=== PATIENT | female | born 1955 | race Caucasian/White ===

== ENCOUNTER 2016-07-31 10:35 | Inpatient (IN) ==
[2016-07-31] MEDS ORDERED: Ondansetron 4 MG/2 ML VIAL IVP ONE (11:08)
[2016-07-31] MEDS ORDERED: *HR* Morphine 2 MG/ML SYRINGE IVP ONE (11:08)
[2016-07-31] MEDS ORDERED: 0.9 % Sodium Chloride 1,000 ML IVC ONE (11:08)
--- NOTE | 2016-07-31 11:10 | Emergency Department Note ---
Disposition Clinical Impression: Small bowel obstruction due to adhesions Disposition: Admitted As Inpatient Condition: Fair Referrals: Mulu Gongora DO [Primary Care Provider] - Forms: ED Satisfaction Letter Time of Disposition: 16:02 Nausea/Vomiting/Diarrhea HPI - General Chief complaint: ED Nausea/Vomiting/Diarrhea Stated complaint: N/V/D Time Seen by Provider: 07/31/16 10:55 Source: patient, EMS Limitations: no limitations Nursing Notes Reviewed: Yes Vital Signs Reviewed: Yes - History of Present Illness HPI Narrative: Patient emergency department complaining of vomiting. Onset 10 PM last night. States she has vomited about 10 times a day without blood. Normal bowel movement this morning. 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 - Related Data Home Medications Medication Instructions Recorded Confirmed BuPROPion SR (12 HR) [Wellbutrin 300 mg PO QAM 04/01/15 07/31/16 SR] l Gasseri/B Bifidum/B Longum 1 each PO DAILY 11/24/15 07/31/16 [[employer] Capsule] Alprazolam [Xanax 1 MG Tablet] 1 mg PO BID PRN 07/31/16 07/31/16 Escitalopram [Lexapro] 10 mg PO DAILY 07/31/16 07/31/16 Multivitamin [Multi-Day Vitamins] 1 each PO DAILY 07/31/16 07/31/16 Previous Rx's Medication Instructions Recorded Metoclopramide HCl 1 - 2 tab PO Q6H PRN #60 tablet 09/12/15 Diphenoxylate/Atropine [Lomotil 1 each PO QID PRN #90 tablet 11/10/15 2.5 mg/0.025 mg] Dicyclomine [Bentyl] 20 mg PO QID PRN #60 capsule 11/24/15 Allergies Allergy/AdvReac Type Severity Reaction Status Date / Time NSAIDS (Non-Steroidal AdvReac See Verified 01/17/16 03:24 Anti-Inflamma Comments All systems ED: reviewed and negative except as stated. Constitutional: Denies: fever, chills Cardiovascular: Denies: chest pain Respiratory: Reports: dyspnea Gastrointestinal: Reports: abdominal pain, nausea, vomiting. Denies: diarrhea Past Medical History - Past Medical History Attestation: Yes The following information was validated with the patient. Source: patient Medical history: Reports: cancer, kidney stones, migraine, renal disease Surgical history: Reports: hysterectomy Psychiatric history: Reports: anxiety - Social History Smoking Status: Never smoker Smokeless Tobacco Status: No Alcohol use: Reports: none Drug use: Reports: none Physical Exam Patient awake and alert. Laying in bed. Holding her upper abdomen. Epigastric tenderness without guarding. - General Limitations: no limitations General appearance: alert, in no apparent distress - Head Head exam: atraumatic, normocephalic - Eye Eye exam: Present: normal appearance, PERRL, EOMI - ENT ENT exam: normal exam, normal oropharynx - Neck Neck exam: Present: normal inspection - Respiratory Respiratory exam: Present: normal lung sounds bilaterally - Cardiovascular Cardiovascular exam: Present: regular rate, normal rhythm - Abdominal Exam Abdominal exam: Present: soft, tenderness (Moderate epigastric without guarding) - Neurological Exam Neurological exam: Present: alert, oriented X3, CN II-XII intact - Psychiatric Psychiatric exam: Present: normal affect - Skin Skin exam: Present: warm, dry, intact Course - Reevaluation(s) Reevaluation #1: Patient feeling better at this time. Nausea and vomiting have resolved. Still with a lot of upper abdominal tenderness on exam. We will check CT. Time: 12:09 - Consultations Consultation #1: DIscussed with Dr Alvarez. Will see in consult. Time: 15:33 Consultation #2: Dr De Leon accepts Time: 16:01 Vital Signs Temperature 99.5 F 07/31/16 10:36 Pulse Rate 91 07/31/16 10:36 Respiratory Rate 16 07/31/16 10:36 Blood Pressure 158/97 07/31/16 10:36 O2 Sat by Pulse Oximetry 99 07/31/16 10:36 Temperature 99.5 F 07/31/16 10:36 Pulse Rate 98 07/31/16 15:39 Respiratory Rate 16 07/31/16 15:39 Blood Pressure 145/92 07/31/16 15:39 O2 Sat by Pulse Oximetry 95 07/31/16 15:39 Oxygen Delivery Oxygen Delivery Room Air Nausea/Vomiting/Diarrhea - MDM Narrative Medical decision making narrative: Patient was small bowel obstruction. Patient was still nauseated and vomiting. Also with hiccups. NG tube was placed by nursing. Admitted to medicine with surgical consult. - Lab Data Result diagrams: 07/31/16 12:48 07/31/16 12:48 Lab Results 07/31/16 07/31/16 07/31/16 Range/Units 12:48 12:48 12:48 WBC 12.5 H (4.3-11.1) K/mcL RBC 4.77 (3.82-4.97) M/mcL Hgb 13.8 (11.5-15.4) g/dL Hct 43.0 (35.3-44.9) % MCV 90.1 (83.0-100.0) fL MCH 28.9 (28.0-33.3) pg MCHC 32.1 (31.6-35.5) g/dL RDW 14.3 (11.5-14.5) % Plt Count 266 (140-400) K/mcL MPV 10.7 (9.4-12.4) fL Immature Gran % 0.6 (0-4) % Seg Neutrophils % 90.3 % Lymphocytes % 4.6 % Monocytes % 4.3 % Eosinophils % 0.0 % Basophils % 0.2 % Neutrophils # 11.3 H (1.6-8.9) K/mcL Lymphocytes # 0.6 (0.6-4.6) K/mcL Monocytes # 0.5 (0.0-1.3) K/mcL Eosinophils # 0.0 (0.0-0.6) K/mcL Basophils # 0.0 (0.0-0.2) K/mcL Sodium 140 (136-145) mEq/L Potassium 4.4 (3.5-4.5) mEq/L Chloride 104 (98-109) mEq/L Carbon Dioxide 25 (19-29) mEq/L BUN 25 H (7-20) mg/dL Creatinine 1.32 H (0.57-1.11) mg/dL Est GFR ( Amer) 50 L (> 60) Est GFR (Non-Af Amer) 41 L (> 60) BUN/Creatinine Ratio 19 (6-26) Glucose 137 H (70-99) mg/dL Calculated Osmolality 297 (280-300) Calcium 9.7 (8.6-10.8) mg/dL Total Bilirubin 0.6 (0.2-1.2) mg/dL AST 57 H (5-34) Units/L ALT 58 H (0-55) Units/L Alkaline Phosphatase 125 (38-126) Units/L Troponin I 0.00 (0-0.03) ng/mL Serum Total Protein 7.5 (6.0-8.3) g/dL Albumin 4.0 (3.5-5.0) g/dL Globulin 3.5 (2.4-3.5) g/dL Albumin/Globulin Ratio 1.1 (1.1-2.2) Lipase 28 (8-78) Units/L - Radiology Data Radiology results reviewed: Yes I reviewed the patient's radiology results. Abdomen/Pelvis CT 07/31/16 12:10 IMPRESSION: 1. Acute small bowel obstruction with transition point in the right lower quadrant. The small bowel loops measure up to 3 cm. No pneumatosis. Findings are likely due to adhesions. 2. Bilateral punctate nonobstructive renal calculi. 3. Fatty liver. 4. Diverticulosis. D/ / 07/31/2016 15:07:02 Sariah Hutson MD / aliciartnael Interpreting Provider: Sariah Hutson MD - EKG Data EKG attestation: Yes I reviewed and interpreted this EKG. EKG results narrative: Anteroseptal ST depressions. Normal sinus at 77. t wave inversion III. Left axis deviation Critical Care Time Critical Care Time: Yes Total Critical Care Time: 35 Attestation: Critical care performed: Time is exclusive of separately billable procedures. Time includes: direct patient care, patient reassessment, coordination of patient care, interpretation of data (laboratory data, radiology data, and respiratory data), review of patient's medical records, medical consultation and documentation of patient care. Procedures included in critical care time: Procedures excluded from critical care time:
[2016-07-31 13:02] LABS: Basophils % 0.2 %; Hemoglobin 13.8 g/dL (11.5-15.4); Immature Granulocytes % 0.6 % (0-4); Lymphocytes # 0.6 K/mcL (0.6-4.6); Lymphocytes % 4.6 %; Mean Corpuscular HGB Conc 32.1 g/dL (31.6-35.5); Mean Corpuscular Hemoglobin 28.9 pg (28.0-33.3); Mean Corpuscular Volume 90.1 fL (83.0-100.0); Mean Platelet Volume 10.7 fL (9.4-12.4); Monocytes # 0.5 K/mcL (0.0-1.3); Monocytes % 4.3 %; Neutrophils # 11.3 K/mcL (1.6-8.9); Platelet Count 266 K/mcL (140-400); Red Blood Count 4.77 M/mcL (3.82-4.97); Red Cell Distribution Width 14.3 % (11.5-14.5); Segmented Neutrophils % 90.3 %
[2016-07-31] MEDS ORDERED: Ondansetron 4 MG/2 ML VIAL IV ONE (13:03)
[2016-07-31 13:10] LABS: Albumin/Globulin Ratio 1.1 (1.1-2.2); Bilirubin,Total 0.6 mg/dL (0.2-1.2); Calcium 9.7 mg/dL (8.6-10.8); Globulin 3.5 g/dL (2.4-3.5); Potassium 4.4 mEq/L (3.5-4.5); Total Protein 7.5 g/dL (6.0-8.3)
[2016-07-31] MEDS ORDERED: Dicyclomine 20 MG/2 ML AMPUL IM ONE (13:59)
[2016-07-31] MEDS: *HR* Promethazine 25 MG/ML VIAL IVP ONE ×2 (14:14→18:43)
[2016-07-31] MEDS ORDERED: *HR* Midazolam HCl 2 MG/2 ML VIAL IVP ONE (15:07)
[2016-07-31] MEDS ORDERED: *HR* HYDROcodone/Acet 5/325 mg TABLET PO ONE (15:07)
[2016-07-31] MEDS ORDERED: *HR* HYDROmorphone (PF) 1 MG/ML SYRINGE IV ONE ×2 (15:12→16:37)
[2016-07-31 16:34] LABS: INR 1.1; Prothrombin Time 11.6 Seconds (9.4-12.1)
[2016-07-31] MEDS ORDERED: *HR* HYDROmorphone (PF) 1 MG/ML SYRINGE ONE (16:41)
[2016-07-31 16:42] LABS: Activated Partial Thrombo Time 20.2 Seconds (26.0-36.0)
[2016-07-31] MEDS ORDERED: Ondansetron 4 MG/2 ML VIAL IVP PRN (16:44)
[2016-07-31] MEDS ORDERED: Naloxone 0.4 MG/ML INJ IVP PRN (16:44)
[2016-07-31] MEDS ORDERED: *HR* Morphine 2 MG/ML SYRINGE IVP PRN (16:49)
[2016-07-31] MEDS ORDERED: *HR* HYDROmorphone (PF) 1 MG/ML SYRINGE IVP PRN (16:49)
--- NOTE | 2016-07-31 16:57 | Internal Med History&Physical ---
Date of Encounter: 07/31/16 Time of Encounter: 16:30 Assessment and Plan (1) Small bowel obstruction due to adhesions Current visit: Yes Status: Acute Likely secondary to adhesions from radiation CT abd/pelvis: Acute small bowel obstruction with transition point in the right lower quadrant. No penumatosis Surgery eval requested by ER physician continue NGT support, hooked to suction NPO except ice chips (for bowel rest) aggressive pain control IV fluids (2) Leukocytosis Current visit: Yes Status: Acute Likely reactive will monitor off abx at this time Qualifiers: Leukocytosis type: unspecified Qualified Code(s): D72.829 - Elevated white blood cell count, unspecified (3) Anxiety Current visit: Yes Status: Chronic Patient reports of taking Xanax twice a day as needed but mainly at bedtime to help her sleep. Will start Ativan IV prn while she is NPO for bowel rest (4) CKD (chronic kidney disease) Current visit: Yes Status: Chronic Kidney function at baseline avoid nephrotoxic agents continue IV fluids monitor renal function Qualifiers: Chronic kidney disease stage: stage 3 (moderate) Qualified Code(s): N18.3 - Chronic kidney disease, stage 3 (moderate) (5) DVT prophylaxis Current visit: Yes Status: Acute Heparin SQ (6) Vaginal cancer Current visit: Yes Status: Chronic Currently in remission s/p radiation and chemotherapy Internal Medicine - H&P: HPI Chief complaint: abdominal pain, nausea, vomiting Admitted From: Home Plans for Post Hospital Care: Home History of present illness: Ms. 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 Patient states she has had similar episodes in the past secondary to her proctitis but never lasted this long due to which she came to the ER. She reports of having two loose bowel movements earlier today and states that is normal for her. In the ER, she had a CT abd/pelvis which showed acute small bowel obstruction with transition point in the right lower quadrant. Surgery consultation was requested by the ER Physician. A NGT was placed. During my evaluation, patient has a NGT in place hooked to suction, draining dark, bilious fluid. She has received Dilaudid and morphine for pain control and Zofran and promethazine for nausea. She reports of feeling better and states the pain medications help however the effects do not last for very long. She is also noted to have left chest wall chemotherapy port, and states this was initially placed in 2011 when she started receiving chemotherapy. She did not want to get it removed because she was worried if she needed any treatments in the future. She denies any headache, shortness of breath, chest pain, fever , or chills. Past Med Surg Social Fam HX - Past Medical History Medical history: cancer, kidney stones, migraine, renal disease Psychiatric history: anxiety - Past Surgical History Surgical History: hysterectomy - Social History Smoking Status: Never smoker Smokeless Tobacco Status: No Alcohol use: none Drug use: none Internal Medicine - H&P: Meds BuPROPion SR (12 HR) [Wellbutrin SR] 300 mg PO QAM 04/01/15 [History] Metoclopramide HCl 1 - 2 tab PO Q6H PRN #60 tablet 09/12/15 [Rx] Diphenoxylate/Atropine [Lomotil 2.5 mg/0.025 mg] 1 each PO QID PRN #90 tablet [Rx] Dicyclomine [Bentyl] 20 mg PO QID PRN #60 capsule 11/24/15 [Rx] l Gasseri/B Bifidum/B Longum [[employer] Capsule] 1 each PO DAILY [History] Alprazolam [Xanax 1 MG Tablet] 1 mg PO BID PRN 07/31/16 [History] Escitalopram [Lexapro] 10 mg PO DAILY 07/31/16 [History] Multivitamin [Multi-Day Vitamins] 1 each PO DAILY 07/31/16 [History] Allergies NSAIDS (Non-Steroidal Anti-Inflamma Adverse Reaction (Verified 01/17/16 03:24) See Comments All Systems PM: A 10-system review of systems was performed and is negative for pertinent findings except as documented above in the HPI. - Constitutional Constitutional: as per HPI - Constitutional Vitals: Temp Pulse Resp BP Pulse Ox 99.5 F 98 16 143/86 95 07/31/16 10:36 07/31/16 15:39 07/31/16 16:45 07/31/16 16:45 02/07/17 15:39 General appearance: Present: A&O X 3 (NGT in place hooked to suction), pleasant , no acute distress, obese, answers questions appropriately - Head Head exam: Present: atraumatic, normocephalic - Eye Eye exam: Present: conjuntiva pink, sclera anicteric - Respiratory Respiratory exam: Present: CTAB. Absent: respiratory distress, wheezes (left chest wall chemoport) - Cardiovascular Cardiovascular exam: Present: RRR, +S1, +S2 - GI/Abdominal GI/Abdominal exam: Present: normal bowel sounds, soft, tenderness (diffuse tenderness). Absent: distended, guarding, rebound - Extremities Exam Extremities exam: Present: warm, radial pulses palpable and symetrical. Absent : pedal edema - Neurological Exam Neurological exam: Present: alert, oriented X3, no focal deficits - Psychiatric Psychiatric exam: Present: normal affect, normal mood Internal Med - H&P Results - Labs CBC & Chem 7: 07/31/16 12:48 07/31/16 12:48
--- NOTE | 2016-07-31 17:21 | General Surgery Consult Note ---
<AntonioDashawn M - Last Filed: 07/31/16 20:38> Date of Encounter: 07/31/16 Medications and Allergies BuPROPion SR (12 HR) [Wellbutrin SR] 300 mg PO QAM 04/01/15 [History] Metoclopramide HCl 1 - 2 tab PO Q6H PRN #60 tablet 09/12/15 [Rx] Diphenoxylate/Atropine [Lomotil 2.5 mg/0.025 mg] 1 each PO QID PRN #90 tablet [Rx] Dicyclomine [Bentyl] 20 mg PO QID PRN #60 capsule 11/24/15 [Rx] l [employer]/B Bifidum/B Longum [[employer] Capsule] 1 each PO DAILY [History] Alprazolam [Xanax 1 MG Tablet] 1 mg PO BID PRN 07/31/16 [History] Escitalopram [Lexapro] 10 mg PO DAILY 07/31/16 [History] Multivitamin [Multi-Day Vitamins] 1 each PO DAILY 07/31/16 [History] Allergies NSAIDS (Non-Steroidal Anti-Inflamma Adverse Reaction (Verified 01/17/16 03:24) See Comments Review of Systems All systems PM: A 10-system review of systems was performed and is negative for pertinent findings except as documented above in the HPI. General Surgery Exam Initial Vital Signs Temp Pulse Resp BP Pulse Ox 99.5 F 91 16 158/97 99 07/31/16 10:36 07/31/16 10:36 07/31/16 10:36 07/31/16 10:36 07/31/16 10:36 Exam Initial Vital Signs Temp Pulse Resp BP Pulse Ox 99.5 F 91 16 158/97 99 07/31/16 10:36 07/31/16 10:36 07/31/16 10:36 07/31/16 10:36 07/31/16 10:36 Results - Labs 07/31/16 12:48 07/31/16 12:48 Abnormal lab results WBC 12.5 K/mcL (4.3-11.1) H 07/31/16 12:48 Neutrophils # 11.3 K/mcL (1.6-8.9) H 07/31/16 12:48 APTT 20.2 Seconds (26.0-36.0) L 07/31/16 16:20 BUN 25 mg/dL (7-20) H 07/31/16 12:48 Creatinine 1.32 mg/dL (0.57-1.11) H 07/31/16 12:48 Est GFR ( Amer) 50 (> 60) L 07/31/16 12:48 Est GFR (Non-Af Amer) 41 (> 60) L 07/31/16 12:48 Glucose 137 mg/dL (70-99) H 07/31/16 12:48 POC Glucose 146 (58-89) H 07/31/16 17:30 AST 57 Units/L (5-34) H 07/31/16 12:48 ALT 58 Units/L (0-55) H 07/31/16 12:48 All other labs normal. Consult Discharge Plan - Plan Referrals: Mulu Gongora, DO [Primary Care Provider] - - Attending Attestation I examined this patient and my medical decision-making was reviewed with the CAREER DEVELOPMENT ENGINEER/PA/Advanced Practice Nurse/Resident Physician. I agree with the documented findings, disposition and treatment plan as described except to the extent set forth below. I reviewed the assessment and physical examination. Noted symptoms of abdominal pain and nausea. I personally reviewed the CT scan findings-it appears that her symptoms are likely due to PSBO caused either from radiation for vaginal carcinoma, adhesions, or both. I agree with NGT decompression, pain control, and serial abdominal exams. Will follow with you. <Hansel Vyas - Last Filed: 08/01/16 11:43> Date of Encounter: 08/01/16 Time of Encounter: 16:30 Assessment and Plan (1) Small bowel obstruction due to adhesions Current Visit: Yes Status: Acute Small bowel obstruction likely secondary to adhesions vs radiation. NG to LIWS NPO with ice chips IV fluids @125ml/hr Serial abdominal exams Continue anti-emetics supportive care/ pain control (2) Leukocytosis Current Visit: Yes Status: Acute Likely reactive. repeat labs in AM. Qualifiers: Leukocytosis type: unspecified Qualified Code(s): D72.829 - Elevated white blood cell count, unspecified (3) Anxiety Current Visit: Yes Status: Chronic Management per medicine service. (4) CKD (chronic kidney disease) Current Visit: Yes Status: Chronic Management per medicine service. Qualifiers: Chronic kidney disease stage: stage 3 (moderate) Qualified Code(s): N18.3 - Chronic kidney disease, stage 3 (moderate) (5) History of cancer of vagina Current Visit: Yes Status: Chronic Diagnosed in 2011, s/p chemo/radiation. Currently in remission. (6) DVT prophylaxis Current Visit: Yes Status: Acute Heparin 5,000units Q12H History of Present Illness Consult date: 07/31/16 Reason for consult: abdominal pain Requesting physician: Amena Whittington History of present illness: Ms. Jasmine is a 60 year old female with PMHx of vaginal cancer s/p chemotherapy, radiation- currently in remission with associated radiation proctitis and anemia; further history of CKD, migraines, and nephrolithiasis. Patient present to the ED for diffuse abdominal with associated nausea and vomiting beginning approx 10pm last night. She states the pain is constant and located in the lower abdomen, more localized to the suprapubic and LLQ. Patient states that this is different from previous episodes of proctitis. Last BM noted to be the AM, but denies any flatus throughout the day. She denies any fever, chills, hematemesis, dizziness, headache. Only notes shortness of breath when pain is worse. She denies any bloody stools today, but does note history of dark stools at times. Patient has port that was originally placed in 2011 for chemotherapy, patient states the port was left in placed for as she has needed frequent access with secondary anemia. Patient currently states pain is better with NG tube and administration of antiemetics and pain control. Patient states last colonscopy approx 2 years ago. Past Med Surg Social Fam HX - Past Medical History Source: patient Medical history: cancer, kidney stones, migraine, renal disease Psychiatric history: anxiety - Past Surgical History Surgical History: hysterectomy - Social History Smoking Status: Never smoker Smokeless Tobacco Status: No Alcohol use: none Drug use: none Review of Systems All systems PM: A 10-system review of systems was performed and is negative for pertinent findings except as documented above in the HPI. - Constitutional no chills, no fever(s) - EENT Nose, mouth and throat: no dizziness, no dysphagia - Cardiovascular no chest pain, no palpitations - Respiratory dyspnea (secondary to pain) - Gastrointestinal abdominal pain, cramping, nausea, vomiting, no hematemesis, no hematochezia - Genitourinary Genitourinary: no dysuria, no flank pain - Musculoskeletal no muscle weakness - Neurological no confusion, no focal weakness - Psychiatric no anxiety - Endocrine no flushing, no palpitations General Surgery Exam Initial Vital Signs Temp Pulse Resp BP Pulse Ox 99.5 F 91 16 158/97 99 07/31/16 10:36 07/31/16 10:36 07/31/16 10:36 07/31/16 10:36 07/31/16 10:36 - General physical appearance well developed, well nourished, no distress - Eyes normal ocular movement - ENT normal mucosa, atraumatic, normocephalic - Neck trachea midline - Respiratory normal respiratory effort, clear to auscultation - Cardiovascular Cardiovascular exam: Present: RRR - Abdomen Abdomen general surgery: Present: bowel sounds present, soft, tender (difusely tender, worst in LLQ and suprapubic) - Integumentary Integumentary general surgery: Present: warm and dry - Neurologic Present: CN 2-12 grossly intact - Psychiatric Psychiatric general surgery: Present: A&Ox3, speech is normal, memory intact Exam Initial Vital Signs Temp Pulse Resp BP Pulse Ox 99.5 F 91 16 158/97 99 07/31/16 10:36 07/31/16 10:36 07/31/16 10:36 07/31/16 10:36 07/31/16 10:36 Results - Labs 08/01/16 04:20 08/01/16 04:20 Abnormal lab results WBC 12.5 K/mcL (4.3-11.1) H 07/31/16 12:48 Neutrophils # 11.3 K/mcL (1.6-8.9) H 07/31/16 12:48 APTT 20.2 Seconds (26.0-36.0) L 07/31/16 16:20 BUN 25 mg/dL (7-20) H 07/31/16 12:48 Creatinine 1.32 mg/dL (0.57-1.11) H 07/31/16 12:48 Est GFR ( Amer) 50 (> 60) L 07/31/16 12:48 Est GFR (Non-Af Amer) 41 (> 60) L 07/31/16 12:48 Glucose 137 mg/dL (70-99) H 07/31/16 12:48 AST 57 Units/L (5-34) H 07/31/16 12:48 ALT 58 Units/L (0-55) H 07/31/16 12:48 All other labs normal.
[2016-07-31] MEDS ORDERED: *HR* Promethazine 25 MG/ML VIAL IM ONE (18:14)
[2016-07-31] MEDS: 0.9 % Sodium Chloride 1,000 ML IVC SCH (18:51)
--- NOTE | 2016-07-31 19:51 | Electrocardiograph Report ---
[facility] Date: 2016-07-31 Pat Name: Ros Jasmine Department: 103 Room: 3A37 Gender: F Tenoner Operator: : [id number] Requested By: Amena See Order Number: [id number] Reading MD: Bakari Mae DO Measurements Intervals [place] Rate: 77 P: 39 PA: 132 QRS: -33 QRSD: 81 T: 14 QT: 391 QTc: 423 Interpretive Statements SINUS RHYTHM MARKED LEFT AXIS DEVIATION MODERATE ST DEPRESSION Electronically Signed On 07-31-2016 19:49:34 EST by Bakari Mae DO
[2016-07-31] MEDS: *HR* Heparin 5,000 UNIT/ML VIAL SQ SCH (21:39)
[2016-08-01] MEDS ORDERED: *HR* Promethazine 25 MG/ML VIAL IVP PRN (00:01)
[2016-08-01 05:00] LABS: Hematocrit 38.4 % (35.3-44.9); Mean Corpuscular HGB Conc 31.8 g/dL (31.6-35.5); Mean Corpuscular Hemoglobin 28.8 pg (28.0-33.3); Mean Corpuscular Volume 90.6 fL (83.0-100.0); Mean Platelet Volume 10.8 fL (9.4-12.4); Platelet Count 231 K/mcL (140-400); Red Blood Count 4.24 M/mcL (3.82-4.97); Red Cell Distribution Width 14.6 % (11.5-14.5)
[2016-08-01 05:12] LABS: Magnesium 2.2 mg/dL (1.6-2.6); Phosphorous 4.3 mg/dL (2.3-4.7); Potassium 3.9 mEq/L (3.5-4.5)
[2016-08-01 05:14] LABS: Calcium 8.1 mg/dL (8.6-10.8)
[2016-08-01 05:27] LABS: Hemoglobin 12.2 g/dL (11.5-15.4)
[2016-08-01] MEDS: *HR* Heparin 5,000 UNIT/ML VIAL SQ SCH ×2 (06:20→17:31)
[2016-08-01 06:24] LABS: Monocytes # 0.8 K/mcL (0.0-1.3); Neutrophils # 3.9 K/mcL (1.6-8.9); Platelet Estimate Normal (Normal)
[2016-08-01] MEDS: 0.9 % Sodium Chloride 1,000 ML IVC SCH ×2 (08:47→17:31)
[2016-08-01] MEDS ORDERED: Water for inj. (sterile) 10 ML IV ONE (10:46)
[2016-08-01] MEDS: *HR* LORazepam 2 MG/ML VIAL IVP PRN (10:49)
[2016-08-01] MEDS ORDERED: *HR* HYDROmorphone (PF) 1 MG/ML SYRINGE IVP PRN (11:41)
--- NOTE | 2016-08-01 11:51 | Internal Med Progress Note ---
Date of Encounter: 08/01/16 Time of Encounter: 11:49 - Assessment and plan (1) Small bowel obstruction due to adhesions Current Visit: Yes Status: Acute Assessment and plan: secondary to adhesions from radiation CT abd/pelvis: Acute small bowel obstruction with transition point in the right lower quadrant. No penumatosis Surgery eval appreciated continue NGT support, hooked to suction NPO except ice chips (for bowel rest) aggressive pain control IV fluids (2) Leukocytosis Current Visit: Yes Status: Acute Assessment and plan: Improving Qualifiers: Leukocytosis type: unspecified Qualified Code(s): D72.829 - Elevated white blood cell count, unspecified (3) Anxiety Current Visit: Yes Status: Chronic Assessment and plan: Ativan IV prn while she is NPO for bowel rest (4) CKD (chronic kidney disease) Current Visit: Yes Status: Chronic Assessment and plan: appears to be at baseline but kidney function improved from previous day will continue to monitor Qualifiers: Chronic kidney disease stage: stage 3 (moderate) Qualified Code(s): N18.3 - Chronic kidney disease, stage 3 (moderate) (5) DVT prophylaxis Current Visit: Yes Status: Acute Assessment and plan: heparin sq (6) Vaginal cancer Current Visit: Yes Status: Chronic Assessment and plan: Currently in remission s/p radiation and chemotherapy - Subjective Interval history: Patient seen and examined at bedside. NGT continues to drain billous fluid, NGT output decreasing. Pt reports of feeling better and requiring less pain medications compared to previous day. No overnight events were reported. - Constitutional Vitals: Temp Pulse Resp BP Pulse Ox 98.6 F 79 14 128/79 95 08/01/16 10:39 08/01/16 10:39 08/01/16 10:39 08/01/16 10:39 08/01/16 10:39 General appearance: Present: A&O X 3 (NGT in place hooked to suction), pleasant , no acute distress, obese, answers questions appropriately - Head Head exam: Present: atraumatic, normocephalic - Eye Eye exam: Present: normal appearance, conjuntiva pink, sclera anicteric - Respiratory Respiratory exam: Present: CTAB. Absent: respiratory distress, wheezes - Cardiovascular Cardiovascular exam: Present: RRR, +S1, +S2 - GI/Abdominal GI/Abdominal exam: Present: normal bowel sounds, soft, no peritoneal signs. Absent: distended, guarding, tenderness - Extremities Exam Extremities exam: Present: pedal edema, warm, radial pulses palpable and symetrical. Absent: calf tenderness, tenderness - Neurological Exam Neurological exam: Present: alert, oriented X3 - Psychiatric Psychiatric exam: Present: normal affect, normal mood Internal Medicine: Result - Labs CBC & Chem 7: 08/01/16 04:20 08/01/16 04:20 Labs: Short CBC 08/01/16 Range/Units 04:20 WBC 5.7 D (4.3-11.1) K/mcL Hgb 12.2 D (11.5-15.4) g/dL Hct 38.4 (35.3-44.9) % Plt Count 231 (140-400) K/mcL Neutrophils # 3.9 (1.6-8.9) K/mcL BMP 08/01/16 04:20 Sodium 142 Potassium 3.9 Chloride 108 Carbon Dioxide 27 BUN 35 H D Creatinine 1.21 H Glucose 144 H Calcium 8.1 L D - ABG Interpretation ABG results: PT/INR, D-dimer PT 11.6 Seconds (9.4-12.1) 07/31/16 16:20 Consult Discharge Plan - Plan Referrals: Mulu Gongora DO [Primary Care Provider] -
--- NOTE | 2016-08-01 13:04 | General Surgery Progress Note ---
Date of Encounter: 08/01/16 Time of Encounter: 13:02 - Assessment and Plan (1) Small bowel obstruction due to adhesions Current Visit: Yes Status: Acute It appears that the patient's symptoms may be resolving. I would recommend continued NGT decompression today with continued IVF hydration. Ice chips ok. Continue serial abdominal exams. If NGT output continues to be low then will consider clamping or further diet advancement. Subjective Patient reports: feels better (Admits to flatus. No nausea. NGT functionig. BM yesterday evening.) Objective Vital Signs - Last 8 Hours Temp Pulse Resp BP Pulse Ox 08/01/16 10:39 98.6 F 79 14 128/79 95 08/01/16 07:00 98.1 F 74 16 101/67 96 Intake and Output 07/31/16 08/01/16 08/01/16 23:59 07:59 15:59 Intake Total 0 / 0 0 / 0 1000 / 1000 Output Total 0 / 0 800 / 800 Balance 0 / 0 0 / 0 200 / 200 Intake: IV Fluids 1000 / 1000 0.9 % Sodium Chloride 1, 1000 / 1000 000 ML @ 125 mls/hr IVC . Q8H [facility] Rx#:[id number] Oral 0 / 0 0 / 0 Output: Urine 0 / 0 200 / 200 Gastric Drainage 600 / 600 Other: Meal NPO NPO Percent of Meal Consumed 0% Stool Size Large Stool Consistency loose Stool Color Brown # Voids 1 # Bowel Movements 1 Blood Glucose* 146 117 94 - General physical appearance well nourished, no distress - Abdomen Abdomen: Present: bowel sounds present, soft, non tender - Labs 08/01/16 04:20 08/01/16 04:20 Diabetes panel 08/01/16 Range/Units 04:20 Sodium 142 (136-145) mEq/L Potassium 3.9 (3.5-4.5) mEq/L Chloride 108 (98-109) mEq/L Carbon Dioxide 27 (19-29) mEq/L BUN 35 H D (7-20) mg/dL Creatinine 1.21 H (0.57-1.11) mg/dL Glucose 144 H (70-99) mg/dL Calcium 8.1 L D (8.6-10.8) mg/dL Calcium panel 08/01/16 Range/Units 04:20 Calcium 8.1 L D (8.6-10.8) mg/dL Phosphorus 4.3 (2.3-4.7) mg/dL Pituitary panel 08/01/16 Range/Units 04:20 Sodium 142 (136-145) mEq/L Potassium 3.9 (3.5-4.5) mEq/L Chloride 108 (98-109) mEq/L Carbon Dioxide 27 (19-29) mEq/L BUN 35 H D (7-20) mg/dL Creatinine 1.21 H (0.57-1.11) mg/dL Glucose 144 H (70-99) mg/dL Calcium 8.1 L D (8.6-10.8) mg/dL Adrenal panel 08/01/16 Range/Units 04:20 Sodium 142 (136-145) mEq/L Potassium 3.9 (3.5-4.5) mEq/L Chloride 108 (98-109) mEq/L Carbon Dioxide 27 (19-29) mEq/L BUN 35 H D (7-20) mg/dL Creatinine 1.21 H (0.57-1.11) mg/dL Glucose 144 H (70-99) mg/dL Calcium 8.1 L D (8.6-10.8) mg/dL Consult Discharge Plan - Plan Referrals: Mulu Gongora DO [Primary Care Provider] -
[2016-08-01 18:03] LABS: Bilirubin,Urine Small (Negative); Blood,Urine Small (Negative); Clarity,Urine Clear (Clear); Color,Urine Dark Yellow (Yellow); Glucose,Urine (UA) Normal (Normal); Ketones,Urine 15 mg/dL (Negative); Leukocyte Esterase,Urine Negative (Negative); Nitrite,Urine Negative (Negative); PH,Urine 5.5 pH Units (5.0-8.0); Protein,Urine 30 mg/dL (Neg-Trace); Specific Gravity,Urine > 1.030 (1.010-1.025); Urobilinogen,Urine Normal (Normal)
[2016-08-01 18:06] LABS: Bacteria,Urine None Seen per hpf (None-Few); Hyaline Casts,Urine None Seen per lpf (None-Few); Squamous Epithelial Cell,Urine Many per lpf (None-Few)
[2016-08-01] MEDS ORDERED: *HR* LORazepam 0.5 MG TABLET PO ONE (23:58)
[2016-08-02] MEDS: *HR* LORazepam 2 MG/ML VIAL IVP PRN ×3 (00:28→21:37)
[2016-08-02] MEDS ORDERED: *HR* LORazepam 2 MG/ML VIAL IVP ONE (00:52)
[2016-08-02] MEDS: 0.9 % Sodium Chloride 1,000 ML IVC SCH ×2 (01:58→21:39)
--- NOTE | 2016-08-02 03:18 | Event Note ---
Date of Encounter: 08/02/16 Time of Encounter: 03:16 RN reported that the patient had episode of hematuria with clots. Patient apparently had episodes of hematuria in the past and follows with urologist, but noticed a lot of blood. Plan: D/C heparin; check coags (normal on 07/31/16); check CBC; Type and screen. Urine culture is pending. Day team to f/u
[2016-08-02 04:28] LABS: Basophils % 0.6 %; Eosinophils % 0.2 %; Hematocrit 36.4 % (35.3-44.9); Hemoglobin 11.3 g/dL (11.5-15.4); Immature Granulocytes % 0.6 % (0-4); Lymphocytes # 0.7 K/mcL (0.6-4.6); Lymphocytes % 13.3 %; Mean Corpuscular Hemoglobin 28.5 pg (28.0-33.3); Mean Corpuscular Volume 91.9 fL (83.0-100.0); Mean Platelet Volume 10.6 fL (9.4-12.4); Monocytes # 0.6 K/mcL (0.0-1.3); Monocytes % 12.1 %; Neutrophils # 3.8 K/mcL (1.6-8.9); Platelet Count 194 K/mcL (140-400); Red Blood Count 3.96 M/mcL (3.82-4.97); Red Cell Distribution Width 14.4 % (11.5-14.5); Segmented Neutrophils % 73.2 %
[2016-08-02 04:38] LABS: Activated Partial Thrombo Time 23.8 Seconds (26.0-36.0)
[2016-08-02 04:48] LABS: BUN/Creatinine Ratio 31 (6-26); Blood Urea Nitrogen 32 mg/dL (7-20); Calcium 8.4 mg/dL (8.6-10.8); Carbon Dioxide 23 mEq/L (19-29); Chloride 112 mEq/L (98-109); Glucose 99 mg/dL (70-99); Magnesium 1.9 mg/dL (1.6-2.6); Osmolality,Calculated 309 (280-300); Phosphorous 2.4 mg/dL (2.3-4.7); Potassium 3.3 mEq/L (3.5-4.5); Sodium 146 mEq/L (136-145); eGFR For African Americans > 60 (> 60); eGFR For Non-African Americans 55 (> 60)
[2016-08-02 06:37] LABS: INR 1.2; Prothrombin Time 12.9 Seconds (9.4-12.1)
[2016-08-02] MEDS ORDERED: Potassium Chloride 20 MEQ, Lidocaine 1% 2 ML in D5% in Water 250 ML IVPB ONE (08:09)
[2016-08-02] MEDS ORDERED: *HR* LORazepam 2 MG/ML VIAL IVP PRN (10:48)
--- NOTE | 2016-08-02 10:54 | Internal Med Progress Note ---
Date of Encounter: 08/02/16 Time of Encounter: 10:53 - Assessment and plan (1) Small bowel obstruction due to adhesions Current Visit: Yes Status: Acute Assessment and plan: secondary to adhesions from radiation CT abd/pelvis: Acute small bowel obstruction with transition point in the right lower quadrant. No penumatosis Surgery eval appreciated continue NGT support, hooked to suction Clamped NGT at this time as per surgery advance to clears, if nausea recurs, will restart NGT support aggressive pain control IV fluids (2) Leukocytosis Current Visit: Yes Status: Resolved Qualifiers: Leukocytosis type: unspecified Qualified Code(s): D72.829 - Elevated white blood cell count, unspecified (3) Anxiety Current Visit: Yes Status: Chronic Assessment and plan: Ativan IV prn while she is NPO for bowel rest (4) CKD (chronic kidney disease) Current Visit: Yes Status: Chronic Assessment and plan: appears to be at baseline but kidney function improved from previous day will continue to monitor Qualifiers: Chronic kidney disease stage: stage 3 (moderate) Qualified Code(s): N18.3 - Chronic kidney disease, stage 3 (moderate) (5) DVT prophylaxis Current Visit: Yes Status: Acute Assessment and plan: IPCD (6) Vaginal cancer Current Visit: Yes Status: Chronic Assessment and plan: Currently in remission s/p radiation and chemotherapy (7) Hematuria Current Visit: Yes Status: Acute Assessment and plan: Improved urology eval consulted likely secondary to radiation will continue to monitor - Subjective Interval history: Patient seen and examined at bedside. NGT continues to drain billous fluid, NGT output decreasing. Pt reports of feeling better and requiring less pain medications compared to previous day. Overnight patient was noted to have hematuria with blood clots and reports of having history of hematuria. Hematuria improved this morning. H&H stable. Heparin SQ held. - Constitutional Vitals: Temp Pulse Resp BP Pulse Ox 99.0 F 80 12 131/76 98 08/02/16 07:09 08/02/16 07:09 08/02/16 07:09 08/02/16 07:09 08/02/16 07:09 General appearance: Present: A&O X 3 (NGT in place hooked to suction), pleasant , no acute distress, obese, answers questions appropriately - Head Head exam: Present: atraumatic, normocephalic - Eye Eye exam: Present: normal appearance, conjuntiva pink, sclera anicteric - Respiratory Respiratory exam: Present: CTAB. Absent: respiratory distress, wheezes - Cardiovascular Cardiovascular exam: Present: RRR, +S1, +S2 - GI/Abdominal GI/Abdominal exam: Present: normal bowel sounds, soft. Absent: distended, tenderness - Extremities Exam Extremities exam: Present: warm, radial pulses palpable and symetrical. Absent : calf tenderness, pedal edema - Neurological Exam Neurological exam: Present: alert, oriented X3 - Psychiatric Psychiatric exam: Present: normal affect, normal mood Internal Medicine: Result - Labs CBC & Chem 7: 08/02/16 04:00 08/02/16 04:00 Labs: Short CBC 08/02/16 Range/Units 04:00 WBC 5.2 (4.3-11.1) K/mcL Hgb 11.3 L (11.5-15.4) g/dL Hct 36.4 (35.3-44.9) % Plt Count 194 (140-400) K/mcL Neutrophils # 3.8 (1.6-8.9) K/mcL BMP 08/02/16 04:00 Sodium 146 H Potassium 3.3 L Chloride 112 H Carbon Dioxide 23 BUN 32 H Creatinine 1.03 Glucose 99 Calcium 8.4 L Urine 08/01/16 Range/Units 17:45 Urine Color Dark Yellow (Yellow) Urine Clarity Clear (Clear) Urine pH 5.5 (5.0-8.0) pH Units Ur Specific [place] > 1.030 H (1.010-1.025) Urine Protein 30 H (Neg-Trace) mg/dL Urine Glucose (UA) Normal (Normal) mg/dL - ABG Interpretation ABG results: PT/INR, D-dimer PT 12.9 Seconds (9.4-12.1) H 08/02/16 04:00 Consult Discharge Plan - Plan Referrals: Mulu Gongora DO [Primary Care Provider] -
[2016-08-02] MEDS ORDERED: Water for inj. (sterile) 10 ML IV ONE (11:22)
--- NOTE | 2016-08-02 14:50 | General Surgery Progress Note ---
<Hansel Vyas - Last Filed: 08/02/16 15:15> Date of Encounter: 08/02/16 Time of Encounter: 14:30 - Assessment and Plan (1) Small bowel obstruction due to adhesions Current Visit: Yes Status: Acute Will clamp NG, may reconnect to LIWS if becomes nausea. NPO with ice chips currently. Will advance to limited clears. IV fluids @125ml/hr Serial abdominal exams Continue anti-emetics supportive care/ pain control (2) Leukocytosis Current Visit: Yes Status: Resolved WBC 12.5>5.2 Afebrile Qualifiers: Leukocytosis type: unspecified Qualified Code(s): D72.829 - Elevated white blood cell count, unspecified (3) Anxiety Current Visit: Yes Status: Chronic Management per medicine service. (4) CKD (chronic kidney disease) Current Visit: Yes Status: Chronic Management per medicine service. Qualifiers: Chronic kidney disease stage: stage 3 (moderate) Qualified Code(s): N18.3 - Chronic kidney disease, stage 3 (moderate) (5) History of cancer of vagina Current Visit: Yes Status: Chronic Diagnosed in 2011, s/p chemo/radiation. Currently in remission. (6) DVT prophylaxis Current Visit: Yes Status: Acute Heparin discontinued due to hematuria overnight. Urology consulted, managed by medicine service. Subjective Patient reports: no new complaints, feels better, pain is less, flatus, no bowel movement, afebrile (max temp 99.5), other (noted hematuria overnight) Objective Vital Signs - Last 8 Hours Temp Pulse Resp BP Pulse Ox 08/02/16 12:08 98.0 F 69 16 150/89 96 08/02/16 07:09 99.0 F 80 12 131/76 98 Intake and Output 08/01/16 08/02/16 08/02/16 23:59 07:59 15:59 Intake Total 1060 / 1060 1120 / 1120 Output Total 1600 / 1600 1425 / 1425 975 / 975 Balance -540 / -540 -305 / -305 -975 / -975 Intake: IV Fluids 1000 / 1000 1000 / 1000 0.9 % Sodium Chloride 1, 1000 / 1000 1000 / 1000 000 ML @ 125 mls/hr IVC . Q8H [facility] Rx#:[id number] Oral 60 / 60 120 / 120 Output: Urine 100 / 100 0 / 0 200 / 200 Gastric Tube Lavage 750 / 750 Amount Right Nare 750 / 750 Gastric Drainage 750 / 750 1425 / 1425 775 / 775 Other: Weight 94.3 kg Blood Glucose* 85 81 85 Patient Weight 08/02/16 23:59 Weight 94.3 kg - General physical appearance well developed, well nourished, no distress - Eyes normal ocular movement - ENT normal mucosa, atraumatic, normocephalic - Neck Neck exam: trachea midline - Respiratory normal respiratory effort, clear to auscultation - Cardiovascular Cardiovascular exam: Present: RRR - Abdomen Abdomen: Present: bowel sounds present, soft, non tender, tender (minimal R flank pain.) - Integumentary no rash - Neurologic CN 2-12 grossly intact - Psychiatric oriented to time, oriented to person, oriented to place, speech is normal, memory intact - Labs 08/02/16 04:00 08/02/16 04:00 Diabetes panel 08/02/16 Range/Units 04:00 Sodium 146 H (136-145) mEq/L Potassium 3.3 L (3.5-4.5) mEq/L Chloride 112 H (98-109) mEq/L Carbon Dioxide 23 (19-29) mEq/L BUN 32 H (7-20) mg/dL Creatinine 1.03 (0.57-1.11) mg/dL Glucose 99 (70-99) mg/dL Calcium 8.4 L (8.6-10.8) mg/dL Calcium panel 08/02/16 Range/Units 04:00 Calcium 8.4 L (8.6-10.8) mg/dL Phosphorus 2.4 (2.3-4.7) mg/dL Pituitary panel 08/02/16 Range/Units 04:00 Sodium 146 H (136-145) mEq/L Potassium 3.3 L (3.5-4.5) mEq/L Chloride 112 H (98-109) mEq/L Carbon Dioxide 23 (19-29) mEq/L BUN 32 H (7-20) mg/dL Creatinine 1.03 (0.57-1.11) mg/dL Glucose 99 (70-99) mg/dL Calcium 8.4 L (8.6-10.8) mg/dL Adrenal panel 08/02/16 Range/Units 04:00 Sodium 146 H (136-145) mEq/L Potassium 3.3 L (3.5-4.5) mEq/L Chloride 112 H (98-109) mEq/L Carbon Dioxide 23 (19-29) mEq/L BUN 32 H (7-20) mg/dL Creatinine 1.03 (0.57-1.11) mg/dL Glucose 99 (70-99) mg/dL Calcium 8.4 L (8.6-10.8) mg/dL Consult Discharge Plan - Plan Referrals: Mulu Gongora DO [Primary Care Provider] - <Dashawn Alvarez - Last Filed: 08/02/16 17:50> Date of Encounter: 08/02/16 - Assessment and Plan (1) Small bowel obstruction due to adhesions Current Visit: Yes Status: Acute Objective Vital Signs - Last 8 Hours Temp Pulse Resp BP Pulse Ox 08/02/16 15:51 98.3 F 90 16 135/68 98 08/02/16 12:08 98.0 F 69 16 150/89 96 Intake and Output 08/02/16 08/02/16 08/02/16 07:59 15:59 23:59 Intake Total 1120 / 1120 Output Total 1425 / 1425 1275 / 1275 Balance -305 / -305 -1275 / -1275 Intake: IV Fluids 1000 / 1000 0.9 % Sodium Chloride 1, 1000 / 1000 000 ML @ 125 mls/hr IVC . Q8H [facility] Rx#:[id number] Oral 120 / 120 Output: Urine 0 / 0 200 / 200 Emesis 300 / 300 Gastric Drainage 1425 / 1425 775 / 775 Other: Weight 94.3 kg Blood Glucose* 81 85 92 Patient Weight 08/02/16 23:59 Weight 94.3 kg - Labs 08/02/16 04:00 08/02/16 04:00 Diabetes panel 08/02/16 Range/Units 04:00 Sodium 146 H (136-145) mEq/L Potassium 3.3 L (3.5-4.5) mEq/L Chloride 112 H (98-109) mEq/L Carbon Dioxide 23 (19-29) mEq/L BUN 32 H (7-20) mg/dL Creatinine 1.03 (0.57-1.11) mg/dL Glucose 99 (70-99) mg/dL Calcium 8.4 L (8.6-10.8) mg/dL Calcium panel 08/02/16 Range/Units 04:00 Calcium 8.4 L (8.6-10.8) mg/dL Phosphorus 2.4 (2.3-4.7) mg/dL Pituitary panel 08/02/16 Range/Units 04:00 Sodium 146 H (136-145) mEq/L Potassium 3.3 L (3.5-4.5) mEq/L Chloride 112 H (98-109) mEq/L Carbon Dioxide 23 (19-29) mEq/L BUN 32 H (7-20) mg/dL Creatinine 1.03 (0.57-1.11) mg/dL Glucose 99 (70-99) mg/dL Calcium 8.4 L (8.6-10.8) mg/dL Adrenal panel 08/02/16 Range/Units 04:00 Sodium 146 H (136-145) mEq/L Potassium 3.3 L (3.5-4.5) mEq/L Chloride 112 H (98-109) mEq/L Carbon Dioxide 23 (19-29) mEq/L BUN 32 H (7-20) mg/dL Creatinine 1.03 (0.57-1.11) mg/dL Glucose 99 (70-99) mg/dL Calcium 8.4 L (8.6-10.8) mg/dL - Attending Attestation I examined this patient and my medical decision-making was reviewed with the APPLIANCES SAMPLE MAKER/PA/Advanced Practice Nurse/Resident Physician. I agree with the documented findings, disposition and treatment plan as described except to the extent set forth below. Of note the patient's NG tube was dislodged and we will hold on replacing it. Patient has positive flatus and positive bowel sounds. Will continue with clear liquids today and likely advanced diet tomorrow if she tolerates.
--- NOTE | 2016-08-02 16:21 | Urology - Consult Note ---
Date of Encounter: 08/02/16 Time of Encounter: 16:20 Urology CN:YAYO Consult date: 08/02/16 Reason for consult Urology: Gross Hematuria History of present illness: 60-year-old female. Known to the urology service secondary to history of symptomatic urolithiasis. Recent gross hematuria with anticoagulation. She's currently admitted with a small bowel obstruction. She reports intermittent gross hematuria occasionally with clots. This is reportedly been worked up by Dr. Han. 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 Past Med Surg Social Fam HX - Past Medical History Medical history: cancer, kidney stones, migraine, renal disease Psychiatric history: anxiety - Past Surgical History Surgical History: hysterectomy - Social History Smoking Status: Never smoker Smokeless Tobacco Status: No Alcohol use: none Drug use: none Medications and Allergies BuPROPion SR (12 HR) [Wellbutrin SR] 300 mg PO QAM 04/01/15 [History] Metoclopramide HCl 1 - 2 tab PO Q6H PRN #60 tablet 09/12/15 [Rx] Diphenoxylate/Atropine [Lomotil 2.5 mg/0.025 mg] 1 each PO QID PRN #90 tablet [Rx] Dicyclomine [Bentyl] 20 mg PO QID PRN #60 capsule 11/24/15 [Rx] l Gasseri/B Bifidum/B Longum [[employer] Capsule] 1 each PO DAILY [History] Alprazolam [Xanax 1 MG Tablet] 1 mg PO BID PRN 07/31/16 [History] Escitalopram [Lexapro] 10 mg PO DAILY 07/31/16 [History] Multivitamin [Multi-Day Vitamins] 1 each PO DAILY 07/31/16 [History] Allergies NSAIDS (Non-Steroidal Anti-Inflamma Adverse Reaction (Verified 01/17/16 03:24) See Comments Review of Systems - Constitutional no chills - EENT Nose, mouth and throat: no dizziness - Cardiovascular no chest pain - Respiratory no cough - Gastrointestinal abdominal pain, nausea - Genitourinary Genitourinary: hematuria - Musculoskeletal no back pain - Integumentary no erythema - Neurological no confusion - Psychiatric no anxiety Exam Initial Vital Signs Temp Pulse Resp BP Pulse Ox 99.5 F 91 16 158/97 99 07/31/16 10:36 07/31/16 10:36 07/31/16 10:36 07/31/16 10:36 07/31/16 10:36 - General physical appearance Present: well developed, no distress - Eyes Present: PERRL - ENT Present: normal nares - Neck Present: no masses - Respiratory Present: normal respiratory effort - Cardiovascular Cardiovascular exam IM: RRR - Abdomen Abdomen: Present: soft - Integumentary Present: no rash - Neurologic Absent: disoriented, confused - Additional Findings No urine visualized. No Asencio catheter in place Urology Results - Labs 08/02/16 04:00 08/02/16 04:00 Abnormal lab results Hgb 11.3 g/dL (11.5-15.4) L 08/02/16 04:00 MCHC 31.0 g/dL (31.6-35.5) L 08/02/16 04:00 Band Neutrophils % 10.0 % (0-4) H 08/01/16 04:20 PT 12.9 Seconds (9.4-12.1) H 08/02/16 04:00 APTT 23.8 Seconds (26.0-36.0) L 08/02/16 04:00 Sodium 146 mEq/L (136-145) H 08/02/16 04:00 Potassium 3.3 mEq/L (3.5-4.5) L 08/02/16 04:00 Chloride 112 mEq/L (98-109) H 08/02/16 04:00 BUN 32 mg/dL (7-20) H 08/02/16 04:00 Est GFR (Non-Af Amer) 55 (> 60) L 08/02/16 04:00 BUN/Creatinine Ratio 31 (6-26) H 08/02/16 04:00 Calculated Osmolality 309 (280-300) H 08/02/16 04:00 Calcium 8.4 mg/dL (8.6-10.8) L 08/02/16 04:00 AST 57 Units/L (5-34) H 07/31/16 12:48 ALT 58 Units/L (0-55) H 07/31/16 12:48 Ur Specific [place] > 1.030 (1.010-1.025) H 08/01/16 17:45 Urine Protein 30 mg/dL (Neg-Trace) H 08/01/16 17:45 Urine Ketones 15 mg/dL (Negative) H 08/01/16 17:45 Urine Blood Small (Negative) H 08/01/16 17:45 Urine Bilirubin Small (Negative) H 08/01/16 17:45 Urine Microscopic RBC 5-15 per hpf (0-3) H 08/01/16 17:45 Urine Microscopic WBC 5-15 per hpf (0-3) H 08/01/16 17:45 Ur Squamous Epith Cells Many per lpf (None-Few) H 08/01/16 17:45 Ur Culture Indicated? YES (NO) A 08/01/16 17:45 Diabetes panel 08/02/16 Range/Units 04:00 Sodium 146 H (136-145) mEq/L Potassium 3.3 L (3.5-4.5) mEq/L Chloride 112 H (98-109) mEq/L Carbon Dioxide 23 (19-29) mEq/L BUN 32 H (7-20) mg/dL Creatinine 1.03 (0.57-1.11) mg/dL Glucose 99 (70-99) mg/dL Calcium 8.4 L (8.6-10.8) mg/dL Calcium panel 08/02/16 Range/Units 04:00 Calcium 8.4 L (8.6-10.8) mg/dL Phosphorus 2.4 (2.3-4.7) mg/dL Pituitary panel 08/02/16 Range/Units 04:00 Sodium 146 H (136-145) mEq/L Potassium 3.3 L (3.5-4.5) mEq/L Chloride 112 H (98-109) mEq/L Carbon Dioxide 23 (19-29) mEq/L BUN 32 H (7-20) mg/dL Creatinine 1.03 (0.57-1.11) mg/dL Glucose 99 (70-99) mg/dL Calcium 8.4 L (8.6-10.8) mg/dL Adrenal panel 08/02/16 Range/Units 04:00 Sodium 146 H (136-145) mEq/L Potassium 3.3 L (3.5-4.5) mEq/L Chloride 112 H (98-109) mEq/L Carbon Dioxide 23 (19-29) mEq/L BUN 32 H (7-20) mg/dL Creatinine 1.03 (0.57-1.11) mg/dL Glucose 99 (70-99) mg/dL Calcium 8.4 L (8.6-10.8) mg/dL All other labs normal. Consult Discharge Plan - Plan Referrals: Mulu Gongora DO [Primary Care Provider] -
--- NOTE | 2016-08-02 16:25 | Event Note ---
Date of Encounter: 08/02/16 Time of Encounter: 16:23 Please use this event note as an addendum to the urology consult note. [facility] would not allow me to place an assessment and plan. Assessment is gross hematuria - resolved I personally reviewed her CT scan and there is no evidence of an acute urologic abnormality. She does have small nonobstructing renal calculi. Bladder appeared unremarkable. Her urinalysis did not appear infected. 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 No acute therapy is needed. Will follow as an outpatient. If symptoms progress or worsen may need to consider intravesical treatment or hyperbaric oxygen chamber therapy. Okay to follow with Dr. Han 4-6 weeks after discharge.
[2016-08-03 04:12] LABS: Basophils % 0.6 %; Eosinophils % 0.4 %; Hematocrit 30.9 % (35.3-44.9); Hemoglobin 9.8 g/dL (11.5-15.4); Immature Granulocytes % 0.2 % (0-4); Lymphocytes # 0.9 K/mcL (0.6-4.6); Lymphocytes % 18.9 %; Mean Corpuscular HGB Conc 31.7 g/dL (31.6-35.5); Mean Corpuscular Hemoglobin 29.6 pg (28.0-33.3); Mean Corpuscular Volume 93.4 fL (83.0-100.0); Mean Platelet Volume 10.4 fL (9.4-12.4); Monocytes # 0.6 K/mcL (0.0-1.3); Monocytes % 11.4 %; Neutrophils # 3.3 K/mcL (1.6-8.9); Platelet Count 141 K/mcL (140-400); Red Blood Count 3.31 M/mcL (3.82-4.97); Red Cell Distribution Width 14.3 % (11.5-14.5); Segmented Neutrophils % 68.5 %
[2016-08-03 04:31] LABS: BUN/Creatinine Ratio 27 (6-26); Blood Urea Nitrogen 23 mg/dL (7-20); Calcium 8.1 mg/dL (8.6-10.8); Carbon Dioxide 24 mEq/L (19-29); Chloride 113 mEq/L (98-109); Glucose 79 mg/dL (70-99); Osmolality,Calculated 303 (280-300); Phosphorous 3.1 mg/dL (2.3-4.7); Potassium 3.3 mEq/L (3.5-4.5); Sodium 145 mEq/L (136-145); eGFR For African Americans > 60 (> 60); eGFR For Non-African Americans > 60 (> 60)
[2016-08-03] MEDS: 0.9 % Sodium Chloride 1,000 ML IVC SCH ×2 (05:54→16:53)
[2016-08-03] MEDS ORDERED: Potassium Chloride 20 MEQ, Lidocaine 1% 2 ML in D5% in Water 250 ML IVPB ONE (08:32)
--- NOTE | 2016-08-03 11:06 | Internal Med Progress Note ---
Date of Encounter: 08/03/16 Time of Encounter: 11:05 - Assessment and plan (1) Small bowel obstruction due to adhesions Current Visit: Yes Status: Acute Assessment and plan: secondary to adhesions from radiation CT abd/pelvis: Acute small bowel obstruction with transition point in the right lower quadrant. No penumatosis Surgery eval appreciated tolerated clear liquid diet will advance to full liquid for dinner likely d/c in am if remains asymptomatic IV fluids (2) Leukocytosis Current Visit: Yes Status: Resolved Qualifiers: Leukocytosis type: unspecified Qualified Code(s): D72.829 - Elevated white blood cell count, unspecified (3) Anxiety Current Visit: Yes Status: Chronic Assessment and plan: restarted home medications (4) CKD (chronic kidney disease) Current Visit: Yes Status: Chronic Assessment and plan: appears to be at baseline but kidney function improved from previous day will continue to monitor Qualifiers: Chronic kidney disease stage: stage 3 (moderate) Qualified Code(s): N18.3 - Chronic kidney disease, stage 3 (moderate) (5) DVT prophylaxis Current Visit: Yes Status: Acute Assessment and plan: IPCD restarted Heparin SQ (6) Vaginal cancer Current Visit: Yes Status: Chronic Assessment and plan: Currently in remission s/p radiation and chemotherapy (7) Hematuria Current Visit: Yes Status: Resolved Assessment and plan: resolved urology eval consulted likely secondary to radiation cystitis will continue to monitor - Subjective Interval history: Patient seen and examined at bedside. NGT removed. Hematuria resolved Will advance diet No pain at this time. Reports of feeling better compared to the previous day - Constitutional Vitals: Temp Pulse Resp BP Pulse Ox 98.1 F 69 14 107/70 96 08/03/16 07:29 08/03/16 07:29 08/03/16 07:29 08/03/16 07:29 08/03/16 07:29 General appearance: Present: A&O X 3, pleasant, no acute distress, obese, answers questions appropriately - Head Head exam: Present: atraumatic, normocephalic - Eye Eye exam: Present: normal appearance, conjuntiva pink, sclera anicteric - Respiratory Respiratory exam: Present: CTAB. Absent: respiratory distress, wheezes - Cardiovascular Cardiovascular exam: Present: RRR, +S1, +S2 - GI/Abdominal GI/Abdominal exam: Present: normal bowel sounds, soft. Absent: tenderness - Extremities Exam Extremities exam: Present: pedal edema, warm, radial pulses palpable and symetrical. Absent: calf tenderness, tenderness - Neurological Exam Neurological exam: Present: alert, oriented X3 - Psychiatric Psychiatric exam: Present: normal affect, normal mood Internal Medicine: Result - Labs CBC & Chem 7: 08/03/16 03:50 08/03/16 03:50 - ABG Interpretation ABG results: PT/INR, D-dimer PT 12.9 Seconds (9.4-12.1) H 08/02/16 04:00 Consult Discharge Plan - Plan Referrals: Mulu Gongora DO [Primary Care Provider] -
--- NOTE | 2016-08-03 11:59 | General Surgery Progress Note ---
Date of Encounter: 08/03/16 Time of Encounter: 11:30 - Assessment and Plan (1) Small bowel obstruction due to adhesions Current Visit: Yes Status: Acute Patient tolerating sips of clears. Advance to full clear liquids today Advance diet as tolerated Surgery will sign off at this time. Thank you for allowing us to participate in this patients care. Please call with any further questions/concerns. Subjective Patient reports: no new complaints, feels better, tolerating liquids well (sips of liquids), voiding w/o difficulty, flatus, afebrile Objective Vital Signs - Last 8 Hours Temp Pulse Resp BP Pulse Ox 08/03/16 11:08 98.5 F 73 14 115/73 96 Intake and Output 08/02/16 08/03/16 08/03/16 23:59 07:59 15:59 Other: Meal NPO - General physical appearance well developed, well nourished, no distress - Eyes normal ocular movement - ENT normal mucosa, atraumatic, normocephalic - Neck Neck exam: trachea midline - Respiratory normal expansion, normal respiratory effort, clear to auscultation - Cardiovascular Cardiovascular exam: Present: RRR - Abdomen Abdomen: Present: bowel sounds present, soft, non tender - Integumentary no rash, no growths - Neurologic CN 2-12 grossly intact - Musculoskeletal normal gait, normal posture - Psychiatric oriented to time, oriented to person, oriented to place, speech is normal, memory intact - Labs 08/03/16 03:50 08/03/16 03:50 Consult Discharge Plan - Plan Referrals: Mulu Gongora DO [Primary Care Provider] - - Attending Attestation I examined this patient and my medical decision-making was reviewed with the TOOL FILER HAND/PA/Advanced Practice Nurse/Resident Physician. I agree with the documented findings, disposition and treatment plan as described except to the extent set forth below.
[2016-08-03] MEDS ORDERED: ALPRAZolam 1 MG TABLET PO PRN (17:01)
[2016-08-03] MEDS ORDERED: *HR* Morphine 2 MG/ML SYRINGE IVP PRN (17:02)
[2016-08-03] MEDS: *HR* Heparin 5,000 UNIT/ML VIAL SQ SCH (18:27)
[2016-08-04 04:52] LABS: Basophils % 0.6 %; Eosinophils # 0.1 K/mcL (0.0-0.6); Eosinophils % 1.2 %; Hematocrit 32.8 % (35.3-44.9); Hemoglobin 10.2 g/dL (11.5-15.4); Immature Granulocytes % 0.6 % (0-4); Lymphocytes # 1.1 K/mcL (0.6-4.6); Lymphocytes % 20.7 %; Mean Corpuscular HGB Conc 31.1 g/dL (31.6-35.5); Mean Corpuscular Hemoglobin 28.7 pg (28.0-33.3); Mean Corpuscular Volume 92.1 fL (83.0-100.0); Mean Platelet Volume 10.9 fL (9.4-12.4); Monocytes # 0.5 K/mcL (0.0-1.3); Monocytes % 10.1 %; Neutrophils # 3.4 K/mcL (1.6-8.9); Platelet Count 159 K/mcL (140-400); Red Blood Count 3.56 M/mcL (3.82-4.97); Red Cell Distribution Width 14.2 % (11.5-14.5); Segmented Neutrophils % 66.8 %
[2016-08-04 05:23] LABS: BUN/Creatinine Ratio 21 (6-26); Blood Urea Nitrogen 18 mg/dL (7-20); Carbon Dioxide 23 mEq/L (19-29); Chloride 112 mEq/L (98-109); Glucose 96 mg/dL (70-99); Magnesium 1.9 mg/dL (1.6-2.6); Osmolality,Calculated 298 (280-300); Potassium 3.2 mEq/L (3.5-4.5); Sodium 143 mEq/L (136-145); eGFR For African Americans > 60 (> 60); eGFR For Non-African Americans > 60 (> 60)
[2016-08-04] MEDS: *HR* Heparin 5,000 UNIT/ML VIAL SQ SCH (06:09)
[2016-08-04] MEDS: 0.9 % Sodium Chloride 1,000 ML IVC SCH ×2 (06:12→07:22)
[2016-08-04] MEDS ORDERED: Potassium Chloride 20 MEQ, Lidocaine 1% 2 ML in D5% in Water 250 ML IVPB ONE (08:04)
[2016-08-04] MEDS ORDERED: BuPROPion SR (12 HR) 150 MG TABLET PO SCH (09:00)
[2016-08-04] MEDS ORDERED: Diphenoxylate/Atropine 1 TAB TABLET PO PRN (10:03)
--- NOTE | 2016-08-04 10:09 | Discharge Summary ---
Date of Encounter: 08/04/16 Time of Encounter: 10:02 - Discharge Diagnosis (1) Small bowel obstruction due to adhesions Priority: Primary Status: Resolved (2) Leukocytosis Priority: Secondary Status: Resolved Qualifiers: Leukocytosis type: unspecified Qualified Code(s): D72.829 - Elevated white blood cell count, unspecified (3) Anxiety Priority: Secondary Status: Chronic (4) CKD (chronic kidney disease) Priority: Secondary Status: Chronic Qualifiers: Chronic kidney disease stage: stage 3 (moderate) Qualified Code(s): N18.3 - Chronic kidney disease, stage 3 (moderate) (5) DVT prophylaxis Priority: Secondary Status: Acute (6) Vaginal cancer Priority: Secondary Status: Chronic (7) Hematuria Priority: Secondary Status: Resolved (8) Obesity (BMI 30-39.9) Priority: Secondary Status: Chronic - Discharge Medications Home Medications: BuPROPion SR (12 HR) [Wellbutrin SR] 300 mg PO QAM 04/01/15 [History] Metoclopramide HCl 1 - 2 tab PO Q6H PRN #60 tablet 09/12/15 [Rx] Diphenoxylate/Atropine [Lomotil 2.5 mg/0.025 mg] 1 each PO QID PRN #90 tablet [Rx] Dicyclomine [Bentyl] 20 mg PO QID PRN #60 capsule 11/24/15 [Rx] l Gasseri/B Bifidum/B Longum [[facility] Capsule] 1 each PO DAILY [History] Alprazolam [Xanax 1 MG Tablet] 1 mg PO BID PRN 07/31/16 [History] Escitalopram [Lexapro] 10 mg PO DAILY 07/31/16 [History] Multivitamin [Multi-Day Vitamins] 1 each PO DAILY 07/31/16 [History] Allergies/Adverse Reactions: Allergies NSAIDS (Non-Steroidal Anti-Inflamma Adverse Reaction (Verified 01/17/16 03:24) See Comments Date of admission: 08/03/16 08:11 Primary care physician: Ana Braswell Consults: Surgery: Dr Alvarez Urology: Dr. Rodriguez Discharging clinician: Rebekah Aguirre Anticipated date of discharge: 08/04/16 - Patient Status Disposition: Home, Self-Care Condition: Good Functional capacity at discharge: independent ambulation Overall status at discharge: patient is back to baseline - Discharge Instructions Follow Up With: Mulu Gongora DO [Primary Care Provider] - Additional Instructions: Please follow up with your primary care physician within one week after your discharge from the hospital. Please follow up with surgery within one to two weeks after your discharge from the hospital. Please follow up with urology within 4weeks after your discharge from the hospital, if hematuria recurs, call your urologist. Please advance diet as tolerated. Continue all home medications as prescribed by your primary care physician. - Diet and Activity Activity: resume usual activities as tolerated Diet: other (advance diet as tolerated ) Hospital course: Ms. 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 She was further admitted for management of Small bowel obstruction. NGT was placed and patient was kept NPO with IV fluids. Surgery followed the patient. Patient's symptoms improved with NGT decompression with resolution of SBO. She was able to tolerate PO intake and at this time stable for discharge. During this hospitalization, she was also noted to have one time episode of hematuria which resolved. She reported of having history of hematuria in the past and follows with Dr. Han (urology). Urology was consulted and her symptoms were contributed to radiation cystitis with no acute intervention. At this time, patient is stable, tolerating PO intake well. She will be discharged to home today with follow up with PCP, surgery, and urology. Patient demonstrates understanding of her diagnosis, and agrees with the discharge care and plan. - Time Spent with Patient Total time spent providing and/or coordinating discharge services: Greater than 30 minutes - Constitutional Vitals: Temp Pulse Resp BP Pulse Ox 98.6 F 66 16 134/80 97 08/04/16 06:45 08/04/16 06:45 08/04/16 06:45 08/04/16 06:45 08/04/16 06:45 General appearance: Present: A&O X 3, pleasant, no acute distress, obese, answers questions appropriately - Head Head exam: Present: atraumatic, normocephalic - Eye Eye exam: Present: normal appearance, conjuntiva pink, sclera anicteric - Respiratory Respiratory exam: Present: CTAB. Absent: respiratory distress, wheezes - Cardiovascular Cardiovascular exam: Present: RRR, +S1, +S2 - GI/Abdominal GI/Abdominal exam: Present: normal bowel sounds, soft, no peritoneal signs. Absent: distended, guarding, rebound, tenderness - Extremities Exam Extremities exam: Present: warm, radial pulses palpable and symetrical. Absent : calf tenderness, pedal edema - Neurological Exam Neurological exam: Present: alert, oriented X3, no focal deficits - Psychiatric Psychiatric exam: Present: normal affect, normal mood
[2016-08-04 10:23] VITALS: BP 134/75
== END 2016-08-04 13:03 | disposition home or self-care (01) | DRG 389 ==
LOC: 3ANU 10:35 → EMEROO 10:35 → 3ANU 17:16
PROVIDERS: ADMIT Family Medicine; ATTEND Internal Medicine

== ENCOUNTER 2017-01-08 23:16 | Inpatient (IN) ==
[2017-01-09 00:44] LABS: Bilirubin,Urine Negative (Negative); Blood,Urine Large (Negative); Clarity,Urine Turbid (Clear); Color,Urine Red (Yellow); Glucose,Urine (UA) 100 mg/dL (Normal); Ketones,Urine Negative (Negative); Leukocyte Esterase,Urine Small (Negative); Nitrite,Urine Negative (Negative); Protein,Urine >=1000 mg/dL (Neg-Trace); Specific Gravity,Urine > 1.030 (1.010-1.025); Urobilinogen,Urine Normal (Normal)
--- NOTE | 2017-01-09 00:59 | Emergency Department Note ---
Disposition Clinical Impression: Inability to urinate, Radiation cystitis Hematuria Qualifiers: Hematuria type: gross Qualified Code(s): R31.0 - Gross hematuria Disposition: Admitted As Inpatient Condition: Good Time of Disposition: 03:24 Female Urogenital HPI - General Chief complaint: ED Urogenital-Female Stated complaint: Hematuria / Dysuria Time Seen by Provider: 01/09/17 00:13 Source: patient Mode of arrival: ambulatory Limitations: no limitations Nursing Notes Reviewed: Yes Vital Signs Reviewed: Yes - History of Present Illness HPI Narrative: Patient is a 61-year-old female that presents to the emergency department for inability to urinate. Patient states that approximately 2 years ago she was diagnosed vaginal cancer and received radiation. Since then she has blood in her urine and passes clots regularly. 6-8 hours prior to arrival in the emergency department she felt like a clot had gotten stuck so she was unable to urinate. She states that this happened one other time in November where a catheter placed and she was able to urinate again. While in the room the Asencio catheter to place and she said that she did feel small clots passing and that urine was flowing again. Patient denies any fever or chills but states that she has had some sweating recently. - Related Data Home Medications Medication Instructions Recorded Confirmed BuPROPion SR (12 HR) [Wellbutrin 300 mg PO QAM 04/01/15 07/31/16 SR] l Gasseri/B Bifidum/B Longum 1 each PO DAILY 11/24/15 07/31/16 [Inline.me Capsule] ALPRAZolam [Xanax 1 MG Tablet] 1 mg PO BID PRN 07/31/16 07/31/16 Escitalopram [Lexapro] 10 mg PO DAILY 07/31/16 07/31/16 Multivitamin [Multi-Day Vitamins] 1 each PO DAILY 07/31/16 07/31/16 Previous Rx's Medication Instructions Recorded Metoclopramide HCl 1 - 2 tab PO Q6H PRN #60 tablet 09/12/15 Diphenoxylate/Atropine [Lomotil 1 each PO QID PRN #90 tablet 11/10/15 2.5 mg/0.025 mg] Dicyclomine [Bentyl] 20 mg PO QID PRN #60 capsule 11/24/15 cephALEXin [Keflex] 500 mg PO TID #21 capsule 12/04/16 Allergies Allergy/AdvReac Type Severity Reaction Status Date / Time NSAIDS (Non-Steroidal AdvReac See Verified 01/17/16 03:24 Anti-Inflamma Comments Past Medical History - Past Medical History Attestation: Yes The following information was validated with the patient. Source: patient Medical history: Reports: cancer, kidney stones, migraine, renal disease, other Surgical history: Reports: hysterectomy Psychiatric history: Reports: anxiety FOOD MIXER history: Reports: no FOOD MIXER history - Social History Smoking Status: Never smoker Smokeless Tobacco Status: No Alcohol use: Reports: none Drug use: Reports: none Physical Exam - General Limitations: no limitations General appearance: alert, in no apparent distress - Head Head exam: atraumatic, normocephalic - Neck Neck exam: Present: normal inspection, full ROM, trachea midline - Respiratory Respiratory exam: Present: normal lung sounds bilaterally. Absent: respiratory distress, wheezes - Cardiovascular Cardiovascular exam: Present: normal rhythm, normal heart sounds, +S1, +S2 - Abdominal Exam Abdominal exam: Present: soft, normal bowel sounds, other (Discomfort in the suprapubic region patient states that it is due to having a full bladder.) - Neurological Exam Neurological exam: Present: alert, oriented X3 - Psychiatric Psychiatric exam: Present: normal affect, normal mood - Skin Skin exam: Present: warm, dry, intact Course - Reevaluation(s) Reevaluation #1: Patient stated she started to feel lightheaded so we started an IV and giving her fluids. Reevaluation #2: Spoke with the urologist Dr. Han and he will consult on the patient in the morning. Time: 03:15 Vital Signs Temperature 98.0 F 01/08/17 23:18 Pulse Rate 126 01/08/17 23:18 Respiratory Rate 18 01/08/17 23:18 Blood Pressure 158/99 01/08/17 23:18 O2 Sat by Pulse Oximetry 98 01/08/17 23:18 Temperature 98.0 F 01/08/17 23:18 Pulse Rate 126 01/08/17 23:18 Respiratory Rate 16 01/09/17 04:17 Blood Pressure 142/100 01/09/17 04:17 O2 Sat by Pulse Oximetry 99 01/09/17 01:22 Oxygen Delivery Oxygen Delivery Room Air Urogenital-Female - MDM Narrative Medical decision making narrative: Patient is a 61-year-old female presents to emergency department with inability urinate. States that she has a blood clot preventing her from urinating. States that this happened before and a Asencio was placed and she was able to urinate. So a Asencio was placed and flushed allowing her to urinate and pass any further clots. Patient also stated that she has a history of anemia with have ordered basic labs to check her hemoglobin since she was having hematuria. Her urine did not show any sort of infection. Patient's Asencio had clotted off and was needed to be replaced. This was replaced with a 3-way catheter and continuous bladder irrigation was used. I then spoke with the on-call urologist Dr. Han at 0315 he stated that he would consult on the patient in the morning. I spoke with the admitting hospitalist Dr. Ferro and he has accepted the patient to their service at 0327. Patient will be admitted to the hospital for further evaluation. - Lab Data Lab results reviewed: Yes I reviewed the patient's lab results. Result diagrams: 01/09/17 01:00 Lab Results 01/09/17 01/09/17 Range/Units 00:05 01:00 WBC 9.3 (4.3-11.1) K/mcL RBC 3.90 (3.82-4.97) M/mcL Hgb 10.4 L (11.5-15.4) g/dL Hct 33.3 L (35.3-44.9) % MCV 85.4 (83.0-100.0) fL MCH 26.7 L (28.0-33.3) pg MCHC 31.2 L (31.6-35.5) g/dL RDW 14.9 H (11.5-14.5) % Plt Count 242 (140-400) K/mcL MPV 9.5 (9.4-12.4) fL Immature Gran % 0.4 (0-4) % Seg Neutrophils % 85.1 % Lymphocytes % 9.4 % Monocytes % 4.2 % Eosinophils % 0.4 % Basophils % 0.5 % Neutrophils # 7.9 (1.6-8.9) K/mcL Lymphocytes # 0.9 (0.6-4.6) K/mcL Monocytes # 0.4 (0.0-1.3) K/mcL Eosinophils # 0.0 (0.0-0.6) K/mcL Basophils # 0.1 (0.0-0.2) K/mcL Ur Specimen Adequacy Urine Color Red A (Yellow) Urine Clarity Turbid A (Clear) Urine pH 7.0 (5.0-8.0) pH Units Ur Specific [place] > 1.030 H (1.010-1.025) Urine Protein >=1000 H (Neg-Trace) mg/dL Urine Glucose (UA) 100 H (Normal) mg/dL Urine Ketones Negative (Negative) mg/dL Urine Blood Large H (Negative) Urine Nitrite Negative (Negative) Urine Bilirubin Negative (Negative) Urine Urobilinogen Normal (Normal) mg/dL Ur Leukocyte Esterase Small H (Negative) Ur Culture Indicated? YES A (NO) Attestation Statement - Attestation Attestation: I, Moose Salgado MD, personally evaluated this patient and discussed their management with the resident physician. I reviewed the resident's note and agree with the documented findings, medical decision making, and plan of care. 61-year-old female presents to the emergency department with a complaint of gross hematuria and urinary retention. Patient had a history of vaginal cancer and had radiation to the pelvis causing radiation cystitis with chronic hematuria. Patient states however that is about 3 PM today the bleeding has been much heavier and worse than usual with clots. For the past 6 hours she has been unable to urinate due to blood clots. Similar problem about a month ago and had to have a Asencio catheter placed and went home with the Asencio for a few days. She complains of some lower abdominal discomfort. No fever. On examination patient is a well-developed well-nourished female in no acute distress. She is alert and oriented 3. There is no cyanosis or diaphoresis. Breath sounds are clear and equal bilaterally. Heart regular rate and rhythm. Abdomen is soft with normal bowel sounds. Moderate suprapubic tenderness. Labs reviewed. A Asencio catheter was placed with gross hematuria with clots returned. The Asencio catheter tubing clottage from the gross blood. Asencio catheter was removed and a three-way catheter was placed and patient was started on continuous bladder irrigation. Dr. Rodriguez discussed the case with the urologist assistant golf professional, Dr. Han, and he will follow the patient in the morning as a consult. The hospitalist, Dr. Ferro , was consulted and accepted admission of the patient.
[2017-01-09] MEDS ORDERED: 0.9 % Sodium Chloride 1,000 ML IVC ONE (01:11)
[2017-01-09 01:15] LABS: Basophils # 0.1 K/mcL (0.0-0.2); Basophils % 0.5 %; Eosinophils % 0.4 %; Hematocrit 33.3 % (35.3-44.9); Hemoglobin 10.4 g/dL (11.5-15.4); Immature Granulocytes % 0.4 % (0-4); Lymphocytes # 0.9 K/mcL (0.6-4.6); Lymphocytes % 9.4 %; Mean Corpuscular HGB Conc 31.2 g/dL (31.6-35.5); Mean Corpuscular Hemoglobin 26.7 pg (28.0-33.3); Mean Corpuscular Volume 85.4 fL (83.0-100.0); Mean Platelet Volume 9.5 fL (9.4-12.4); Monocytes # 0.4 K/mcL (0.0-1.3); Monocytes % 4.2 %; Neutrophils # 7.9 K/mcL (1.6-8.9); Platelet Count 242 K/mcL (140-400); Red Cell Distribution Width 14.9 % (11.5-14.5); Segmented Neutrophils % 85.1 %
[2017-01-09] MEDS ORDERED: Ondansetron ODT 4 MG TAB.RAPDIS SL PRN (03:49)
[2017-01-09] MEDS ORDERED: Naloxone 0.4 MG/ML INJ IVP PRN (03:49)
--- NOTE | 2017-01-09 03:58 | Internal Med History&Physical ---
<Bakari Hidalgo - Last Filed: 01/09/17 03:54> Date of Encounter: 01/09/17 Time of Encounter: 03:54 Assessment and Plan (1) Bladder obstruction Current visit: Yes Status: Acute 61-year-old female with history of vaginal cancer and chronic passing of blood clots through her urinary bladder post radiation chemotherapy. - Suspect blood clot obstructions as there was relief with urinary catheter placement and the patient has hematuria Plan: - Urology consult - Urinary catheter placement large bore. - Continue bladder irrigation - Nothing by mouth now - Monitor hemoglobin with a.m. labs. (2) History of cancer of vagina Current visit: No Status: Chronic No history of vaginal cancer. Post radiation and chemotherapy. (3) Hematuria Current visit: No Status: Resolved Patient has blood and urine with history of blood clots in her urine. Urinary catheter in place with bladder irrigation. Plan: - Urinary catheter in place. - Avoid any anticoagulation of necessary. - Monitor hematocrit and hemoglobin with H&H. Qualifiers: Qualified Code(s): R31.9 - Hematuria, unspecified (4) DVT prophylaxis Current visit: No Status: Acute SCD as patient has blood in urinary output. Internal Medicine - H&P: HPI Chief complaint: obstructed bladder Admitted From: Emergency Dept Plans for Post Hospital Care: Home History of present illness: Ms. Jasmine is a 61 year old female pmhx of vaginal cancer post chemo/ radiation who presented to the emergency department with obstructed urinary output. She states that she passes blood clots on a regular basis for the past 4 years since having chemotherapy and radiation for cancer. She said that she has been cancer free but continues to have residual effects of passing bloody clots, occasional renal stones and chronic diarrhea. Roughly one month ago she had obstructed urinary output and required a urinary catheterization to allow passage of the clot in urine. Again today she had difficulty passing urine and was unable to urinate at 3:00. Around 6 PM this evening she started having lower abdominal pain and discomfort and diaphoresis. She was able to pass any urine and presented to the emergency department. Prior to having a urinary catheter placed she did pass some urine but was unable to fully empty her bladder. She had a Sahni catheter placed with some urinary output but then it clotted off and required a larger bore urinary catheter with irrigation. She says the pain has relieved after the obstruction was relieved. She denies any blurry vision, headaches, fevers chills, chest pain palpitations, shortness of breath, nausea, vomiting, constipation or swelling in her lower 70s. Past Med Surg Social Fam HX - Past Medical History Medical history: cancer, kidney stones, migraine, renal disease, other Psychiatric history: anxiety - Past Surgical History Surgical History: hysterectomy - Social History Smoking Status: Never smoker Smokeless Tobacco Status: No Alcohol use: none Drug use: none Internal Medicine - H&P: Meds BuPROPion SR (12 HR) [Wellbutrin SR] 300 mg PO QAM 04/01/15 [History] Metoclopramide HCl 1 - 2 tab PO Q6H PRN #60 tablet 09/12/15 [Rx] Diphenoxylate/Atropine [Lomotil 2.5 mg/0.025 mg] 1 each PO QID PRN #90 tablet [Rx] Dicyclomine [Bentyl] 20 mg PO QID PRN #60 capsule 11/24/15 [Rx] l Gasseri/B Bifidum/B Longum [[employer] Capsule] 1 each PO DAILY [History] ALPRAZolam [Xanax 1 MG Tablet] 1 mg PO BID PRN 07/31/16 [History] Escitalopram [Lexapro] 10 mg PO DAILY 07/31/16 [History] Multivitamin [Multi-Day Vitamins] 1 each PO DAILY 07/31/16 [History] cephALEXin [Keflex] 500 mg PO TID #21 capsule 12/04/16 [Rx] Allergies NSAIDS (Non-Steroidal Anti-Inflamma Adverse Reaction (Verified 01/17/16 03:24) See Comments All Systems PM: A 10-system review of systems was performed and is negative for pertinent findings except as documented above in the HPI. - Constitutional Constitutional: excessive sweating, no chills, no fever(s), no night sweats - EENT Eyes: no change in vision, no discharge, no pain, no photophobia Ears: no ear discharge, no ear pain, no tinnitus Nose, mouth and throat: no dysphagia, no nasal discharge, no neck pain, no sore throat - Cardiovascular Cardiovascular ROS IM: no chest pain, no diaphoresis, no dyspnea, no lightheadedness, no palpitations, no syncope - Respiratory Respiratory: no cough, no dyspnea, no wheezing, no excessive phlegm production - Gastrointestinal Gastrointestinal: no abdominal pain, no diarrhea, no hematemesis, no hematochezia, no melena, no nausea, no vomiting - Genitourinary Genitourinary: change in urinary stream, difficulty urinating, difficulty voiding, hematuria, no dysuria, no flank pain - Musculoskeletal Musculoskeletal ROS IM: no numbness, no tingling - Integumentary Integumentary IM: no rash, no unusual bruising - Neurological Neurological ROS: no confusion, no convulsions, no focal weakness, no numbness, no tingling, no tremor(s) - Hematologic/Lymphatic Hematologic/Lymphatic: no easy bruising - Constitutional Vitals: Temp Pulse Resp BP Pulse Ox 98.0 F 126 18 158/99 99 01/08/17 23:18 01/08/17 23:18 01/08/17 23:18 01/08/17 23:18 01/09/17 01:22 General appearance: Present: A&O X 3 Exam: General: Patient alert, awake, oriented 3, interactive, in no acute distress HEENT: Normocephalic, atraumatic, pupils equal reactive to light, nasal cavity patent and open septum median position, oral mucosa moist, uvula midline, neck supple trachea midline no palpable lymphadenopathy, no thyromegaly. Chest: Symmetric bilateral correlating with respiratory effort, effort nonlabored. Cardiac: Regular rate and rhythm, positive S1 and S2. no bruits appreciated bilateral carotids, Radial pulses 2+ bilateral, posterior tibial and dorsal pedal pulses 2+ bilateral. Respiratory: Clear to auscultation all lung bello Abdomen: Mild suprapubic fullness, rest the abdomen was soft, nontender, positive bowel sounds, no palpable masses appreciated on examination Extremities: Symmetric bilateral, bilateral lower extremities without erythema or edema patient moving all 4 extremities spontaneously. Neurologic: No focal deficits appreciated on examination. Face symmetric, muscle strength symmetric bilateral upper and lower extremities. Internal Med - H&P Results - Labs CBC & Chem 7: 01/09/17 01:00 <Asher Ferro - Last Filed: 01/09/17 05:22> Date of Encounter: 01/09/17 Internal Medicine - H&P: HPI History of present illness: Ms. Jasmine is a 61 year old female Past Med Surg Social Fam HX - Past Medical History Source: patient, old records reviewed Medical history: cancer (vaginal s/p radiation) - Additional Family History Additional family history: Mother had breast cancer in her late 50's and early 60's. Family history is also positive for hypertension and hyperlipidemia All Systems PM: A 10-system review of systems was performed and is negative for pertinent findings except as documented above in the HPI. - Constitutional Vitals: Temp Pulse Resp BP Pulse Ox 98.0 F 126 16 142/100 99 01/08/17 23:18 01/08/17 23:18 01/09/17 04:17 01/09/17 04:17 01/09/17 01:22 Internal Med - H&P Results - Labs CBC & Chem 7: 01/09/17 01:00 - Attending Attestation I personally interviewed and examined this patient and my medical decision- making was reviewed with the Resident Physician. I agree with the documented findings, disposition and treatment plan as described except that the hematuria has not fully resolved and caused an obstruction of the sahni requiring irrigation and urology input. Asher Ferro MD, MPH Hospitalist
[2017-01-09] MEDS ORDERED: Ondansetron 4 MG/2 ML VIAL IVP ONE (04:19)
[2017-01-09] MEDS ORDERED: *HR* HYDROmorphone (PF) 1 MG/ML SYRINGE IVP ONE (04:19)
[2017-01-09 06:39] LABS: Prothrombin Time 11.2 Seconds (9.4-12.1)
[2017-01-09 06:43] LABS: Activated Partial Thrombo Time 18.5 Seconds (26.0-36.0)
[2017-01-09 06:48] LABS: Albumin 3.4 g/dL (3.5-5.0); Albumin/Globulin Ratio 1.2 (1.1-2.2); Bilirubin,Total 0.3 mg/dL (0.2-1.2); Calcium 8.4 mg/dL (8.6-10.8); Globulin 2.9 g/dL (2.4-3.5); Potassium 4.2 mEq/L (3.5-4.5); Total Protein 6.3 g/dL (6.0-8.3)
[2017-01-09 07:08] LABS: Basophils % 0.4 %; Hematocrit 30.6 % (35.3-44.9); Hemoglobin 9.7 g/dL (11.5-15.4); Immature Granulocytes % 0.4 % (0-4); Lymphocytes # 0.8 K/mcL (0.6-4.6); Lymphocytes % 8.3 %; Mean Corpuscular HGB Conc 31.7 g/dL (31.6-35.5); Mean Corpuscular Hemoglobin 27.2 pg (28.0-33.3); Mean Platelet Volume 10.6 fL (9.4-12.4); Monocytes # 0.2 K/mcL (0.0-1.3); Monocytes % 2.5 %; Neutrophils # 8.1 K/mcL (1.6-8.9); Platelet Count 262 K/mcL (140-400); Red Blood Count 3.56 M/mcL (3.82-4.97); Red Cell Distribution Width 14.9 % (11.5-14.5); Segmented Neutrophils % 88.4 %
--- NOTE | 2017-01-09 09:11 | Urology - Consult Note ---
Date of Encounter: 01/09/17 Time of Encounter: 09:09 - Assessment and Plan (1) Hematuria Current Visit: Yes Status: Acute Assessment and plan: Patient's catheter was manually irrigated with normal saline with a large amount of clots returned. Three-way irrigation then restarted where urine remained slightly pink on relatively fast drip. Continue with three-way irrigation at this time. 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 This is unless patients urine is unable to be cleared with three- way irrigation and she requires an urgent cystoscopy and fulguration of the bladder. We will continue to follow closely along. Urology CN:YAYO Consult date: 01/09/17 Reason for consult Urology: Gross Hematuria Requesting physician: Asher Ferro History of present illness: Ros is a 61-year-old female well-known to me for history of hematuria. Patient also with history of kidney stones. Patient recently admitted secondary to gross hematuria with clots. Patient had a catheter placed last night in the emergency department where three-way irrigation was started. Patient still with persistent hematuria as well as clots throughout the night. Patient states that her hematuria has become more persistent over the past few months. 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 Past Med Surg Social Fam HX - Past Medical History Medical history: cancer (vaginal s/p radiation) Psychiatric history: anxiety - Past Surgical History Surgical History: hysterectomy - Social History Smoking Status: Never smoker Smokeless Tobacco Status: No Alcohol use: none Drug use: none Medications and Allergies BuPROPion SR (12 HR) [Wellbutrin SR] 300 mg PO QAM 04/01/15 [History] Metoclopramide HCl 1 - 2 tab PO Q6H PRN #60 tablet 09/12/15 [Rx] Diphenoxylate/Atropine [Lomotil 2.5 mg/0.025 mg] 1 each PO QID PRN #90 tablet [Rx] Dicyclomine [Bentyl] 20 mg PO QID PRN #60 capsule 11/24/15 [Rx] l Gasseri/B Bifidum/B Longum [Imsys Capsule] 1 each PO DAILY [History] ALPRAZolam [Xanax 1 MG Tablet] 1 mg PO BID PRN 07/31/16 [History] Escitalopram [Lexapro] 10 mg PO DAILY 07/31/16 [History] Multivitamin [Multi-Day Vitamins] 1 each PO DAILY 07/31/16 [History] cephALEXin [Keflex] 500 mg PO TID #21 capsule 12/04/16 [Rx] Allergies NSAIDS (Non-Steroidal Anti-Inflamma Adverse Reaction (Verified 01/17/16 03:24) See Comments Review of Systems - Constitutional no fever(s) - EENT Nose, mouth and throat: no dizziness - Cardiovascular no chest pain - Respiratory no cough - Gastrointestinal abdominal pain - Musculoskeletal no back pain - Integumentary no erythema - Neurological no confusion Exam Initial Vital Signs Temp Pulse Resp BP Pulse Ox 98.0 F 126 18 158/99 98 01/08/17 23:18 01/08/17 23:18 01/08/17 23:18 01/08/17 23:18 01/08/17 23:18 - General physical appearance Present: well developed - Eyes Present: PERRL - ENT Present: normal nares - Respiratory Present: normal respiratory effort - Cardiovascular Cardiovascular exam IM: RRR - Abdomen Abdomen: Present: soft - Genitourinary Present: other (Urine bloody in tubing) Urology Results - Labs 01/09/17 05:10 01/09/17 05:10 Abnormal lab results RBC 3.56 M/mcL (3.82-4.97) L 01/09/17 05:10 Hgb 9.7 g/dL (11.5-15.4) L 01/09/17 05:10 Hct 30.6 % (35.3-44.9) L 01/09/17 05:10 MCH 27.2 pg (28.0-33.3) L 01/09/17 05:10 RDW 14.9 % (11.5-14.5) H 01/09/17 05:10 APTT 18.5 Seconds (26.0-36.0) L 01/09/17 05:10 BUN 25 mg/dL (7-20) H 01/09/17 05:10 Creatinine 1.26 mg/dL (0.57-1.11) H 01/09/17 05:10 Est GFR ( Amer) 53 (> 60) L 01/09/17 05:10 Est GFR (Non-Af Amer) 43 (> 60) L 01/09/17 05:10 Glucose 137 mg/dL (70-99) H 01/09/17 05:10 POC Glucose 140 (58-89) H 01/09/17 05:57 Calcium 8.4 mg/dL (8.6-10.8) L 01/09/17 05:10 Albumin 3.4 g/dL (3.5-5.0) L 01/09/17 05:10 Urine Color Red (Yellow) A 01/09/17 00:05 Urine Clarity Turbid (Clear) A 01/09/17 00:05 Ur Specific [place] > 1.030 (1.010-1.025) H 01/09/17 00:05 Urine Protein >=1000 mg/dL (Neg-Trace) H 01/09/17 00:05 Urine Glucose (UA) 100 mg/dL (Normal) H 01/09/17 00:05 Urine Blood Large (Negative) H 01/09/17 00:05 Ur Leukocyte Esterase Small (Negative) H 01/09/17 00:05 Ur Culture Indicated? YES (NO) A 01/09/17 00:05 Diabetes panel 01/09/17 Range/Units 05:10 Sodium 139 (136-145) mEq/L Potassium 4.2 (3.5-4.5) mEq/L Chloride 106 (98-109) mEq/L Carbon Dioxide 27 (19-29) mEq/L BUN 25 H (7-20) mg/dL Creatinine 1.26 H (0.57-1.11) mg/dL Glucose 137 H (70-99) mg/dL Calcium 8.4 L (8.6-10.8) mg/dL AST 24 (5-34) Units/L ALT 20 (0-55) Units/L Alkaline Phosphatase 80 (38-126) Units/L Albumin 3.4 L (3.5-5.0) g/dL Calcium panel 01/09/17 Range/Units 05:10 Calcium 8.4 L (8.6-10.8) mg/dL Albumin 3.4 L (3.5-5.0) g/dL Pituitary panel 01/09/17 Range/Units 05:10 Sodium 139 (136-145) mEq/L Potassium 4.2 (3.5-4.5) mEq/L Chloride 106 (98-109) mEq/L Carbon Dioxide 27 (19-29) mEq/L BUN 25 H (7-20) mg/dL Creatinine 1.26 H (0.57-1.11) mg/dL Glucose 137 H (70-99) mg/dL Calcium 8.4 L (8.6-10.8) mg/dL Adrenal panel 01/09/17 Range/Units 05:10 Sodium 139 (136-145) mEq/L Potassium 4.2 (3.5-4.5) mEq/L Chloride 106 (98-109) mEq/L Carbon Dioxide 27 (19-29) mEq/L BUN 25 H (7-20) mg/dL Creatinine 1.26 H (0.57-1.11) mg/dL Glucose 137 H (70-99) mg/dL Calcium 8.4 L (8.6-10.8) mg/dL Total Bilirubin 0.3 (0.2-1.2) mg/dL AST 24 (5-34) Units/L ALT 20 (0-55) Units/L Alkaline Phosphatase 80 (38-126) Units/L Albumin 3.4 L (3.5-5.0) g/dL All other labs normal. Consult Discharge Plan - Plan Referrals: Mulu Gongora DO [Primary Care Provider] -
[2017-01-09] MEDS: *HR* HYDROmorphone 2 MG/ML SYRINGE IVP PRN (09:28)
[2017-01-09] MEDS: 0.9 % Sodium Chloride 1,000 ML IVC SCH ×2 (09:29→19:34)
[2017-01-09] MEDS: BuPROPion XL (24 HR) 150 MG TABLET PO SCH (12:53)
--- NOTE | 2017-01-09 13:35 | Event Note ---
Date of Encounter: 01/09/17 Time of Encounter: 11:35 Patient was evaluated by urology and patient's catheter was manually irrigated this morning with removal of clots. Three-way irrigation has been been restarted and patient continues to have hematuria. We will monitor blood counts closely. Follow urology recommendations.
[2017-01-09 18:50] LABS: Hematocrit 24.7 % (35.3-44.9)
[2017-01-09 18:53] LABS: Hemoglobin 7.6 g/dL (11.5-15.4)
[2017-01-09] MEDS: Acetaminophen 325 MG TABLET PO PRN (19:37)
[2017-01-09 22:56] LABS: Hematocrit 24.6 % (35.3-44.9); Hemoglobin 7.8 g/dL (11.5-15.4)
[2017-01-10] MEDS: *HR* HYDROmorphone 2 MG/ML SYRINGE IVP PRN (02:46)
[2017-01-10 05:36] LABS: Basophils % 0.6 %; Eosinophils # 0.1 K/mcL (0.0-0.6); Eosinophils % 1.2 %; Hematocrit 25.8 % (35.3-44.9); Hemoglobin 8.1 g/dL (11.5-15.4); Immature Granulocytes % 0.8 % (0-4); Lymphocytes # 0.7 K/mcL (0.6-4.6); Mean Corpuscular HGB Conc 31.4 g/dL (31.6-35.5); Mean Corpuscular Hemoglobin 27.5 pg (28.0-33.3); Mean Corpuscular Volume 87.5 fL (83.0-100.0); Mean Platelet Volume 10.7 fL (9.4-12.4); Monocytes # 0.4 K/mcL (0.0-1.3); Monocytes % 6.9 %; Neutrophils # 3.9 K/mcL (1.6-8.9); Platelet Count 195 K/mcL (140-400); Red Blood Count 2.95 M/mcL (3.82-4.97); Red Cell Distribution Width 15.3 % (11.5-14.5); Segmented Neutrophils % 76.5 %
[2017-01-10 05:46] LABS: Potassium 3.8 mEq/L (3.5-4.5)
[2017-01-10] MEDS: 0.9 % Sodium Chloride 1,000 ML IVC SCH (05:48)
--- NOTE | 2017-01-10 07:18 | Urology Progress Note ---
Date of Encounter: 01/10/17 Time of Encounter: 07:17 - Assessment and Plan (1) Hematuria Current Visit: Yes Status: Acute Assessment and plan: will reeval this afternoon and irrigate bladder Qualifiers: Hematuria type: gross Qualified Code(s): R31.0 - Gross hematuria (2) Radiation cystitis Current Visit: Yes Status: Acute Progress Note Narrative: patient seen. had a few more clots last night. urine clear at this time. Objective Initial Vital Signs Temp Pulse Resp BP Pulse Ox 98.0 F 126 18 158/99 98 01/08/17 23:18 01/08/17 23:18 01/08/17 23:18 01/08/17 23:18 01/08/17 23:18 - General physical appearance Present: well developed - Abdomen Present: soft - Labs 01/10/17 04:20 01/10/17 04:20 Diabetes panel 01/10/17 Range/Units 04:20 Sodium 140 (136-145) mEq/L Potassium 3.8 (3.5-4.5) mEq/L Chloride 109 (98-109) mEq/L Carbon Dioxide 25 (19-29) mEq/L BUN 18 (7-20) mg/dL Creatinine 1.18 H (0.57-1.11) mg/dL Glucose 113 H (70-99) mg/dL Calcium 8.0 L (8.6-10.8) mg/dL Calcium panel 01/10/17 Range/Units 04:20 Calcium 8.0 L (8.6-10.8) mg/dL Pituitary panel 01/10/17 Range/Units 04:20 Sodium 140 (136-145) mEq/L Potassium 3.8 (3.5-4.5) mEq/L Chloride 109 (98-109) mEq/L Carbon Dioxide 25 (19-29) mEq/L BUN 18 (7-20) mg/dL Creatinine 1.18 H (0.57-1.11) mg/dL Glucose 113 H (70-99) mg/dL Calcium 8.0 L (8.6-10.8) mg/dL Adrenal panel 01/10/17 Range/Units 04:20 Sodium 140 (136-145) mEq/L Potassium 3.8 (3.5-4.5) mEq/L Chloride 109 (98-109) mEq/L Carbon Dioxide 25 (19-29) mEq/L BUN 18 (7-20) mg/dL Creatinine 1.18 H (0.57-1.11) mg/dL Glucose 113 H (70-99) mg/dL Calcium 8.0 L (8.6-10.8) mg/dL Consult Discharge Plan - Plan Referrals: Mulu Gongora DO [Primary Care Provider] -
[2017-01-10] MEDS: BuPROPion XL (24 HR) 150 MG TABLET PO SCH (08:00)
[2017-01-10] MEDS: Acetaminophen 325 MG TABLET PO PRN (08:20)
[2017-01-10] MEDS ORDERED: 0.9 % Sodium Chloride 1,000 ML IVC SCH (10:48)
[2017-01-10 12:51] LABS: Hematocrit 25.3 % (35.3-44.9); Hemoglobin 8.1 g/dL (11.5-15.4)
--- NOTE | 2017-01-10 15:12 | Internal Med Progress Note ---
Date of Encounter: 01/10/17 Time of Encounter: 08:00 - Assessment and plan (1) Bladder obstruction Current Visit: Yes Status: Acute Assessment and plan: Due to hematuria and radiation cystitis. Currently being treated with bladder irrigation. Urology following. (2) Anemia Current Visit: Yes Status: Acute Assessment and plan: Patient with acute on chronic anemia. Hemoglobin dropped from 10.4-7.6 yesterday. Has remained stable since then. We will continue to follow blood counts. If blood counts drop further, we will transfuse packed red blood cells. Moderate risk for complications. Not on medical anticoagulation due to active hematuria Qualifiers: Anemia type: other cause Other causes of anemia: acute posthemorrhagic Qualified Code(s): D62 - Acute posthemorrhagic anemia (3) Hematuria Current Visit: Yes Status: Acute Assessment and plan: Continue bladder irrigation. Monitor blood counts. 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 - Subjective Interval history: Patient is awake and alert. Appears comfortable. Denies any complaints at this time. Did have some clots in her Asencio catheter overnight. Appears to be clearing up now. Denies any abdominal pain. No dizziness or lightheadedness. - Constitutional Vitals: Temp Pulse Resp BP Pulse Ox 98.5 F 88 16 123/78 95 01/10/17 11:41 01/10/17 11:41 01/10/17 11:41 01/10/17 11:41 01/10/17 11:41 General appearance: Present: cooperative, A&O X 3, pleasant, answers questions appropriately - Neck Neck exam general surgery: Present: supple, trachea midline. Absent: lymphadenopathy - Respiratory Respiratory exam: Present: CTAB. Absent: accessory muscle use, rales, rhonchi, wheezes - Cardiovascular Cardiovascular exam: Present: RRR, +S1, +S2. Absent: diastolic murmur, gallop, rubs, systolic murmur - GI/Abdominal GI/Abdominal exam: Present: normal bowel sounds, soft, no peritoneal signs. Absent: distended, tenderness - Extremities Exam Extremities exam: Present: warm, radial pulses palpable and symetrical. Absent : calf tenderness, cyanotic, pedal edema - Neurological Exam Neurological exam: Present: alert, no focal deficits. Absent: facial droop, speech deficit Internal Medicine: Result - Labs CBC & Chem 7: 01/10/17 12:31 01/10/17 04:20 Labs: Short CBC 01/09/17 01/09/17 01/10/17 Range/Units 18:27 22:12 04:20 WBC 5.1 (4.3-11.1) K/mcL Hgb 7.6 L D 7.8 L 8.1 L (11.5-15.4) g/dL Hct 24.7 L 24.6 L 25.8 L (35.3-44.9) % Plt Count 195 (140-400) K/mcL Neutrophils # 3.9 (1.6-8.9) K/mcL 01/10/17 Range/Units 12:31 WBC (4.3-11.1) K/mcL Hgb 8.1 L (11.5-15.4) g/dL Hct 25.3 L (35.3-44.9) % Plt Count (140-400) K/mcL Neutrophils # (1.6-8.9) K/mcL BMP 01/10/17 04:20 Sodium 140 Potassium 3.8 Chloride 109 Carbon Dioxide 25 BUN 18 Creatinine 1.18 H Glucose 113 H Calcium 8.0 L - ABG Interpretation ABG results: PT/INR, D-dimer PT 11.2 Seconds (9.4-12.1) 01/09/17 05:10 Consult Discharge Plan - Plan Referrals: Mulu Gongora DO [Primary Care Provider] -
[2017-01-11 06:07] LABS: Basophils % 0.7 %; Eosinophils # 0.1 K/mcL (0.0-0.6); Eosinophils % 1.9 %; Hematocrit 24.3 % (35.3-44.9); Hemoglobin 7.6 g/dL (11.5-15.4); Immature Granulocytes % 0.2 % (0-4); Immature Platelets 3.1 % (1.1-6.1); Lymphocytes # 0.9 K/mcL (0.6-4.6); Lymphocytes % 22.7 %; Mean Corpuscular HGB Conc 31.3 g/dL (31.6-35.5); Mean Corpuscular Volume 86.5 fL (83.0-100.0); Mean Platelet Volume 10.3 fL (9.4-12.4); Monocytes # 0.5 K/mcL (0.0-1.3); Monocytes % 10.9 %; Neutrophils # 2.6 K/mcL (1.6-8.9); Platelet Count 172 K/mcL (140-400); Red Blood Count 2.81 M/mcL (3.82-4.97); Red Cell Distribution Width 14.9 % (11.5-14.5); Segmented Neutrophils % 63.6 %
[2017-01-11 06:14] LABS: BUN/Creatinine Ratio 11 (6-26); Blood Urea Nitrogen 11 mg/dL (7-20); Carbon Dioxide 28 mEq/L (19-29); Chloride 108 mEq/L (98-109); Glucose 90 mg/dL (70-99); Osmolality,Calculated 291 (280-300); Potassium 3.3 mEq/L (3.5-4.5); Sodium 141 mEq/L (136-145); eGFR For African Americans > 60 (> 60); eGFR For Non-African Americans 57 (> 60)
[2017-01-11] MEDS: BuPROPion XL (24 HR) 150 MG TABLET PO SCH (08:05)
--- NOTE | 2017-01-11 08:07 | Urology Progress Note ---
Date of Encounter: 01/11/17 Time of Encounter: 08:04 - Assessment and Plan (1) Hematuria Current Visit: Yes Status: Acute Assessment and plan: likely blood loss anemia. will transfuse 2 units prbcs Qualifiers: Hematuria type: gross Qualified Code(s): R31.0 - Gross hematuria (2) Radiation cystitis Current Visit: Yes Status: Acute Assessment and plan: to OR for cysto clot evac this afternoon. Progress Note Narrative: patient seen. still with hematuria and clots last night. hgb dropped. Objective Initial Vital Signs Temp Pulse Resp BP Pulse Ox 98.0 F 126 18 158/99 98 01/08/17 23:18 01/08/17 23:18 01/08/17 23:18 01/08/17 23:18 01/08/17 23:18 - General physical appearance Present: well developed - Abdomen Present: soft - Genitourinary Present: other (bloody urine in tubing) - Labs 01/11/17 05:26 01/11/17 05:26 Diabetes panel 01/11/17 Range/Units 05:26 Sodium 141 (136-145) mEq/L Potassium 3.3 L (3.5-4.5) mEq/L Chloride 108 (98-109) mEq/L Carbon Dioxide 28 (19-29) mEq/L BUN 11 (7-20) mg/dL Creatinine 1.00 (0.57-1.11) mg/dL Glucose 90 (70-99) mg/dL Calcium 8.0 L (8.6-10.8) mg/dL Calcium panel 01/11/17 Range/Units 05:26 Calcium 8.0 L (8.6-10.8) mg/dL Pituitary panel 01/11/17 Range/Units 05:26 Sodium 141 (136-145) mEq/L Potassium 3.3 L (3.5-4.5) mEq/L Chloride 108 (98-109) mEq/L Carbon Dioxide 28 (19-29) mEq/L BUN 11 (7-20) mg/dL Creatinine 1.00 (0.57-1.11) mg/dL Glucose 90 (70-99) mg/dL Calcium 8.0 L (8.6-10.8) mg/dL Adrenal panel 01/11/17 Range/Units 05:26 Sodium 141 (136-145) mEq/L Potassium 3.3 L (3.5-4.5) mEq/L Chloride 108 (98-109) mEq/L Carbon Dioxide 28 (19-29) mEq/L BUN 11 (7-20) mg/dL Creatinine 1.00 (0.57-1.11) mg/dL Glucose 90 (70-99) mg/dL Calcium 8.0 L (8.6-10.8) mg/dL Consult Discharge Plan - Plan Referrals: Mulu Gongoar DO [Primary Care Provider] -
[2017-01-11] MEDS ORDERED: 0.9 % Sodium Chloride 500 ML ONE (08:56)
[2017-01-11] MEDS ORDERED: 0.9 % Sodium Chloride w KCl 20 MEQ/1,000 ML MLS IVC SCH ×2 (11:30→16:13)
--- NOTE | 2017-01-11 13:16 | Internal Med Progress Note ---
Date of Encounter: 01/11/17 Time of Encounter: 08:10 - Assessment and plan (1) Bladder obstruction Current Visit: Yes Status: Acute Assessment and plan: With radiation cystitis and hematuria. CT scan of the pelvis shows possible blood clot surrounding the tip of the Asencio catheter as well as the balloon. Urology plans to take the patient to the OR later today for cystoscopy and clot evacuation. Moderate risk for complications. (2) Anemia Current Visit: Yes Status: Acute Assessment and plan: Hemoglobin 7.6 today. Patient continuing to have hematuria. We will transfuse packed red blood cells. Qualifiers: Anemia type: other cause Other causes of anemia: acute posthemorrhagic Qualified Code(s): D62 - Acute posthemorrhagic anemia (3) Hematuria due to irradiation cystitis Current Visit: Yes Status: Acute Assessment and plan: Due to radiation cystitis. Management as above (4) DVT prophylaxis Current Visit: Yes Status: Acute - Subjective Interval history: Patient is awake and alert and oriented. Denies any abdominal pain. Still having hematuria. Continue to see received bladder irrigation. Denies any dizziness or lightheadedness. - Constitutional Vitals: Temp Pulse Resp BP Pulse Ox 98.2 F 82 18 132/84 98 01/11/17 10:59 01/11/17 10:59 01/11/17 10:59 01/11/17 10:59 01/11/17 10:59 General appearance: Present: cooperative, A&O X 3, pleasant, answers questions appropriately - Neck Neck exam general surgery: Present: supple, trachea midline. Absent: lymphadenopathy - Cardiovascular Cardiovascular exam: Present: RRR, +S1, +S2. Absent: diastolic murmur, gallop, rubs, systolic murmur - GI/Abdominal GI/Abdominal exam: Present: normal bowel sounds, soft, no peritoneal signs. Absent: distended, tenderness - Extremities Exam Extremities exam: Present: warm, radial pulses palpable and symetrical. Absent : calf tenderness, cyanotic, pedal edema - Neurological Exam Neurological exam: Present: alert, oriented X3, no focal deficits. Absent: facial droop, speech deficit Internal Medicine: Result - Labs CBC & Chem 7: 01/11/17 05:26 01/11/17 05:26 - ABG Interpretation ABG results: PT/INR, D-dimer PT 11.2 Seconds (9.4-12.1) 01/09/17 05:10 Consult Discharge Plan - Plan Referrals: Mulu Gongora DO [Primary Care Provider] -
--- NOTE | 2017-01-11 14:00 | Anesthesia Evaluation PreOp ---
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) Other Medical History: Renal (CRD, Stage III CRD), Other (Vaginal CA s/p radiation, migraines) Anesthesia History: No Prior Anesthetic Complications, Past Anesthesia ([facility]) : No Alcohol Use: none Drug use: none Medications and Allergies Dicyclomine [Bentyl] 20 mg PO QID PRN #60 capsule 11/24/15 [Rx] l Gasseri/B Bifidum/B Longum [Vedicis Capsule] 1 cap PO DAILY 08/09 [History] Escitalopram [Lexapro] 10 mg PO DAILY 07/31/16 [History] Aspirin/Acetaminophen/Caffeine [Excedrin Migraine Caplet] 1 tab PO DAILY [History] Bupropion HCl [Wellbutrin Xl] 300 mg PO QAM 01/09/17 [History] Diphenoxylate/Atropine [Lomotil 2.5 mg/0.025 mg] 1 tab PO QID PRN 01/09/17 [ History] Allergies NSAIDS (Non-Steroidal Anti-Inflamma Adverse Reaction (Verified 01/17/16 03:24) See Comments - Meds/Allergy Pre-op Review Medications Reviewed: Yes Allergies Reviewed: Yes Beta Blockers on Current Med List: No Anesthesia Results - Labs 01/11/17 05:26 01/11/17 05:26 transfused with 1 unit PRBC after 7.6 Hg - Imaging EKG: image reviewed ( SINUS RHYTHM MARKED LEFT AXIS DEVIATION MODERATE ST DEPRESSION) Anesthesia Exam O2 Sat Weight 98.792 kg O2 Sat by Pulse Oximetry 98 O2 Sat by Pulse Oximetry 99 O2 Sat by Pulse Oximetry 98 O2 Sat by Pulse Oximetry 98 O2 Sat by Pulse Oximetry 96 O2 Sat by Pulse Oximetry 97 O2 Sat by Pulse Oximetry 97 Vital Signs Temp Pulse Resp BP Pulse Ox 98.0 F 126 18 158/99 98 01/08/17 23:18 01/08/17 23:18 01/08/17 23:18 01/08/17 23:18 01/08/17 23:18 Vital Signs/O2 Sat, Most Current Temp Pulse Resp BP Pulse Ox 98.2 F 82 18 132/84 98 01/11/17 10:59 01/11/17 10:59 01/11/17 10:59 01/11/17 10:59 01/11/17 10:59 Height: 5'4'' Weight: 217# NPO (# of Hours): > 8 Hrs Pain Scale: 0 Pain Scale Used: Numeric (1 - 10) - HEENT Pupil (Motor): Pupils equal, EOMI Mallampati: II Teeth: Normal Oral Opening: Greater than 3 - [employer] OFF[employer] LOC: Oriented [employer] Motor: Normal RUE, Normal LUE, Normal RLE, Normal LLE, Normal Face [employer] Sensory: Normal: RUE, LUE, RLE, LLE, Face - Cardiac Rhythm: Regular Murmur: None JVD: No Carotid Bruit: No - Pulmonary Breath Sounds: bilateral Clear Respiratory Effort: Symmetrical Anesthesia Assess/Plan ASA Score: 3 Modified Charley Scale for Level of Consciousness: Cooperative, oriented, and tranquil Anesthetic Plan: General Autologous Blood: Yes Monitoring Plan: Standard Monitors Recovery Plan: PACU
[2017-01-11] MEDS ORDERED: Scopolamine Patch 1.5 MG PATCH.TD72 TD ONE (14:19)
[2017-01-11] MEDS ORDERED: *HR* FentaNYL (PF) 100 MCG/2 ML VIAL ONE (14:19)
[2017-01-11] MEDS ORDERED: *HR* Midazolam HCl 2 MG/2 ML VIAL ONE (14:19)
[2017-01-11] MEDS ORDERED: *HR* Propofol 200 MG/20 ML VIAL IVP ONE (14:19)
[2017-01-11] MEDS ORDERED: Lidocaine -MPF 2% 2 ML VIAL ONE (14:21)
[2017-01-11] MEDS ORDERED: 0.9 % Sodium Chloride 1,000 ML IVC ONE (14:21)
[2017-01-11] MEDS ORDERED: CeFAZolin Pre 2,000 MG/100 ML 2,000 MG/100 ML BAG IVPB ONE (14:22)
[2017-01-11] MEDS ORDERED: Ringers Solution, Lactated 1,000 ML IVC ONE (14:35)
[2017-01-11] MEDS ORDERED: Propofol 500 MG/50 ML INFUS..BTL ONE (14:38)
[2017-01-11] MEDS ORDERED: Dexamethasone 4 MG/ML VIAL ONE (14:40)
[2017-01-11] MEDS ORDERED: Ondansetron 4 MG/2 ML VIAL ONE (14:40)
[2017-01-11] MEDS ORDERED: *HR* HYDROmorphone (PF) 1 MG/ML SYRINGE IVP PRN (15:02)
[2017-01-11] MEDS ORDERED: *HR* Promethazine 25 MG/ML VIAL IVP PRN (15:02)
--- NOTE | 2017-01-11 15:08 | Operative Note ---
Date of procedure: 01/11/17 Pre-op diagnosis: hematuria Post-op diagnosis: same (Clot within bladder) Procedure: Cystoscopy, clot evacuation, transurethral fulguration of bladder wall Anesthesia: MARIELENAA Surgeon: Ammon Han Condition: stable Disposition: PACU Procedure in Detail: Patient was prepped and draped in normal sterile fashion. Timeout procedure performed. I then inserted the resectoscope into the patient's bladder. Small amount of clot was seen within the bladder. I used the Bala syringe to irrigate this clot out of the bladder. At this point random red erythematous lesions were seen without the bladder consistent with radiation cystitis. I then used the bipolar mushroom to fulgurate all these red areas. No active bleeding was seen at the end of the procedure. 22-Mauritanian 3-way catheter was placed. Patient tolerated well and was taken to PACU in stable condition
--- NOTE | 2017-01-11 15:48 | Anesthesia Evaluation Post Op ---
Date of Encounter: 01/11/17 Time of Encounter: 15:47 - Vital Signs Vital Signs: Vital Signs/O2 Sat, Most Current Temp Pulse Resp BP Pulse Ox 98.7 F 90 16 146/87 99 01/11/17 15:41 01/11/17 15:41 01/11/17 15:41 01/11/17 15:41 01/11/17 15:41 - Lungs Lungs: Clear Ascult./Percussion - Airway Airway: Non-obstructed - Cardiovascular Regular Rate - Mental Status Mental Status: Alert & Oriented, Answers Appropriately - Pain Pain Scale: 5 Pain Scale used: Numeric (1 - 10) - Nausea Vomiting Nausea Vomiting: Not Present - Hydration Hydration: Ice chips, Asencio catheter - Discharge PostOp Status: Transfer Patient to floor
[2017-01-11] MEDS ORDERED: Naloxone 0.4 MG/ML INJ IVP PRN (16:13)
[2017-01-11] MEDS ORDERED: Acetaminophen 325 MG TABLET PO PRN (16:13)
[2017-01-11] MEDS ORDERED: Ondansetron ODT 4 MG TAB.RAPDIS SL PRN (16:13)
[2017-01-11] MEDS: *HR* HYDROmorphone 2 MG/ML SYRINGE IVP PRN ×2 (16:27→21:25)
[2017-01-11] MEDS: *HR* Belladonna Alkaloids/Opium 60 MG RECTAL SUPPOSITORY RC PRN ×2 (17:30→21:06)
[2017-01-12] MEDS: *HR* Belladonna Alkaloids/Opium 60 MG RECTAL SUPPOSITORY RC PRN (05:02)
--- NOTE | 2017-01-12 08:45 | Urology Progress Note ---
Date of Encounter: 01/12/17 Time of Encounter: 08:44 - Assessment and Plan (1) Hematuria Current Visit: Yes Status: Acute Assessment and plan: resolved at this time. catheter will be removed. ok to dc per urology. f/u scheduled and printed Qualifiers: Hematuria type: gross Qualified Code(s): R31.0 - Gross hematuria (2) Radiation cystitis Current Visit: Yes Status: Acute Progress Note Narrative: patient seen. doing much better. urine clear. Objective Initial Vital Signs Temp Pulse Resp BP Pulse Ox 98.0 F 126 18 158/99 98 01/08/17 23:18 01/08/17 23:18 01/08/17 23:18 01/08/17 23:18 01/08/17 23:18 - General physical appearance Present: well developed - Abdomen Present: soft - Genitourinary Present: other (urine clear in tubing off irrigation) - Labs 01/11/17 05:26 01/11/17 05:26 - VTE Documentation of Mechanical Device: Intermittent pneumatic compression device Consult Discharge Plan - Plan Referrals: Ammon Han MD [Partnered Physician] - Mulu Gongora DO [Primary Care Provider] -
[2017-01-12] MEDS ORDERED: BuPROPion XL (24 HR) 150 MG TABLET PO SCH (09:00)
[2017-01-12] MEDS ORDERED: Potassium Chloride Elixir 20 MEQ/15 ML UDC PO ONE (09:43)
[2017-01-12 12:25] VITALS: BP 104/69
--- NOTE | 2017-01-12 13:57 | Discharge Summary ---
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 Priority: Secondary Status: Acute - Discharge Medications Home Medications: Dicyclomine [Bentyl] 20 mg PO QID PRN #60 capsule 11/24/15 [Rx] l Gasseri/B Bifidum/B Longum [[employer] Capsule] 1 cap PO DAILY 08/09 [History] Escitalopram [Lexapro] 10 mg PO DAILY 07/31/16 [History] Aspirin/Acetaminophen/Caffeine [Excedrin Migraine Caplet] 1 tab PO DAILY [History] Bupropion HCl [Wellbutrin Xl] 300 mg PO QAM 01/09/17 [History] Diphenoxylate/Atropine [Lomotil 2.5 mg/0.025 mg] 1 tab PO QID PRN 01/09/17 [ History] Acetaminophen [Tylenol] 650 mg PO Q6HR PRN tab 01/12/17 [Rx] Docusate [Colace] 100 mg PO BID PRN 01/12/17 [Rx] Allergies/Adverse Reactions: Allergies NSAIDS (Non-Steroidal Anti-Inflamma Adverse Reaction (Verified 01/17/16 03:24) See Comments Date of admission: 01/11/17 08:18 Primary care physician: Ana Braswell Discharging clinician: Balwinder Toledo Anticipated date of discharge: 01/12/17 - Patient Status Disposition: Home, Self-Care Condition: Good Overall status at discharge: patient is progressing back to baseline - Discharge Instructions Follow Up With: Ammon Han MD [Partnered Physician] - Mulu Gongora DO [Primary Care Provider] - - Diet and Activity Activity: increase activity as tolerated Diet: advance to your usual diet Hospital course: Ms. Jasmine is a 61 year old female presented with urinary obstruction. Patient has history of vaginal cancer for which she underwent chemoradiation previously. Since then she continued to have periodic hematuria and passed blood clots and not too long ago had similar problem for which Asencio catheter was placed and which resolves the obstruction. During this admission urology was consulted and she had there cystoscopy where blood clot were noted and there were removed. Also noted to nonbleeding radiation cystitis which was fulgurated. Her Asencio catheter has been removed trended we are waiting for her to make urine by herself and if such is the case then she can be discharged as recommended by urology. - Time Spent with Patient Total time spent providing and/or coordinating discharge services: Greater than 30 minutes - Constitutional Vitals: Temp Pulse Resp BP Pulse Ox 97.8 F 76 16 104/69 95 01/12/17 11:25 01/12/17 11:25 01/12/17 11:25 01/12/17 11:25 01/12/17 11:25 General appearance: Present: cooperative, A&O X 3, pleasant, answers questions appropriately - Head Head exam: Present: atraumatic, normocephalic - Eye Eye exam: Present: PERRL, conjuntiva pink, sclera anicteric Pupils: Present: PERRL - Neck Neck exam general surgery: Present: supple, trachea midline. Absent: lymphadenopathy - Respiratory Respiratory exam: Present: CTAB. Absent: accessory muscle use, rales, rhonchi, wheezes - Cardiovascular Cardiovascular exam: Present: RRR, +S1, +S2. Absent: diastolic murmur, gallop, rubs, systolic murmur - GI/Abdominal GI/Abdominal exam: Present: normal bowel sounds, soft, no peritoneal signs. Absent: distended, tenderness - Extremities Exam Extremities exam: Present: warm, radial pulses palpable and symetrical. Absent : calf tenderness, cyanotic, pedal edema - Neurological Exam Neurological exam: Present: CN II-XII intact, oriented X3, no focal deficits. Absent: pronater drift, facial droop, speech deficit - Skin Skin exam: Present: dry, intact - VTE Documentation of Mechanical Device: Intermittent pneumatic compression device
== END 2017-01-12 15:20 | disposition home or self-care (01) | DRG 669 ==
LOC: 3ANU 23:16 → EMEROO 23:16 → 3ANU 01-09 04:23
PROVIDERS: ADMIT Internal Medicine; ATTEND Internal Medicine

== ENCOUNTER 2017-01-27 16:28 | Inpatient (IN) ==
[2017-01-27 17:43] LABS: Basophils # 0.1 K/mcL (0.0-0.2); Basophils % 0.7 %; Eosinophils # 0.1 K/mcL (0.0-0.6); Immature Granulocytes % 0.4 % (0-4); Immature Platelets 2.8 % (1.1-6.1); Lymphocytes % 13.1 %; Mean Corpuscular Hemoglobin 25.6 pg (28.0-33.3); Mean Corpuscular Volume 85.5 fL (83.0-100.0); Monocytes # 0.6 K/mcL (0.0-1.3); Monocytes % 8.4 %; Neutrophils # 5.5 K/mcL (1.6-8.9); Platelet Count 342 K/mcL (140-400); Red Blood Count 3.51 M/mcL (3.82-4.97); Red Cell Distribution Width 14.5 % (11.5-14.5); Segmented Neutrophils % 76.4 %
--- NOTE | 2017-01-27 17:45 | Emergency Department Note ---
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 Hematuria Qualifiers: Hematuria type: gross Qualified Code(s): R31.0 - Gross hematuria Anemia Qualifiers: Anemia type: unspecified type Qualified Code(s): D64.9 - Anemia, unspecified Disposition: Admitted As Inpatient Condition: Good Forms: ED Satisfaction Letter Time of Disposition: 21:33 Female Urogenital HPI - General Chief complaint: ED Urogenital-Female Stated complaint: Hematuria / Unable To Urinate Time Seen by Provider: 01/27/17 17:06 Source: patient Mode of arrival: ambulatory Limitations: no limitations Nursing Notes Reviewed: Yes Vital Signs Reviewed: Yes - History of Present Illness HPI Narrative: Patient presents emergency room with hematuria. She has had this on and off multiple times over the last several months. She has known bleeding issue inside of her bladder secondary to radiation treatment for vaginal cancer. Denies any other symptoms or complaints at this time. She has had bright red blood in her urine today as well as inability to pass urine over the last several hours. 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 Radiation: non-radiating Severity: mild Quality: cramping Duration: constant Improves with: none Worsens with: none Urinary Symptoms: hematuria Vaginal discharge: blood Sexual activity: no : no Associated symptoms: Reports: denies other symptoms - Related Data Home Medications Medication Instructions Recorded Confirmed l Gasseri/B Bifidum/B Longum 1 cap PO DAILY 11/24/15 01/09/17 [[employer] Capsule] Escitalopram [Lexapro] 10 mg PO DAILY 07/31/16 01/09/17 Aspirin/Acetaminophen/Caffeine 1 tab PO DAILY 01/09/17 01/09/17 [Excedrin Migraine Caplet] Bupropion HCl [Wellbutrin Xl] 300 mg PO QAM 01/09/17 01/09/17 Diphenoxylate/Atropine [Lomotil 1 tab PO QID PRN 01/09/17 01/09/17 2.5 mg/0.025 mg] Previous Rx's Medication Instructions Recorded Dicyclomine [Bentyl] 20 mg PO QID PRN #60 capsule 11/24/15 Acetaminophen [Tylenol] 650 mg PO Q6HR PRN tab 01/12/17 Docusate [Colace] 100 mg PO BID PRN 01/12/17 Allergies Allergy/AdvReac Type Severity Reaction Status Date / Time NSAIDS (Non-Steroidal AdvReac See Verified 01/17/16 03:24 Anti-Inflamma Comments All systems ED: reviewed and negative except as stated. Review of Systems: As Per HPI Cardiovascular: Denies: chest pain, palpitations, dyspnea on exertion, orthopnea Respiratory: Denies: cough, dyspnea, wheezes Gastrointestinal: Denies: abdominal pain, nausea, vomiting, diarrhea, constipation, melena, hematochezia Genitourinary: Reports: hematuria. Denies: urgency, dysuria, frequency, discharge Musculoskeletal: Denies: back pain, neck pain Neurological: Denies: headache Hematological/Lymphatic: Denies: easy bleeding Past Medical History - Past Medical History Attestation: Yes The following information was validated with the patient. Source: patient Medical history: Reports: cancer Surgical history: Reports: hysterectomy Psychiatric history: Reports: anxiety SUPPORT SPECIALIST history: Reports: no SUPPORT SPECIALIST history - Social History Smoking Status: Never smoker Smokeless Tobacco Status: No Alcohol use: Reports: none Drug use: Reports: none Physical Exam - General Limitations: no limitations General appearance: alert - Chest Chest inspection: Present: normal inspection, symmetric chest wall rise - Respiratory Respiratory exam: Present: normal lung sounds bilaterally - Cardiovascular Cardiovascular exam: Present: normal rhythm, tachycardia, normal heart sounds - Abdominal Exam Abdominal exam: Present: soft, tenderness (Mild suprapubic discomfort but no guarding no rigidity), normal bowel sounds. Absent: distention, guarding, rebound, rigidity - Extremities Exam Extremities exam: Present: normal inspection, full ROM. Absent: tenderness, pedal edema - Back Exam Back exam: Present: normal inspection, full ROM. Absent: tenderness - Neurological Exam Neurological exam: Present: alert, oriented X3, CN II-XII intact, normal gait - Skin Skin exam: Present: warm, dry, intact, normal color Course Course Narrative: Patient seen and examined at the time of arrival. See history of present illness. 61-year-old female presents to emergency room with complaint of hematuria. This is the third or fourth time she has been seen for this over the last several months. She is evaluated several times in the emergency room and has been admitted one other time for this in the past. She has been evaluated by urology as an outpatient and had an ablation performed within the last month. She denies any new issues. She denies any trauma vaginal bleeding pain in her abdomen fevers chills chest pain shortness of breath headache or vision change. She is not currently on any blood thinners. Patient was concerned because today she had gross blood in her urine and she has had inability to pass urine over the last several hours similar to her previous obstructive issue secondary to a blood clot. Physical exam is otherwise benign. Abdomen is soft no guarding or rigidity lungs are clear heart is regular. She is tachycardic on initial presentation. She did have a hemoglobin collected. This week and it was 9.5 from what she remembered. Patient will have CBC chemistry urinalysis ordered here. Bladder irrigation to be completed. Bedside ultrasound was completed by myself showing what appears to be a foreign fluid accumulation in the bladder itself at this time. His most likely consistent with a blood clot. Disposition pending treatment course and evaluation. - Reevaluation(s) Reevaluation #1: Hemoglobin is stable at 9.0 today. The bladder irrigation started this time large clots are being removed at this point. Patient's symptoms are much better at this time. Still a pink tinged fluid being removed from the bladder this time will continue to irrigate. Patient completes 1 bag of the solution without any resolution of the blood will discuss it with the on-call urologist and see if they recommend admission. Patient is otherwise stable feeling much better at this time. Patient was discussed with the on-call urologist Dr. Montes De Oca. He recommended admission at the blood does not clear during the bladder irrigation. Patient also agrees to this. At the bladder clears she will follow up with her urologist while morning. Knee fluid at this time is turning very light pink and appears to be slowing down. We will continue to monitor as treatment course is completed. Time: 19:29 Reevaluation #2: Consent persistent blood in her urine. She will be admitted at this time for observation overnight with the hospitalist group for consultation to urology in the morning. Time: 21:14 Reevaluation #3: Patient is still had persistent discomfort in the abdomen. Along with hematuria. Consultation placed to the hospitalist for admission. They had no other recommendations at this time. Patient form she is comfortable with this plan. We will continue to provide bladder irrigation here and complete the admission process. Patient will be observed in the emergency room and to the admission is completed Time: 21:33 Vital Signs Temperature 98.6 F 01/27/17 16:29 Pulse Rate 108 01/27/17 16:29 Respiratory Rate 14 01/27/17 16:29 Blood Pressure 150/78 01/27/17 16:29 O2 Sat by Pulse Oximetry 99 01/27/17 16:29 Temperature 98.6 F 01/27/17 16:29 Pulse Rate 108 01/27/17 16:29 Respiratory Rate 14 01/27/17 16:29 Blood Pressure 150/78 01/27/17 16:29 O2 Sat by Pulse Oximetry 99 01/27/17 16:29 Oxygen Delivery Oxygen Delivery Room Air Urogenital-Female - MDM Narrative Medical decision making narrative: Hematuria secondary to radiation. I blood clot in the bladder. Anemia - Medical Records Medical records reviewed: Yes I reviewed the patient's medical records. - Lab Data Lab results reviewed: Yes I reviewed the patient's lab results.
[2017-01-27 17:46] LABS: Lymphocytes # 0.9 K/mcL (0.6-4.6)
[2017-01-27 17:56] LABS: Potassium 4.1 mEq/L (3.5-4.5)
[2017-01-27 18:07] LABS: Hypochromasia Present (Not Present); Polychromasia 2+ (Not Present)
[2017-01-27] MEDS ORDERED: *HR* HYDROmorphone (PF) 1 MG/ML SYRINGE IM ONE (18:37)
[2017-01-27 18:45] LABS: Bilirubin,Urine Negative (Negative); Blood,Urine Large (Negative); Clarity,Urine Cloudy (Clear); Glucose,Urine (UA) Normal (Normal); Ketones,Urine Negative (Negative); Leukocyte Esterase,Urine Small (Negative); Nitrite,Urine Negative (Negative); Protein,Urine >=300 mg/dL (Neg-Trace); Specific Gravity,Urine > 1.030 (1.010-1.025); Urobilinogen,Urine Normal (Normal)
[2017-01-27 18:47] LABS: Color,Urine Red (Yellow)
[2017-01-27 18:49] LABS: Bacteria,Urine Present per hpf (None-Few); RBC,Urine TNTC per hpf (0-3); WBC,Urine Present per hpf (0-3)
[2017-01-27] MEDS ORDERED: *HR* Morphine 2 MG/ML SYRINGE IVP ONE (21:35)
--- NOTE | 2017-01-27 22:01 | Internal Med History&Physical ---
Date of Encounter: 01/27/17 Time of Encounter: 21:57 Assessment and Plan (1) Bladder obstruction Current visit: Yes Status: Acute Three-way catheter placed. continuous bladder irrigation. urology consultation. 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 (3) Acute kidney injury Current visit: Yes Status: Acute Hydrate Internal Medicine - H&P: HPI Chief complaint: hematuria, urine retension History of present illness: Ms. Jasmine is a 61 year old female with history of vaginal cancer status post chemo radiation was been having complications in the form of radiation cystitis and almost hospitalization once monthly for hematuria and urine retention requiring bladder irrigation presents to the emergency room today with similar complaint. Since patient started having hematuria, however she was still making urine. She was having lower abdominal discomfort. Today patient started having urine retention should not need any urine since afternoon and started having abdominal pain so presented to the emergency room. She was content urine retention. Three-way catheter was placed in irrigation started. Patient is having frequent obstruction of the catheter so will be admitted to hospital for further management. Patient takes 81 mg of aspirin daily no other antiplatelet or anticoagulant medication. She denies any fevers of chills. Past Med Surg Social Fam HX - Past Medical History Medical history: cancer Psychiatric history: anxiety - Past Surgical History Surgical History: hysterectomy - Social History Smoking Status: Never smoker Smokeless Tobacco Status: No Alcohol use: none Drug use: none Internal Medicine - H&P: Meds Dicyclomine [Bentyl] 20 mg PO QID PRN #60 capsule 11/24/15 [Rx] l Gasseri/B Bifidum/B Longum [[employer] Capsule] 1 cap PO DAILY 08/09 [History] Escitalopram [Lexapro] 10 mg PO DAILY 07/31/16 [History] Aspirin/Acetaminophen/Caffeine [Excedrin Migraine Caplet] 1 tab PO DAILY [History] Bupropion HCl [Wellbutrin Xl] 300 mg PO QAM 01/09/17 [History] Diphenoxylate/Atropine [Lomotil 2.5 mg/0.025 mg] 1 tab PO QID PRN 01/09/17 [ History] Acetaminophen [Tylenol] 650 mg PO Q6HR PRN tab 01/12/17 [Rx] Docusate [Colace] 100 mg PO BID PRN 01/12/17 [Rx] Allergies NSAIDS (Non-Steroidal Anti-Inflamma Adverse Reaction (Verified 01/17/16 03:24) See Comments All Systems PM: A 10-system review of systems was performed and is negative for pertinent findings except as documented above in the HPI. Review of systems: 10 point review of systems is negative except for HPI - Constitutional Vitals: Temp Pulse Resp BP Pulse Ox 98.6 F 88 18 154/90 99 01/27/17 16:29 01/27/17 20:54 01/27/17 20:54 01/27/17 20:54 01/27/17 20:54 Exam: Gen.: patient is alert oriented times 3, restless from pain cardiac: normal S1 S2 no additional sounds or murmurs chest: no active wheezing or bronchial breathing abdomen soft nontender nondistended normal bowel sounds. sahni catheter in place lower extremity no swelling. Neuro: no new focal deficits Internal Med - H&P Results - Labs CBC & Chem 7: 01/27/17 17:35 01/27/17 17:35 Labs: Short CBC 01/27/17 Range/Units 17:35 WBC 7.2 (4.3-11.1) K/mcL Hgb 9.0 L (11.5-15.4) g/dL Hct 30.0 L (35.3-44.9) % Plt Count 342 (140-400) K/mcL Neutrophils # 5.5 (1.6-8.9) K/mcL BMP 01/27/17 17:35 Sodium 138 Potassium 4.1 Chloride 103 Carbon Dioxide 24 BUN 25 H Creatinine 1.27 H Glucose 123 H Calcium 9.0 Urine 01/27/17 Range/Units 18:26 Urine Color Red A (Yellow) Urine Clarity Cloudy A (Clear) Urine pH 7.0 (5.0-8.0) pH Units Ur Specific Harris > 1.030 H (1.010-1.025) Urine Protein >=300 H (Neg-Trace) mg/dL Urine Glucose (UA) Normal (Normal) mg/dL
[2017-01-27] MEDS ORDERED: *HR* Morphine 2 MG/ML SYRINGE IVP PRN (22:04)
[2017-01-27] MEDS ORDERED: Ondansetron 4 MG/2 ML VIAL IVP PRN (22:04)
[2017-01-27] MEDS ORDERED: *HR* HYDROmorphone (PF) 1 MG/ML SYRINGE IVP ONE (22:13)
[2017-01-28 02:03] LABS: Basophils # 0.1 K/mcL (0.0-0.2); Basophils % 0.4 %; Eosinophils % 0.1 %; Hematocrit 27.8 % (35.3-44.9); Hemoglobin 8.8 g/dL (11.5-15.4); Immature Granulocytes % 0.6 % (0-4); Lymphocytes % 8.3 %; Mean Corpuscular HGB Conc 31.7 g/dL (31.6-35.5); Mean Corpuscular Hemoglobin 26.4 pg (28.0-33.3); Mean Corpuscular Volume 83.5 fL (83.0-100.0); Mean Platelet Volume 9.4 fL (9.4-12.4); Monocytes # 0.7 K/mcL (0.0-1.3); Monocytes % 6.1 %; Neutrophils # 9.6 K/mcL (1.6-8.9); Platelet Count 330 K/mcL (140-400); Red Blood Count 3.33 M/mcL (3.82-4.97); Red Cell Distribution Width 14.4 % (11.5-14.5); Segmented Neutrophils % 84.5 %
[2017-01-28 02:17] LABS: Calcium 8.7 mg/dL (8.6-10.8); Magnesium 2.3 mg/dL (1.6-2.6); Potassium 4.7 mEq/L (3.5-4.5)
[2017-01-28] MEDS ORDERED: Dicyclomine 20 MG/2 ML AMPUL IM ONE (02:52)
[2017-01-28] MEDS: *HR* HYDROmorphone 2 MG/ML SYRINGE IVP PRN ×4 (03:09→13:28)
[2017-01-28] MEDS ORDERED: 0.9 % Sodium Chloride 500 ML IVC ONE (06:37)
[2017-01-28] MEDS: Famotidine 20 MG/2 ML VIAL IVP SCH (07:45)
[2017-01-28] MEDS: 0.9 % Sodium Chloride 1,000 ML IVC SCH ×3 (07:48→19:59)
--- NOTE | 2017-01-28 10:46 | Internal Med Progress Note ---
<Benji Scanlon - Last Filed: 01/28/17 17:41> Date of Encounter: 01/28/17 Time of Encounter: 09:34 - Assessment and plan (1) Hematuria Current Visit: Yes Status: Acute Assessment and plan: Secondary to Irradiation cystitis Urine culture pending. Continue 3 way catheter and IV fluids Urology recommends Bilateral Nephrostomy tubes Qualifiers: Hematuria type: gross Qualified Code(s): R31.0 - Gross hematuria (2) Anemia Current Visit: Yes Status: Acute Assessment and plan: Hb 8.8 (baseline 10-12). Patient reports that in the past when this has happened she has required iron transfusions. Will check iron/TIBC/ferritin. Blood loss vs iron deficiency. Qualifiers: Anemia type: unspecified type Qualified Code(s): D64.9 - Anemia, unspecified (3) Acute kidney injury Current Visit: Yes Status: Resolved Assessment and plan: Cr 1.64. Baseline (0.8-1.2). Continue to hydrate and monitor. (4) Anxiety Current Visit: No Status: Chronic Assessment and plan: Will continue home doses of Wellbutrin and Lexapro (5) DVT prophylaxis Current Visit: No Status: Acute Assessment and plan: Patient has a IVC filter in place - Subjective Interval history: Patient seen and examined. Reports that she is doing well with no complaints. Her pain is controlled. She reports another bladder obstruction last PM, but is doing well now. Denies chest pain, dyspnea, cough, abdominal pain, N/V/D, or lower extremity edema. - Constitutional Vitals: Temp Pulse Resp BP Pulse Ox 98.8 F 82 16 105/69 98 01/28/17 07:53 01/28/17 07:53 01/28/17 07:53 01/28/17 07:53 01/28/17 07:53 General appearance: Present: A&O X 3, no acute distress, answers questions appropriately - Head Head exam: Present: atraumatic, normocephalic - Eye Eye exam: Present: sclera anicteric - Respiratory Respiratory exam: Present: CTAB. Absent: rales, rhonchi, wheezes - Cardiovascular Cardiovascular exam: Present: RRR, +S1, +S2. Absent: diastolic murmur, systolic murmur - GI/Abdominal GI/Abdominal exam: Present: normal bowel sounds, soft. Absent: distended, rigid , tenderness - Additional comments: Catheter in place with red urine present - Extremities Exam Extremities exam: Present: warm, radial pulses palpable and symetrical. Absent : calf tenderness, joint swelling, pedal edema, tenderness Internal Medicine: Result - Labs CBC & Chem 7: 01/28/17 01:55 01/28/17 01:55 Labs: Short CBC 01/28/17 Range/Units 01:55 WBC 11.4 H D (4.3-11.1) K/mcL Hgb 8.8 L (11.5-15.4) g/dL Hct 27.8 L (35.3-44.9) % Plt Count 330 (140-400) K/mcL Neutrophils # 9.6 H (1.6-8.9) K/mcL BMP 01/28/17 01:55 Sodium 136 Potassium 4.7 H Chloride 105 Carbon Dioxide 21 BUN 28 H Creatinine 1.64 H Glucose 133 H Calcium 8.7 - VTE Documentation of Mechanical Device: Intermittent pneumatic compression device Consult Discharge Plan - Plan Referrals: NONE,PCP [Primary Care Provider] - <Maximilian Gregorio - Last Filed: 01/28/17 19:26> Date of Encounter: 01/28/17 - Constitutional Vitals: Temp Pulse Resp BP Pulse Ox 98.6 F 93 17 114/75 97 01/28/17 15:58 01/28/17 15:58 01/28/17 15:58 01/28/17 15:58 01/28/17 15:58 Internal Medicine: Result - Labs CBC & Chem 7: 01/28/17 01:55 01/28/17 01:55 Labs: Short CBC 01/28/17 Range/Units 01:55 WBC 11.4 H D (4.3-11.1) K/mcL Hgb 8.8 L (11.5-15.4) g/dL Hct 27.8 L (35.3-44.9) % Plt Count 330 (140-400) K/mcL Neutrophils # 9.6 H (1.6-8.9) K/mcL BMP 01/28/17 01:55 Sodium 136 Potassium 4.7 H Chloride 105 Carbon Dioxide 21 BUN 28 H Creatinine 1.64 H Glucose 133 H Calcium 8.7 - Attending Attestation I examined this patient and my medical decision-making was reviewed with the Resident Physician, Dr Scanlon. I agree with the documented findings, disposition and treatment plan as described except to the extent set forth below. I have independently obtained history and examined the patient and my findings are summarized below: Patient is in no acute distress. Heart is regular, lungs are clear, abdomen is tender to palpation with no guarding. Plan: Pain control with IV Dilaudid. Follow-up with urology. DVT prophylaxis. She is at high risk for morbidity mortality and complications due to need for frequent doses of IV controlled substances.
[2017-01-28 12:45] LABS: % Iron Saturation 5 % (15-50); Iron 20 mcg/dL (50-170); Transferrin 260 mg/dL (180-382)
[2017-01-28] MEDS: BuPROPion XL (24 HR) 150 MG TABLET PO SCH (13:49)
[2017-01-28] MEDS: *HR* HYDROmorphone (PF) 1 MG/ML SYRINGE IVP PRN (14:35)
--- NOTE | 2017-01-28 16:54 | Urology - Consult Note ---
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 At this time the patient does not desire another catheter. An order is written for catheter placement if she so desires this evening. I discussed with the patient and family regarding next step options. I do not believe that fulguration of the bladder wall will help the patient long -term. I have recommended for the patient to undergo bilateral nephrostomy tube placements. This will help divert the urine away from the bladder and hopefully allow the bladder to stop bleeding. Long-term management may include long-term use of nephrostomy tubes versus cystectomy with ileal conduit urinary diversion. This will be discussed with the patient in the near future. Urology CN:YAYO Consult date: 01/28/17 Reason for consult Urology: Gross Hematuria Requesting physician: Dada Cadena History of present illness: Ros is a 61-year-old female well-known to the urology service for radiation induced cystitis with gross hematuria. Patient was recently admitted for the same problem and underwent fulguration of bladder wall. This only last the patient approximately 3 weeks when she will return to the ER last night secondary to gross hematuria. Catheter was placed but patient continued with clots and bladder discomfort. Past Med Surg Social Fam HX - Past Medical History Medical history: cancer, hyperlipidemia Psychiatric history: anxiety, depression - Past Surgical History Surgical History: hysterectomy - Social History Smoking Status: Never smoker Smokeless Tobacco Status: No Alcohol use: none Drug use: none - Family History Mother History Unknown: Yes Adopted: [place]: Peyton Jasmine Age: 61 Family Member Ethnicity: Non- Living Status: Age at : 61 Cause of : breast cancer Hx Family Cardiac Disorders: No Hx Family Respiratory Disorders: No Hx Family Cancer: Yes (breast cancer) Hx Family GI Disorders: No Hx Family Genitourinary Disorders: No Hx Family Endocrine Disorder: No Hx Family Musculoskeletal Disorders: No Hx Family Neuromuscular Disorders: No Hx Family Neurologic Disorders: No Hx Family HEENT Disorders: No Hx Family Autoimmune Disorders: No Hx Family Reproductive Disorders: No Hx Family Psychosocial Disorders: No Hx Family Medical Disorders: No Father History Unknown: Yes Adopted: [place]: Lenny Jasmine Age: 65 Family Member Ethnicity: Non- Living Status: Age at : 65 Cause of : AA Hx Family Cardiac Disorders: Yes (AA) Hx Family Respiratory Disorders: No Hx Family Cancer: No Hx Family GI Disorders: No Hx Family Genitourinary Disorders: No Hx Family Endocrine Disorder: No Hx Family Musculoskeletal Disorders: No Hx Family Neuromuscular Disorders: No Hx Family Neurologic Disorders: No Hx Family HEENT Disorders: No Hx Family Autoimmune Disorders: No Hx Family Reproductive Disorders: No Hx Family Psychosocial Disorders: No Hx Family Medical Disorders: No Medications and Allergies l Gasseri/B Bifidum/B Longum [[employer] [facility] Capsule] 1 cap PO DAILY 08/09 [History] Escitalopram [Lexapro] 10 mg PO DAILY 07/31/16 [History] Aspirin/Acetaminophen/Caffeine [Excedrin Migraine Caplet] 1 tab PO PRN PRN 01/09 [History] Bupropion HCl [Wellbutrin Xl] 300 mg PO QAM 01/09/17 [History] Diphenoxylate/Atropine [Lomotil 2.5 mg/0.025 mg] 1 tab PO QID PRN 01/09/17 [ History] Acetaminophen [Tylenol] 650 mg PO Q6HR PRN tab 01/12/17 [Rx] Dicyclomine [Bentyl] 20 mg PO PRN PRN 01/27/17 [History] Docusate [Colace] 100 mg PO PRN PRN 01/27/17 [History] Allergies NSAIDS (Non-Steroidal Anti-Inflamma Adverse Reaction (Verified 01/17/16 03:24) See Comments Review of Systems - Constitutional no chills, no fever(s) - EENT Nose, mouth and throat: no dizziness - Cardiovascular no chest pain - Gastrointestinal abdominal pain - Musculoskeletal no back pain - Integumentary no erythema - Neurological no confusion Exam Initial Vital Signs Temp Pulse Resp BP Pulse Ox 98.6 F 108 14 150/78 99 01/27/17 16:29 01/27/17 16:29 01/27/17 16:29 01/27/17 16:29 01/27/17 16:29 - General physical appearance Present: well developed - Eyes Present: PERRL - ENT Present: normal nares - Neck Present: no masses - Respiratory Present: normal respiratory effort - Cardiovascular Cardiovascular exam IM: RRR - Abdomen Abdomen: Present: soft - Neurologic Present: normal coordination Urology Results - Labs 01/28/17 01:55 01/28/17 01:55 Abnormal lab results WBC 11.4 K/mcL (4.3-11.1) H D 01/28/17 01:55 RBC 3.33 M/mcL (3.82-4.97) L 01/28/17 01:55 Hgb 8.8 g/dL (11.5-15.4) L 01/28/17 01:55 Hct 27.8 % (35.3-44.9) L 01/28/17 01:55 MCH 26.4 pg (28.0-33.3) L 01/28/17 01:55 Neutrophils # 9.6 K/mcL (1.6-8.9) H 01/28/17 01:55 Polychromasia 2+ (Not Present) A 01/27/17 17:35 Hypochromasia Present (Not Present) A 01/27/17 17:35 Potassium 4.7 mEq/L (3.5-4.5) H 01/28/17 01:55 BUN 28 mg/dL (7-20) H 01/28/17 01:55 Creatinine 1.64 mg/dL (0.57-1.11) H 01/28/17 01:55 Est GFR ( Amer) 39 (> 60) L 01/28/17 01:55 Est GFR (Non-Af Amer) 32 (> 60) L 01/28/17 01:55 Glucose 133 mg/dL (70-99) H 01/28/17 01:55 Iron 20 mcg/dL (50-170) L 01/28/17 11:34 % Saturation 5 % (15-50) L 01/28/17 11:34 Ur Specimen Adequacy See below A 01/27/17 18:26 Urine Color Red (Yellow) A 01/27/17 18:26 Urine Clarity Cloudy (Clear) A 01/27/17 18:26 Ur Specific [place] > 1.030 (1.010-1.025) H 01/27/17 18:26 Urine Protein >=300 mg/dL (Neg-Trace) H 01/27/17 18:26 Urine Blood Large (Negative) H 01/27/17 18:26 Ur Leukocyte Esterase Small (Negative) H 01/27/17 18:26 Urine Microscopic RBC TNTC per hpf (0-3) H 01/27/17 18:26 Ur Culture Indicated? YES (NO) A 01/27/17 18:26 Diabetes panel 01/28/17 Range/Units 01:55 Sodium 136 (136-145) mEq/L Potassium 4.7 H (3.5-4.5) mEq/L Chloride 105 (98-109) mEq/L Carbon Dioxide 21 (19-29) mEq/L BUN 28 H (7-20) mg/dL Creatinine 1.64 H (0.57-1.11) mg/dL Glucose 133 H (70-99) mg/dL Calcium 8.7 (8.6-10.8) mg/dL Calcium panel 01/28/17 Range/Units 01:55 Calcium 8.7 (8.6-10.8) mg/dL Pituitary panel 01/28/17 Range/Units 01:55 Sodium 136 (136-145) mEq/L Potassium 4.7 H (3.5-4.5) mEq/L Chloride 105 (98-109) mEq/L Carbon Dioxide 21 (19-29) mEq/L BUN 28 H (7-20) mg/dL Creatinine 1.64 H (0.57-1.11) mg/dL Glucose 133 H (70-99) mg/dL Calcium 8.7 (8.6-10.8) mg/dL Adrenal panel 01/28/17 Range/Units 01:55 Sodium 136 (136-145) mEq/L Potassium 4.7 H (3.5-4.5) mEq/L Chloride 105 (98-109) mEq/L Carbon Dioxide 21 (19-29) mEq/L BUN 28 H (7-20) mg/dL Creatinine 1.64 H (0.57-1.11) mg/dL Glucose 133 H (70-99) mg/dL Calcium 8.7 (8.6-10.8) mg/dL All other labs normal. Consult Discharge Plan - Plan Referrals: NONE,PCP [Primary Care Provider] -
[2017-01-29 04:03] LABS: Calcium 7.9 mg/dL (8.6-10.8); Potassium 4.2 mEq/L (3.5-4.5)
[2017-01-29 04:15] LABS: Hematocrit 22.1 % (35.3-44.9); Mean Corpuscular HGB Conc 30.3 g/dL (31.6-35.5); Mean Corpuscular Hemoglobin 25.8 pg (28.0-33.3); Mean Platelet Volume 10.3 fL (9.4-12.4); Platelet Count 243 K/mcL (140-400); Red Cell Distribution Width 14.8 % (11.5-14.5)
[2017-01-29 04:17] LABS: Hemoglobin 6.7 g/dL (11.5-15.4)
[2017-01-29] MEDS: *HR* HYDROmorphone (PF) 1 MG/ML SYRINGE IVP PRN ×3 (04:41→21:25)
[2017-01-29] MEDS ORDERED: 0.9 % Sodium Chloride 250 ML ONE (06:09)
[2017-01-29] MEDS: BuPROPion XL (24 HR) 150 MG TABLET PO SCH (08:56)
[2017-01-29] MEDS: Famotidine 20 MG/2 ML VIAL IVP SCH (08:57)
[2017-01-29] MEDS ORDERED: Levofloxacin 750 MG/150 ML 750 MG/150 ML BAG IVPB SCH (09:00)
--- NOTE | 2017-01-29 09:24 | Urology Progress Note ---
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 will hold from placing catheter at this time. patient getting blood today from blood loss anemia Progress Note Narrative: patient seen. catheter removed and patient voiding but with large clots. to go to IR today for bilateral pcn tubes. Objective Initial Vital Signs Temp Pulse Resp BP Pulse Ox 98.6 F 108 14 150/78 99 01/27/17 16:29 01/27/17 16:29 01/27/17 16:29 01/27/17 16:29 01/27/17 16:29 - General physical appearance Present: well developed - Abdomen Present: soft - Labs 01/29/17 03:45 01/29/17 03:45 Diabetes panel 01/29/17 Range/Units 03:45 Sodium 139 (136-145) mEq/L Potassium 4.2 (3.5-4.5) mEq/L Chloride 109 (98-109) mEq/L Carbon Dioxide 23 (19-29) mEq/L BUN 29 H (7-20) mg/dL Creatinine 1.45 H (0.57-1.11) mg/dL Glucose 138 H (70-99) mg/dL Calcium 7.9 L (8.6-10.8) mg/dL Calcium panel 01/29/17 Range/Units 03:45 Calcium 7.9 L (8.6-10.8) mg/dL Pituitary panel 01/29/17 Range/Units 03:45 Sodium 139 (136-145) mEq/L Potassium 4.2 (3.5-4.5) mEq/L Chloride 109 (98-109) mEq/L Carbon Dioxide 23 (19-29) mEq/L BUN 29 H (7-20) mg/dL Creatinine 1.45 H (0.57-1.11) mg/dL Glucose 138 H (70-99) mg/dL Calcium 7.9 L (8.6-10.8) mg/dL Adrenal panel 01/29/17 Range/Units 03:45 Sodium 139 (136-145) mEq/L Potassium 4.2 (3.5-4.5) mEq/L Chloride 109 (98-109) mEq/L Carbon Dioxide 23 (19-29) mEq/L BUN 29 H (7-20) mg/dL Creatinine 1.45 H (0.57-1.11) mg/dL Glucose 138 H (70-99) mg/dL Calcium 7.9 L (8.6-10.8) mg/dL - VTE Documentation of Mechanical Device: Intermittent pneumatic compression device Consult Discharge Plan - Plan Referrals: NONE,PCP [Primary Care Provider] -
[2017-01-29] MEDS: Levofloxacin 750 MG/150 ML 750 MG/150 ML BAG IVPB SCH (09:54)
[2017-01-29] MEDS: 0.9 % Sodium Chloride 1,000 ML IVC SCH (10:01)
[2017-01-29 12:13] LABS: Hematocrit 24.8 % (35.3-44.9); Hemoglobin 7.7 g/dL (11.5-15.4)
[2017-01-29] MEDS ORDERED: Ampicillin/Sulbactam 1,500 MG in 0.9 % Sodium Chloride Mini Bag 100 ML IVPB ONE (13:55)
[2017-01-29] MEDS ORDERED: 0.9 % Sodium Chloride 500 ML ONE ×2 (14:04→14:08)
[2017-01-29] MEDS: *HR* Midazolam HCl 2 MG/2 ML VIAL IVP PRN ×2 (14:22→14:27)
[2017-01-29] MEDS: *HR* FentaNYL (PF) 100 MCG/2 ML VIAL IVP PRN ×5 (14:22→14:49)
--- NOTE | 2017-01-29 14:58 | IR Procedure Note ---
Date of procedure: 01/29/17 Consent Obtained: Verbal consent, Written consent Timeout: Correct patient and procedure verified, Correct site verified, Time out performed, Skin prep completed Local anesthetic: Lidocaine 1% Indications: Hemorrhagic cystitis Procedure Performed: Bilateral nephrostomy tube insertion Site/Technique: Bilateral nephrostomy tubes placed in VIR Results/Findings: Both tubes in good position and patent Estimated blood loss (cc): 3 Complications: None; Tolerated procedure well Post Procedure Treatment Plan: Continue inpatient care
--- NOTE | 2017-01-29 15:32 | Internal Med Progress Note ---
Date of Encounter: 01/29/17 Time of Encounter: 11:00 - Assessment and plan (1) Anemia Current Visit: Yes Status: Acute Assessment and plan: Acute on chronic blood loss anemia. Hemoglobin 6.7 this morning. Patient received 1 unit packed red blood cells transfusion. We will continue to monitor blood counts. High-risk for complications. Qualifiers: Anemia type: other cause Other causes of anemia: acute posthemorrhagic Qualified Code(s): D62 - Acute posthemorrhagic anemia (2) Acute kidney injury Current Visit: Yes Status: Acute Assessment and plan: Likely due to volume depletion and hematuria. Continue IV hydration. Creatinine 1.45 today. Continue to monitor urine output. Follow renal function closely. 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 Recommend bilateral nephrostomy tubes. Empiric treatment with levofloxacin (5) DVT prophylaxis Current Visit: No Status: Acute Assessment and plan: With SCDs - Subjective Interval history: Patient complains of continued hematuria with multiple blood clots yesterday but pain has improved after her catheter was removed. Evaluated by urology this morning and plan for bilateral nephrostomy tubes placement later today. Denies any nausea or vomiting. No abdominal pain. No fever or chills. - Constitutional Vitals: Temp Pulse Resp BP Pulse Ox 98.5 F 111 17 148/87 100 01/29/17 11:45 01/29/17 15:03 01/29/17 15:03 01/29/17 15:03 01/29/17 15:03 General appearance: Present: A&O X 3, pleasant, no acute distress, answers questions appropriately - Respiratory Respiratory exam: Present: CTAB. Absent: accessory muscle use, rales, rhonchi, wheezes - Cardiovascular Cardiovascular exam: Present: RRR, +S1, +S2. Absent: diastolic murmur, gallop, rubs, systolic murmur - GI/Abdominal GI/Abdominal exam: Present: normal bowel sounds, soft, no peritoneal signs. Absent: distended, tenderness - Extremities Exam Extremities exam: Present: warm, radial pulses palpable and symetrical. Absent : calf tenderness, cyanotic, pedal edema - Neurological Exam Neurological exam: Present: alert, CN II-XII intact, oriented X3, no focal deficits. Absent: facial droop, speech deficit - Skin Skin exam: Present: dry, intact, pallor Internal Medicine: Result - Labs CBC & Chem 7: 01/29/17 12:00 01/29/17 03:45 - VTE Documentation of Mechanical Device: Intermittent pneumatic compression device Consult Discharge Plan - Plan Referrals: NONE,PCP [Primary Care Provider] -
[2017-01-30] MEDS: *HR* HYDROmorphone (PF) 1 MG/ML SYRINGE IVP PRN ×7 (00:42→21:55)
[2017-01-30] MEDS: 0.9 % Sodium Chloride 1,000 ML IVC SCH (00:47)
--- NOTE | 2017-01-30 08:54 | Urology Progress Note ---
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 will check cbc. if hgb stable then ok to dc per urology with f/u in 2 weeks. (appt will be made) Progress Note Narrative: Patient seen. doing well. tolerating b/l pcn tubes. good uop. Objective Initial Vital Signs Temp Pulse Resp BP Pulse Ox 98.6 F 108 14 150/78 99 01/27/17 16:29 01/27/17 16:29 01/27/17 16:29 01/27/17 16:29 01/27/17 16:29 - General physical appearance Present: well developed - Abdomen Present: soft - Additional Exam back: bilateral pcn tubes with slightly pink urine. - Labs 01/29/17 12:00 01/29/17 03:45 - VTE Documentation of Mechanical Device: Intermittent pneumatic compression device Consult Discharge Plan - Plan Referrals: Ammon Han MD [Partnered Physician] - 02/11/17 1:30 pm Mulu Gongora DO [Partnered Physician] -
[2017-01-30] MEDS: Famotidine 20 MG/2 ML VIAL IVP SCH (08:55)
[2017-01-30] MEDS: BuPROPion XL (24 HR) 150 MG TABLET PO SCH (08:55)
[2017-01-30 11:15] LABS: Basophils % 0.6 %; Eosinophils # 0.1 K/mcL (0.0-0.6); Eosinophils % 1.1 %; Hematocrit 23.9 % (35.3-44.9); Hemoglobin 7.2 g/dL (11.5-15.4); Immature Granulocytes % 0.5 % (0-4); Lymphocytes # 0.6 K/mcL (0.6-4.6); Lymphocytes % 9.2 %; Mean Corpuscular HGB Conc 30.1 g/dL (31.6-35.5); Mean Corpuscular Hemoglobin 26.3 pg (28.0-33.3); Mean Corpuscular Volume 87.2 fL (83.0-100.0); Mean Platelet Volume 10.4 fL (9.4-12.4); Monocytes # 0.6 K/mcL (0.0-1.3); Monocytes % 9.1 %; Platelet Count 211 K/mcL (140-400); Red Blood Count 2.74 M/mcL (3.82-4.97); Red Cell Distribution Width 14.7 % (11.5-14.5); Segmented Neutrophils % 79.5 %
[2017-01-30 11:29] LABS: Calcium 8.1 mg/dL (8.6-10.8); Potassium 3.5 mEq/L (3.5-4.5)
[2017-01-30] MEDS ORDERED: 0.9 % Sodium Chloride 250 ML ONE (14:50)
--- NOTE | 2017-01-30 16:21 | Internal Med Progress Note ---
Date of Encounter: 01/30/17 Time of Encounter: 10:15 - Assessment and plan (1) Anemia Current Visit: Yes Status: Acute Assessment and plan: Hemoglobin level at 7.2 today. We will transfuse 1 unit packed red blood cells. If blood counts remained stable posttransfusion, she will be discharged tomorrow. Qualifiers: Anemia type: other cause Other causes of anemia: acute posthemorrhagic Qualified Code(s): D62 - Acute posthemorrhagic anemia (2) Acute kidney injury Current Visit: Yes Status: Acute Assessment and plan: Renal function is improving. Likely from volume depletion. 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 Denies any dizziness or lightheadedness. No abdominal pain nausea or vomiting. - Constitutional Vitals: Temp Pulse Resp BP Pulse Ox 98.6 F 77 16 120/67 96 01/30/17 15:27 01/30/17 15:27 01/30/17 15:27 01/30/17 15:27 01/30/17 15:27 General appearance: Present: A&O X 3, pleasant, no acute distress, answers questions appropriately - Respiratory Respiratory exam: Present: CTAB. Absent: accessory muscle use, rales, rhonchi, wheezes - Cardiovascular Cardiovascular exam: Present: RRR, +S1, +S2. Absent: diastolic murmur, gallop, rubs, systolic murmur - GI/Abdominal GI/Abdominal exam: Present: normal bowel sounds, soft, no peritoneal signs. Absent: distended, tenderness - Additional comments: Bilateral nephrostomy tubes in place draining blood-tinged urine - Extremities Exam Extremities exam: Present: warm, radial pulses palpable and symmetrical. Absent : calf tenderness, cyanotic, pedal edema Internal Medicine: Result - Labs CBC & Chem 7: 01/30/17 09:20 01/30/17 09:20 Labs: Short CBC 01/30/17 Range/Units 09:20 WBC 6.3 (4.3-11.1) K/mcL Hgb 7.2 L (11.5-15.4) g/dL Hct 23.9 L (35.3-44.9) % Plt Count 211 (140-400) K/mcL Neutrophils # 5.0 (1.6-8.9) K/mcL BMP 01/30/17 09:20 Sodium 138 Potassium 3.5 Chloride 108 Carbon Dioxide 23 BUN 24 H Creatinine 1.17 H Glucose 132 H Calcium 8.1 L - VTE Documentation of Mechanical Device: Intermittent pneumatic compression device Consult Discharge Plan - Plan Referrals: Ammon Han MD [Partnered Physician] - 02/12/17 1:00 pm Mulu Gongora DO [Partnered Physician] -
[2017-01-30 22:33] LABS: Hematocrit 25.4 % (35.3-44.9); Hemoglobin 8.1 g/dL (11.5-15.4)
[2017-01-31] MEDS: *HR* HYDROmorphone (PF) 1 MG/ML SYRINGE IVP PRN ×2 (05:06→09:51)
[2017-01-31 05:11] LABS: Hematocrit 25.3 % (35.3-44.9)
--- NOTE | 2017-01-31 07:51 | Discharge Summary ---
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 Priority: Secondary Status: Acute (3) Acute kidney injury Priority: Secondary Status: Acute (4) Anxiety Priority: Secondary Status: Chronic (5) DVT prophylaxis Priority: Secondary Status: Acute - Discharge Medications Prescriptions: HYDROcodone/Acet 5/325 mg [[place] 5-325 mg] 1 tab PO Q6HR PRN #14 tab PRN Reason: Breakthrough Pain levoFLOXacin [Levaquin] 750 mg PO Q48H #7 tablet Phenazopyridine [Pyridium] 200 mg PO TID PRN #30 tab PRN Reason: See Comments Home Medications: l Gasseri/B Bifidum/B Longum [[facility] Capsule] 1 cap PO DAILY 08/09 [History] Escitalopram [Lexapro] 10 mg PO DAILY 07/31/16 [History] Aspirin/Acetaminophen/Caffeine [Excedrin Migraine Caplet] 1 tab PO PRN PRN 01/09 [History] Bupropion HCl [Wellbutrin Xl] 300 mg PO QAM 01/09/17 [History] Diphenoxylate/Atropine [Lomotil 2.5 mg/0.025 mg] 1 tab PO QID PRN 01/09/17 [ History] Acetaminophen [Tylenol] 650 mg PO Q6HR PRN tab 01/12/17 [Rx] Dicyclomine [Bentyl] 20 mg PO PRN PRN 01/27/17 [History] Docusate [Colace] 100 mg PO PRN PRN 01/27/17 [History] HYDROcodone/Acet 5/325 mg [[place] 5-325 mg] 1 tab PO Q6HR PRN #14 tab 01/31/17 [ Rx] Phenazopyridine [Pyridium] 200 mg PO TID PRN #30 tab 01/31/17 [Rx] levoFLOXacin [Levaquin] 750 mg PO Q48H #7 tablet 01/31/17 [Rx] Allergies/Adverse Reactions: Allergies NSAIDS (Non-Steroidal Anti-Inflamma Adverse Reaction (Verified 01/17/16 03:24) See Comments Date of admission: 01/29/17 14:49 Primary care physician: PCP NONE Consults: 01/27/17 21:14 Consult to Urology [CONS] Stat Consulting Provider: Urology Sheila Reason for Consult: hematuria Call Completed: Yes 01/28/17 14:16 Consult to Interventional Radiology [CONS] Routine Consulting Provider: Radiology Interventional Cols Reason for Consult: insert bilateral nephrostomy tubes for persistent bladder bleeding. Call Completed: No Discharging clinician: Costa Shay Anticipated date of discharge: 01/31/17 - Patient Status Disposition: Home, Self-Care Condition: Good Functional capacity at discharge: independent ambulation Overall status at discharge: patient is progressing back to baseline - Discharge Instructions Instructions: Nephrostomy Tube Care (DC), Anemia (GEN), Anxiety (DC) Follow Up With: Ammon Han MD [Partnered Physician] - 02/12/17 1:00 pm Mulu Gongora DO [Partnered Physician] - 02/04/17 9:30 am (in 1-2 weeks) - Diet and Activity Activity: increase activity as tolerated Diet: low fat, low cholesterol, low salt diet Hospital course: Ms. 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 She was evaluated by urology. Initially a three-way Asencio catheter was placed for bladder irrigation. However patient had a lot of discomfort with this. After being evaluated by urology, was recommended that she undergo bilateral nephrostomy to dive her urine IV from the bladder and hopefully stop further bleeding. She underwent the procedure on 01/29/17. Her hemoglobin levels did drop due to the hematuria and patient required 2 units of packed red blood cells. Since yesterday her blood counts have been stable and patient has had an much improvement in her hematuria. She has been cleared for discharge by urology and will follow up with them in the clinic for further management. Her urine culture was positive for Citrobacter and she will complete treatment for this with levofloxacin. Her acute kidney injury is resolving. - Time Spent with Patient Total time spent providing and/or coordinating discharge services: Less than 30 minutes (25 min) - Constitutional Vitals: Temp Pulse Resp BP Pulse Ox 98.7 F 89 14 127/82 95 01/31/17 05:20 01/31/17 05:20 01/31/17 05:20 01/31/17 05:20 01/31/17 05:20 General appearance: Present: A&O X 3, pleasant, no acute distress, answers questions appropriately - Respiratory Respiratory exam: Present: CTAB. Absent: accessory muscle use, rales, rhonchi, wheezes - Cardiovascular Cardiovascular exam: Present: RRR, +S1, +S2. Absent: diastolic murmur, gallop, rubs, systolic murmur - GI/Abdominal GI/Abdominal exam: Present: normal bowel sounds, soft, no peritoneal signs. Absent: distended, tenderness - Skin Skin exam: Present: dry, intact, pallor - VTE Documentation of Mechanical Device: Intermittent pneumatic compression device
[2017-01-31] MEDS: BuPROPion XL (24 HR) 150 MG TABLET PO SCH (08:31)
[2017-01-31] MEDS ORDERED: Famotidine 20 MG TABLET PO SCH (09:00)
[2017-01-31] MEDS: Levofloxacin 750 MG/150 ML 750 MG/150 ML BAG IVPB SCH (09:51)
[2017-01-31 11:26] VITALS: BP 129/84
[2017-01-31] MEDS ORDERED: *HR* HYDROcodone/Acet 5/325 mg TABLET PO PRN (11:26)
== END 2017-01-31 15:25 | disposition home or self-care (01) | DRG 699 ==
LOC: EMEROO 16:28 → 3ANU 16:28 → SUATTDRO 22:00 → 3ANU 23:03
PROVIDERS: ADMIT Internal Medicine; ATTEND Internal Medicine

== ENCOUNTER 2017-04-20 02:53 | Inpatient (IN) ==
[2017-04-20 03:34] LABS: Basophils % 0.5 %; Eosinophils # 0.5 K/mcL (0.0-0.6); Eosinophils % 8.9 %; Immature Granulocytes % 0.2 % (0-4); Lymphocytes # 1.4 K/mcL (0.6-4.6); Lymphocytes % 24.2 %; Mean Corpuscular HGB Conc 29.5 g/dL (31.6-35.5); Mean Corpuscular Hemoglobin 25.6 pg (28.0-33.3); Mean Corpuscular Volume 86.8 fL (83.0-100.0); Mean Platelet Volume 10.6 fL (9.4-12.4); Monocytes # 0.5 K/mcL (0.0-1.3); Monocytes % 8.2 %; Neutrophils # 3.4 K/mcL (1.6-8.9); Platelet Count 323 K/mcL (140-400); Red Blood Count 2.19 M/mcL (3.82-4.97); Red Cell Distribution Width 18.1 % (11.5-14.5)
[2017-04-20 03:39] LABS: Bilirubin,Urine Negative (Negative); Blood,Urine Large (Negative); Clarity,Urine Cloudy (Clear); Glucose,Urine (UA) 100 mg/dL (Normal); Ketones,Urine Negative (Negative); Leukocyte Esterase,Urine Small (Negative); Nitrite,Urine Negative (Negative); Protein,Urine >=1000 mg/dL (Neg-Trace); Urobilinogen,Urine Normal (Normal)
[2017-04-20 03:42] LABS: Color,Urine Red (Yellow)
[2017-04-20 03:48] LABS: Albumin 3.1 g/dL (3.5-5.0); Bilirubin,Direct 0.1 mg/dL (0.0-0.5); Bilirubin,Indirect 0.1 mg/dL (0.0-1.2); Bilirubin,Total 0.2 mg/dL (0.2-1.2); Calcium 8.7 mg/dL (8.6-10.8); Globulin 3.2 g/dL (2.4-3.5); Magnesium 2.3 mg/dL (1.6-2.6); Phosphorous 3.8 mg/dL (2.3-4.7); Potassium 3.8 mEq/L (3.5-4.5); Total Protein 6.3 g/dL (6.0-8.3)
--- NOTE | 2017-04-20 03:50 | Emergency Department Note ---
Disposition Clinical Impression: Sepsis, Nephrostomy complication Disposition: Admitted As Inpatient Condition: Critical Time of Disposition: 06:21 General Adult HPI - General Chief complaint: ED Urogenital-Female Stated complaint: R flank pain Time Seen by Provider: 04/20/17 03:10 Source: patient Limitations: no limitations Nursing Notes Reviewed: Yes Vital Signs Reviewed: Yes - History of Present Illness HPI Narrative: Mrs. Jasmine, a 61yo female, presents from home for evaluation of right flank pain and weakness. Onset progressive over the last several days. She has baseline chronic right leg pain however, this is become more intense, more sharp, and more constant. She notes that she has had no drainage from her left nephrostomy tube. It has never functioned as well as the right, it has always functioned in some regard. She is also concerned as the tube appears green. 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 She has history of intermittent anuria from clots blocking her urethra. A cousin this, she had bilateral nephrostomy tubes placed. No fevers or chills. No change in bowels or bladder. No abdominal pain. Pain Scale: 6 - Related Data Home Medications Medication Instructions Recorded Confirmed Escitalopram [Lexapro] 10 mg PO DAILY 07/31/16 03/14/17 Aspirin/Acetaminophen/Caffeine 2 tab PO Q6H PRN 01/09/17 03/14/17 [Excedrin Migraine Caplet] Bupropion HCl [Wellbutrin Xl] 300 mg PO QAM 01/09/17 03/14/17 Dicyclomine [Bentyl] 20 mg PO QID PRN 01/27/17 03/14/17 Iron Polysaccharide Complex 150 mg PO DAILY 03/14/17 03/14/17 [Ferrex 150] Loperamide HCl [Anti-Diarrheal] 2 mg PO PER PKG DI PRN 03/14/17 03/14/17 Ondansetron HCl [Zofran] 4 mg PO Q8H PRN 03/14/17 03/14/17 hydrOXYzine HCl [Hydroxyzine HCl] 25 - 50 mg PO HS PRN 03/14/17 03/14/17 Previous Rx's Medication Instructions Recorded Polyethylene Glycol 3350 [MiraLAX] 17 gm PO PRN PRN #7 powd.pack 03/18/17 Allergies Allergy/AdvReac Type Severity Reaction Status Date / Time NSAIDS (Non-Steroidal AdvReac See Verified 04/20/17 02:59 Anti-Inflamma Comments All systems ED: reviewed and negative except as stated. Review of Systems: As Per HPI Past Medical History - Past Medical History Medical history: Reports: cancer, hyperlipidemia, pulmonary embolus, other Surgical history: Reports: hysterectomy, other (bilateral nephrostomy tubes, cystoscopy, IVC filter) Psychiatric history: Reports: anxiety, depression MATERIALS MANAGEMENT SUPERVISOR history: Reports: no MATERIALS MANAGEMENT SUPERVISOR history - Social History Smoking Status: Never smoker Smokeless Tobacco Status: No Alcohol use: Reports: none Drug use: Reports: none Physical Exam Vital Signs Reviewed General: Patient is alert, oriented, and in no acute distress. HEENT: No facial asymmetry. Head is normocephalic and atraumatic. PERRLA, EOMI. Oral mucosa moist. Trachea midline. Cardiovascular: Heart regular rate and rhythm without clicks, rubs, gallops, or murmurs. No JVD. PMI nondisplaced. Respiratory: Symmetric chest rise with good respiratory effort. Bilateral breath sounds are clear without wheezing, crackles, or rhonchi. Abdomen: Bowel sounds present normoactive x-4 quadrants. Abdomen is soft, nondistended, and nontender. No organomegaly noted. Renal: Urine sample is gross blood with clot. Right nephrostomy tube has appropriate color urine draining into her right urostomy bag. The nephrostomy tube shows green discolored urine with an empty urostomy bag. Right-sided flank pain to palpation. Psych: Patient's affect is appropriate for situation. - General Limitations: no limitations General appearance: alert, in no apparent distress Course Course Narrative: Bilateral nephrostomy tubes placed 01/29/17 Clinically, patient appears pale, weak. Her left nephrostomy tube is impressively limegreen with no fluid in the left urostomy bag. A right nephrostomy tube is flowing freely though she has increasing sharp stabbing pain on her right flank worse than her usual baseline right flank pain. Will perform thorough workup as the patient is in sepsis. Patient has hemoglobin critically low at 5.6. Will transfuse 2 units. Patient has a critically high lactate of 4.1. Will gently hydrate. She agrees to admission for continued management. She will eventually need interventional radiology for replacement of her left nephrostomy tube and potentially both nephrostomy tubes. Spoke with the admitting hospitalist, Dr. Cadena, who agrees to accept the patient. Spoke with non emergency services ambulance driver urology, Dr. Han, who recommends interventional radiology consult with no additional suggestions. Spoke with [facility] interventional radiologist who agrees to come see the patient today. Abdomen/Pelvis CT 04/20/17 04:03 IMPRESSION: 1. Bilateral nephrostomy tubes remain in place without hydronephrosis. 2. Again noted are soft tissue density and gas in the urinary bladder which may indicate hemorrhage or debris. D/ / Trey Hurst MD / Trey Hurst MD Interpreting Provider: Trey Hurst MD Vital Signs Temperature 98.1 F 04/20/17 02:54 Pulse Rate 110 04/20/17 02:54 Respiratory Rate 20 04/20/17 02:54 Blood Pressure 135/65 04/20/17 02:54 O2 Sat by Pulse Oximetry 98 04/20/17 02:54 Temperature 98.1 F 04/20/17 02:54 Pulse Rate 100 04/20/17 05:05 Respiratory Rate 12 04/20/17 06:02 Blood Pressure 132/69 04/20/17 06:02 O2 Sat by Pulse Oximetry 99 04/20/17 05:05 Oxygen Delivery Oxygen Delivery Room Air Medical Decision Making - Lab Data Result diagrams: 04/20/17 03:11 04/20/17 03:11 Lab Results 04/20/17 04/20/17 04/20/17 Range/Units 03:11 03:11 03:11 WBC 5.9 (4.3-11.1) K/mcL RBC 2.19 L (3.82-4.97) M/mcL Hgb 5.6 L* (11.5-15.4) g/dL Hct 19.0 L (35.3-44.9) % MCV 86.8 (83.0-100.0) fL MCH 25.6 L (28.0-33.3) pg MCHC 29.5 L (31.6-35.5) g/dL RDW 18.1 H (11.5-14.5) % Plt Count 323 (140-400) K/mcL MPV 10.6 (9.4-12.4) fL Immature Gran % 0.2 (0-4) % Seg Neutrophils % 58.0 % Lymphocytes % 24.2 % Monocytes % 8.2 % Eosinophils % 8.9 % Basophils % 0.5 % Neutrophils # 3.4 (1.6-8.9) K/mcL Lymphocytes # 1.4 (0.6-4.6) K/mcL Monocytes # 0.5 (0.0-1.3) K/mcL Eosinophils # 0.5 (0.0-0.6) K/mcL Basophils # 0.0 (0.0-0.2) K/mcL PT (9.4-12.1) Seconds INR APTT (26.0-36.0) Seconds Sodium 139 (136-145) mEq/L Potassium 3.8 (3.5-4.5) mEq/L Chloride 104 (98-109) mEq/L Carbon Dioxide 22 (19-29) mEq/L BUN 20 (7-20) mg/dL Creatinine 1.27 H (0.57-1.11) mg/dL Est GFR ( Amer) 52 L (> 60) Est GFR (Non-Af Amer) 43 L (> 60) BUN/Creatinine Ratio 16 (6-26) Glucose 130 H (70-99) mg/dL Calculated Osmolality 292 (280-300) Lactic Acid 4.1 H* (0.5-2.2) mmol/L Calcium 8.7 (8.6-10.8) mg/dL Phosphorus 3.8 (2.3-4.7) mg/dL Magnesium 2.3 (1.6-2.6) mg/dL Total Bilirubin 0.2 (0.2-1.2) mg/dL Direct Bilirubin 0.1 (0.0-0.5) mg/dL Indirect Bilirubin 0.1 (0.0-1.2) mg/dL AST 21 (5-34) Units/L ALT 12 (0-55) Units/L Alkaline Phosphatase 77 (38-126) Units/L Troponin I (0-0.03) ng/mL Serum Total Protein 6.3 (6.0-8.3) g/dL Albumin 3.1 L (3.5-5.0) g/dL Globulin 3.2 (2.4-3.5) g/dL Albumin/Globulin Ratio 1.0 L (1.1-2.2) Ur Specimen Adequacy Urine Color (Yellow) Urine Clarity (Clear) Urine pH (5.0-8.0) pH Units Ur Specific [place] (1.010-1.025) Urine Protein (Neg-Trace) mg/dL Urine Glucose (UA) (Normal) mg/dL Urine Ketones (Negative) mg/dL Urine Blood (Negative) Urine Nitrite (Negative) Urine Bilirubin (Negative) Urine Urobilinogen (Normal) mg/dL Ur Leukocyte Esterase (Negative) Ur Culture Indicated? (NO) Blood Type 04/20/17 04/20/17 04/20/17 Range/Units 03:11 03:11 03:24 WBC (4.3-11.1) K/mcL RBC (3.82-4.97) M/mcL Hgb (11.5-15.4) g/dL Hct (35.3-44.9) % MCV (83.0-100.0) fL MCH (28.0-33.3) pg MCHC (31.6-35.5) g/dL RDW (11.5-14.5) % Plt Count (140-400) K/mcL MPV (9.4-12.4) fL Immature Gran % (0-4) % Seg Neutrophils % % Lymphocytes % % Monocytes % % Eosinophils % % Basophils % % Neutrophils # (1.6-8.9) K/mcL Lymphocytes # (0.6-4.6) K/mcL Monocytes # (0.0-1.3) K/mcL Eosinophils # (0.0-0.6) K/mcL Basophils # (0.0-0.2) K/mcL PT (9.4-12.1) Seconds INR APTT (26.0-36.0) Seconds Sodium (136-145) mEq/L Potassium (3.5-4.5) mEq/L Chloride (98-109) mEq/L Carbon Dioxide (19-29) mEq/L BUN (7-20) mg/dL Creatinine (0.57-1.11) mg/dL Est GFR ( Amer) (> 60) Est GFR (Non-Af Amer) (> 60) BUN/Creatinine Ratio (6-26) Glucose (70-99) mg/dL Calculated Osmolality (280-300) Lactic Acid (0.5-2.2) mmol/L Calcium (8.6-10.8) mg/dL Phosphorus (2.3-4.7) mg/dL Magnesium (1.6-2.6) mg/dL Total Bilirubin (0.2-1.2) mg/dL Direct Bilirubin (0.0-0.5) mg/dL Indirect Bilirubin (0.0-1.2) mg/dL AST (5-34) Units/L ALT (0-55) Units/L Alkaline Phosphatase (38-126) Units/L Troponin I 0.00 (0-0.03) ng/mL Serum Total Protein (6.0-8.3) g/dL Albumin (3.5-5.0) g/dL Globulin (2.4-3.5) g/dL Albumin/Globulin Ratio (1.1-2.2) Ur Specimen Adequacy Urine Color Red A (Yellow) Urine Clarity Cloudy A (Clear) Urine pH 7.0 (5.0-8.0) pH Units Ur Specific [place] 1.030 H (1.010-1.025) Urine Protein >=1000 H (Neg-Trace) mg/dL Urine Glucose (UA) 100 H (Normal) mg/dL Urine Ketones Negative (Negative) mg/dL Urine Blood Large H (Negative) Urine Nitrite Negative (Negative) Urine Bilirubin Negative (Negative) Urine Urobilinogen Normal (Normal) mg/dL Ur Leukocyte Esterase Small H (Negative) Ur Culture Indicated? YES A (NO) Blood Type A POSITIVE 04/20/17 Range/Units 03:52 WBC (4.3-11.1) K/mcL RBC (3.82-4.97) M/mcL Hgb (11.5-15.4) g/dL Hct (35.3-44.9) % MCV (83.0-100.0) fL MCH (28.0-33.3) pg MCHC (31.6-35.5) g/dL RDW (11.5-14.5) % Plt Count (140-400) K/mcL MPV (9.4-12.4) fL Immature Gran % (0-4) % Seg Neutrophils % % Lymphocytes % % Monocytes % % Eosinophils % % Basophils % % Neutrophils # (1.6-8.9) K/mcL Lymphocytes # (0.6-4.6) K/mcL Monocytes # (0.0-1.3) K/mcL Eosinophils # (0.0-0.6) K/mcL Basophils # (0.0-0.2) K/mcL PT 10.8 (9.4-12.1) Seconds INR 1.0 APTT 28.2 (26.0-36.0) Seconds Sodium (136-145) mEq/L Potassium (3.5-4.5) mEq/L Chloride (98-109) mEq/L Carbon Dioxide (19-29) mEq/L BUN (7-20) mg/dL Creatinine (0.57-1.11) mg/dL Est GFR ( Amer) (> 60) Est GFR (Non-Af Amer) (> 60) BUN/Creatinine Ratio (6-26) Glucose (70-99) mg/dL Calculated Osmolality (280-300) Lactic Acid (0.5-2.2) mmol/L Calcium (8.6-10.8) mg/dL Phosphorus (2.3-4.7) mg/dL Magnesium (1.6-2.6) mg/dL Total Bilirubin (0.2-1.2) mg/dL Direct Bilirubin (0.0-0.5) mg/dL Indirect Bilirubin (0.0-1.2) mg/dL AST (5-34) Units/L ALT (0-55) Units/L Alkaline Phosphatase (38-126) Units/L Troponin I (0-0.03) ng/mL Serum Total Protein (6.0-8.3) g/dL Albumin (3.5-5.0) g/dL Globulin (2.4-3.5) g/dL Albumin/Globulin Ratio (1.1-2.2) Ur Specimen Adequacy Urine Color (Yellow) Urine Clarity (Clear) Urine pH (5.0-8.0) pH Units Ur Specific [place] (1.010-1.025) Urine Protein (Neg-Trace) mg/dL Urine Glucose (UA) (Normal) mg/dL Urine Ketones (Negative) mg/dL Urine Blood (Negative) Urine Nitrite (Negative) Urine Bilirubin (Negative) Urine Urobilinogen (Normal) mg/dL Ur Leukocyte Esterase (Negative) Ur Culture Indicated? (NO) Blood Type Attestation Statement - Attestation Attestation: I, Moose Salgado MD, personally evaluated this patient and discussed their management with the resident physician. I reviewed the resident's note and agree with the documented findings, medical decision making, and plan of care. 61-year-old female with bilateral nephrostomy tube presents to the emergency department complaining that the left nephrostomy tube has not been draining for the past 2 days. The right tube has been draining fine. This evening patient developed some left flank pain and also noted that the left nephrostomy tube turned very green in color. There has been no definite fever but patient does complain of some chills and night sweats. No cough or chest pain or shortness of breath. No vomiting or diarrhea. Patient does still urinate from her bladder states that it is always bloody with clots which is a chronic problem secondary to radiation treatments and this is why she has the nephrostomy tubes. On examination patient is a well-developed obese female in no acute distress. She is alert and oriented 3. There is no cyanosis or diaphoresis. Patient does appear very pale. Chest is nontender to palpation. Breath sounds are clear and equal bilaterally. Heart regular rate and rhythm. Abdomen is soft and nontender with normal bowel sounds. Labs reviewed. Lactic acid 4.1. Hemoglobin 5.6. CT of the abdomen and pelvis without contrast shows: 1. Bilateral nephrostomy tubes remain in place without hydronephrosis. 2. Again noted are soft tissue density and gas in the urinary bladder which may indicate hemorrhage or debris. EKG shows a sinus tachycardia with a heart rate of 101, otherwise no acute changes. The hospitalist, Dr. Cadena, was consulted and accepted admission of the patient.
[2017-04-20 03:53] LABS: Hemoglobin 5.6 g/dL (11.5-15.4)
[2017-04-20] MEDS ORDERED: 0.9 % Sodium Chloride 1,000 ML IVC ONE (03:56)
[2017-04-20 04:11] LABS: Prothrombin Time 10.8 Seconds (9.4-12.1)
[2017-04-20 04:14] LABS: Activated Partial Thrombo Time 28.2 Seconds (26.0-36.0)
[2017-04-20] MEDS ORDERED: 0.9 % Sodium Chloride 1,000 ML ONE ×2 (04:26)
[2017-04-20] MEDS ORDERED: 0.9 % Sodium Chloride 2,000 ML ONE (04:52)
[2017-04-20] MEDS ORDERED: Vancomycin 1,500 MG in D5% in Water 250 ML IVPB STA (05:08)
[2017-04-20] MEDS ORDERED: Piperacillin/Tazobactam 3.375 GM in D5% in Water (Mini-Bag+) 100 ML IVPB ONE (05:08)
[2017-04-20] MEDS ORDERED: Vancomycin 1,000 MG in D5% in Water 250 ML IVPB ONE (05:41)
[2017-04-20] MEDS ORDERED: Ondansetron 4 MG/2 ML VIAL IVP PRN (06:30)
[2017-04-20] MEDS ORDERED: *HR* Morphine 2 MG/ML SYRINGE IVP PRN (06:30)
--- NOTE | 2017-04-20 06:35 | Internal Med History&Physical ---
Date of Encounter: 04/20/17 Time of Encounter: 06:32 Assessment and Plan (1) UTI (urinary tract infection) Current visit: Yes Status: Acute UTI was sepsis. Patient mentioned foul-smelling urine. We check urine microscopic analysis. Lactic acid is 4.1. Will start patient empirically on vancomycin and stuff. I am according to prior cultures. Hydrate. Qualifiers: Qualified Code(s): N39.0 - Urinary tract infection, site not specified; R31.9 - Hematuria, unspecified; R31.9 - Hematuria, unspecified (2) Obstructed nephrostomy tube Current visit: Yes Status: Acute Left urostomy tube is obstructed. There is no evidence of hydronephrosis on CT scan. ER physician has contacted interventional radiology who will evaluate the patient today. Urology recommended replacing the nephrostomy tube. Will keep the patient NPO for now. She mentioned concern for foul-smelling urine so I will keep you patient on antibiotics. Check microscopic urine analysis. (3) Blood loss anemia Current visit: Yes Status: Acute Acute blood loss anemia due to Charlie hematuria. We transfused 2 units of blood for hemoglobin of 5.6. No evidence of G.I. bleeding Internal Medicine - H&P: HPI Chief complaint: abdominal pain, hematuria History of present illness: Ms. 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 Patient mentioned that for the past 2 days she has been noticing that the left urostomy troop is not draining well. She has noted also greenish secretion in the left urostomy children and foul-smelling odour of her urine. She has been having pain in the left flank area. She has been having subjective fevers and chills. Patient also has been having Charlie hematuria. She has been getting more weak and lethargic. Hemoglobin was found to be 5.6, about 3 g drop from her baseline. She denies any hematemesis, Melena, hematochezia. Past Med Surg Social Fam HX - Past Medical History Medical history: cancer, hyperlipidemia, pulmonary embolus, other Psychiatric history: anxiety, depression - Past Surgical History Surgical History: hysterectomy, other (bilateral nephrostomy tubes, cystoscopy, IVC filter) - Social History Smoking Status: Never smoker Smokeless Tobacco Status: No Alcohol use: none Drug use: none - Family History Mother Adopted: No Family Member Ethnicity: Non- Living Status: Hx Family Cardiac Disorders: No Hx Family Respiratory Disorders: No Hx Family Cancer: Yes (breast cancer) Hx Family GI Disorders: No Hx Family Endocrine Disorder: No Hx Family Neuromuscular Disorders: No Hx Family Neurologic Disorders: No Hx Family HEENT Disorders: No Hx Family Autoimmune Disorders: No Father Adopted: No Family Member Ethnicity: Non- Living Status: Hx Family Cardiac Disorders: Yes (AAA) Hx Family Respiratory Disorders: No Hx Family Cancer: No Hx Family GI Disorders: No Hx Family Endocrine Disorder: No Hx Family Neuromuscular Disorders: No Hx Family Neurologic Disorders: No Hx Family HEENT Disorders: No Hx Family Autoimmune Disorders: No Internal Medicine - H&P: Meds Escitalopram [Lexapro] 10 mg PO DAILY 07/31/16 [History] Aspirin/Acetaminophen/Caffeine [Excedrin Migraine Caplet] 2 tab PO Q6H PRN 01/09 [History] Bupropion HCl [Wellbutrin Xl] 300 mg PO QAM 01/09/17 [History] Dicyclomine [Bentyl] 20 mg PO QID PRN 01/27/17 [History] Iron Polysaccharide Complex [Ferrex 150] 150 mg PO DAILY 03/14/17 [History] Loperamide HCl [Anti-Diarrheal] 2 mg PO PER PKG DI PRN 03/14/17 [History] Ondansetron HCl [Zofran] 4 mg PO Q8H PRN 03/14/17 [History] hydrOXYzine HCl [Hydroxyzine HCl] 25 - 50 mg PO HS PRN 03/14/17 [History] Polyethylene Glycol 3350 [MiraLAX] 17 gm PO PRN PRN #7 powd.pack 03/18/17 [Rx] 3 Allergy/AdvReac Type Severity Reaction Status Date / Time NSAIDS (Non-Steroidal AdvReac See Verified 04/20/17 02:59 Anti-Inflamma Comments All Systems PM: A 10-system review of systems was performed and is negative for pertinent findings except as documented above in the HPI. Review of systems: 10 point review of systems is negative except for HPI. - Constitutional Vitals: Temp Pulse Resp BP Pulse Ox 98.1 F 100 12 132/69 99 04/20/17 02:54 04/20/17 05:05 04/20/17 06:02 04/20/17 06:02 04/20/17 05:05 Exam: Gen.: patient is alert oriented times 3 not in distress, pale cardiac: Normal S1, S2, no additional sounds or murmurs. tachycardic chest: Clear to auscultation Abdomen: tenderness in left loin lower extremity Lax calf muscles no swelling Neuro: no focal deficits Internal Med - H&P Results - Labs CBC & Chem 7: 04/20/17 03:11 04/20/17 03:11
[2017-04-20] MEDS ORDERED: Vancomycin 1,250 MG in D5% in Water 250 ML IVPB SCH (07:00)
[2017-04-20] MEDS: 0.9 % Sodium Chloride 1,000 ML IVC SCH ×2 (07:58→17:48)
[2017-04-20] MEDS: Cefepime HCl 1,000 MG in Water for inj. (sterile) 10 ML IVP SCH ×2 (07:59→17:49)
[2017-04-20] MEDS: Pantoprazole 40 MG VIAL IVP SCH (08:01)
--- NOTE | 2017-04-20 08:25 | Urology - Consult Note ---
Date of Encounter: 04/20/17 Time of Encounter: 08:23 - Assessment and Plan (1) Blood loss anemia Current Visit: Yes Status: Acute Assessment and plan: already receiving blood (2) UTI (urinary tract infection) Current Visit: Yes Status: Acute Assessment and plan: continue broad spectrum abx until cultures return Qualifiers: Urinary tract infection type: acute cystitis Hematuria presence: without hematuria Qualified Code(s): N30.00 - Acute cystitis without hematuria (3) Radiation cystitis Current Visit: No Status: Chronic Assessment and plan: bilateral pcn tubes in good position, but are due to be changed. ok to wait until saturday for IR to change as I irrigated both tubes and both are in good position. Urology CN:HPI Consult date: 04/20/17 Reason for consult Urology: Gross Hematuria Requesting physician: Dada Cadena History of present illness: Ros is a 61 y/o female well known to me for radiation cystitis. The patient has bilateral pcn tubes in place. She came to ED yesterday because of weakness with possible uti. She was found to have a uti with severe anemia. Patient has been referred to reconstructive urologist in [place] for evaluation for possible urinary diversion, but has not had a f/u yet. CT showed b/l pcn tubes in good position. small clot in bladder. Past Med Surg Social Fam HX - Past Medical History Medical history: cancer, hyperlipidemia, pulmonary embolus, other Psychiatric history: anxiety, depression - Past Surgical History Surgical History: hysterectomy, other - Social History Smoking Status: Never smoker Smokeless Tobacco Status: No Alcohol use: none Drug use: none - Family History Mother Adopted: No Family Member Ethnicity: Non- Living Status: Hx Family Cardiac Disorders: No Hx Family Respiratory Disorders: No Hx Family Cancer: Yes (breast cancer) Hx Family GI Disorders: No Hx Family Endocrine Disorder: No Hx Family Neuromuscular Disorders: No Hx Family Neurologic Disorders: No Hx Family HEENT Disorders: No Hx Family Autoimmune Disorders: No Father Adopted: No Family Member Ethnicity: Non- Living Status: Hx Family Cardiac Disorders: Yes (AAA) Hx Family Respiratory Disorders: No Hx Family Cancer: No Hx Family GI Disorders: No Hx Family Endocrine Disorder: No Hx Family Neuromuscular Disorders: No Hx Family Neurologic Disorders: No Hx Family HEENT Disorders: No Hx Family Autoimmune Disorders: No Medications and Allergies Escitalopram [Lexapro] 10 mg PO DAILY 07/31/16 [History] Aspirin/Acetaminophen/Caffeine [Excedrin Migraine Caplet] 2 tab PO Q6H PRN 01/09 [History] Bupropion HCl [Wellbutrin Xl] 300 mg PO QAM 01/09/17 [History] Dicyclomine [Bentyl] 20 mg PO QID PRN 01/27/17 [History] Iron Polysaccharide Complex [Ferrex 150] 150 mg PO DAILY 03/14/17 [History] Loperamide HCl [Anti-Diarrheal] 2 mg PO PER PKG DI PRN 03/14/17 [History] Ondansetron HCl [Zofran] 4 mg PO Q8H PRN 03/14/17 [History] hydrOXYzine HCl [Hydroxyzine HCl] 25 - 50 mg PO HS PRN 03/14/17 [History] Polyethylene Glycol 3350 [MiraLAX] 17 gm PO PRN PRN #7 powd.pack 03/18/17 [Rx] 3 Allergy/AdvReac Type Severity Reaction Status Date / Time NSAIDS (Non-Steroidal AdvReac See Verified 04/20/17 02:59 Anti-Inflamma Comments Review of Systems - Constitutional weakness, no chills - EENT Nose, mouth and throat: no dizziness - Cardiovascular no chest pain - Respiratory no cough - Genitourinary Genitourinary: hematuria - Musculoskeletal no back pain - Integumentary no erythema - Neurological no confusion - Psychiatric no anxiety - Hematologic/Lymphatic no easy bleeding Exam Initial Vital Signs Temp Pulse Resp BP Pulse Ox 98.1 F 110 20 135/65 98 04/20/17 02:54 04/20/17 02:54 04/20/17 02:54 04/20/17 02:54 04/20/17 02:54 - General physical appearance Present: well developed - Respiratory Present: normal respiratory effort - Cardiovascular Cardiovascular exam IM: RRR - Abdomen Abdomen: Present: soft - Integumentary Present: no rash - Neurologic Present: normal coordination - Additional Findings backl: bilateral pcn tubes with clear but cloudy urine. Urology Results - Labs 04/20/17 03:11 04/20/17 03:11 Abnormal lab results RBC 2.19 M/mcL (3.82-4.97) L 04/20/17 03:11 Hgb 5.6 g/dL (11.5-15.4) L* 04/20/17 03:11 Hct 19.0 % (35.3-44.9) L 04/20/17 03:11 MCH 25.6 pg (28.0-33.3) L 04/20/17 03:11 MCHC 29.5 g/dL (31.6-35.5) L 04/20/17 03:11 RDW 18.1 % (11.5-14.5) H 04/20/17 03:11 Creatinine 1.27 mg/dL (0.57-1.11) H 04/20/17 03:11 Est GFR ( Amer) 52 (> 60) L 04/20/17 03:11 Est GFR (Non-Af Amer) 43 (> 60) L 04/20/17 03:11 Glucose 130 mg/dL (70-99) H 04/20/17 03:11 Albumin 3.1 g/dL (3.5-5.0) L 04/20/17 03:11 Albumin/Globulin Ratio 1.0 (1.1-2.2) L 04/20/17 03:11 Urine Color Red (Yellow) A 04/20/17 03:24 Urine Clarity Cloudy (Clear) A 04/20/17 03:24 Ur Specific [place] 1.030 (1.010-1.025) H 04/20/17 03:24 Urine Protein >=1000 mg/dL (Neg-Trace) H 04/20/17 03:24 Urine Glucose (UA) 100 mg/dL (Normal) H 04/20/17 03:24 Urine Blood Large (Negative) H 04/20/17 03:24 Ur Leukocyte Esterase Small (Negative) H 04/20/17 03:24 Ur Culture Indicated? YES (NO) A 04/20/17 03:24 Antibody Screen POSITIVE A 04/20/17 03:11 All other labs normal. - Imaging CT scan - abdomen: image reviewed CT scan - pelvis: image reviewed Consult Discharge Plan - Plan Referrals: Mulu Gongora DO [Primary Care Provider] -
[2017-04-20] MEDS ORDERED: Aminoglycoside Consult 1 EACH MC ONE (08:38)
[2017-04-20 10:37] LABS: Bilirubin,Urine Negative (Negative); Blood,Urine Moderate (Negative); Clarity,Urine Turbid (Clear); Color,Urine Yellow (Yellow); Glucose,Urine (UA) Normal (Normal); Ketones,Urine Negative (Negative); Leukocyte Esterase,Urine Large (Negative); Nitrite,Urine Negative (Negative); PH,Urine 6.5 pH Units (5.0-8.0); Protein,Urine 30 mg/dL (Neg-Trace); Specific Gravity,Urine 1.018 (1.010-1.025); Urobilinogen,Urine Normal (Normal)
[2017-04-20 10:40] LABS: Bacteria,Urine Many per hpf (None-Few); Hyaline Casts,Urine Moderate per lpf (None-Few); Squamous Epithelial Cell,Urine Many per lpf (None-Few); WBC,Urine TNTC per hpf (0-3)
[2017-04-20 15:16] LABS: Hematocrit 22.5 % (35.3-44.9)
[2017-04-20] MEDS ORDERED: 0.9 % Sodium Chloride 500 ML ONE (18:11)
[2017-04-21] MEDS: 0.9 % Sodium Chloride 1,000 ML IVC SCH ×3 (03:57→21:40)
[2017-04-21] MEDS ORDERED: Vancomycin 1,250 MG in D5% in Water 250 ML IVPB SCH (06:00)
[2017-04-21] MEDS: Cefepime HCl 1,000 MG in Water for inj. (sterile) 10 ML IVP SCH (06:30)
[2017-04-21] MEDS ORDERED: *HR* LORazepam 0.5 MG TABLET PO ONE (07:01)
[2017-04-21] MEDS: Pantoprazole 40 MG VIAL IVP SCH (07:16)
--- NOTE | 2017-04-21 08:01 | Urology Progress Note ---
Date of Encounter: 04/21/17 Time of Encounter: 08:00 - Assessment and Plan (1) Blood loss anemia Current Visit: Yes Status: Acute Assessment and plan: improving (2) UTI (urinary tract infection) Current Visit: Yes Status: Acute Qualifiers: Urinary tract infection type: acute cystitis Hematuria presence: without hematuria Qualified Code(s): N30.00 - Acute cystitis without hematuria (3) Radiation cystitis Current Visit: No Status: Chronic Assessment and plan: IR tomorrow to change pcn tubes Progress Note Narrative: patient seen. hgb increased to 7 but then had another transfusion after. no f/ u hgb available yet. feeling better. good pcn tube output Objective Initial Vital Signs Temp Pulse Resp BP Pulse Ox 98.1 F 110 20 135/65 98 04/20/17 02:54 04/20/17 02:54 04/20/17 02:54 04/20/17 02:54 04/20/17 02:54 - General physical appearance Present: well developed - Abdomen Present: soft - Labs 04/20/17 15:00 04/20/17 03:11 - VTE Documentation of Mechanical Device: Intermittent pneumatic compression device Consult Discharge Plan - Plan Referrals: Mulu Gongora DO [Primary Care Provider] -
[2017-04-21 08:33] LABS: Hematocrit 27.5 % (35.3-44.9); Mean Corpuscular Volume 84.4 fL (83.0-100.0); Mean Platelet Volume 10.2 fL (9.4-12.4); Platelet Count 237 K/mcL (140-400); Red Blood Count 3.26 M/mcL (3.82-4.97); Red Cell Distribution Width 17.2 % (11.5-14.5)
[2017-04-21 08:38] LABS: Hemoglobin 8.8 g/dL (11.5-15.4)
[2017-04-21 10:24] LABS: Potassium 3.6 mEq/L (3.5-4.5)
--- NOTE | 2017-04-21 14:56 | Internal Med Progress Note ---
Date of Encounter: 04/21/17 Time of Encounter: 11:00 - Assessment and plan (1) Hematuria Current Visit: No Status: Resolved Assessment and plan: -Patient reported of hematuria and found to have acute on chronic blood loss anemia -Suspect secondary to urostomy tubes -Management as below Qualifiers: Hematuria type: gross Qualified Code(s): R31.0 - Gross hematuria (2) Obstructed nephrostomy tube Current Visit: Yes Status: Acute Assessment and plan: -IR consulted and will change PCN tubes on 04/22/17 (3) Blood loss anemia Current Visit: Yes Status: Acute Assessment and plan: -Hemoglobin now 8.8 from 5.6 status post 4 units packed red blood cells -Will continue to monitor (4) Anxiety Current Visit: No Status: Chronic Assessment and plan: -Start patient on Vistaril - Subjective Interval history: Patient with no acute events overnight and has been hemodynamically stable status post 4 units of packed red blood cells. - Constitutional Vitals: Temp Pulse Resp BP Pulse Ox 98.5 F 98 18 126/80 98 04/21/17 13:12 04/21/17 13:12 04/21/17 13:12 04/21/17 13:12 04/21/17 13:12 - Respiratory Respiratory exam: Present: CTAB. Absent: accessory muscle use, rales, rhonchi, wheezes - Cardiovascular Cardiovascular exam: Present: RRR, +S1, +S2. Absent: diastolic murmur, gallop, rubs, systolic murmur - GI/Abdominal GI/Abdominal exam: Present: normal bowel sounds, soft, no peritoneal signs. Absent: distended, tenderness - Extremities Exam Extremities exam: Absent: pedal edema Internal Medicine: Result - Labs CBC & Chem 7: 04/21/17 08:15 04/21/17 09:00 Labs: Short CBC 04/20/17 04/21/17 Range/Units 15:00 08:15 WBC 4.8 (4.3-11.1) K/mcL Hgb 7.0 L 8.8 L D (11.5-15.4) g/dL Hct 22.5 L 27.5 L (35.3-44.9) % Plt Count 237 (140-400) K/mcL BMP 04/21/17 09:00 Sodium 140 Potassium 3.6 Chloride 111 H Carbon Dioxide 22 BUN 14 Creatinine 1.32 H Glucose 133 H Calcium 8.0 L - ABG Interpretation ABG results: PT/INR, D-dimer PT 10.8 Seconds (9.4-12.1) 04/20/17 03:52 - VTE Documentation of Mechanical Device: Intermittent pneumatic compression device Consult Discharge Plan - Plan Referrals: Mulu Gongora DO [Primary Care Provider] -
[2017-04-21] MEDS ORDERED: *HR* LORazepam 0.5 MG TABLET PO PRN (15:06)
[2017-04-22] MEDS: Pantoprazole 40 MG VIAL IVP SCH (07:37)
[2017-04-22] MEDS: 0.9 % Sodium Chloride 1,000 ML IVC SCH ×2 (07:40→17:42)
[2017-04-22 10:00] LABS: Basophils % 0.8 %; Eosinophils # 0.5 K/mcL (0.0-0.6); Eosinophils % 14.1 %; Hematocrit 25.5 % (35.3-44.9); Hemoglobin 7.9 g/dL (11.5-15.4); Immature Granulocytes % 0.3 % (0-4); Lymphocytes # 0.7 K/mcL (0.6-4.6); Lymphocytes % 18.2 %; Mean Corpuscular Hemoglobin 26.3 pg (28.0-33.3); Mean Platelet Volume 9.8 fL (9.4-12.4); Monocytes # 0.4 K/mcL (0.0-1.3); Monocytes % 10.6 %; Neutrophils # 2.1 K/mcL (1.6-8.9); Platelet Count 225 K/mcL (140-400); Red Cell Distribution Width 17.4 % (11.5-14.5)
[2017-04-22 10:17] LABS: BUN/Creatinine Ratio 12 (6-26); Blood Urea Nitrogen 13 mg/dL (7-20); Calcium 8.1 mg/dL (8.6-10.8); Carbon Dioxide 25 mEq/L (19-29); Chloride 111 mEq/L (98-109); Glucose 95 mg/dL (70-99); Osmolality,Calculated 294 (280-300); Potassium 3.8 mEq/L (3.5-4.5); Sodium 142 mEq/L (136-145); eGFR For African Americans > 60 (> 60); eGFR For Non-African Americans 51 (> 60)
[2017-04-22] MEDS ORDERED: *HR* Morphine 2 MG/ML SYRINGE IVP PRN (13:36)
[2017-04-22 15:00] LABS: Hematocrit 25.5 % (35.3-44.9)
--- NOTE | 2017-04-22 15:43 | Urology Progress Note ---
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 Castellanos at [facility] [place]. his office is going to call her for appt. advised patient to get pcn tubes changed. Progress Note Narrative: Patient seen. patient becoming very tired and frustrated with her condition. patient was requesting to be transferred. patient cancelled pcn tube exchange today Objective Initial Vital Signs Temp Pulse Resp BP Pulse Ox 98.1 F 110 20 135/65 98 04/20/17 02:54 04/20/17 02:54 04/20/17 02:54 04/20/17 02:54 04/20/17 02:54 - General physical appearance Present: well developed - Abdomen Present: soft - Labs 04/22/17 14:39 04/22/17 09:21 Diabetes panel 04/22/17 Range/Units 09:21 Sodium 142 (136-145) mEq/L Potassium 3.8 (3.5-4.5) mEq/L Chloride 111 H (98-109) mEq/L Carbon Dioxide 25 (19-29) mEq/L BUN 13 (7-20) mg/dL Creatinine 1.09 (0.57-1.11) mg/dL Glucose 95 (70-99) mg/dL Calcium 8.1 L (8.6-10.8) mg/dL Calcium panel 04/22/17 Range/Units 09:21 Calcium 8.1 L (8.6-10.8) mg/dL Pituitary panel 04/22/17 Range/Units 09:21 Sodium 142 (136-145) mEq/L Potassium 3.8 (3.5-4.5) mEq/L Chloride 111 H (98-109) mEq/L Carbon Dioxide 25 (19-29) mEq/L BUN 13 (7-20) mg/dL Creatinine 1.09 (0.57-1.11) mg/dL Glucose 95 (70-99) mg/dL Calcium 8.1 L (8.6-10.8) mg/dL Adrenal panel 04/22/17 Range/Units 09:21 Sodium 142 (136-145) mEq/L Potassium 3.8 (3.5-4.5) mEq/L Chloride 111 H (98-109) mEq/L Carbon Dioxide 25 (19-29) mEq/L BUN 13 (7-20) mg/dL Creatinine 1.09 (0.57-1.11) mg/dL Glucose 95 (70-99) mg/dL Calcium 8.1 L (8.6-10.8) mg/dL - VTE Documentation of Mechanical Device: Intermittent pneumatic compression device Consult Discharge Plan - Plan Referrals: Mulu Gongora DO [Primary Care Provider] -
--- NOTE | 2017-04-22 16:56 | Electrocardiograph Report ---
[address] [address] Test Date: 2017-04-20 Pat Name: Ros Jasmine Department: 102 Room: 2A44 Gender: F [employer]: : 1955 Requested By: Erich Watts Order Number: [id number] Reading MD: Sonia Grimaldo Measurements Intervals Gregory Rate: 101 P: 40 AL: 116 QRS: 3 QRSD: 84 T: 47 QT: 361 QTc: 419 Interpretive Statements SINUS TACHYCARDIA WITH SHORT AL INTERVAL ABNORMAL RHYTHM ECG Electronically Signed On 04-22-2017 16:55:37 EDT by Sonia Grimaldo
--- NOTE | 2017-04-22 17:18 | Internal Med Progress Note ---
Date of Encounter: 04/22/17 Time of Encounter: 11:00 - Assessment and plan (1) Hematuria Current Visit: No Status: Resolved Assessment and plan: -Patient reported of hematuria and found to have acute on chronic blood loss anemia -Suspect secondary to urostomy tubes -Management as below Qualifiers: Hematuria type: gross Qualified Code(s): R31.0 - Gross hematuria (2) Obstructed nephrostomy tube Current Visit: Yes Status: Acute Assessment and plan: -IR consulted and will change PCN tubes on 04/22/17 (3) Blood loss anemia Current Visit: Yes Status: Acute Assessment and plan: -Hemoglobin now 8.0 from 5.6 status post 4 units packed red blood cells -Will continue to monitor (4) Anxiety Current Visit: No Status: Chronic Assessment and plan: -Start patient on Vistaril - Subjective Interval history: Patient with no acute events overnight and has been hemodynamically stable status post 4 units of packed red blood cells. - Constitutional Vitals: Temp Pulse Resp BP Pulse Ox 98.1 F 77 16 122/82 99 04/22/17 15:00 04/22/17 15:00 04/22/17 15:00 04/22/17 15:00 04/22/17 15:00 - Respiratory Respiratory exam: Present: CTAB. Absent: accessory muscle use, rales, rhonchi, wheezes - Cardiovascular Cardiovascular exam: Present: RRR, +S1, +S2. Absent: diastolic murmur, gallop, rubs, systolic murmur Internal Medicine: Result - Labs CBC & Chem 7: 04/22/17 14:39 04/22/17 09:21 Labs: Short CBC 04/22/17 04/22/17 Range/Units 09:21 14:39 WBC 3.7 L (4.3-11.1) K/mcL Hgb 7.9 L 8.0 L (11.5-15.4) g/dL Hct 25.5 L 25.5 L (35.3-44.9) % Plt Count 225 (140-400) K/mcL Neutrophils # 2.1 (1.6-8.9) K/mcL BMP 04/22/17 09:21 Sodium 142 Potassium 3.8 Chloride 111 H Carbon Dioxide 25 BUN 13 Creatinine 1.09 Glucose 95 Calcium 8.1 L - ABG Interpretation ABG results: PT/INR, D-dimer PT 10.8 Seconds (9.4-12.1) 04/20/17 03:52 - VTE Documentation of Mechanical Device: Intermittent pneumatic compression device Consult Discharge Plan - Plan Referrals: Mulu Gongora DO [Primary Care Provider] -
[2017-04-23] MEDS: 0.9 % Sodium Chloride 1,000 ML IVC SCH (03:47)
[2017-04-23] MEDS ORDERED: Acetaminophen 325 MG TABLET PO PRN (08:15)
[2017-04-23] MEDS ORDERED: 0.9 % Sodium Chloride 500 ML ONE (12:58)
[2017-04-23] MEDS ORDERED: Ampicillin/Sulbactam 1,500 MG in 0.9 % Sodium Chloride Mini Bag 100 ML IVPB ONE (13:15)
--- NOTE | 2017-04-23 13:36 | Urology Progress Note ---
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 Silva's office for f/u eval. b/l pcn tubes to be changed today. will sign off. Progress Note Narrative: patient seen. going to get b/l nephrostomy tubes changed today. Objective Initial Vital Signs Temp Pulse Resp BP Pulse Ox 98.1 F 110 20 135/65 98 04/20/17 02:54 04/20/17 02:54 04/20/17 02:54 04/20/17 02:54 04/20/17 02:54 - General physical appearance Present: well developed - Abdomen Present: soft - Labs 04/22/17 14:39 04/22/17 09:21 - VTE Documentation of Mechanical Device: Intermittent pneumatic compression device Consult Discharge Plan - Plan Referrals: Mulu Gongora, [Primary Care Provider] -
--- NOTE | 2017-04-23 13:48 | IR Procedure Note ---
Date of procedure: 04/23/17 Consent Obtained: Verbal consent, Written consent Timeout: Correct patient and procedure verified, Correct site verified, Time out performed, Skin prep completed Local anesthetic: Lidocaine 1% Indications: indwelling PCNs Procedure Performed: PCN exchange Site/Technique: bilateral Complications: None; Tolerated procedure well Post Procedure Treatment Plan: 10F catheter to gravity drainage
--- NOTE | 2017-04-23 14:28 | Discharge Summary ---
Date of Encounter: 04/23/17 Time of Encounter: 10:00 - Discharge Diagnosis (1) Hematuria Priority: Primary Status: Resolved Qualifiers: Hematuria type: gross Qualified Code(s): R31.0 - Gross hematuria (2) Vaginal cancer Priority: Secondary Status: Chronic (3) Anxiety Priority: Secondary Status: Chronic (4) Radiation cystitis Priority: Primary Status: Chronic (5) Anemia Priority: Primary Status: Acute Qualifiers: Anemia type: other cause Other causes of anemia: acute posthemorrhagic Qualified Code(s): D62 - Acute posthemorrhagic anemia - Discharge Medications Home Medications: Escitalopram [Lexapro] 10 mg PO DAILY 07/31/16 [History] Aspirin/Acetaminophen/Caffeine [Excedrin Migraine Caplet] 1 tab PO Q6H PRN 01/09 [History] Bupropion HCl [Wellbutrin Xl] 300 mg PO QAM 01/09/17 [History] Ondansetron HCl [Zofran] 4 mg PO Q8H PRN 03/14/17 [History] hydrOXYzine HCl [Hydroxyzine HCl] 25 - 50 mg PO Q8H PRN 03/14/17 [History] Polyethylene Glycol 3350 [MiraLAX] 17 gm PO PRN PRN #7 powd.pack 03/18/17 [Rx] Allergies/Adverse Reactions: 3 Allergy/AdvReac Type Severity Reaction Status Date / Time NSAIDS (Non-Steroidal AdvReac See Verified 04/20/17 02:59 Anti-Inflamma Comments Procedures/tests Complete & Pending: Procedures Performed prior 72 hours Category Date Time Status IR nephrostomy tube change [IR] Routine IR 04/23/17 Taken IR nephrostomy tube change [IR] Routine IR 04/23/17 Taken Date of admission: 04/20/17 06:28 Primary care physician: Ana Braswell Discharging clinician: Tamika Cuellar Anticipated date of discharge: 04/23/17 - Patient Status Disposition: Home, Self-Care Condition: Good Functional capacity at discharge: independent ambulation Overall status at discharge: patient is progressing back to baseline - Discharge Instructions Follow Up With: Mulu Gongora DO [Primary Care Provider] - (web request...04/23/2017) Additional Instructions: F/up with PCP in 1-2 weeks F/up with Reconstruction Urologist in [place] as scheduled - Diet and Activity Activity: resume usual activities as tolerated Diet: advance to your usual diet Hospital course: Ms. Jasmine is a 61 year old female with history of vaginal cancer and radiation cystitis, presents with hematuria and acute blood loss anemia. Patient received 4 units PRBC during her hospitalization and currently her hemoglobin is stable with no further hematuria. Urology was consulted and recommended bilateral percutaneous nephrostomy tube exchange, which has been done by interventional radiology. Blood and urine cultures remained negative. She was treated with empiric antibiotics for UTI. Patient currently has a follow-up appointment with reconstruction urology in [place], [place] and she is encouraged to keep this appointment. She is otherwise medically stable for discharge. - Time Spent with Patient Total time spent providing and/or coordinating discharge services: Greater than 30 minutes (40 min) - Constitutional Vitals: Temp Pulse Resp BP Pulse Ox 98.4 F 77 16 104/65 98 04/23/17 11:23 04/23/17 11:23 04/23/17 11:23 04/23/17 11:23 04/23/17 11:23 General appearance: Present: A&O X 3, answers questions appropriately - Respiratory Respiratory exam: Present: CTAB. Absent: accessory muscle use, rales, rhonchi, wheezes - Cardiovascular Cardiovascular exam: Present: RRR, +S1, +S2. Absent: diastolic murmur, gallop, rubs, systolic murmur - VTE Documentation of Mechanical Device: Intermittent pneumatic compression device
[2017-04-23 15:06] LABS: Basophils % 0.8 %; Eosinophils # 0.3 K/mcL (0.0-0.6); Eosinophils % 8.7 %; Hematocrit 27.4 % (35.3-44.9); Hemoglobin 8.4 g/dL (11.5-15.4); Immature Granulocytes % 0.3 % (0-4); Lymphocytes # 0.8 K/mcL (0.6-4.6); Lymphocytes % 21.7 %; Mean Corpuscular HGB Conc 30.7 g/dL (31.6-35.5); Mean Corpuscular Hemoglobin 26.3 pg (28.0-33.3); Mean Corpuscular Volume 85.6 fL (83.0-100.0); Mean Platelet Volume 9.9 fL (9.4-12.4); Monocytes # 0.4 K/mcL (0.0-1.3); Monocytes % 10.1 %; Neutrophils # 2.1 K/mcL (1.6-8.9); Platelet Count 255 K/mcL (140-400); Red Cell Distribution Width 17.2 % (11.5-14.5); Segmented Neutrophils % 58.4 %
[2017-04-23 15:47] VITALS: BP 129/81
== END 2017-04-23 16:28 | disposition home or self-care (01) | DRG 699 ==
LOC: EMEROO 02:53 → 2ANU 02:53 → SUATTDRO 06:28
PROVIDERS: ADMIT Hospitalist; ATTEND Internal Medicine

== ENCOUNTER 2017-05-07 15:01 | Observation (INO) ==
--- NOTE | 2017-05-07 15:39 | Emergency Department Note ---
Disposition Clinical Impression: Anemia Qualifiers: Anemia type: unspecified type Qualified Code(s): D64.9 - Anemia, unspecified Disposition: Admitted As Inpatient Condition: Fair Time of Disposition: 18:25 General Adult HPI - General Chief complaint: ED Recheck/Abnormal Lab/Rx Stated complaint: low Hgb Time Seen by Provider: 05/07/17 15:16 Source: patient Mode of arrival: wheelchair Limitations: no limitations Nursing Notes Reviewed: Yes Vital Signs Reviewed: Yes - History of Present Illness HPI Narrative: Patient is a 61-year-old female with a past medical history of cancer, hyperlipidemia, PE, anemia, cystitis, bilateral nephrostomy tubes presenting to the emergency department complaining of low hemoglobin was measured to be at 6.1. The patient is also complaining of shortness of breath, lightheaded, and nausea. Patient states that she has a history of cystitis in which she passes blood clots every few days which caused her to become anemic. She states she fells along with Dr. Richardson for this, and he has recommended her to a surgeon at [facility] for reconstructive surgery to resolve the bleeding. She states this has been a problem for over one year. Cystitis is secondary to her having vaginal cancer which was treated with radiation. Her last blood transfusion was 3 weeks ago. She denies any fevers, chills, chest pain, back pain, abdominal pain, any numbness or tingling or other symptoms. Pain Scale: 0 - Related Data Home Medications Medication Instructions Recorded Confirmed Escitalopram [Lexapro] 10 mg PO DAILY 07/31/16 05/07/17 Aspirin/Acetaminophen/Caffeine 1 tab PO Q6H PRN 01/09/17 05/07/17 [Excedrin Migraine Caplet] Bupropion HCl [Wellbutrin Xl] 300 mg PO QAM 01/09/17 05/07/17 hydrOXYzine HCl [Hydroxyzine HCl] 25 - 50 mg PO HS PRN 03/14/17 05/07/17 Dicyclomine [Bentyl] 20 mg PO QID PRN 05/07/17 05/07/17 Ferrous Sulfate 325 mg PO DAILY 05/07/17 05/07/17 Loperamide HCl [Imodium A-D] 2 mg PO PER PKG DI PRN 05/07/17 05/07/17 Allergies Allergy/AdvReac Type Severity Reaction Status Date / Time NSAIDS (Non-Steroidal AdvReac See Verified 04/20/17 02:59 Anti-Inflamma Comments Review of Systems: Constitutional: No fever, positive for lightheadedness Vision: No blurred vision ENT: No rhinorrhea Respiratory: No cough, positive for ELIZA Cardiac: No chest pain Allergic: No allergies : Positive for urinating blood - chronic secondary to cystiits GI: No blood in stool, positive for nausea Hematologic: No bruising, bleeding through tract which chronic Dermatologic: No skin rash Musculoskeletal: No pain in the extremities Neuro: No numbness of the extremities All systems ED: reviewed and negative except as stated. Review of Systems: As Per HPI Past Medical History - Past Medical History Attestation: Yes The following information was validated with the patient. Medical history: Reports: cancer, hyperlipidemia, pulmonary embolus, other Surgical history: Reports: hysterectomy, other Psychiatric history: Reports: anxiety, depression NAIL MAKER history: Reports: no NAIL MAKER history - Social History Smoking Status: Never smoker Smokeless Tobacco Status: No Alcohol use: Reports: none Drug use: Reports: none Physical Exam CONSTITUTIONAL: Alert and oriented X3, Patient appears pale and fatigued. Tachycardic in the 110-120 otherwise vital signs are normal. HEAD: Normocephalic; atraumatic. EYES: PERRL, no scleral icterus. NOSE: The nose is normal in appearance without rhinorrhea RESP: Normal chest excursion with respiration; breath sounds clear and equal bilaterally; no wheezes, rhonchi, or rales CARD: Tachycardic, regular rhythm, without murmurs, rub or gallop ABD: Non-distended; non-tender, soft,without rigidity, rebound or guarding. Patient has bilateral nephrostomy tubes. Urine appears clear and yellow. Patient declined a rectal exam. SKIN: Normal for age and race; warm and dry; no apparent lesions - General Limitations: no limitations General appearance: alert, in no apparent distress Course Course Narrative: Patient is a 7-year-old female with a past medical history of cystitis in which she is losing blood through her genitourinary tract she has been evaluated by urology and is waiting for an appointment at [facility] to have a bladder reconstruction done with surgery to stop her bleeding. She states she last had a blood transfusion 3 weeks ago. Plan is to type and screen the patient and will order her blood transfusions in the ER. We will also evaluate her heart by checking cardiac labs such as a troponin, CBC, chest x-ray. We will get the patient admitted for blood transfusion. - Reevaluation(s) Reevaluation #1: Patient's lab work came back. Her CBC showed a hemoglobin of 5.6. The patient also had a creatinine of 1.34 and a BUN of 32, kidney labs are normal for this patient when I review her past labs she also does have a history of some degree of kidney failure requiring bilateral nephrostomy tubes. Patient's EKG showed sinus tachycardia which is expected with her current anemia. Her chest x-ray was no acute. Troponin was not elevated BNP was also negative. I discussed these findings with the hospitalist Dr. Vann and she agrees to admit the patient. Vital Signs Temperature 98.6 F 05/07/17 15:04 Pulse Rate 124 05/07/17 15:04 Respiratory Rate 18 05/07/17 15:04 Blood Pressure 102/65 05/07/17 15:04 O2 Sat by Pulse Oximetry 98 05/07/17 15:04 Temperature 98.6 F 05/07/17 22:27 Pulse Rate 99 05/07/17 22:27 Respiratory Rate 16 05/07/17 22:27 Blood Pressure 138/85 05/07/17 22:27 O2 Sat by Pulse Oximetry 100 05/07/17 22:27 Oxygen Delivery Oxygen Delivery Room Air Medical Decision Making - Medical Records Medical records reviewed: Yes I reviewed the patient's medical records. - Lab Data Lab results reviewed: Yes I reviewed the patient's lab results. Result diagrams: 05/07/17 16:12 05/07/17 16:12 Lab Results 05/07/17 05/07/17 05/07/17 Range/Units 16:12 16:12 16:12 WBC 6.4 (4.3-11.1) K/mcL RBC 2.33 L (3.82-4.97) M/mcL Hgb 5.6 L* (11.5-15.4) g/dL Hct 19.4 L (35.3-44.9) % MCV 83.3 (83.0-100.0) fL MCH 24.0 L (28.0-33.3) pg MCHC 28.9 L (31.6-35.5) g/dL RDW 18.7 H (11.5-14.5) % Plt Count 336 (140-400) K/mcL MPV 10.2 (9.4-12.4) fL Immature Gran % 0.5 (0-4) % Seg Neutrophils % 74.6 % Lymphocytes % 13.2 % Monocytes % 9.2 % Eosinophils % 1.9 % Basophils % 0.6 % Neutrophils # 4.8 (1.6-8.9) K/mcL Lymphocytes # 0.8 (0.6-4.6) K/mcL Monocytes # 0.6 (0.0-1.3) K/mcL Eosinophils # 0.1 (0.0-0.6) K/mcL Basophils # 0.0 (0.0-0.2) K/mcL Nucleated RBCs/100 WBC 0.5 H (0) /100 WBC Platelet Estimate Normal (Normal) Hypochromasia Present A (Not Present) Anisocytosis 1+ A (Not Present) PT 11.0 (9.4-12.1) Seconds INR 1.0 APTT 22.6 L (26.0-36.0) Seconds Sodium (136-145) mEq/L Potassium (3.5-4.5) mEq/L Chloride (98-109) mEq/L Carbon Dioxide (19-29) mEq/L BUN (7-20) mg/dL Creatinine (0.57-1.11) mg/dL Est GFR ( Amer) (> 60) Est GFR (Non-Af Amer) (> 60) BUN/Creatinine Ratio (6-26) Glucose (70-99) mg/dL Calculated Osmolality (280-300) Calcium (8.6-10.8) mg/dL Troponin I (0-0.03) ng/mL B-Natriuretic Peptide < 10 (0-100) pg/mL Blood Type Antibody Screen MTS Gel Crossmatch 05/07/17 05/07/17 05/07/17 Range/Units 16:12 16:12 16:12 WBC (4.3-11.1) K/mcL RBC (3.82-4.97) M/mcL Hgb (11.5-15.4) g/dL Hct (35.3-44.9) % MCV (83.0-100.0) fL MCH (28.0-33.3) pg MCHC (31.6-35.5) g/dL RDW (11.5-14.5) % Plt Count (140-400) K/mcL MPV (9.4-12.4) fL Immature Gran % (0-4) % Seg Neutrophils % % Lymphocytes % % Monocytes % % Eosinophils % % Basophils % % Neutrophils # (1.6-8.9) K/mcL Lymphocytes # (0.6-4.6) K/mcL Monocytes # (0.0-1.3) K/mcL Eosinophils # (0.0-0.6) K/mcL Basophils # (0.0-0.2) K/mcL Nucleated RBCs/100 WBC (0) /100 WBC Platelet Estimate (Normal) Hypochromasia (Not Present) Anisocytosis (Not Present) PT (9.4-12.1) Seconds INR APTT (26.0-36.0) Seconds Sodium 139 (136-145) mEq/L Potassium 4.3 (3.5-4.5) mEq/L Chloride 107 (98-109) mEq/L Carbon Dioxide 23 (19-29) mEq/L BUN 32 H (7-20) mg/dL Creatinine 1.34 H (0.57-1.11) mg/dL Est GFR ( Amer) 49 L (> 60) Est GFR (Non-Af Amer) 40 L (> 60) BUN/Creatinine Ratio 24 (6-26) Glucose 189 H (70-99) mg/dL Calculated Osmolality 300 (280-300) Calcium 8.4 L (8.6-10.8) mg/dL Troponin I 0.00 (0-0.03) ng/mL B-Natriuretic Peptide (0-100) pg/mL Blood Type A POSITIVE Antibody Screen NEGATIVE MTS Gel Crossmatch See Detail - Radiology Data Radiology results reviewed: Yes I reviewed the patient's radiology results. Chest X-Ray 05/07/17 15:33 IMPRESSION: No acute cardiopulmonary disease. D/ / Franklin Mac MD / Franklin Mac MD Interpreting Provider: Franklin Mac MD - EKG Data EKG #1 EKG attestation: Yes I reviewed and interpreted this EKG. EKG results narrative: Patient's EKG done at 16:37 shows sinus tachycardia. Normal axis. HI is 135, QRS is 77, QT is 339, QTC is 41 these are within normal limits. She has good R- wave progression. She has no signs of ST elevation or depression or Q waves. Attestation Statement - Attestation Attestation: I examined this patient and my medical decision-making was reviewed with the Resident Physician. I agree with the documented findings, disposition and treatment plan as described except to the extent set forth below. Findings consistent with symptomatic anemia. Patient has hemoglobin of 5.6. Findings are consistent with previous anemia and history of hemorrhagic cystitis. She does have bilateral nephrostomy tubes in place at this time. We will transfuse 2 units of packed red blood cells to a hemoglobin of 7. Discussed case with hospitalist team. Pending type and screen prior to initiation of transfusion. As an greater than 35 minutes of critical care time resuscitating this acutely ill patient suffering from symptomatic anemia requiring blood transfusion. This was excluding billable procedures.
[2017-05-07 16:34] LABS: Immature Granulocytes % 0.5 % (0-4)
[2017-05-07 16:35] LABS: Basophils % 0.6 %; Eosinophils # 0.1 K/mcL (0.0-0.6); Eosinophils % 1.9 %; Hematocrit 19.4 % (35.3-44.9); Lymphocytes % 13.2 %; Mean Corpuscular HGB Conc 28.9 g/dL (31.6-35.5); Mean Corpuscular Volume 83.3 fL (83.0-100.0); Mean Platelet Volume 10.2 fL (9.4-12.4); Monocytes # 0.6 K/mcL (0.0-1.3); Monocytes % 9.2 %; Neutrophils # 4.8 K/mcL (1.6-8.9); Nucleated Red Blood Cells 0.5 /100 WBC (0); Platelet Count 336 K/mcL (140-400); Red Blood Count 2.33 M/mcL (3.82-4.97); Red Cell Distribution Width 18.7 % (11.5-14.5); Segmented Neutrophils % 74.6 %
[2017-05-07 16:42] LABS: Activated Partial Thrombo Time 22.6 Seconds (26.0-36.0)
[2017-05-07 16:45] LABS: Potassium 4.3 mEq/L (3.5-4.5)
[2017-05-07 16:46] LABS: Calcium 8.4 mg/dL (8.6-10.8)
[2017-05-07 16:49] LABS: Lymphocytes # 0.8 K/mcL (0.6-4.6)
[2017-05-07 16:56] LABS: Hemoglobin 5.6 g/dL (11.5-15.4)
[2017-05-07 17:00] LABS: Anisocytosis 1+ (Not Present); Hypochromasia Present (Not Present)
[2017-05-07 17:01] LABS: Platelet Estimate Normal (Normal)
[2017-05-07] MEDS ORDERED: 0.9 % Sodium Chloride 250 ML ONE (20:06)
[2017-05-07] MEDS ORDERED: Naloxone 0.4 MG/ML INJ IVP PRN (21:24)
[2017-05-07] MEDS ORDERED: Acetaminophen 325 MG TABLET PO PRN (21:24)
[2017-05-07] MEDS ORDERED: hydrOXYzine pamoate 25 MG CAPSULE PO PRN (21:27)
[2017-05-07] MEDS ORDERED: Acetaminophen/Aspirin/Caffeine TABLET PO PRN (21:27)
[2017-05-07] MEDS ORDERED: 0.9 % Sodium Chloride 1,000 ML IVC SCH (21:30)
--- NOTE | 2017-05-07 21:59 | Internal Med History&Physical ---
Date of Encounter: 05/07/17 Time of Encounter: 20:30 Assessment and Plan (1) Iron deficiency anemia Current visit: No Status: Chronic Patient has a chronic intermittent hematuria. Anemia workup has been done previously. Shows iron deficiency anemia. - Give blood transfusion PRBC 2 units. - Patient is on iron pills. - Check a hemoglobin level in a.m. Qualifiers: Iron deficiency anemia type: chronic blood loss Qualified Code(s): D50.0 - Iron deficiency anemia secondary to blood loss (chronic) (2) DVT prophylaxis Current visit: No Status: Acute EPCD (3) History of cancer of vagina Current visit: No Status: Chronic After radiation treatment (4) Hematuria Current visit: No Status: Resolved Patient has seen urology already as outpatient. Recommend to go to [facility] for surgery. At this point patient has no signs of active bleeding. 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 Patient in need periodical blood transfusion for the hematuria and last transfusion was 3 weeks ago. Patient was seen by urology and recommended to go to [facility] for reconstruction surgery. Patient had nephrostomy tube bilaterally already. Patient said she knows that her hemoglobin should be low. In the emergency room, hemoglobin shows a 5.6. Patient was admitted for symptomatic anemia need blood transfusion. Past Med Surg Social Fam HX - Past Medical History Medical history: cancer, hyperlipidemia, pulmonary embolus, other Psychiatric history: anxiety, depression - Past Surgical History Surgical History: hysterectomy, other - Social History Smoking Status: Never smoker Smokeless Tobacco Status: No Alcohol use: none Drug use: none - Family History Mother Adopted: No Family Member Ethnicity: Non- Living Status: Hx Family Cardiac Disorders: No Hx Family Respiratory Disorders: No Hx Family Cancer: Yes (breast cancer) Hx Family GI Disorders: No Hx Family Endocrine Disorder: No Hx Family Neuromuscular Disorders: No Hx Family Neurologic Disorders: No Hx Family HEENT Disorders: No Hx Family Autoimmune Disorders: No Father Adopted: No Family Member Ethnicity: Non- Living Status: Hx Family Cardiac Disorders: Yes (AAA) Hx Family Respiratory Disorders: No Hx Family Cancer: No Hx Family GI Disorders: No Hx Family Endocrine Disorder: No Hx Family Neuromuscular Disorders: No Hx Family Neurologic Disorders: No Hx Family HEENT Disorders: No Hx Family Autoimmune Disorders: No Internal Medicine - H&P: Meds Escitalopram [Lexapro] 10 mg PO DAILY 07/31/16 [History] Aspirin/Acetaminophen/Caffeine [Excedrin Migraine Caplet] 1 tab PO Q6H PRN 01/09 [History] Bupropion HCl [Wellbutrin Xl] 300 mg PO QAM 01/09/17 [History] hydrOXYzine HCl [Hydroxyzine HCl] 25 - 50 mg PO HS PRN 03/14/17 [History] Dicyclomine [Bentyl] 20 mg PO QID PRN 05/07/17 [History] Ferrous Sulfate 325 mg PO DAILY 05/07/17 [History] Loperamide HCl [Imodium A-D] 2 mg PO PER PKG DI PRN 05/07/17 [History] 3 Allergy/AdvReac Type Severity Reaction Status Date / Time NSAIDS (Non-Steroidal AdvReac See Verified 04/20/17 02:59 Anti-Inflamma Comments All Systems PM: A 10-system review of systems was performed and is negative for pertinent findings except as documented above in the HPI. - Constitutional Vitals: Temp Pulse Resp BP Pulse Ox 98.3 F 98 16 127/85 99 05/07/17 20:35 05/07/17 20:35 05/07/17 20:35 05/07/17 20:35 05/07/17 20:35 General appearance: Present: A&O X 3, no acute distress, answers questions appropriately - Head Head exam: Present: atraumatic, normocephalic - Eye Eye exam: Present: PERRL, conjuntiva pink, sclera anicteric Pupils: Present: PERRL - Neck Neck exam general surgery: Present: supple, trachea midline. Absent: lymphadenopathy - Respiratory Respiratory exam: Present: CTAB. Absent: accessory muscle use, rales, rhonchi, wheezes - Cardiovascular Cardiovascular exam: Present: RRR, +S1, +S2. Absent: diastolic murmur, gallop, rubs, systolic murmur - GI/Abdominal GI/Abdominal exam: Present: normal bowel sounds, soft, no peritoneal signs. Absent: distended, tenderness Additional comments: Nephrostomy tube bilaterally in place, urine is clear - Extremities Exam Extremities exam: Present: warm, radial pulses palpable and symmetrical. Absent : calf tenderness, cyanotic, pedal edema - Neurological Exam Neurological exam: Present: CN II-XII intact, oriented X3, no focal deficits. Absent: pronater drift, facial droop, speech deficit - Skin Skin exam: Present: dry, intact Internal Med - H&P Results - Labs CBC & Chem 7: 05/07/17 16:12 05/07/17 16:12
[2017-05-07] MEDS ORDERED: GI Cocktail 40 ML EACH PO ONE (22:14)
[2017-05-08 04:05] LABS: Basophils # 0.1 K/mcL (0.0-0.2); Basophils % 0.8 %; Eosinophils # 0.4 K/mcL (0.0-0.6); Eosinophils % 6.7 %; Hematocrit 25.3 % (35.3-44.9); Hemoglobin 7.7 g/dL (11.5-15.4); Immature Granulocytes % 0.6 % (0-4); Lymphocytes # 1.5 K/mcL (0.6-4.6); Mean Corpuscular HGB Conc 30.4 g/dL (31.6-35.5); Mean Corpuscular Hemoglobin 25.5 pg (28.0-33.3); Mean Corpuscular Volume 83.8 fL (83.0-100.0); Mean Platelet Volume 10.2 fL (9.4-12.4); Monocytes # 0.7 K/mcL (0.0-1.3); Monocytes % 11.2 %; Neutrophils # 3.8 K/mcL (1.6-8.9); Nucleated Red Blood Cells 0.5 /100 WBC (0); Platelet Count 282 K/mcL (140-400); Red Blood Count 3.02 M/mcL (3.82-4.97); Red Cell Distribution Width 17.2 % (11.5-14.5); Segmented Neutrophils % 57.7 %
[2017-05-08 04:17] LABS: BUN/Creatinine Ratio 25 (6-26); Blood Urea Nitrogen 26 mg/dL (7-20); Calcium 8.2 mg/dL (8.6-10.8); Carbon Dioxide 23 mEq/L (19-29); Chloride 109 mEq/L (98-109); Glucose 93 mg/dL (70-99); Osmolality,Calculated 294 (280-300); Potassium 4.3 mEq/L (3.5-4.5); Sodium 140 mEq/L (136-145); eGFR For African Americans > 60 (> 60); eGFR For Non-African Americans 53 (> 60)
[2017-05-08] MEDS ORDERED: BuPROPion XL (24 HR) 150 MG TABLET PO SCH (09:00)
[2017-05-08 11:35] VITALS: BP 117/76
[2017-05-08] MEDS ORDERED: *HR* Dextrose 50 % in Water (Syg) 50 ML SYRINGE IVP PRN (11:43)
[2017-05-08] MEDS ORDERED: Dextrose Gel 15 GM PO PRN ×2 (11:43)
[2017-05-08] MEDS ORDERED: D5% in Water 1,000 ML IVC PRN (11:43)
--- NOTE | 2017-05-08 12:17 | Discharge Summary ---
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 Priority: Secondary Status: Chronic - Discharge Medications Prescriptions: Ferrous Sulfate 325 mg PO BID #60 tablet Home Medications: Escitalopram [Lexapro] 10 mg PO DAILY 07/31/16 [History] Aspirin/Acetaminophen/Caffeine [Excedrin Migraine Caplet] 1 tab PO Q6H PRN 01/09 [History] Bupropion HCl [Wellbutrin Xl] 300 mg PO QAM 01/09/17 [History] hydrOXYzine HCl [Hydroxyzine HCl] 25 - 50 mg PO HS PRN 03/14/17 [History] Dicyclomine [Bentyl] 20 mg PO QID PRN 05/07/17 [History] Loperamide HCl [Imodium A-D] 2 mg PO PER PKG DI PRN 05/07/17 [History] Ferrous Sulfate 325 mg PO BID #60 tablet 05/08/17 [Rx] Allergies/Adverse Reactions: 3 Allergy/AdvReac Type Severity Reaction Status Date / Time NSAIDS (Non-Steroidal AdvReac See Verified 04/20/17 02:59 Anti-Inflamma Comments Date of admission: 05/07/17 18:59 Primary care physician: Ana Braswell - Patient Status Disposition: Home Health Service Condition: Good Overall status at discharge: patient is back to baseline - Discharge Instructions Follow Up With: Mulu Gongora DO [Primary Care Provider] - - Diet and Activity Activity: increase activity as tolerated Diet: advance to your usual diet Hospital course: Ms. 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 In the emergency room, hemoglobin shows a 5.6. Patient was admitted for symptomatic anemia need blood transfusion. Pt was admitted in the hospital and given her 2 U PRBC, her Hb improved to 7.7. Pt symptoms also improved . I did reviewed her Iron studies from last month which showed significant Iron def , so recommend the pt to inc FeSo4 to 325mg BID. Patient was seen by urology and recommended to go to [facility] for reconstruction surgery. Patient had nephrostomy tube bilaterally already. Will d/c her home today in stable condition, recommend to talk to PCP / Urologist to expedite the process for surgery. - Time Spent with Patient Total time spent providing and/or coordinating discharge services: - Constitutional Vitals: Temp Pulse Resp BP Pulse Ox 98.0 F 91 17 117/76 99 05/08/17 11:33 05/08/17 11:33 05/08/17 11:33 05/08/17 11:33 05/08/17 11:33 General appearance: Present: A&O X 3, no acute distress, answers questions appropriately - Head Head exam: Present: atraumatic, normal inspection - Respiratory Respiratory exam: Present: decreased breath sounds. Absent: rales, respiratory distress, rhonchi, wheezes - Cardiovascular Cardiovascular exam: Present: RRR, +S1, +S2. Absent: diastolic murmur, gallop, rubs, systolic murmur - GI/Abdominal GI/Abdominal exam: Present: soft. Absent: rebound, rigid, tenderness - Extremities Exam Extremities exam: Absent: calf tenderness, pedal edema, tenderness - Back Exam Back exam: Absent: CVA tenderness (L), CVA tenderness (R) - Neurological Exam Neurological exam: Present: alert, oriented X3
--- NOTE | 2017-05-08 13:09 | Electrocardiograph Report ---
[address] [address] Test Date: 2017-05-07 Pat Name: Ros Jasmine Department: 102 Room: 2A25 Gender: F Relief Pharmacist: Jayro : 1955 Requested By: Sridhar Lindo Order Number: [id number] Reading MD: Johnny Van MD Measurements Intervals [place] Rate: 106 P: 37 TX: 135 QRS: -18 QRSD: 77 T: 30 QT: 339 QTc: 401 Interpretive Statements SINUS TACHYCARDIA Electronically Signed On 05-08-2017 13:08:07 EST by Johnny Van MD
== END 2017-05-08 13:38 | disposition home health service (06) ==
LOC: 2ANU 15:01 → EMEROO 15:01 → 2ANU 19:33
PROVIDERS: ADMIT Internal Medicine; ATTEND Family Medicine

== ENCOUNTER 2017-05-14 15:21 | Inpatient (IN) ==
[2017-05-14 15:59] LABS: Basophils % 0.7 %; Eosinophils # 0.3 K/mcL (0.0-0.6); Eosinophils % 4.2 %; Immature Granulocytes % 0.3 % (0-4); Lymphocytes # 1.1 K/mcL (0.6-4.6); Lymphocytes % 18.3 %; Mean Corpuscular HGB Conc 29.5 g/dL (31.6-35.5); Mean Corpuscular Hemoglobin 24.7 pg (28.0-33.3); Mean Corpuscular Volume 83.7 fL (83.0-100.0); Mean Platelet Volume 10.4 fL (9.4-12.4); Monocytes # 0.6 K/mcL (0.0-1.3); Monocytes % 9.2 %; Platelet Count 259 K/mcL (140-400); Red Blood Count 2.63 M/mcL (3.82-4.97); Red Cell Distribution Width 17.5 % (11.5-14.5); Segmented Neutrophils % 67.3 %
[2017-05-14 16:11] LABS: Calcium 8.3 mg/dL (8.6-10.8); Potassium 4.5 mEq/L (3.5-4.5)
[2017-05-14 16:12] LABS: Hemoglobin 6.5 g/dL (11.5-15.4)
--- NOTE | 2017-05-14 16:29 | Emergency Department Note ---
Disposition Clinical Impression: Hematuria Qualifiers: Hematuria type: gross Qualified Code(s): R31.0 - Gross hematuria Anemia Qualifiers: Anemia type: unspecified type Qualified Code(s): D64.9 - Anemia, unspecified Disposition: Admitted As Inpatient Condition: Good Referrals: Mulu Gongora DO [Primary Care Provider] - Time of Disposition: 16:34 General Adult HPI - General Chief complaint: ED Dizziness Stated complaint: Low hemoglobin Time Seen by Provider: 05/14/17 15:27 Source: patient Mode of arrival: ambulatory Limitations: no limitations Nursing Notes Reviewed: Yes Vital Signs Reviewed: Yes - History of Present Illness HPI Narrative: 61-year-old female with recurrent anemia due to hematuria presenting to the emergency Department chief complaint of low hemoglobin. Patient was seen at her primary care physician and the CBC was completed which showed a hemoglobin of 6.9. Patient states she had to be transfused a few weeks ago as well due to low hemoglobin. She has chronic large amount of gross hematuria due to cystitis. She is being followed I urology and awaiting surgery to fix the hematuria. She denies any gingival bleeding or blood in her stool. She denies any chest pain or abdominal pain at this time. She does state she has been dizzy and weak but otherwise feeling okay. She denies any fevers or other infectious signs. Patient does have a nephrostomy with hopes of avoiding bladder or increased bleeding. Urine in the nephrostomy bag looks clear with no sign of blood. Patient denies any adverse outcomes from her previous transfusion. She states she had to be admitted and transfused 2 units the last time she was here. Pain Scale: 0 - Related Data Home Medications Medication Instructions Recorded Confirmed Escitalopram [Lexapro] 10 mg PO DAILY 07/31/16 05/07/17 Aspirin/Acetaminophen/Caffeine 1 tab PO Q6H PRN 01/09/17 05/07/17 [Excedrin Migraine Caplet] Bupropion HCl [Wellbutrin Xl] 300 mg PO QAM 01/09/17 05/07/17 hydrOXYzine HCl [Hydroxyzine HCl] 25 - 50 mg PO HS PRN 03/14/17 05/07/17 Dicyclomine [Bentyl] 20 mg PO QID PRN 05/07/17 05/07/17 Loperamide HCl [Imodium A-D] 2 mg PO PER PKG DI PRN 05/07/17 05/07/17 Previous Rx's Medication Instructions Recorded Ferrous Sulfate 325 mg PO BID #60 tablet 05/08/17 Allergies Allergy/AdvReac Type Severity Reaction Status Date / Time NSAIDS (Non-Steroidal AdvReac See Verified 05/14/17 15:32 Anti-Inflamma Comments All systems ED: reviewed and negative except as stated. Constitutional: Reports: weakness. Denies: fever, chills Eyes: Reports: as per HPI ENT ED: Reports: as per HPI Cardiovascular: Denies: chest pain, palpitations Respiratory: Denies: cough, wheezes, hemoptysis Gastrointestinal: Denies: abdominal pain, nausea, vomiting Genitourinary: Reports: as per HPI Musculoskeletal: Reports: as per HPI Integumentary: Denies: rash, abrasion, lesions Neurological: Reports: weakness. Denies: numbness, paresthesias Psychiatric: Reports: as per HPI Endocrine: Reports: fatigue Hematological/Lymphatic: Reports: as per HPI Allergic/Immunologic: Reports: as per HPI Past Medical History - Past Medical History Attestation: Yes The following information was validated with the patient. 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 Absent: scleral icterus, conjunctival injection - Chest Chest inspection: Present: normal inspection, symmetric chest wall rise. Absent : tenderness, rash - Respiratory Respiratory exam: Present: normal lung sounds bilaterally. Absent: respiratory distress, wheezes - Cardiovascular Cardiovascular exam: Present: normal rhythm, tachycardia, normal heart sounds - Abdominal Exam Abdominal exam: Present: soft, Non-Tender. Absent: distention, guarding, rebound - Extremities Exam Extremities exam: Present: normal inspection, full ROM - Back Exam Back exam: Present: normal inspection. Absent: CVA tenderness (R), CVA tenderness (L) - Neurological Exam Neurological exam: Present: alert, oriented X3 - Psychiatric Psychiatric exam: Present: normal affect, normal mood - Skin Skin exam: Present: warm, intact, pallor Course Course Narrative: 61-year-old female presenting to the emergency Department chief complaint of anemia including a blood transfusion. We will obtain a CBC, type and screen, BMP and an EKG. Patient has no other complaints besides symptomatic anemia with weakness and overall not feeling well. She denies any chest pain or other acute complaints including fever at this time. Disposition most likely will be admission upon results. Patient is alert and oriented 3 in the room. She is tachycardic with heart rate in the low 100s up to 119 when I was examining her but otherwise vital signs are stable. She agrees with this plan. - Reevaluation(s) Reevaluation #1: Hemoglobin is come back at 6.5. Type and screen pending. We will admit the patient for 2 units of packed red blood cell infusion. I spoke with the hospitalist on-call Dr. Rodriguez who agrees to accept the patient at this time. Patient is tachycardic in the room but otherwise stable. All other vital signs stable at this time. She has no chest pain or shortness of breath at this time. She agrees to this plan. Time: 16:33 Vital Signs Temperature 98.6 F 05/14/17 15:29 Pulse Rate 107 05/14/17 15:29 Respiratory Rate 16 05/14/17 15:29 Blood Pressure 124/74 05/14/17 15:29 O2 Sat by Pulse Oximetry 98 05/14/17 15:29 Temperature 98.6 F 05/14/17 15:29 Pulse Rate 107 05/14/17 15:29 Respiratory Rate 16 05/14/17 15:29 Blood Pressure 124/74 05/14/17 15:29 O2 Sat by Pulse Oximetry 98 05/14/17 15:29 Oxygen Delivery Oxygen Delivery Room Air Medical Decision Making - Lab Data Result diagrams: 05/14/17 15:52 05/14/17 15:52 Lab Results 05/14/17 05/14/17 Range/Units 15:52 15:52 WBC 6.0 (4.3-11.1) K/mcL RBC 2.63 L (3.82-4.97) M/mcL Hgb 6.5 L (11.5-15.4) g/dL Hct 22.0 L (35.3-44.9) % MCV 83.7 (83.0-100.0) fL MCH 24.7 L (28.0-33.3) pg MCHC 29.5 L (31.6-35.5) g/dL RDW 17.5 H (11.5-14.5) % Plt Count 259 (140-400) K/mcL MPV 10.4 (9.4-12.4) fL Immature Gran % 0.3 (0-4) % Seg Neutrophils % 67.3 % Lymphocytes % 18.3 % Monocytes % 9.2 % Eosinophils % 4.2 % Basophils % 0.7 % Neutrophils # 4.0 (1.6-8.9) K/mcL Lymphocytes # 1.1 (0.6-4.6) K/mcL Monocytes # 0.6 (0.0-1.3) K/mcL Eosinophils # 0.3 (0.0-0.6) K/mcL Basophils # 0.0 (0.0-0.2) K/mcL Sodium 139 (136-145) mEq/L Potassium 4.5 (3.5-4.5) mEq/L Chloride 108 (98-109) mEq/L Carbon Dioxide 21 (19-29) mEq/L BUN 26 H (7-20) mg/dL Creatinine 1.41 H (0.57-1.11) mg/dL Est GFR ( Amer) 46 L (> 60) Est GFR (Non-Af Amer) 38 L (> 60) BUN/Creatinine Ratio 18 (6-26) Glucose 132 H (70-99) mg/dL Calculated Osmolality 295 (280-300) Calcium 8.3 L (8.6-10.8) mg/dL - EKG Data EKG #1 EKG attestation: Yes I reviewed and interpreted this EKG. EKG results narrative: Sinus rhythm. 99 bpm. Left axis deviation. [place] interval 139, QRS 77, QTC 401. No signs of ST segment elevation or acute ischemia noted.
--- NOTE | 2017-05-14 16:35 | Emergency Department Note ---
START Narrative - START START: I examined this patient and my medical decision-making was reviewed with the Resident Physician. I agree with the documented findings, disposition and treatment plan as described except to the extent set forth below. 61-year-old female presents emergency room for anemia. Patient has chronic cystitis and hematuria from radiation exposure from previous cancer. Her hemoglobin is dropped to 6.5. Patient will be admitted. We will transfuse with 2 units. She was slightly tachycardic. She was symptomatic. No critical care time.
[2017-05-14] MEDS ORDERED: Ondansetron 4 MG/2 ML VIAL IVP PRN (20:48)
[2017-05-14] MEDS ORDERED: 0.9 % Sodium Chloride 250 ML ONE ×2 (20:50→23:45)
[2017-05-14] MEDS ORDERED: Naloxone 0.4 MG/ML INJ IVP PRN (20:54)
[2017-05-14] MEDS ORDERED: hydrOXYzine pamoate 25 MG CAPSULE PO PRN (21:02)
[2017-05-14] MEDS ORDERED: LOPERAMIDE HCL 2 MG PO PRN (21:02)
--- NOTE | 2017-05-14 21:17 | Internal Med History&Physical ---
<Bakari Longoria - Last Filed: 05/14/17 22:35> Date of Encounter: 05/14/17 Time of Encounter: 20:00 Assessment and Plan (1) SOB (shortness of breath) Current visit: No Status: Acute Acute SOB r/t current anemia. Pt. reports she becomes SOB w/exertion and ambulation of approximately 20 feet. Pt. states during exam that she does not need O2 at this time but may require it in the a.m. when she has hx of SOB and w /exertion. Denies use of home O2. Concern is for possible PE based on SOB sx, hx of PE in 2012, and no anticoagulation at this time. VQ scan was ordered but pt. declined stating she did not want excessive testing and imaging done on her body. Risks were explained and pt. confirmed understanding but still declined VQ scan. Supplemental O2 and SpO2 monitoring ordered PRN. Falls/safety precautions. Pt. is at high risk for further morbidity based on current anemia and sx, hx of recurrent iron deficiency requiring transfusions, hx of PE in 2012 , and suspected UTI from nephrostomy tubes. Inpatient. (2) Fatigue Current visit: No Status: Acute Acute fatigue r/t current anemia status. Pt. reports general fatigue and weakness which has worsened over the past several days. Falls/safety precautions. Continue iron PO supplementation. 2 units PRBCs ordered for transfusion. Will monitor H/H and f/u labs. Iron panel and LFTs ordered. Will administer IV iron if necessary based on iron panel and LFT results. Qualifiers: Fatigue type: other Qualified Code(s): R53.83 - Other fatigue (3) Dizziness Current visit: No Status: Acute Acute dizziness r/t current anemia status. Pt. reports difficulty w/ambulation d /t dizziness. Falls/safety precautions ordered. PT/OT consults ordered to assess pt. for ambulation safety and stability. (4) Acute kidney injury Current visit: No Status: Acute Acute kidney injury. Current GFR is 38 versus 53 on 05/08. Decrease most likely d/t suspected UTI. Pt. reports tube changes in March. Nephrostomy output shows no hematuria currently, but urine is cloudy w/some sludge present in right nephrostomy. U/A w/reflex and culture ordered w/samples to be taken from each tube and processed separately. Pt. is currently afebrile and shows no signs of infection or complaints of urinary sx. Will administer abx coverage if appropriate based on culture results. Monitor I&O and f/u labs. (5) Iron deficiency anemia Current visit: No Status: Chronic Hx of chronic iron deficiency anemia d/t gross hematuria r/t bilateral nephrostomies. Pts. current Hgb is 6.5 on admission which is at recent baseline. Pt. reports receiving PRBC transfusions historically when Hgb/Hct drops. Reports last transfusion was several weeks ago for similar sx. 2 units PRBCs ordered. Monitor H/H Q6HR. Continue pts. PO iron administration 325 mg BID. Will administer IV iron if warranted based on ordered iron profile and LFTs. Fecal hemoccult was ordered but pt. declined stating that she has been told she has proctitis and doesn't want excessive testing. Risks explained to pt. who confirmed understanding but still declined fecal testing. Monitor pt. for signs of bleeding. Qualifiers: Iron deficiency anemia type: chronic blood loss Qualified Code(s): D50.0 - Iron deficiency anemia secondary to blood loss (chronic) (6) Anxiety Current visit: No Status: Chronic Hx of anxiety and depression. Continue patient's Lexapro, hydroxyzine HCl, and Wellbutrin. (7) Proctitis Current visit: No Status: Chronic Hx of chronic proctitis. Pt. states that she has had previous fecal testing regarding sx and anemia and declines fecal hemoccult at this time. Risks and benefits explained, but pt. still declined. Will continue pts. Bentyl and Imodium. Monitor I&O and pt. for signs of rectal bleeding. (8) DVT prophylaxis Current visit: No Status: Acute Bilateral SCDs on LEs for DVT prophylaxis. Pharmacologic DVT prophylaxis contraindicated due to recurrent hematuria and anemia requiring transfusions. Internal Medicine - H&P: HPI Chief complaint: SOB/Dizziness Admitted From: Emergency Dept Plans for Post Hospital Care: Home History of present illness: Ms. Jasmine is a 61 year old female with medical hx of vaginal cancer in 2012 (reports as resolved), pulmonary embolus in 2012, bilateral nephrostomy tube placement, proctitis, and chronic iron-deficiency anemia r/t gross hematuria presents from the ED with chief complaint of SOB w/exertion/ ambulation 20 feet, dizziness, and fatigue r/t current and chronic anemia. Patient reports fatigue, dizziness, and SOB for the past two days and saw PCP and was referred to ED d/t Hgb of 6.5. Pt. states she received transfusion several weeks ago for same sx. Reports she is to be seen by Urology on Saturday to discuss possible surgical procedure to correct hematuria. Pt. states her bilateral nephrostomy tubes which were changed in March. Pt. denies recent illness, fever, chills, nausea, vomiting, changes in vision, abdominal pain, headache, chest pain, palpitations, numbness, tingling, pre-syncope, or syncope. Past Med Surg Social Fam HX - Past Medical History Source: patient, old records reviewed Medical history: cancer (Vaginal dx in 2013 (resolved)), pulmonary embolus (Dx in 2012 - Currently not anticoagulated), other Psychiatric history: anxiety, depression - Past Surgical History Surgical History: hysterectomy (Total), other (Bilateral nephrostomy tube placement) - Social History Smoking Status: Never smoker Smokeless Tobacco Status: No Alcohol use: none Drug use: none Current living situation: Home, With Family Activity Level: Independent ambulation Recent Out of Country Travel Within the Last 8 Weeks: No Exposure or Possible Exposure to Illness During Travel: No - Family History Mother Adopted: No Race: Family Member Ethnicity: Non- Living Status: Age at : 62 Cause of : Breast cancer w/mets Hx Family Cancer: Yes (Breast CA w/mets) Father Adopted: No Race: Family Member Ethnicity: Non- Living Status: Age at : 65 Cause of : PE from AAA repair Hx Family Cardiac Disorders: Yes (PE from AAA repair) Sister Race: Family Member Ethnicity: Non- Living Status: Still Living Hx Family Medical Disorders: No Internal Medicine - H&P: Meds Escitalopram [Lexapro] 10 mg PO DAILY 07/31/16 [History] Aspirin/Acetaminophen/Caffeine [Excedrin Migraine Caplet] 1 tab PO Q6H PRN 01/09 [History] Bupropion HCl [Wellbutrin Xl] 300 mg PO QAM 01/09/17 [History] hydrOXYzine HCl [Hydroxyzine HCl] 25 - 50 mg PO HS PRN 03/14/17 [History] Dicyclomine [Bentyl] 20 mg PO QID PRN 05/07/17 [History] Loperamide HCl [Imodium A-D] 2 mg PO PER PKG DI PRN 05/07/17 [History] Ferrous Sulfate 325 mg PO BID #60 tablet 05/08/17 [Rx] 3 Allergy/AdvReac Type Severity Reaction Status Date / Time NSAIDS (Non-Steroidal AdvReac See Verified 05/14/17 15:32 Anti-Inflamma Comments All Systems PM: A 10-system review of systems was performed and is negative for pertinent findings except as documented above in the HPI. - Constitutional Constitutional: as per HPI, fatigue, no chills, no fever(s), no night sweats - EENT Eyes: no change in vision, no discharge, no pain, no photophobia Ears: no ear discharge, no ear pain, no tinnitus Nose, mouth and throat: no dysphagia, no nasal discharge, no neck pain, no sore throat - Breasts Breasts: as per HPI - Cardiovascular Cardiovascular ROS IM: as per HPI, dyspnea on exertion (w/ambulation of approximately 20 feet), other (Tachycardia) - Respiratory Respiratory: as per HPI, dyspnea on exertion (w/ambulation approximately 20 feet ) - Gastrointestinal Gastrointestinal: no abdominal pain, no diarrhea, no hematemesis, no hematochezia, no melena, no nausea, no vomiting - Genitourinary Genitourinary: as per HPI, hematuria Menstruation: as per HPI, post hysterectomy - Musculoskeletal Musculoskeletal ROS IM: no numbness, no tingling - Integumentary Integumentary IM: no rash, no unusual bruising - Neurological Neurological ROS: no confusion, no convulsions, no focal weakness, no numbness, no tingling, no tremor(s) - Psychiatric Psychiatric: as per HPI - Endocrine Endocrine IM: as per HPI - Hematologic/Lymphatic Hematologic/Lymphatic: no easy bruising - Allergic/Immunologic Allergic/Immunologic: as per HPI - Constitutional Vitals: Temp Pulse Resp BP Pulse Ox 98.3 F 98 16 124/79 99 05/14/17 20:58 05/14/17 20:58 05/14/17 20:58 05/14/17 20:58 05/14/17 20:58 General appearance: Present: cooperative, A&O X 3, pleasant, no acute distress, obese, answers questions appropriately - Head Head exam: Present: atraumatic, normal inspection, normocephalic - Eye Eye exam: Present: PERRL, conjuntiva pink, sclera anicteric Pupils: Present: PERRL - ENT ENT exam: Present: normal exam, normal external ear exam - Neck Neck exam general surgery: Present: normal inspection, supple, trachea midline. Absent: lymphadenopathy - Respiratory Respiratory exam: Present: CTAB. Absent: accessory muscle use, rales, rhonchi, wheezes - Cardiovascular Cardiovascular exam: Present: RRR, +S1, +S2. Absent: diastolic murmur, gallop, rubs, systolic murmur - GI/Abdominal GI/Abdominal exam: Present: normal bowel sounds, soft, no peritoneal signs. Absent: distended, tenderness - Rectal Rectal exam: Present: deferred - Additional comments: exam deferred. - Extremities Exam Extremities exam: Present: warm, radial pulses palpable and symmetrical. Absent : calf tenderness, cyanotic, pedal edema - Back Exam Back exam: Present: normal inspection - Neurological Exam Neurological exam: Present: CN II-XII intact, oriented X3, no focal deficits. Absent: pronater drift, facial droop, speech deficit - Psychiatric Psychiatric exam: Present: normal affect, normal mood - Skin Skin exam: Present: dry, intact Internal Med - H&P Results - Labs CBC & Chem 7: 05/14/17 15:52 05/14/17 15:52 - EKG Data EKG shows normal: sinus rhythm - EKG Data Prior EKG available for review: no EKG comments: 05/14/17 21:34 EKG dated 05/14/17 shows sinus rhythm with borderline left axis deviation. <Maximilian Gregorio - Last Filed: 05/14/17 23:41> Date of Encounter: 05/14/17 Internal Medicine - H&P: HPI History of present illness: Ms. Jasmine is a 61 year old female All Systems PM: A 10-system review of systems was performed and is negative for pertinent findings except as documented above in the HPI. - Constitutional Vitals: Temp Pulse Resp BP Pulse Ox 98.3 F 98 16 124/79 99 05/14/17 20:58 05/14/17 20:58 05/14/17 20:58 05/14/17 20:58 05/14/17 20:58 Internal Med - H&P Results - Labs CBC & Chem 7: 05/14/17 15:52 05/14/17 15:52 Labs: Urine 05/14/17 05/14/17 Range/Units 22:42 22:42 Urine Color Yellow Yellow (Yellow) Urine Clarity Cloudy A Turbid A (Clear) Urine pH 6.0 8.5 H (5.0-8.0) pH Units Ur Specific [place] 1.021 1.013 (1.010-1.025) Urine Protein 100 H 100 H (Neg-Trace) mg/dL Urine Glucose (UA) Normal Normal (Normal) mg/dL - Attending Attestation I conducted a face to face diagnostic evaluation of this patient and my medical decision-making was reviewed with the Nurse Practitioner. I agree with the documented findings, disposition and treatment plan as described except to the extent set forth below: Patient reports gross hematuria from the bladder, no noted hematuria and the nephrostomy bags. She reports shortness of breath, no chest pain, her symptoms are similar to previous times when her anemia required blood transfusions. Plan: Transfuse 2 units PRBC. Check urinalysis nephrostomy tubes. Her nephrostomy tubes were recently exchanged. She does not have symptoms of UTI, pyelonephritis or sepsis. Monitor clinically.
[2017-05-14 22:55] LABS: Bilirubin,Urine Negative (Negative); Blood,Urine Large (Negative); Blood,Urine Trace (Negative); Clarity,Urine Cloudy (Clear); Clarity,Urine Turbid (Clear); Color,Urine Yellow (Yellow); Glucose,Urine (UA) Normal (Normal); Ketones,Urine Negative (Negative); Leukocyte Esterase,Urine Large (Negative); Leukocyte Esterase,Urine Moderate (Negative); Nitrite,Urine Negative (Negative); Nitrite,Urine Positive (Negative); PH,Urine 8.5 pH Units (5.0-8.0); Protein,Urine 100 mg/dL (Neg-Trace); Specific Gravity,Urine 1.013 (1.010-1.025); Specific Gravity,Urine 1.021 (1.010-1.025); Urobilinogen,Urine Normal (Normal)
[2017-05-14 22:58] LABS: Bacteria,Urine Many per hpf (None-Few); Hyaline Casts,Urine Few per lpf (None-Few); Hyaline Casts,Urine Moderate per lpf (None-Few); RBC,Urine 15-30 per hpf (0-3); Squamous Epithelial Cell,Urine Many per lpf (None-Few); WBC,Urine 30-50 per hpf (0-3)
[2017-05-14 23:08] LABS: Mucus,Urine Few (Few)
[2017-05-14 23:09] LABS: Bacteria,Urine Few per hpf (None-Few); Squamous Epithelial Cell,Urine Few per lpf (None-Few)
[2017-05-14 23:16] LABS: Calcium Oxalate Crystals,Urine Present; Triple Phosphate Crystal,Urine Present
[2017-05-15 04:59] LABS: Basophils % 0.6 %; Eosinophils # 0.5 K/mcL (0.0-0.6); Eosinophils % 9.4 %; Hematocrit 24.8 % (35.3-44.9); Hemoglobin 7.6 g/dL (11.5-15.4); Immature Granulocytes % 0.4 % (0-4); Lymphocytes # 1.2 K/mcL (0.6-4.6); Lymphocytes % 23.4 %; Mean Corpuscular HGB Conc 30.6 g/dL (31.6-35.5); Mean Corpuscular Hemoglobin 25.9 pg (28.0-33.3); Mean Corpuscular Volume 84.4 fL (83.0-100.0); Mean Platelet Volume 10.5 fL (9.4-12.4); Monocytes # 0.6 K/mcL (0.0-1.3); Monocytes % 11.9 %; Neutrophils # 2.8 K/mcL (1.6-8.9); Platelet Count 238 K/mcL (140-400); Red Blood Count 2.94 M/mcL (3.82-4.97); Red Cell Distribution Width 16.9 % (11.5-14.5); Segmented Neutrophils % 54.3 %
[2017-05-15 05:11] LABS: Albumin 2.6 g/dL (3.5-5.0); Albumin/Globulin Ratio 0.9 (1.1-2.2); Bilirubin,Total 0.9 mg/dL (0.2-1.2); Chol/HDL Ratio 3.6 (0-4.9); Globulin 2.9 g/dL (2.4-3.5); Magnesium 2.4 mg/dL (1.6-2.6); Potassium 4.4 mEq/L (3.5-4.5); Total Protein 5.5 g/dL (6.0-8.3)
[2017-05-15] MEDS: BuPROPion XL (24 HR) 150 MG TABLET PO SCH (09:31)
[2017-05-15] MEDS ORDERED: 0.9 % Sodium Chloride 250 ML ONE (13:10)
--- NOTE | 2017-05-15 16:22 | Internal Med Progress Note ---
Date of Encounter: 05/15/17 Time of Encounter: 16:12 - Assessment and plan (1) Anemia Current Visit: No Status: Acute Assessment and plan: Ros Jasmine is a 63-year-old female with past medical history vaginal cancer with subsequent radiation proctitis and cystitis, pulmonary embolism and blood loss anemia presented to [facility] on 05/14/2017 with shortness of breath. She was found to be anemic and was admitted for blood transfusion 1. Acute blood loss anemia: Recurrent and secondary to radiation cystitis with persistent hematuria. Hgb 6.5 on arrival, status post 1 unit PRBC with improvement to 7.6. Hemodynamically stable. Transfuse another 1 unit PRBC. Monitor H&H 2. Radiation cystitis: per history. Has bilateral percutaneous nephrostomy tubes in place. Last exchange 03/2017. Patient reports persistent hematuria. Has follow-up with Dr. Bland on 05/21/17. 3. Radiation proctitis: Per history. Follows with Dr. Mike; ast seen 2015 and every 3 year C-scope recommended at that time. With intermittent bright red blood per rectum. Patient denies at this time. No acute needs. Transfuse as noted above 4. Locoregionally advanced adenocarcinoma of the vagina: per hx. With subsequent radiation cystitis and proctitis as noted above. Follows with Oncology. Can follow-up as previously planned. 5. DVT prophylaxis: SCDs 6. JORDAN: Creatinine 1.4 which appears worse than baseline. Likely secondary to acute blood loss anemia. Repeat creatinine improved. Qualifiers: Anemia type: unspecified type Qualified Code(s): D64.9 - Anemia, unspecified (2) History of cancer of vagina Current Visit: No Status: Chronic (3) Radiation cystitis Current Visit: No Status: Acute (4) Radiation proctitis Current Visit: No Status: Chronic (5) Small bowel obstruction due to adhesions Current Visit: No Status: Resolved - Subjective Interval history: At bedside. Patient is new to me, information obtained from chart review and patient report. Patient says she feels much better than yesterday. Still weak and has a little shortness of breath but overall improved to like to go home today. I asked her to stay overnight for another unit of PRBC and she is agreeable to. Says she really wants to go home tomorrow. Has follow-up with Dr. Bland on Saturday. - Constitutional Vitals: Temp Pulse Resp BP Pulse Ox 97.4 F L 81 14 113/79 98 05/15/17 15:11 05/15/17 15:11 05/15/17 15:11 05/15/17 15:11 05/15/17 15:11 General appearance: Present: cooperative, A&O X 3, pleasant, no acute distress, obese, answers questions appropriately - Head Head exam: Present: atraumatic, normocephalic - Eye Eye exam: Present: PERRL, conjuntiva pink, sclera anicteric Pupils: Present: PERRL - Neck Neck exam general surgery: Present: supple, trachea midline. Absent: lymphadenopathy - Respiratory Respiratory exam: Present: CTAB. Absent: accessory muscle use, rales, rhonchi, wheezes - Cardiovascular Cardiovascular exam: Present: RRR, +S1, +S2. Absent: diastolic murmur, gallop, rubs, systolic murmur - GI/Abdominal GI/Abdominal exam: Present: normal bowel sounds, soft, no peritoneal signs. Absent: distended, tenderness - Additional comments: Bilateral nephrostomy tubes with clear yellow urine. No hematuria - Extremities Exam Extremities exam: Present: warm, radial pulses palpable and symmetrical. Absent : calf tenderness, cyanotic, pedal edema - Neurological Exam Neurological exam: Present: CN II-XII intact, oriented X3, no focal deficits. Absent: pronater drift, facial droop, speech deficit - Skin Skin exam: Present: dry, intact Internal Medicine: Result - Labs CBC & Chem 7: 05/15/17 04:46 05/15/17 04:46 Labs: Short CBC 05/15/17 Range/Units 04:46 WBC 5.2 (4.3-11.1) K/mcL Hgb 7.6 L (11.5-15.4) g/dL Hct 24.8 L (35.3-44.9) % Plt Count 238 (140-400) K/mcL Neutrophils # 2.8 (1.6-8.9) K/mcL BMP 05/15/17 04:46 Sodium 138 Potassium 4.4 Chloride 106 Carbon Dioxide 25 BUN 24 H Creatinine 1.17 H Glucose 99 Calcium 8.0 L Liver Function 05/15/17 Range/Units 04:46 Total Bilirubin 0.9 (0.2-1.2) mg/dL AST 19 (5-34) Units/L ALT 13 (0-55) Units/L Alkaline Phosphatase 64 (38-126) Units/L Albumin 2.6 L (3.5-5.0) g/dL Urine 05/14/17 05/14/17 Range/Units 22:42 22:42 Urine Color Yellow Yellow (Yellow) Urine Clarity Cloudy A Turbid A (Clear) Urine pH 6.0 8.5 H (5.0-8.0) pH Units Ur Specific [place] 1.021 1.013 (1.010-1.025) Urine Protein 100 H 100 H (Neg-Trace) mg/dL Urine Glucose (UA) Normal Normal (Normal) mg/dL Consult Discharge Plan - Plan Referrals: Mulu Gongora DO [Primary Care Provider] -
--- NOTE | 2017-05-15 20:04 | Electrocardiograph Report ---
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
[2017-05-16 03:36] LABS: Basophils % 0.9 %; Eosinophils # 0.4 K/mcL (0.0-0.6); Eosinophils % 9.3 %; Hematocrit 26.9 % (35.3-44.9); Hemoglobin 8.6 g/dL (11.5-15.4); Immature Granulocytes % 0.2 % (0-4); Lymphocytes # 1.1 K/mcL (0.6-4.6); Lymphocytes % 23.1 %; Mean Corpuscular Hemoglobin 26.6 pg (28.0-33.3); Mean Corpuscular Volume 83.3 fL (83.0-100.0); Mean Platelet Volume 10.1 fL (9.4-12.4); Monocytes # 0.6 K/mcL (0.0-1.3); Monocytes % 12.1 %; Neutrophils # 2.5 K/mcL (1.6-8.9); Platelet Count 225 K/mcL (140-400); Red Blood Count 3.23 M/mcL (3.82-4.97); Red Cell Distribution Width 16.6 % (11.5-14.5); Segmented Neutrophils % 54.4 %
[2017-05-16 03:52] LABS: Albumin 2.8 g/dL (3.5-5.0); Bilirubin,Total 0.5 mg/dL (0.2-1.2); Calcium 8.4 mg/dL (8.6-10.8); Globulin 2.8 g/dL (2.4-3.5); Potassium 4.3 mEq/L (3.5-4.5); Total Protein 5.6 g/dL (6.0-8.3)
[2017-05-16 06:38] VITALS: BP 126/77
--- NOTE | 2017-05-16 08:14 | Discharge Summary ---
Date of Encounter: 05/16/17 Time of Encounter: 08:11 - Discharge Diagnosis (1) Anemia Priority: Primary Status: Acute Comments: Recurrent and secondary to radiation cystitis with persistent hematuria. Pt. reports receiving PRBC transfusions historically when Hgb/Hct drops. Hgb 6.5 on arrival, s/p 2 unit PRBC with improvement to 8.6. Remained hemodynamically stable. Occult stool ordered but patient refused. Cont home iron. Recommend repeat CBC within 3 days with PCP. Qualifiers: Iron deficiency anemia type: chronic blood loss Qualified Code(s): D50.0 - Iron deficiency anemia secondary to blood loss (chronic) (2) Acute kidney injury Priority: Primary Status: Acute Comments: GFR is 38 versus 53 on 05/08/17. Likely due to UTI and hypovolemia with acute anemia. Repeat renal function improved. Encouraged adequate H2O intake. Recommend repeat CMP with PCP within one week (3) Urinary tract infection due to Proteus Priority: Primary Status: Acute Comments: UA sent from both nephrostomy tubes. Right neph tube urine cx with proteus. Of note, urine specimens were obtained from nephrostomy collection bags and not from tubes. Repeat UA ordered directly from neph tubes. Denied dysuria, no elevated WBC. Previous proteus UTI sensitive to Cipro. Discharge home on Cipro. Urine cx pending at time of discharge. Patient advised she will be called if ATB needs to be changed. (4) SOB (shortness of breath) Priority: Primary Status: Resolved Comments: reported SOB with exertion and ambulation of approximately 20 feet. Concerned for possible pulmonary embolism with hx of PE and no anticoagulation. VQscan and CXR ordered but patient declined stating she did not want excessive testing and imaging. Risks were explained and pt. confirmed understanding but still declined. SOB resolved with treating anemia. (5) Radiation cystitis Priority: Secondary Status: Chronic Comments: per history. With bilateral percutaneous nephrostomy tubes; last exchanged 2016. Has follow-up with Dr. Bland (Reconstructive Urology) on 05/21/17. (6) Radiation proctitis Priority: Primary Status: Chronic Comments: Per history. Follows with Dr. Mike; last seen 2015 and every 3 year C-scope recommended at that time. No active rectal bleeding. Follow-up with GI as previously planned (7) History of cancer of vagina Priority: Primary Status: Chronic Comments: per hx. With subsequent radiation cystitis and proctitis as noted above. Follows with Oncology. Can follow-up as previously planned. - Discharge Medications Prescriptions: Ciprofloxacin HCl [Cipro] 500 mg PO BID #14 tablet Home Medications: Escitalopram [Lexapro] 10 mg PO DAILY 07/31/16 [History] Bupropion HCl [Wellbutrin Xl] 300 mg PO QAM 01/09/17 [History] hydrOXYzine HCl [Hydroxyzine HCl] 25 - 50 mg PO HS PRN 03/14/17 [History] Dicyclomine [Bentyl] 20 mg PO QID PRN 05/07/17 [History] Loperamide HCl [Imodium A-D] 2 mg PO PER PKG DI PRN 05/07/17 [History] Ferrous Sulfate 325 mg PO BID #60 tablet 05/08/17 [Rx] Ciprofloxacin HCl [Cipro] 500 mg PO BID #14 tablet 05/16/17 [Rx] Allergies/Adverse Reactions: 3 Allergy/AdvReac Type Severity Reaction Status Date / Time NSAIDS (Non-Steroidal AdvReac See Verified 05/14/17 15:32 Anti-Inflamma Comments Date of admission: 05/14/17 20:48 Primary care physician: Ana Braswell Discharging clinician: Evangelina Murcia Anticipated date of discharge: 05/16/17 - Patient Status Disposition: Home, Self-Care Condition: Good Functional capacity at discharge: independent ambulation Overall status at discharge: patient is back to baseline - Discharge Instructions Instructions: Anemia (DC), Urinary Tract Infection in Women (DC), Nephrostomy Tube Care (DC) Follow Up With: Mulu Gongora DO [Primary Care Provider] - Additional Instructions: Please call your PCP within 24 hours or next business status schedule follow-up appointment Please keep your appointment with Dr. Bland on 05/21/2017 - Diet and Activity Activity: increase activity as tolerated Diet: advance to your usual diet Interval History: Seen and examined at bedside. Patient says she feels much better and wants to discharge home today. Still with persistent hematuria. No rectal bleeding. Denies SOB, patient reports SOB always resolves once she receives blood as anemia improves. Notified patient of UA results and the need to repeat UA from nephrostomy tubes versus collection bag. PAtient stated she would try to give urine specimen from nephrostomy tubes but she was not going to stay in the hospital. Says she has follow-up with Dr. Bland on Saturday, reconstructive urologist and she will address UTI with him at that time. She is agreeable to oral Cipro. Notified patient and she will be called if antibiotic needs to be changed as urine cultures pending. Hospital course: See assessment and plan for hospital course - Time Spent with Patient Total time spent providing and/or coordinating discharge services: Greater than 30 minutes (45 minutes spent on discharge) - Constitutional Vitals: Temp Pulse Resp BP Pulse Ox 97.8 F 75 18 126/77 97 05/16/17 06:31 05/16/17 06:31 05/16/17 06:31 05/16/17 06:31 05/16/17 06:31 General appearance: Present: cooperative, A&O X 3, pleasant, no acute distress, obese, answers questions appropriately - Head Head exam: Present: atraumatic, normocephalic - Eye Eye exam: Present: PERRL, conjuntiva pink, sclera anicteric Pupils: Present: PERRL - Neck Neck exam general surgery: Present: supple, trachea midline. Absent: lymphadenopathy - Respiratory Respiratory exam: Present: CTAB. Absent: accessory muscle use, rales, rhonchi, wheezes - Cardiovascular Cardiovascular exam: Present: RRR, +S1, +S2. Absent: diastolic murmur, gallop, rubs, systolic murmur - GI/Abdominal GI/Abdominal exam: Present: normal bowel sounds, soft, no peritoneal signs. Absent: distended, tenderness Additional comments: bilateral nephostomy tubes in place. - Extremities Exam Extremities exam: Present: warm, radial pulses palpable and symmetrical. Absent : calf tenderness, cyanotic, pedal edema - Neurological Exam Neurological exam: Present: CN II-XII intact, oriented X3, no focal deficits. Absent: pronater drift, facial droop, speech deficit - Skin Skin exam: Present: dry, intact
[2017-05-16] MEDS ORDERED: cefTRIAXone 1,000 MG in Water for inj. (sterile) 10 ML IVP SCH (09:00)
[2017-05-16] MEDS: BuPROPion XL (24 HR) 150 MG TABLET PO SCH (09:35)
[2017-05-16 10:57] LABS: Bilirubin,Urine Negative (Negative); Blood,Urine Large (Negative); Color,Urine Yellow (Yellow); Glucose,Urine (UA) Normal (Normal); Ketones,Urine Negative (Negative); Leukocyte Esterase,Urine Large (Negative); Nitrite,Urine Positive (Negative); PH,Urine 7.5 pH Units (5.0-8.0); Protein,Urine 100 mg/dL (Neg-Trace); Specific Gravity,Urine 1.021 (1.010-1.025); Urobilinogen,Urine Normal (Normal)
[2017-05-16 11:03] LABS: Bacteria,Urine Many per hpf (None-Few); Clarity,Urine Cloudy (Clear); RBC,Urine 50-100 per hpf (0-3); Squamous Epithelial Cell,Urine Many per lpf (None-Few); WBC,Urine TNTC per hpf (0-3)
[2017-05-16 11:13] LABS: Triple Phosphate Crystal,Urine Present
== END 2017-05-16 11:00 | disposition home or self-care (01) | DRG 699 ==
LOC: 3ANU 15:21 → EMEROO 15:21 → 3ANU 16:56
PROVIDERS: ADMIT Nurse Practitioner Family; ATTEND Hospitalist

== ENCOUNTER 2017-06-11 11:15 | Inpatient (IN) ==
[2017-06-11 13:51] LABS: Red Cell Distribution Width 19.3 % (11.5-14.5)
[2017-06-11 13:53] LABS: Hematocrit 24.5 % (35.3-44.9); Mean Corpuscular HGB Conc 28.6 g/dL (31.6-35.5); Mean Corpuscular Hemoglobin 22.8 pg (28.0-33.3); Mean Corpuscular Volume 79.8 fL (83.0-100.0); Mean Platelet Volume 10.3 fL (9.4-12.4); Platelet Count 383 K/mcL (140-400); Red Blood Count 3.07 M/mcL (3.82-4.97)
[2017-06-11 14:11] LABS: Calcium 8.6 mg/dL (8.6-10.3)
[2017-06-11 14:15] LABS: Bilirubin,Urine Negative (Negative); Blood,Urine Large (Negative); Clarity,Urine Turbid (Clear); Color,Urine Yellow (Yellow); Glucose,Urine (UA) Normal (Normal); Ketones,Urine Negative (Negative); Leukocyte Esterase,Urine Large (Negative); Nitrite,Urine Positive (Negative); PH,Urine 7.5 pH Units (5.0-8.0); Protein,Urine >=300 mg/dL (Neg-Trace); Specific Gravity,Urine 1.012 (1.010-1.025); Urobilinogen,Urine Normal (Normal)
[2017-06-11 14:20] LABS: Bacteria,Urine Moderate per hpf (None-Few); Hyaline Casts,Urine Few per lpf (None-Few); RBC,Urine TNTC per hpf (0-3); Squamous Epithelial Cell,Urine Many per lpf (None-Few); WBC,Urine TNTC per hpf (0-3)
[2017-06-11 14:30] LABS: Eosinophils # 0.6 K/mcL (0.0-0.6); Lymphocytes # 0.8 K/mcL (0.6-4.6); Monocytes # 0.5 K/mcL (0.0-1.3); Neutrophils # 6.1 K/mcL (1.6-8.9); Platelet Estimate Normal (Normal)
[2017-06-11 14:31] LABS: Anisocytosis 1+ (Not Present); Hypochromasia Present (Not Present); Microcytosis Present (Not Present); Polychromasia 1+ (Not Present)
--- NOTE | 2017-06-11 14:36 | Emergency Department Note ---
Disposition Clinical Impression: Urinary retention, Bladder pain, Symptomatic anemia UTI (urinary tract infection) Qualifiers: Urinary tract infection type: site unspecified Hematuria presence: with hematuria Qualified Code(s): N39.0 - Urinary tract infection, site not specified Hematuria Qualifiers: Hematuria type: gross Qualified Code(s): R31.0 - Gross hematuria Disposition: Admitted As Inpatient Condition: Fair Time of Disposition: 17:01 Female Urogenital HPI - General Chief complaint: ED Urogenital-Female Stated complaint: Bladder blood clot Time Seen by Provider: 06/11/17 14:09 Source: patient Limitations: no limitations Nursing Notes Reviewed: Yes Vital Signs Reviewed: Yes - History of Present Illness HPI Narrative: 7-year-old female complains of suprapubic pain secondary to bladder distention. 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 Patient has bilateral nephrostomy tubes in place for previous cystic hemorrhage leading to clots. Patient does not have a Asencio in place. Patient states she passed some clots. - Related Data Home Medications Medication Instructions Recorded Confirmed Escitalopram [Lexapro] 10 mg PO DAILY 07/31/16 06/11/17 Bupropion HCl [Wellbutrin Xl] 300 mg PO QAM 01/09/17 06/11/17 hydrOXYzine HCl [Hydroxyzine HCl] 25 - 50 mg PO HS PRN 03/14/17 06/11/17 Dicyclomine [Bentyl] 20 mg PO QID PRN 05/07/17 06/11/17 Loperamide HCl [Imodium A-D] 2 mg PO PER PKG DI PRN 05/07/17 06/11/17 Aspirin/Acetaminophen/Caffeine 2 each PO Q6H PRN 06/11/17 06/11/17 [Excedrin Migraine Caplet] Previous Rx's Medication Instructions Recorded Ferrous Sulfate 325 mg PO BID #60 tablet 05/08/17 Allergies Allergy/AdvReac Type Severity Reaction Status Date / Time NSAIDS (Non-Steroidal AdvReac See Verified 06/11/17 11:17 Anti-Inflamma Comments All systems ED: reviewed and negative except as stated. Review of Systems: As Per HPI Constitutional: Denies: fever, chills, weakness Eyes: Denies: vision change ENT ED: Denies: congestion Cardiovascular: Denies: chest pain Respiratory: Denies: cough, dyspnea, wheezes Gastrointestinal: Reports: abdominal pain, nausea. Denies: vomiting, diarrhea Genitourinary: Reports: urgency, dysuria, hematuria Musculoskeletal: Reports: back pain Neurological: Denies: headache, weakness Past Medical History - Past Medical History Attestation: Yes The following information was validated with the patient. Source: patient, nursing notes reviewed Medical history: Reports: cancer, pulmonary embolus, renal disease, other Surgical history: Reports: hysterectomy (Total), other (Bilateral nephrostomy tube placement) Psychiatric history: Reports: anxiety, depression SASH MAKER history: Reports: no SASH MAKER history - Social History Smoking Status: Never smoker Smokeless Tobacco Status: No Alcohol use: Reports: none Drug use: Reports: none Physical Exam Vital Signs Temperature 98.3 F 06/11/17 11:19 Pulse Rate 115 06/11/17 11:19 Respiratory Rate 20 06/11/17 11:19 Blood Pressure 135/68 06/11/17 11:19 O2 Sat by Pulse Oximetry 97 06/11/17 11:19 Temperature 98.3 F 06/11/17 11:19 Pulse Rate 115 06/11/17 11:19 Respiratory Rate 20 06/11/17 11:19 Blood Pressure 135/68 06/11/17 11:19 O2 Sat by Pulse Oximetry 97 06/11/17 11:19 Oxygen Delivery Oxygen Delivery Room Air 7-year-old female who is alert and oriented 3 and in moderate distress secondary to let her pain. Patient has some visible pallor. Vital signs the patient is tachycardic at 115 bpm - General Limitations: no limitations General appearance: alert, in no apparent distress - Head Head exam: atraumatic, normocephalic, normal inspection - Eye Eye exam: Present: normal appearance, PERRL, EOMI - ENT ENT exam: normal exam, normal oropharynx, mucous membranes moist - Neck Neck exam: Present: normal inspection, full ROM, trachea midline - Chest Chest inspection: Present: normal inspection, symmetric chest wall rise - Respiratory Respiratory exam: Present: normal lung sounds bilaterally - Cardiovascular Cardiovascular exam: Present: regular rate, normal rhythm, normal heart sounds - Abdominal Exam Abdominal exam: Present: soft, tenderness. Absent: distention, guarding, rebound, rigidity Abdominal tenderness: Present: suprapubic, moderate - Extremities Exam Extremities exam: Present: normal inspection, full ROM, normal capillary refill. Absent: tenderness, pedal edema - Back Exam Back exam: Present: tenderness, CVA tenderness (R), CVA tenderness (L), other ( Bilateral nephrostomy tubes in place. Area around tubes appear noninflamed no purulence.) - Neurological Exam Neurological exam: Present: alert, oriented X3 - Psychiatric Psychiatric exam: Present: normal affect, normal mood - Skin Skin exam: Present: warm, dry, pallor Course Vital Signs Temperature 98.3 F 06/11/17 11:19 Pulse Rate 115 06/11/17 11:19 Respiratory Rate 20 06/11/17 11:19 Blood Pressure 135/68 06/11/17 11:19 O2 Sat by Pulse Oximetry 97 06/11/17 11:19 Temperature 98.8 F 06/11/17 20:35 Pulse Rate 90 06/11/17 20:35 Respiratory Rate 14 06/11/17 20:35 Blood Pressure 110/73 06/11/17 20:35 O2 Sat by Pulse Oximetry 97 06/11/17 11:19 Oxygen Delivery Oxygen Delivery Room Air Urogenital-Female - MDM Narrative Medical decision making narrative: Bladder pain and hematuria with urinary retention secondary to radiation cystitis. Patient has anemia secondary to acute blood loss during her system. Bedside ultrasound shows urinary retention and of greater then 250 mL approximately. Asencio placed which shows hematuria. UTI was found upon urinalysis. Patient has previous cultures with showed Proteus. Patient was started on vancomycin and ceftriaxone which proteus show sensitivity to. Patient has a hemoglobin of 7.0 which is less than her previous of 1.86. Patient leaving administered a 2 unit RBC transfusion. Patient started on IV normal saline. Patient's pain was treated with fentanyl 15 g IV. Current plan is for admission. Discussed case with Dr. Montes De Oca who states they will see patient on the floor. He states patient's Asencio most likely will be discomforting secondary to a contracted bladder and clot burden. Dr. Rodriguez the hospitalist's Patient for Admission at 1700 Hrs. - Lab Data Lab results reviewed: Yes I reviewed the patient's lab results. Lab results narrative: Short CBC 06/11/17 Range/Units 13:44 WBC 8.0 (4.3-11.1) K/mcL Hgb 7.0 L (11.5-15.4) g/dL Hct 24.5 L (35.3-44.9) % Plt Count 383 (140-400) K/mcL Neutrophils # 6.1 (1.6-8.9) K/mcL BMP 06/11/17 Range/Units 13:44 Sodium 136 (136-145) mEq/L Potassium 4.0 (3.5-5.1) mEq/L Chloride 104 (98-107) mEq/L Carbon Dioxide 24 (23-29) mEq/L BUN 21 (8-23) mg/dL Creatinine 1.38 H (0.60-1.20) mg/dL Glucose 100 (70-105) mg/dL Calcium 8.6 (8.6-10.3) mg/dL Urine 06/11/17 Range/Units 13:51 Urine Color Yellow (Yellow) Urine Clarity Turbid A (Clear) Urine pH 7.5 (5.0-8.0) pH Units Ur Specific [place] 1.012 (1.010-1.025) Urine Protein >=300 H (Neg-Trace) mg/dL Urine Glucose (UA) Normal (Normal) mg/dL Result diagrams: 06/11/17 13:44 06/11/17 13:44 Lab Results 06/11/17 06/11/17 06/11/17 Range/Units 13:44 13:44 13:44 WBC 8.0 (4.3-11.1) K/mcL RBC 3.07 L (3.82-4.97) M/mcL Hgb 7.0 L (11.5-15.4) g/dL Hct 24.5 L (35.3-44.9) % MCV 79.8 L (83.0-100.0) fL MCH 22.8 L (28.0-33.3) pg MCHC 28.6 L (31.6-35.5) g/dL RDW 19.3 H (11.5-14.5) % Plt Count 383 (140-400) K/mcL MPV 10.3 (9.4-12.4) fL Seg Neutrophils % 76.0 % Lymphocytes % 10.0 % Monocytes % 6.0 % Eosinophils % 8.0 % Neutrophils # 6.1 (1.6-8.9) K/mcL Lymphocytes # 0.8 (0.6-4.6) K/mcL Monocytes # 0.5 (0.0-1.3) K/mcL Eosinophils # 0.6 (0.0-0.6) K/mcL Platelet Estimate Normal (Normal) Polychromasia 1+ A (Not Present) Hypochromasia Present A (Not Present) Anisocytosis 1+ A (Not Present) Microcytosis Present A (Not Present) PT 11.6 (9.4-12.1) Seconds INR 1.1 Sodium 136 (136-145) mEq/L Potassium 4.0 (3.5-5.1) mEq/L Chloride 104 (98-107) mEq/L Carbon Dioxide 24 (23-29) mEq/L BUN 21 (8-23) mg/dL Creatinine 1.38 H (0.60-1.20) mg/dL Est GFR ( Amer) 47 L (> 60) Est GFR (Non-Af Amer) 39 L (> 60) BUN/Creatinine Ratio 15 (6-26) Glucose 100 (70-105) mg/dL Calculated Osmolality 285 (280-300) Calcium 8.6 (8.6-10.3) mg/dL Urine Color (Yellow) Urine Clarity (Clear) Urine pH (5.0-8.0) pH Units Ur Specific [place] (1.010-1.025) Urine Protein (Neg-Trace) mg/dL Urine Glucose (UA) (Normal) mg/dL Urine Ketones (Negative) mg/dL Urine Blood (Negative) Urine Nitrite (Negative) Urine Bilirubin (Negative) Urine Urobilinogen (Normal) mg/dL Ur Leukocyte Esterase (Negative) Urine Microscopic RBC (0-3) per hpf Urine Microscopic WBC (0-3) per hpf Ur Squamous Epith Cells (None-Few) per lpf Urine Bacteria (None-Few) per hpf Hyaline Casts (None-Few) per lpf Ur Culture Indicated? (NO) Blood Type Antibody Screen MTS Gel Crossmatch 06/11/17 06/11/17 Range/Units 13:51 15:07 WBC (4.3-11.1) K/mcL RBC (3.82-4.97) M/mcL Hgb (11.5-15.4) g/dL Hct (35.3-44.9) % MCV (83.0-100.0) fL MCH (28.0-33.3) pg MCHC (31.6-35.5) g/dL RDW (11.5-14.5) % Plt Count (140-400) K/mcL MPV (9.4-12.4) fL Seg Neutrophils % % Lymphocytes % % Monocytes % % Eosinophils % % Neutrophils # (1.6-8.9) K/mcL Lymphocytes # (0.6-4.6) K/mcL Monocytes # (0.0-1.3) K/mcL Eosinophils # (0.0-0.6) K/mcL Platelet Estimate (Normal) Polychromasia (Not Present) Hypochromasia (Not Present) Anisocytosis (Not Present) Microcytosis (Not Present) PT (9.4-12.1) Seconds INR Sodium (136-145) mEq/L Potassium (3.5-5.1) mEq/L Chloride (98-107) mEq/L Carbon Dioxide (23-29) mEq/L BUN (8-23) mg/dL Creatinine (0.60-1.20) mg/dL Est GFR ( Amer) (> 60) Est GFR (Non-Af Amer) (> 60) BUN/Creatinine Ratio (6-26) Glucose (70-105) mg/dL Calculated Osmolality (280-300) Calcium (8.6-10.3) mg/dL Urine Color Yellow (Yellow) Urine Clarity Turbid A (Clear) Urine pH 7.5 (5.0-8.0) pH Units Ur Specific [place] 1.012 (1.010-1.025) Urine Protein >=300 H (Neg-Trace) mg/dL Urine Glucose (UA) Normal (Normal) mg/dL Urine Ketones Negative (Negative) mg/dL Urine Blood Large H (Negative) Urine Nitrite Positive A (Negative) Urine Bilirubin Negative (Negative) Urine Urobilinogen Normal (Normal) mg/dL Ur Leukocyte Esterase Large H (Negative) Urine Microscopic RBC TNTC H (0-3) per hpf Urine Microscopic WBC TNTC H (0-3) per hpf Ur Squamous Epith Cells Many H (None-Few) per lpf Urine Bacteria Moderate H (None-Few) per hpf Hyaline Casts Few (None-Few) per lpf Ur Culture Indicated? NO (NO) Blood Type A POSITIVE Antibody Screen NEGATIVE MTS Gel Crossmatch See Detail - Radiology Data Radiology results reviewed: Yes I reviewed the patient's radiology results. - EKG Data EKG attestation: Yes I reviewed and interpreted this EKG. EKG results narrative: EKG taken in 06/11/2017 at 1612 hrs. shows a sinus rhythm at a rate of [address] elevation or depressions and a leads widened QT prolongation. Patient has inverted T waves in lead 3. No previous EKG for comparison. Attestation Statement - Attestation Attestation: I, Ken Delgado, examined this patient and my medical decision-making was reviewed with the RECRUITING ADMINISTRATOR/PA/Advanced Practice Nurse/Resident Physician. I agree with the documented findings, disposition and treatment plan as described except to the extent set forth below. 61-year-old female presents to emergency department with concerns of abdominal pain. Patient states the pain feels similar to bladder distention that she had with previous blood clots obstructing her urethra. Patient states she had placement of bilateral nephrostomy tubes to alleviate this issue and she had not had significant worsening of her symptoms since the placement of the tubes. Patient reports suprapubic abdominal pain. She was able to still urinate a small amount in the emergency department which was cloudy but not grossly bloody. Patient follows a urologist in [place] for reconstructive surgery of her bladder however she is not scheduled for this surgery until June. Patient will be treated for possible urinary tract infection secondary to the suprapubic abdominal pain as well as the large amount of bacteria and white blood cells in her urine. Patient is also anemic at 7.0 and feels weak and fatigued. She will be given blood for symptomatic anemia. Patient states that she often is and arrange of 8-9 with her hemoglobin and that 7 is slightly lower than she has been usually. Patient will be admitted to the hospital for further care and evaluation.
[2017-06-11] MEDS ORDERED: 0.9 % Sodium Chloride 1,000 ML IVC ONE ×2 (14:55→23:19)
[2017-06-11 15:08] LABS: INR 1.1; Prothrombin Time 11.6 Seconds (9.4-12.1)
[2017-06-11] MEDS ORDERED: cefTRIAXone 1,000 MG in Water for inj. (sterile) 10 ML IVP ONE (15:21)
[2017-06-11] MEDS ORDERED: Vancomycin 1,500 MG in D5% in Water 250 ML IVPB ONE (15:22)
[2017-06-11] MEDS ORDERED: Ondansetron 4 MG/2 ML VIAL IVP PRN ×2 (15:34→21:04)
[2017-06-11] MEDS ORDERED: *HR* FentaNYL (PF) 100 MCG/2 ML VIAL IVP ONE (15:34)
[2017-06-11] MEDS ORDERED: 0.9 % Sodium Chloride 500 ML ONE ×2 (20:02→23:00)
--- NOTE | 2017-06-11 20:49 | Internal Med History&Physical ---
Date of Encounter: 06/11/17 Time of Encounter: 20:47 Assessment and Plan (1) Sepsis Current visit: No Status: Acute Secondary to UTI. History of Proteus UTI. Continue vancomycin and Rocephin. Await blood cultures. 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 Possibly obstructed. She did state she passed some clots today. Asencio placed. Patient has no complaints of pain but did receive pain medication earlier. (4) Vaginal cancer Current visit: No Status: Chronic (5) Iron deficiency anemia Current visit: No Status: Chronic Transfuse patient 2 units PRBC and recheck. 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 (8) Presence of IVC filter Current visit: No Status: Chronic Internal Medicine - H&P: HPI Admitted From: Home History of present illness: Ms. Jasmine is a 61 year old female with history of vaginal cancer radiation cystitis, pulmonary embolism, urinary obstruction status post bilateral nephrostomy tube placement presents for acute onset of suprapubic pain. Occurred all of a sudden. She has history of bladder obstruction and states this feels similar to that. She admits to several weeks of subjective fevers and chills and night sweats. She admits to urgency, dysuria, hematuria, nausea. She had a urinalysis done today showing UTI and started on vancomycin and Rocephin. She has known history of anemia and on arrival hemoglobin was 7.0 and is currently being transfused 2 units PRBCs. Past Med Surg Social Fam HX - Past Medical History Medical history: cancer, pulmonary embolus, renal disease, other Psychiatric history: anxiety, depression - Past Surgical History Surgical History: hysterectomy (Total), other (Bilateral nephrostomy tube placement) - Social History Smoking Status: Never smoker Smokeless Tobacco Status: No Alcohol use: none Drug use: none - Family History Mother Adopted: No Family Member Ethnicity: Non- Living Status: Hx Family Cardiac Disorders: No Hx Family Respiratory Disorders: No Hx Family Cancer: Yes (Breast CA w/mets) Hx Family GI Disorders: No Hx Family Endocrine Disorder: No Hx Family Neuromuscular Disorders: No Hx Family Neurologic Disorders: No Hx Family HEENT Disorders: No Hx Family Autoimmune Disorders: No Father Adopted: No Family Member Ethnicity: Non- Living Status: Hx Family Cardiac Disorders: Yes (PE from AAA repair) Hx Family Respiratory Disorders: No Hx Family Cancer: No Hx Family GI Disorders: No Hx Family Endocrine Disorder: No Hx Family Neuromuscular Disorders: No Hx Family Neurologic Disorders: No Hx Family HEENT Disorders: No Hx Family Autoimmune Disorders: No Sister Family Member Ethnicity: Non- Living Status: Still Living Internal Medicine - H&P: Meds Escitalopram [Lexapro] 10 mg PO DAILY 07/31/16 [History] Bupropion HCl [Wellbutrin Xl] 300 mg PO QAM 01/09/17 [History] hydrOXYzine HCl [Hydroxyzine HCl] 25 - 50 mg PO HS PRN 03/14/17 [History] Dicyclomine [Bentyl] 20 mg PO QID PRN 05/07/17 [History] Loperamide HCl [Imodium A-D] 2 mg PO PER PKG DI PRN 05/07/17 [History] Ferrous Sulfate 325 mg PO BID #60 tablet 05/08/17 [Rx] Aspirin/Acetaminophen/Caffeine [Excedrin Migraine Caplet] 2 each PO Q6H PRN [History] 3 Allergy/AdvReac Type Severity Reaction Status Date / Time NSAIDS (Non-Steroidal AdvReac See Verified 06/11/17 11:17 Anti-Inflamma Comments All Systems PM: A 10-system review of systems was performed and is negative for pertinent findings except as documented above in the HPI. - Constitutional Constitutional: chills, excessive sweating, fatigue, fever(s) - EENT Eyes: no change in vision, no discharge, no pain, no photophobia Nose, mouth and throat: no dysphagia, no nasal discharge, no neck pain, no sore throat - Cardiovascular Cardiovascular ROS IM: no chest pain, no diaphoresis, no dyspnea, no lightheadedness, no palpitations, no syncope - Respiratory Respiratory: no cough, no dyspnea, no wheezing, no excessive phlegm production - Genitourinary Genitourinary: dysuria, hematuria, urinary frequency, urinary urgency - Musculoskeletal Musculoskeletal ROS IM: no numbness, no tingling - Integumentary Integumentary IM: no rash, no unusual bruising - Neurological Neurological ROS: no confusion, no convulsions, no focal weakness, no numbness, no tingling, no tremor(s) - Hematologic/Lymphatic Hematologic/Lymphatic: no easy bruising - Constitutional Vitals: Temp Pulse Resp BP Pulse Ox 98.8 F 90 14 110/73 97 06/11/17 20:35 06/11/17 20:35 06/11/17 20:35 06/11/17 20:35 06/11/17 11:19 General appearance: Present: A&O X 3, no acute distress - Head Head exam: Present: atraumatic, normocephalic - Respiratory Respiratory exam: Present: CTAB. Absent: accessory muscle use, rales, rhonchi, wheezes - Cardiovascular Cardiovascular exam: Present: tachycardia - GI/Abdominal GI/Abdominal exam: Present: normal bowel sounds, soft, no peritoneal signs. Absent: distended, tenderness Additional comments: Nephrostomy tubes bilaterally. Clean, no purulent drainage or bleeding. - Back Exam Back exam: Absent: CVA tenderness (L), CVA tenderness (R), normal inspection - Skin Skin exam: Present: dry, intact Internal Med - H&P Results - Labs CBC & Chem 7: 06/11/17 13:44 06/11/17 13:44
[2017-06-11] MEDS ORDERED: Acetaminophen 325 MG TABLET PO PRN (21:04)
[2017-06-11] MEDS ORDERED: Naloxone 0.4 MG/ML INJ IVP PRN (21:04)
[2017-06-11] MEDS ORDERED: Mag Hydrox/Al Hydrox/Simeth 30 ML UDC PO PRN (21:04)
[2017-06-11] MEDS ORDERED: *HR* Labetalol 20 MG/4 ML SYRINGE IVP PRN (21:08)
[2017-06-11] MEDS ORDERED: Acetaminophen/Aspirin/Caffeine TABLET PO PRN (21:25)
[2017-06-11] MEDS ORDERED: hydrOXYzine pamoate 25 MG CAPSULE PO PRN (21:25)
[2017-06-11] MEDS: *HR* OxyCODONE/APAP 5/325 TABLET PO PRN (22:02)
[2017-06-11] MEDS: 0.9 % Sodium Chloride 1,000 ML IVC SCH (23:12)
[2017-06-11] MEDS ORDERED: *HR* Morphine 2 MG/ML SYRINGE IVP PRN (23:45)
[2017-06-12] MEDS ORDERED: *HR* Morphine 2 MG/ML SYRINGE IVP SCH
[2017-06-12] MEDS: 0.9 % Sodium Chloride 1,000 ML IVC SCH ×2 (02:47→10:50)
[2017-06-12] MEDS: *HR* OxyCODONE/APAP 5/325 TABLET PO PRN ×2 (04:06→15:42)
[2017-06-12 05:40] LABS: Basophils # 0.1 K/mcL (0.0-0.2); Basophils % 0.9 %; Eosinophils # 0.4 K/mcL (0.0-0.6); Eosinophils % 7.2 %; Hematocrit 26.5 % (35.3-44.9); Hemoglobin 7.9 g/dL (11.5-15.4); Immature Granulocytes % 0.4 % (0-4); Lymphocytes # 0.7 K/mcL (0.6-4.6); Lymphocytes % 13.9 %; Mean Corpuscular HGB Conc 29.8 g/dL (31.6-35.5); Mean Corpuscular Hemoglobin 23.9 pg (28.0-33.3); Mean Corpuscular Volume 80.1 fL (83.0-100.0); Monocytes # 0.7 K/mcL (0.0-1.3); Monocytes % 12.8 %; Neutrophils # 3.4 K/mcL (1.6-8.9); Platelet Count 284 K/mcL (140-400); Red Blood Count 3.31 M/mcL (3.82-4.97); Segmented Neutrophils % 64.8 %
[2017-06-12 05:46] LABS: Calcium 7.6 mg/dL (8.6-10.3)
--- NOTE | 2017-06-12 09:02 | Urology - Consult Note ---
Date of Encounter: 06/12/17 Time of Encounter: 09:00 - Assessment and Plan (1) Hematuria Current Visit: Yes Status: Chronic Assessment and plan: 61-year-old woman with a history of radiation cystitis and hematuria was admitted for her hematuria. She has an indwelling catheter and was on irrigation overnight. Her urine has been diverted with bilateral nephrostomy tubes and the urine out the nephrostomy tubes have been clear. She has clear irrigation coming out of the Asencio catheter. I turned down the irrigation rate. We will monitor for now. If it clears up, we can remove her catheter. However, if the bleeding persists we may need to proceed with a cystoscopy, fulguration, clot evacuation, and possible formalin instillation. We briefly discussed the risks of the surgery. For now, I will try to conservatively manage her with just a catheter drainage. I do not anticipate much urine to come out this Asencio catheter as it is mostly being diverted out her nephrostomy tubes. Qualifiers: Hematuria type: gross Qualified Code(s): R31.0 - Gross hematuria (2) Hemorrhagic cystitis Current Visit: No Status: Acute Urology CN:HPI Consult date: 06/12/17 Reason for consult Urology: Gross Hematuria History of present illness: 61-year-old woman well known to the urology service and returns with gross hematuria secondary to radiation cystitis. She has been diverted with bilateral nephrostomy tubes. An 18 Icelandic three-way catheter was placed in the emergency department. She has been started on continuous bladder irrigation. The irrigation was clear coming out this morning on fast CBI. She received 2 units of blood last night. She has been referred to Dr. Castellanos in [place] who is a reconstructive urologist. He is coordinating a simple cystectomy with ileal loop urinary diversion. Past Med Surg Social Fam HX - Past Medical History Medical history: cancer, pulmonary embolus, renal disease, other Psychiatric history: anxiety, depression - Past Surgical History Surgical History: hysterectomy (Total), other (Bilateral nephrostomy tube placement) - Social History Smoking Status: Never smoker Smokeless Tobacco Status: No Alcohol use: none Drug use: none - Family History Mother Adopted: No Family Member Ethnicity: Non- Living Status: Hx Family Cardiac Disorders: No Hx Family Respiratory Disorders: No Hx Family Cancer: Yes (Breast CA w/mets) Hx Family GI Disorders: No Hx Family Endocrine Disorder: No Hx Family Neuromuscular Disorders: No Hx Family Neurologic Disorders: No Hx Family HEENT Disorders: No Hx Family Autoimmune Disorders: No Father Adopted: No Family Member Ethnicity: Non- Living Status: Hx Family Cardiac Disorders: Yes (PE from AAA repair) Hx Family Respiratory Disorders: No Hx Family Cancer: No Hx Family GI Disorders: No Hx Family Endocrine Disorder: No Hx Family Neuromuscular Disorders: No Hx Family Neurologic Disorders: No Hx Family HEENT Disorders: No Hx Family Autoimmune Disorders: No Sister Family Member Ethnicity: Non- Living Status: Still Living Medications and Allergies Escitalopram [Lexapro] 10 mg PO DAILY 07/31/16 [History] Bupropion HCl [Wellbutrin Xl] 300 mg PO QAM 01/09/17 [History] hydrOXYzine HCl [Hydroxyzine HCl] 25 - 50 mg PO HS PRN 03/14/17 [History] Dicyclomine [Bentyl] 20 mg PO QID PRN 05/07/17 [History] Loperamide HCl [Imodium A-D] 2 mg PO PER PKG DI PRN 05/07/17 [History] Ferrous Sulfate 325 mg PO BID #60 tablet 05/08/17 [Rx] Aspirin/Acetaminophen/Caffeine [Excedrin Migraine Caplet] 2 each PO Q6H PRN [History] 3 Allergy/AdvReac Type Severity Reaction Status Date / Time NSAIDS (Non-Steroidal AdvReac See Verified 06/11/17 11:17 Anti-Inflamma Comments Review of Systems - Constitutional no chills, no fever(s) - EENT Nose, mouth and throat: no dizziness - Cardiovascular no chest pain - Respiratory no dyspnea - Gastrointestinal no nausea, no vomiting - Genitourinary Genitourinary: hematuria, no flank pain - Musculoskeletal no back pain - Integumentary no erythema, no rash - Neurological no weakness - Psychiatric no suicidal ideation - Hematologic/Lymphatic no easy bleeding - Allergic/Immunologic no wheezing Exam Initial Vital Signs Temp Pulse Resp BP Pulse Ox 98.3 F 115 20 135/68 97 06/11/17 11:19 06/11/17 11:19 06/11/17 11:19 06/11/17 11:19 06/11/17 11:19 - General physical appearance Present: well developed, well nourished, no distress - Eyes Absent: icteric - ENT Present: normal mucosa - Neck Present: trachea midline - Respiratory Present: normal respiratory effort - Cardiovascular Cardiovascular exam IM: RRR - Abdomen Abdomen: Present: soft - Genitourinary Present: other ([address] with clear urine.) Urology Results - Labs 06/12/17 05:11 06/12/17 05:11 Abnormal lab results RBC 3.31 M/mcL (3.82-4.97) L 06/12/17 05:11 Hgb 7.9 g/dL (11.5-15.4) L 06/12/17 05:11 Hct 26.5 % (35.3-44.9) L 06/12/17 05:11 MCV 80.1 fL (83.0-100.0) L 06/12/17 05:11 MCH 23.9 pg (28.0-33.3) L 06/12/17 05:11 MCHC 29.8 g/dL (31.6-35.5) L 06/12/17 05:11 RDW 18.0 % (11.5-14.5) H 06/12/17 05:11 Polychromasia 1+ (Not Present) A 06/11/17 13:44 Hypochromasia Present (Not Present) A 06/11/17 13:44 Anisocytosis 1+ (Not Present) A 06/11/17 13:44 Microcytosis Present (Not Present) A 06/11/17 13:44 Chloride 110 mEq/L (98-107) H 06/12/17 05:11 Creatinine 1.25 mg/dL (0.60-1.20) H 06/12/17 05:11 Est GFR ( Amer) 53 (> 60) L 06/12/17 05:11 Est GFR (Non-Af Amer) 44 (> 60) L 06/12/17 05:11 Calcium 7.6 mg/dL (8.6-10.3) L 06/12/17 05:11 Urine Clarity Turbid (Clear) A 06/11/17 13:51 Urine Protein >=300 mg/dL (Neg-Trace) H 06/11/17 13:51 Urine Blood Large (Negative) H 06/11/17 13:51 Urine Nitrite Positive (Negative) A 06/11/17 13:51 Ur Leukocyte Esterase Large (Negative) H 06/11/17 13:51 Urine Microscopic RBC TNTC per hpf (0-3) H 06/11/17 13:51 Urine Microscopic WBC TNTC per hpf (0-3) H 06/11/17 13:51 Ur Squamous Epith Cells Many per lpf (None-Few) H 06/11/17 13:51 Urine Bacteria Moderate per hpf (None-Few) H 06/11/17 13:51 Diabetes panel 06/12/17 Range/Units 05:11 Sodium 139 (136-145) mEq/L Potassium 4.0 (3.5-5.1) mEq/L Chloride 110 H (98-107) mEq/L Carbon Dioxide 23 (23-29) mEq/L BUN 15 (8-23) mg/dL Creatinine 1.25 H (0.60-1.20) mg/dL Glucose 105 (70-105) mg/dL Calcium 7.6 L (8.6-10.3) mg/dL Calcium panel 06/12/17 Range/Units 05:11 Calcium 7.6 L (8.6-10.3) mg/dL Pituitary panel 06/12/17 Range/Units 05:11 Sodium 139 (136-145) mEq/L Potassium 4.0 (3.5-5.1) mEq/L Chloride 110 H (98-107) mEq/L Carbon Dioxide 23 (23-29) mEq/L BUN 15 (8-23) mg/dL Creatinine 1.25 H (0.60-1.20) mg/dL Glucose 105 (70-105) mg/dL Calcium 7.6 L (8.6-10.3) mg/dL Adrenal panel 06/12/17 Range/Units 05:11 Sodium 139 (136-145) mEq/L Potassium 4.0 (3.5-5.1) mEq/L Chloride 110 H (98-107) mEq/L Carbon Dioxide 23 (23-29) mEq/L BUN 15 (8-23) mg/dL Creatinine 1.25 H (0.60-1.20) mg/dL Glucose 105 (70-105) mg/dL Calcium 7.6 L (8.6-10.3) mg/dL All other labs normal. - Imaging US - abdomen: report reviewed, image reviewed US - pelvic: report reviewed, image reviewed Consult Discharge Plan - Plan Referrals: Mulu Gongora DO [Primary Care Provider] -
[2017-06-12] MEDS: BuPROPion XL (24 HR) 150 MG TABLET PO SCH (09:03)
[2017-06-12] MEDS: Piperacillin/Tazobactam 3.375 GM/200 ML BAG IVPB SCH ×2 (09:04→15:42)
--- NOTE | 2017-06-12 12:52 | Internal Med Progress Note ---
Date of Encounter: 06/12/17 Time of Encounter: 11:25 - Assessment and plan (1) UTI (urinary tract infection) Current Visit: No Status: Resolved Assessment and plan: history of recurrent UTI Urine culture in the past positive for Proteus Mirabilis and Staph epi will continue Zosyn at this time and de-escalate therapy as per urine culture reports Qualifiers: Urinary tract infection type: catheter-associated UTI Indwelling urinary catheter type: nephrostomy catheter Encounter type: initial encounter Qualified Code(s): T83.512A - Infection and inflammatory reaction due to nephrostomy catheter, initial encounter; N39.0 - Urinary tract infection, site not specified (2) Anemia Current Visit: No Status: Acute Assessment and plan: history of acute blood loss anemia secondary to GI bleeds and hematuria, in addition to iron deficiency anemia s/p two unit PRBC transfusion repeat H&H low but acceptable will repeat H&H this evening, if Hgb<7, will transfuse two units PRBC hematuria improved since admission Qualifiers: Iron deficiency anemia type: chronic blood loss Qualified Code(s): D50.0 - Iron deficiency anemia secondary to blood loss (chronic) (3) Hematuria Current Visit: No Status: Resolved Assessment and plan: urology on board and consultation appreciated gross hematuria resolved currently on CBI will closely follow up with urology if hematuria persist likely to undergo cystoscopy Qualifiers: Hematuria type: gross Qualified Code(s): R31.0 - Gross hematuria (4) Hemorrhagic cystitis Current Visit: No Status: Chronic (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 Resting in bed and reports of feeling better since hospitalization. She states she was scheduled for a urology procedure as outpatient in two weeks however due to worsening of gross hematuria she came to the ER. She currently has an indwelling sahni catheter with CBI running. Urine color is pink and gross hematuria has resolved. Pt received two units of PRBC however repeat H&H did not adequately improve likely secondary to the persistent hematuria. Will closely monitor H&H, if hgb drops below 7, will transfuse. - Constitutional Vitals: Temp Pulse Resp BP Pulse Ox 98.0 F 78 16 122/72 95 06/12/17 10:54 06/12/17 10:54 06/12/17 10:54 06/12/17 10:54 06/12/17 10:54 General appearance: Present: cooperative, A&O X 3, pleasant, no acute distress, obese, answers questions appropriately - Head Head exam: Present: atraumatic, normocephalic - Eye Eye exam: Present: conjuntiva pink, sclera anicteric - Respiratory Respiratory exam: Present: CTAB. Absent: accessory muscle use, rales, rhonchi, wheezes - Cardiovascular Cardiovascular exam: Present: RRR, +S1, +S2. Absent: diastolic murmur, gallop, rubs, systolic murmur - GI/Abdominal GI/Abdominal exam: Present: normal bowel sounds, soft, no peritoneal signs. Absent: distended, tenderness - Extremities Exam Extremities exam: Present: warm, radial pulses palpable and symmetrical. Absent : calf tenderness - Neurological Exam Neurological exam: Present: alert, oriented X3 - Psychiatric Psychiatric exam: Present: normal affect, normal mood Internal Medicine: Result - Labs CBC & Chem 7: 06/12/17 05:11 06/12/17 05:11 Labs: Short CBC 06/12/17 Range/Units 05:11 WBC 5.3 (4.3-11.1) K/mcL Hgb 7.9 L (11.5-15.4) g/dL Hct 26.5 L (35.3-44.9) % Plt Count 284 (140-400) K/mcL Neutrophils # 3.4 (1.6-8.9) K/mcL BMP 06/12/17 05:11 Sodium 139 Potassium 4.0 Chloride 110 H Carbon Dioxide 23 BUN 15 Creatinine 1.25 H Glucose 105 Calcium 7.6 L - ABG Interpretation ABG results: PT/INR, D-dimer PT 11.6 Seconds (9.4-12.1) 06/11/17 13:44 - Impressions Impressions Retroperitoneum Ultrasound 06/11/17 21:10 IMPRESSION: Bilateral nephrostomy tubes. Dilatation of the right collecting system without obstructing calculus identified. Minimal left hydronephrosis and possible air within the left collecting system which may be postsurgical in nature. Urinary bladder decompressed, suboptimally visualized. D/ / Jorge A Candelaria MD / Jorge A Candelaria MD Interpreting Provider: Jorge A Candelaria MD Consult Discharge Plan - Plan Referrals: Mulu Gongora DO [Primary Care Provider] -
[2017-06-12 18:12] LABS: Hematocrit 27.1 % (35.3-44.9); Hemoglobin 8.1 g/dL (11.5-15.4)
--- NOTE | 2017-06-12 19:12 | Electrocardiograph Report ---
[place] [id number] Test Date: 2017-06-11 Pat Name: Ros Jasmine Department: 103 Room: 2A71 Gender: F Tick Inspector: MISAEL : 1955 Requested By: Magdy Wilkinson Order Number: [id number] Reading MD: Vick Kidd DO Measurements Intervals [place] Rate: 94 P: 37 SD: 138 QRS: -16 QRSD: 84 T: 12 QT: 374 QTc: 426 Interpretive Statements SINUS RHYTHM Electronically Signed On 06-12-2017 19:10:54 EST by Vick Kidd DO
[2017-06-13] MEDS: Piperacillin/Tazobactam 3.375 GM/200 ML BAG IVPB SCH ×4 (00:04→23:35)
[2017-06-13 05:14] LABS: Basophils % 0.8 %; Eosinophils # 0.4 K/mcL (0.0-0.6); Eosinophils % 7.8 %; Hematocrit 26.8 % (35.3-44.9); Hemoglobin 7.8 g/dL (11.5-15.4); Immature Granulocytes % 0.2 % (0-4); Lymphocytes # 0.6 K/mcL (0.6-4.6); Lymphocytes % 13.1 %; Mean Corpuscular HGB Conc 29.1 g/dL (31.6-35.5); Mean Corpuscular Hemoglobin 23.9 pg (28.0-33.3); Mean Corpuscular Volume 82.2 fL (83.0-100.0); Mean Platelet Volume 10.8 fL (9.4-12.4); Monocytes # 0.6 K/mcL (0.0-1.3); Monocytes % 13.1 %; Neutrophils # 3.2 K/mcL (1.6-8.9); Platelet Count 278 K/mcL (140-400); Red Blood Count 3.26 M/mcL (3.82-4.97); Red Cell Distribution Width 18.2 % (11.5-14.5)
[2017-06-13 05:43] LABS: Calcium 7.7 mg/dL (8.6-10.3); Magnesium 2.4 mg/dL (1.6-2.6); Phosphorous 3.2 mg/dL (2.7-4.5)
--- NOTE | 2017-06-13 07:41 | Urology Progress Note ---
Date of Encounter: 06/13/17 Time of Encounter: 07:37 - Assessment and Plan (1) Hematuria Current Visit: Yes Status: Chronic Assessment and plan: 61 year old woman with radiation cystitis. Hemoglobin is fairly stable at 7.8. But she is still having some bleeding. We will see how her bleeding does today. I will add her on tentatively for cystoscopy, clot evacuation, fulguration, cystogram, 1% formalin instillation. We discussed the risks of surgery which include but are not limited to bleeding, infection, injury to other structures, need for further procedures, bladder contracture, renal injury , bladder rupture, and the risk of anesthesia. She is willing to proceed. OKay to eat today. NPO past midnight. Qualifiers: Hematuria type: gross Qualified Code(s): R31.0 - Gross hematuria (2) Hemorrhagic cystitis Current Visit: No Status: Chronic Progress Note Narrative: Catheter was removed yesterday. She is still having some bleeding. Pain is well controlled. Objective Initial Vital Signs Temp Pulse Resp BP Pulse Ox 98.3 F 115 20 135/68 97 06/11/17 11:19 06/11/17 11:19 06/11/17 11:19 06/11/17 11:19 06/11/17 11:19 - General physical appearance Present: well developed, well nourished, no distress - Respiratory Present: normal respiratory effort - Genitourinary Urine Appearance: Present: Clear (Clear from both nephrostomy tubes.) - Labs 06/13/17 04:41 06/13/17 04:41 Diabetes panel 06/13/17 Range/Units 04:41 Sodium 142 (136-145) mEq/L Potassium 4.0 (3.5-5.1) mEq/L Chloride 110 H (98-107) mEq/L Carbon Dioxide 23 (23-29) mEq/L BUN 15 (8-23) mg/dL Creatinine 1.25 H (0.60-1.20) mg/dL Glucose 101 (70-105) mg/dL Calcium 7.7 L (8.6-10.3) mg/dL Calcium panel 06/13/17 Range/Units 04:41 Calcium 7.7 L (8.6-10.3) mg/dL Phosphorus 3.2 (2.7-4.5) mg/dL Pituitary panel 06/13/17 Range/Units 04:41 Sodium 142 (136-145) mEq/L Potassium 4.0 (3.5-5.1) mEq/L Chloride 110 H (98-107) mEq/L Carbon Dioxide 23 (23-29) mEq/L BUN 15 (8-23) mg/dL Creatinine 1.25 H (0.60-1.20) mg/dL Glucose 101 (70-105) mg/dL Calcium 7.7 L (8.6-10.3) mg/dL Adrenal panel 06/13/17 Range/Units 04:41 Sodium 142 (136-145) mEq/L Potassium 4.0 (3.5-5.1) mEq/L Chloride 110 H (98-107) mEq/L Carbon Dioxide 23 (23-29) mEq/L BUN 15 (8-23) mg/dL Creatinine 1.25 H (0.60-1.20) mg/dL Glucose 101 (70-105) mg/dL Calcium 7.7 L (8.6-10.3) mg/dL Consult Discharge Plan - Plan Referrals: Mulu Gongora DO [Primary Care Provider] -
[2017-06-13] MEDS: BuPROPion XL (24 HR) 150 MG TABLET PO SCH (08:50)
--- NOTE | 2017-06-13 11:37 | Internal Med Progress Note ---
Date of Encounter: 06/13/17 Time of Encounter: 11:15 - Assessment and plan (1) UTI (urinary tract infection) Current Visit: No Status: Resolved Assessment and plan: history of recurrent UTI Urine culture in the past positive for Proteus Mirabilis and Staph epi will continue Zosyn at this time and de-escalate therapy as per urine culture reports Qualifiers: Urinary tract infection type: catheter-associated UTI Indwelling urinary catheter type: nephrostomy catheter Encounter type: initial encounter Qualified Code(s): T83.512A - Infection and inflammatory reaction due to nephrostomy catheter, initial encounter; N39.0 - Urinary tract infection, site not specified (2) Anemia Current Visit: No Status: Acute Assessment and plan: history of acute blood loss anemia secondary to GI bleeds and hematuria, in addition to iron deficiency anemia s/p two unit PRBC transfusion (06/13/17) repeat H&H low but acceptable hematuria improved since admission Qualifiers: Iron deficiency anemia type: chronic blood loss Qualified Code(s): D50.0 - Iron deficiency anemia secondary to blood loss (chronic) (3) Hematuria Current Visit: No Status: Resolved Assessment and plan: urology on board and consultation appreciated gross hematuria resolved sahni cath removed will closely follow up with urology tentatively scheduled for Cystoscopy in am (06/14/17) NPO after midnight Qualifiers: Hematuria type: gross Qualified Code(s): R31.0 - Gross hematuria (4) Hemorrhagic cystitis Current Visit: No Status: Chronic (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 Resting in bed and reports of improvement in her hematuria. Reports of persistent bleeding but improved. Sahni cath removed Urology on board and tentatively scheduled for cystoscopy in am - Constitutional Vitals: Temp Pulse Resp BP Pulse Ox 98.0 F 90 17 120/80 98 06/13/17 10:59 06/13/17 10:59 06/13/17 10:59 06/13/17 10:59 06/13/17 10:59 General appearance: Present: cooperative, A&O X 3, pleasant, no acute distress, obese, answers questions appropriately - Head Head exam: Present: atraumatic, normocephalic - Eye Eye exam: Present: conjuntiva pink, sclera anicteric - Respiratory Respiratory exam: Present: CTAB. Absent: accessory muscle use, rales, rhonchi, wheezes - Cardiovascular Cardiovascular exam: Present: RRR, +S1, +S2. Absent: diastolic murmur, gallop, rubs, systolic murmur - GI/Abdominal GI/Abdominal exam: Present: normal bowel sounds, soft, no peritoneal signs. Absent: distended, tenderness - Extremities Exam Extremities exam: Present: warm, radial pulses palpable and symmetrical. Absent : calf tenderness, cyanotic, pedal edema - Neurological Exam Neurological exam: Present: alert, oriented X3 - Psychiatric Psychiatric exam: Present: normal affect, normal mood Internal Medicine: Result - Labs CBC & Chem 7: 06/13/17 04:41 06/13/17 04:41 Labs: Short CBC 06/12/17 06/13/17 Range/Units 17:35 04:41 WBC 4.9 (4.3-11.1) K/mcL Hgb 8.1 L 7.8 L (11.5-15.4) g/dL Hct 27.1 L 26.8 L (35.3-44.9) % Plt Count 278 (140-400) K/mcL Neutrophils # 3.2 (1.6-8.9) K/mcL BMP 06/13/17 04:41 Sodium 142 Potassium 4.0 Chloride 110 H Carbon Dioxide 23 BUN 15 Creatinine 1.25 H Glucose 101 Calcium 7.7 L - ABG Interpretation ABG results: PT/INR, D-dimer PT 11.6 Seconds (9.4-12.1) 06/11/17 13:44 Consult Discharge Plan - Plan Referrals: Mulu Gongora DO [Primary Care Provider] - (web request sent on 06/13/17 )
[2017-06-13] MEDS: *HR* OxyCODONE/APAP 5/325 TABLET PO PRN (13:55)
[2017-06-14 03:43] LABS: Eosinophils # 0.5 K/mcL (0.0-0.6); Eosinophils % 11.2 %; Hematocrit 25.4 % (35.3-44.9); Hemoglobin 7.5 g/dL (11.5-15.4); Immature Granulocytes % 0.5 % (0-4); Lymphocytes # 0.9 K/mcL (0.6-4.6); Lymphocytes % 22.3 %; Mean Corpuscular HGB Conc 29.5 g/dL (31.6-35.5); Mean Corpuscular Hemoglobin 24.3 pg (28.0-33.3); Mean Corpuscular Volume 82.2 fL (83.0-100.0); Mean Platelet Volume 9.5 fL (9.4-12.4); Monocytes # 0.6 K/mcL (0.0-1.3); Monocytes % 13.9 %; Neutrophils # 2.1 K/mcL (1.6-8.9); Platelet Count 253 K/mcL (140-400); Red Blood Count 3.09 M/mcL (3.82-4.97); Red Cell Distribution Width 18.6 % (11.5-14.5); Segmented Neutrophils % 51.1 %
[2017-06-14 03:56] LABS: Calcium 7.9 mg/dL (8.6-10.3); Magnesium 2.4 mg/dL (1.6-2.6); Phosphorous 3.7 mg/dL (2.7-4.5); Potassium 3.7 mEq/L (3.5-5.1)
[2017-06-14] MEDS: BuPROPion XL (24 HR) 150 MG TABLET PO SCH (08:28)
[2017-06-14] MEDS: Piperacillin/Tazobactam 3.375 GM/200 ML BAG IVPB SCH ×3 (08:29→23:39)
--- NOTE | 2017-06-14 09:45 | Urology Progress Note ---
Date of Encounter: 06/14/17 Time of Encounter: 09:43 - Assessment and Plan (1) Hematuria Current Visit: Yes Status: Chronic Assessment and plan: 61-year-old woman with hemorrhagic cystitis secondary to radiation therapy. She has persistent bleeding. Her hemoglobin has dropped again today slightly. I recommend proceeding with a cystoscopy, clot evacuation, fulguration, cystogram , and possible bladder biopsy. I also discussed instillation of formalin. We reviewed the risks and benefits of this medication. She is concerned about the risk of being exposed to formaldehyde that is contained within the formalin. She wishes to not undergo the instillation and see how she does with a standard fulguration. I will oblige her request, but I also discussed that I think that her bleeding will likely continue. We will continue to monitor her hemoglobin and hematocrit. Qualifiers: Hematuria type: gross Qualified Code(s): R31.0 - Gross hematuria (2) Hemorrhagic cystitis Current Visit: No Status: Chronic Progress Note Narrative: Hg dorpped a bit today to 7.5. Still with some bladder bleeding. Objective Initial Vital Signs Temp Pulse Resp BP Pulse Ox 98.3 F 115 20 135/68 97 06/11/17 11:19 06/11/17 11:19 06/11/17 11:19 06/11/17 11:19 06/11/17 11:19 - General physical appearance Present: well developed, well nourished, no distress - Respiratory Present: normal respiratory effort - Abdomen Present: soft - Labs 06/14/17 03:35 06/14/17 03:35 Diabetes panel 06/14/17 Range/Units 03:35 Sodium 139 (136-145) mEq/L Potassium 3.7 (3.5-5.1) mEq/L Chloride 109 H (98-107) mEq/L Carbon Dioxide 24 (23-29) mEq/L BUN 17 (8-23) mg/dL Creatinine 1.30 H (0.60-1.20) mg/dL Glucose 96 (70-105) mg/dL Calcium 7.9 L (8.6-10.3) mg/dL Calcium panel 06/14/17 Range/Units 03:35 Calcium 7.9 L (8.6-10.3) mg/dL Phosphorus 3.7 (2.7-4.5) mg/dL Pituitary panel 06/14/17 Range/Units 03:35 Sodium 139 (136-145) mEq/L Potassium 3.7 (3.5-5.1) mEq/L Chloride 109 H (98-107) mEq/L Carbon Dioxide 24 (23-29) mEq/L BUN 17 (8-23) mg/dL Creatinine 1.30 H (0.60-1.20) mg/dL Glucose 96 (70-105) mg/dL Calcium 7.9 L (8.6-10.3) mg/dL Adrenal panel 06/14/17 Range/Units 03:35 Sodium 139 (136-145) mEq/L Potassium 3.7 (3.5-5.1) mEq/L Chloride 109 H (98-107) mEq/L Carbon Dioxide 24 (23-29) mEq/L BUN 17 (8-23) mg/dL Creatinine 1.30 H (0.60-1.20) mg/dL Glucose 96 (70-105) mg/dL Calcium 7.9 L (8.6-10.3) mg/dL Consult Discharge Plan - Plan Referrals: Mulu Gongora DO [Primary Care Provider] - (web request sent on 06/13/17 )
--- NOTE | 2017-06-14 11:22 | Internal Med Progress Note ---
Date of Encounter: 06/14/17 Time of Encounter: 11:05 - Assessment and plan (1) UTI (urinary tract infection) Current Visit: No Status: Resolved Assessment and plan: history of recurrent UTI Urine culture in the past positive for Proteus Mirabilis and Staph epi will continue Zosyn at this time and de-escalate therapy as per urine culture reports Qualifiers: Urinary tract infection type: catheter-associated UTI Indwelling urinary catheter type: nephrostomy catheter Encounter type: initial encounter Qualified Code(s): T83.512A - Infection and inflammatory reaction due to nephrostomy catheter, initial encounter; N39.0 - Urinary tract infection, site not specified (2) Anemia Current Visit: No Status: Acute Assessment and plan: history of acute blood loss anemia secondary to GI bleeds and hematuria, in addition to iron deficiency anemia s/p two unit PRBC transfusion (06/13/17) H&H low but acceptable hematuria improved since admission will transfuse for Hgb<7, continue to monitor Qualifiers: Iron deficiency anemia type: chronic blood loss Qualified Code(s): D50.0 - Iron deficiency anemia secondary to blood loss (chronic) (3) Hematuria Current Visit: No Status: Resolved Assessment and plan: urology on board and consultation appreciated gross hematuria resolved sahni cath removed will closely follow up with urology scheduled for Cystoscopy today (06/14/17) Qualifiers: Hematuria type: gross Qualified Code(s): R31.0 - Gross hematuria (4) Hemorrhagic cystitis Current Visit: No Status: Chronic (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 Resting in bed and reports of improvement in her hematuria. Reports of persistent bleeding but improved. Urology on board and tentatively scheduled for cystoscopy today (06/14/17) Drop in H&H noted, will transfuse for Hgb<7 - Constitutional Vitals: Temp Pulse Resp BP Pulse Ox 98.4 F 83 18 129/86 98 06/14/17 10:55 06/14/17 10:55 06/14/17 10:55 06/14/17 10:55 06/14/17 10:55 General appearance: Present: cooperative, A&O X 3, pleasant, no acute distress, obese, answers questions appropriately - Head Head exam: Present: atraumatic, normocephalic - Respiratory Respiratory exam: Present: CTAB. Absent: accessory muscle use, rales, rhonchi, wheezes - Cardiovascular Cardiovascular exam: Present: RRR, +S1, +S2. Absent: diastolic murmur, gallop, rubs, systolic murmur - GI/Abdominal GI/Abdominal exam: Present: normal bowel sounds, soft, no peritoneal signs. Absent: distended, tenderness - Extremities Exam Extremities exam: Present: warm, radial pulses palpable and symmetrical. Absent : calf tenderness, cyanotic, pedal edema - Neurological Exam Neurological exam: Present: alert, oriented X3 - Psychiatric Psychiatric exam: Present: normal affect, normal mood Internal Medicine: Result - Labs CBC & Chem 7: 06/14/17 03:35 06/14/17 03:35 Labs: Short CBC 06/14/17 Range/Units 03:35 WBC 4.0 L (4.3-11.1) K/mcL Hgb 7.5 L (11.5-15.4) g/dL Hct 25.4 L (35.3-44.9) % Plt Count 253 (140-400) K/mcL Neutrophils # 2.1 (1.6-8.9) K/mcL BMP 06/14/17 03:35 Sodium 139 Potassium 3.7 Chloride 109 H Carbon Dioxide 24 BUN 17 Creatinine 1.30 H Glucose 96 Calcium 7.9 L - ABG Interpretation ABG results: PT/INR, D-dimer PT 11.6 Seconds (9.4-12.1) 06/11/17 13:44 Consult Discharge Plan - Plan Referrals: Mulu Gongora DO [Primary Care Provider] - (web request sent on 06/13/17 )
--- NOTE | 2017-06-14 14:57 | Anesthesia Evaluation PreOp ---
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 HX Other Medical History: Renal (stage 3 CKD), Other (vaginal CA S/P XRT, anxiety/ depression) Anesthesia History: No Prior Anesthetic Complications, Past Anesthesia ( hysterectomy) Alcohol Use: none Drug use: none Medications and Allergies Escitalopram [Lexapro] 10 mg PO DAILY 07/31/16 [History] Bupropion HCl [Wellbutrin Xl] 300 mg PO QAM 01/09/17 [History] hydrOXYzine HCl [Hydroxyzine HCl] 25 - 50 mg PO HS PRN 03/14/17 [History] Dicyclomine [Bentyl] 20 mg PO QID PRN 05/07/17 [History] Loperamide HCl [Imodium A-D] 2 mg PO PER PKG DI PRN 05/07/17 [History] Ferrous Sulfate 325 mg PO BID #60 tablet 05/08/17 [Rx] Aspirin/Acetaminophen/Caffeine [Excedrin Migraine Caplet] 2 each PO Q6H PRN [History] 3 Allergy/AdvReac Type Severity Reaction Status Date / Time NSAIDS (Non-Steroidal AdvReac See Verified 06/11/17 11:17 Anti-Inflamma Comments - Meds/Allergy Pre-op Review Medications Reviewed: Yes Allergies Reviewed: Yes Beta Blockers on Current Med List: No Anesthesia Results - Labs 06/14/17 03:35 06/14/17 03:35 - Imaging EKG: report reviewed (06/11/2017 SINUS RHYTHM) Anesthesia Exam Vital Signs/O2 Sat, Most Current Temp Pulse Resp BP Pulse Ox 98.4 F 83 18 129/86 98 06/14/17 10:55 06/14/17 10:55 06/14/17 10:55 06/14/17 10:55 06/14/17 10:55 Height: 5'4''/1.63 m Weight: 232 lbs/105.4 kg NPO (# of Hours): 8 Pain Scale: 4 Pain Scale Used: Numeric (1 - 10) - HEENT Pupil (Motor): EOMI Mallampati: II Teeth: Normal Oral Opening: Greater than 3 - ARBOR PRESS OPERATOR LOC: Oriented ARBOR PRESS OPERATOR Motor: Normal RUE, Normal LUE, Normal RLE, Normal LLE, Normal Face [employer] PRESS OPERATOR Sensory: Normal: RUE, LUE, LLE, Face, Deficit: RLE - Cardiac Rhythm: Regular Murmur: None - Pulmonary Breath Sounds: bilateral Clear Respiratory Effort: Symmetrical Anesthesia Assess/Plan ASA Score: 3 Modified [place] Scale for Level of Consciousness: Cooperative, oriented, and tranquil Anesthetic Plan: General Monitoring Plan: Standard Monitors Recovery Plan: PACU
[2017-06-14] MEDS ORDERED: Dexamethasone 4 MG/ML VIAL ONE (16:39)
[2017-06-14] MEDS ORDERED: Lidocaine -MPF 2% 2 ML VIAL ONE (16:39)
[2017-06-14] MEDS ORDERED: *HR* Midazolam HCl 2 MG/2 ML VIAL ONE (16:39)
[2017-06-14] MEDS ORDERED: *HR* Propofol 200 MG/20 ML VIAL IVP ONE (16:39)
[2017-06-14] MEDS ORDERED: *HR* FentaNYL (PF) 100 MCG/2 ML VIAL ONE (16:39)
[2017-06-14] MEDS ORDERED: Ondansetron 4 MG/2 ML VIAL ONE (16:39)
[2017-06-14] MEDS ORDERED: *HR* Succinylcholine 200 MG/10 ML VIAL IVP ONE (16:39)
[2017-06-14] MEDS ORDERED: *HR* Promethazine 25 MG/ML VIAL IVP PRN (17:11)
[2017-06-14] MEDS ORDERED: *HR* HYDROmorphone (PF) 1 MG/ML SYRINGE IVP PRN (17:11)
[2017-06-14] MEDS ORDERED: *HR* Labetalol 20 MG/4 ML SYRINGE IVP PRN ×2 (17:11→20:01)
[2017-06-14] MEDS ORDERED: Ondansetron 4 MG/2 ML VIAL IVP ONE (17:11)
--- NOTE | 2017-06-14 17:29 | Operative Note ---
Date of procedure: 06/14/17 Pre-op diagnosis: Radiation cystitis, hematuria Post-op diagnosis: same Procedure: Cystoscopy, clot evacuation, fulguration, cystogram, bladder biopsy. Implants: None. Complications: None. Anesthesia: MARIELENAA Surgeon: Donny Montes De Oca Estimated blood loss (cc): 10 Specimen: bladder biopsy Condition: stable Disposition: PACU Procedure in Detail: Indications: Ros is a 61-year-old woman with a history of radiation cystitis and hematuria. She has had refractory bleeding and it looks undergo a cystoscopy, clot evacuation, fulguration, bladder biopsy, and cystogram. She is aware of the risks of the procedure including but not limited to bleeding, infection, injury to other structures, need for further procedures, bladder perforation, and the risk of anesthesia. She is willing to proceed. Procedure: After informed consent was obtained the patient was brought back to the operating room and placed in the supine position. A timeout was performed. Gen. anesthesia was administered. She was then placed in lithotomy position. Her genitalia were prepped and draped in the usual sterile fashion. Using the resector sheath and the visual obturator cystoscopy was performed. Upon entering the bladder there was some a clot in the bladder. This was irrigated out. Once the clot was removed and I removed the resector sheath. An 18 Amharic Asencio catheter was inserted. A cystogram was performed. I filled her to 120 mL and noted right sided vesicoureteral reflux. The bladder was then emptied and the catheter was removed. The resectoscope was then replaced. The Burger element was then inserted. A small resection was performed using the loop. The resection was approximately 1cm. There is no distinct bladder tumor. The bladder did appear necrotic. I was not able to definitively identify the left or the right ureteral orifice. The bladder was then fulgurated liberally. There still appeared to be mild oozing from the bladder. She has already been diverted with bilateral nephrostomy tubes. I did not place a Asencio catheter. The patient was then awakened from general anesthesia and brought to the recovery room in good condition. All sponge, needle, and instrument counts were correct.
--- NOTE | 2017-06-14 18:08 | Anesthesia Evaluation Post Op ---
Date of Encounter: 06/14/17 Time of Encounter: 18:08 - Vital Signs Vital Signs: Vital Signs/O2 Sat, Most Current Temp Pulse Resp BP Pulse Ox 98.7 F 87 16 136/85 99 06/14/17 18:00 06/14/17 18:00 06/14/17 18:00 06/14/17 18:00 06/14/17 18:00 - Lungs Lungs: Clear Ascult./Percussion - Airway Airway: Non-obstructed - Cardiovascular Regular Rate - Mental Status Mental Status: Alert & Oriented, Answers Appropriately - Pain Pain Scale: 0 Pain Scale used: Numeric (1 - 10) - Nausea Vomiting Nausea Vomiting: Not Present - Hydration Hydration: Tolerates oral liquids, Able to void - Discharge PostOp Status: Transfer Patient to floor
[2017-06-14] MEDS ORDERED: hydrOXYzine pamoate 25 MG CAPSULE PO PRN (20:01)
[2017-06-14] MEDS ORDERED: Naloxone 0.4 MG/ML INJ IVP PRN (20:01)
[2017-06-14] MEDS ORDERED: Mag Hydrox/Al Hydrox/Simeth 30 ML UDC PO PRN (20:01)
[2017-06-14] MEDS ORDERED: Acetaminophen 325 MG TABLET PO PRN (20:01)
[2017-06-14] MEDS ORDERED: Ondansetron 4 MG/2 ML VIAL IVP PRN (20:01)
[2017-06-15] MEDS: *HR* OxyCODONE/APAP 5/325 TABLET PO PRN (05:46)
[2017-06-15] MEDS: Piperacillin/Tazobactam 3.375 GM/200 ML BAG IVPB SCH ×3 (08:30→23:30)
[2017-06-15] MEDS: BuPROPion XL (24 HR) 150 MG TABLET PO SCH (08:30)
--- NOTE | 2017-06-15 09:06 | Urology Progress Note ---
Date of Encounter: 06/15/17 Time of Encounter: 09:03 - Assessment and Plan (1) Hematuria Current Visit: Yes Status: Chronic Assessment and plan: 61-year-old woman with hemorrhagic cystitis status post cystoscopy and clot evacuation, postoperative day #1. I discussed with her that the bleeding issues are difficult to manage secondary to the radiation. Although there is no large evidence of bleeding, the overall slow bleeding from the entirety of the urothelium has been challenging to manage. We will see what her blood counts do and observe for now. Hopefully the bladder will clot off and the bleeding will subside. Urology will follow along. Qualifiers: Hematuria type: gross Qualified Code(s): R31.0 - Gross hematuria (2) Hemorrhagic cystitis Current Visit: No Status: Chronic Progress Note Narrative: POD #1 s/p cystoscopy, clot evacuation, fulguration, and cystogram. She is still passing some blood clots that her bladder. She refused formalin instillation. Objective Initial Vital Signs Temp Pulse Resp BP Pulse Ox 98.3 F 115 20 135/68 97 06/11/17 11:19 06/11/17 11:19 06/11/17 11:19 06/11/17 11:19 06/11/17 11:19 - General physical appearance Present: well developed, well nourished, no distress - Respiratory Present: normal respiratory effort - Abdomen Present: soft - Labs 06/14/17 03:35 06/14/17 03:35 - VTE Documentation of Mechanical Device: Venous foot pump, device Consult Discharge Plan - Plan Referrals: Mulu Gongora DO [Primary Care Provider] - (web request sent on 06/13/17 )
[2017-06-15 10:03] LABS: Calcium 8.1 mg/dL (8.6-10.3); Potassium 4.3 mEq/L (3.5-5.1)
[2017-06-15 11:38] LABS: Basophils % 0.6 %; Eosinophils % 0.2 %; Hematocrit 26.2 % (35.3-44.9); Hemoglobin 7.7 g/dL (11.5-15.4); Immature Granulocytes % 0.2 % (0-4); Lymphocytes # 0.6 K/mcL (0.6-4.6); Lymphocytes % 11.9 %; Mean Corpuscular HGB Conc 29.4 g/dL (31.6-35.5); Mean Corpuscular Hemoglobin 24.5 pg (28.0-33.3); Mean Corpuscular Volume 83.4 fL (83.0-100.0); Mean Platelet Volume 10.2 fL (9.4-12.4); Monocytes # 0.5 K/mcL (0.0-1.3); Monocytes % 9.1 %; Neutrophils # 4.1 K/mcL (1.6-8.9); Platelet Count 295 K/mcL (140-400); Red Blood Count 3.14 M/mcL (3.82-4.97); Red Cell Distribution Width 19.4 % (11.5-14.5)
--- NOTE | 2017-06-15 11:41 | Internal Med Progress Note ---
<Kesha Llamas - Last Filed: 06/15/17 14:47> Date of Encounter: 06/15/17 Time of Encounter: 11:15 - Assessment and plan (1) UTI (urinary tract infection) Current Visit: Yes Status: Resolved Assessment and plan: - UA positive for nitrite and leukocyte esterase on admission. - Known history of recurrent UTI with urine culture in the past positive for Proteus mirabilis and Staph epidermidis. - Urine culture from 06/13/17 pending. - Continue IV Zosyn (since 06/12/17). Further de-escalation based on clinical picture and culture result. Qualifiers: Urinary tract infection type: catheter-associated UTI Indwelling urinary catheter type: nephrostomy catheter Encounter type: initial encounter Qualified Code(s): T83.512A - Infection and inflammatory reaction due to nephrostomy catheter, initial encounter; N39.0 - Urinary tract infection, site not specified (2) Hematuria Current Visit: Yes Status: Resolved Assessment and plan: - Cystoscopy on 06/14/17 found necrosis and oozing in the bladder but no obvious bladder mass. - Asencio cath had been removed. - Continues to have some hematuria per patient. - Urology on board and appreciate recommendations. Qualifiers: Hematuria type: gross Qualified Code(s): R31.0 - Gross hematuria (3) Anemia Current Visit: No Status: Acute Assessment and plan: - Hgb 7.0 on admission. - Secondary to hematuria in the setting of iron deficiency anemia - Status post two unit PRBC transfusion on 06/11/17 - Hgb stable 7.7 today. - Continue to monitor H&H closely. Consider more pRBC transfusion if Hgb < 7. 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 (6) DVT prophylaxis Current Visit: No Status: Acute Assessment and plan: - Continue EPCD. - Subjective Interval history: Patient was seen and examined this morning. Patient still has some hematuria and soreness at genitourinary area. Patient denies fever, chills, chest pain, shortness of breath, abdominal pain. - Constitutional Vitals: Temp Pulse Resp BP Pulse Ox 98.0 F 83 16 116/71 96 06/15/17 07:36 06/15/17 07:36 06/15/17 07:36 06/15/17 07:36 06/15/17 07:36 General appearance: Present: cooperative, A&O X 3, pleasant, no acute distress, obese, answers questions appropriately - Head Head exam: Present: atraumatic, normocephalic - Eye Eye exam: Present: EOMI, conjuntiva pink, sclera anicteric - Neck Neck exam general surgery: Present: normal inspection, supple, trachea midline - Respiratory Respiratory exam: Present: CTAB. Absent: accessory muscle use, rales, rhonchi, wheezes - Cardiovascular Cardiovascular exam: Present: RRR, +S1, +S2 - GI/Abdominal GI/Abdominal exam: Present: normal bowel sounds, soft, no peritoneal signs. Absent: distended, tenderness - Additional comments: Clear urine in bilateral nephrostomy bags. - Extremities Exam Extremities exam: Present: warm. Absent: cyanotic, pedal edema - Neurological Exam Neurological exam: Present: alert, oriented X3, no focal deficits. Absent: facial droop, speech deficit - Skin Skin exam: Present: dry, intact, warm Internal Medicine: Result - Labs CBC & Chem 7: 06/15/17 11:20 06/15/17 08:40 Labs: Short CBC 06/15/17 Range/Units 11:20 WBC 5.2 (4.3-11.1) K/mcL Hgb 7.7 L (11.5-15.4) g/dL Hct 26.2 L (35.3-44.9) % Plt Count 295 (140-400) K/mcL Neutrophils # 4.1 (1.6-8.9) K/mcL BMP 06/15/17 08:40 Sodium 137 Potassium 4.3 Chloride 105 Carbon Dioxide 24 BUN 16 Creatinine 1.18 Glucose 95 Calcium 8.1 L - ABG Interpretation ABG results: PT/INR, D-dimer PT 11.6 Seconds (9.4-12.1) 06/11/17 13:44 - Impressions Impressions Retrograde Pyelogram 06/14/17 17:00 IMPRESSION: Intraprocedural fluoroscopic spot images as above. See separate procedure report for more information. D/ / Asher Boudreaux MD / Asher Boudreaux MD Interpreting Provider: Asher Boudreaux MD - VTE Documentation of Mechanical Device: Venous foot pump, device Consult Discharge Plan - Plan Referrals: Mulu Gongora DO [Primary Care Provider] - (web request sent on 06/13/17 ) <Maximilian Gregorio - Last Filed: 06/15/17 15:21> Date of Encounter: 06/15/17 - Constitutional Vitals: Temp Pulse Resp BP Pulse Ox 98.8 F 89 16 108/68 98 06/15/17 12:00 06/15/17 12:00 06/15/17 12:00 06/15/17 12:00 06/15/17 12:00 Internal Medicine: Result - Labs CBC & Chem 7: 06/15/17 11:20 06/15/17 08:40 Labs: Short CBC 06/15/17 Range/Units 11:20 WBC 5.2 (4.3-11.1) K/mcL Hgb 7.7 L (11.5-15.4) g/dL Hct 26.2 L (35.3-44.9) % Plt Count 295 (140-400) K/mcL Neutrophils # 4.1 (1.6-8.9) K/mcL BMP 06/15/17 08:40 Sodium 137 Potassium 4.3 Chloride 105 Carbon Dioxide 24 BUN 16 Creatinine 1.18 Glucose 95 Calcium 8.1 L - ABG Interpretation ABG results: PT/INR, D-dimer PT 11.6 Seconds (9.4-12.1) 06/11/17 13:44 - Impressions Impressions Retrograde Pyelogram 06/14/17 17:00 IMPRESSION: Intraprocedural fluoroscopic spot images as above. See separate procedure report for more information. D/ / Asher Boudreaux MD / Asher Boudreaux MD Interpreting Provider: Asher Boudreaux MD - Attending Attestation I conducted a face to face diagnostic evaluation of this patient and my medical decision-making was reviewed with the Resident Physician, Dr Kesha Llamas. I agree with the documented findings, disposition and treatment plan as described except to the extent set forth below: Patient reports lower abdominal discomfort and passing a blood clot earlier this morning. On physical exam she is awake alert oriented. Abdomen is soft and nontender. Plan: Continue with IV antibiotics. Follow-up urine culture, WBC trend and temperature curve. Follow-up with urology. Maximilian Gregorio MD
[2017-06-16] MEDS: *HR* LORazepam 2 MG/ML VIAL IVP PRN ×2 (01:20→21:33)
[2017-06-16] MEDS ORDERED: Ondansetron 4 MG/2 ML VIAL IVP PRN (09:45)
[2017-06-16 10:03] LABS: Calcium 8.3 mg/dL (8.6-10.3); Potassium 3.4 mEq/L (3.5-5.1)
[2017-06-16] MEDS: BuPROPion XL (24 HR) 150 MG TABLET PO SCH (10:12)
[2017-06-16] MEDS: *HR* OxyCODONE/APAP 5/325 TABLET PO PRN (10:12)
[2017-06-16] MEDS: Piperacillin/Tazobactam 3.375 GM/200 ML BAG IVPB SCH (10:13)
--- NOTE | 2017-06-16 10:16 | Internal Med Progress Note ---
<Kesha Llamas - Last Filed: 06/16/17 11:49> Date of Encounter: 06/16/17 Time of Encounter: 09:15 - Assessment and plan (1) UTI (urinary tract infection) Current Visit: Yes Status: Resolved Assessment and plan: - UA positive for nitrite and leukocyte esterase on admission. - Known history of recurrent UTI with urine culture in the past positive for Proteus mirabilis and Staph epidermidis. - Urine culture from 06/13/17 had no growth but that sample was collected after patient was started on antibiotics. - Given positive nitrite on initial UA, it's likely gram negative bacteria and mostly likely Proteus mirabilis given urine cultures positive in April 2017. - Currently on IV Zosyn (since 06/12/17). Will change to levofloxacin. Plan to discharge tomorrow if patient tolerates and responses to levofloxacin. - Patient will need total 14-day course of antibiotic therapy for complicated UTI. Qualifiers: Urinary tract infection type: catheter-associated UTI Indwelling urinary catheter type: nephrostomy catheter Encounter type: initial encounter Qualified Code(s): T83.512A - Infection and inflammatory reaction due to nephrostomy catheter, initial encounter; N39.0 - Urinary tract infection, site not specified (2) Hematuria Current Visit: Yes Status: Resolved Assessment and plan: - Cystoscopy on 06/14/17 found necrosis and oozing in the bladder but no obvious bladder mass. - Asencio cath had been removed. - Continues to have some hematuria but seems to improve per patient. - Urology on board and appreciate recommendations. Qualifiers: Hematuria type: gross Qualified Code(s): R31.0 - Gross hematuria (3) Anemia Current Visit: No Status: Acute Assessment and plan: - Hgb 7.0 on admission. - Secondary to hematuria in the setting of iron deficiency anemia - Status post two unit PRBC transfusion on 06/11/17 - Hgb stable 7.6 today. - Continue to monitor H&H closely. Consider more pRBC transfusion if Hgb < 7. Qualifiers: Anemia type: iron deficiency Iron deficiency anemia type: chronic blood loss Qualified Code(s): D50.0 - Iron deficiency anemia secondary to blood loss (chronic) (4) Constipation Current Visit: No Status: Acute Assessment and plan: - Continue Colace and add Miralax. Qualifiers: Constipation type: drug induced constipation Qualified Code(s): K59.03 - Drug induced constipation (5) Radiation cystitis Current Visit: No Status: Chronic (6) Vaginal cancer Current Visit: No Status: Chronic Assessment and plan: - Status post radiation therapy. (7) DVT prophylaxis Current Visit: No Status: Acute Assessment and plan: - Continue EPCD. - Subjective Interval history: Patient was seen and examined this morning. Patient complains of nausea and constipation. Patient reports hematuria and soreness at genitourinary area improve. Patient denies fever, chills, chest pain, shortness of breath. Patient has concern about her constipation as she had multiple hospitalization for bowel blockage in the past and likes to have that taken care before being discharged. - Constitutional Vitals: Temp Pulse Resp BP Pulse Ox 98.6 F 86 16 126/76 93 06/16/17 04:09 06/16/17 04:09 06/16/17 04:09 06/16/17 04:09 06/16/17 04:09 General appearance: Present: cooperative, A&O X 3, pleasant, no acute distress, obese, answers questions appropriately - Head Head exam: Present: normocephalic - Eye Eye exam: Present: EOMI, conjuntiva pink, sclera anicteric - Neck Neck exam general surgery: Present: supple, trachea midline - Respiratory Respiratory exam: Present: CTAB. Absent: accessory muscle use, rales, rhonchi, wheezes - Cardiovascular Cardiovascular exam: Present: RRR, +S1, +S2 - GI/Abdominal GI/Abdominal exam: Present: hypoactive bowel sounds, no peritoneal signs. Absent: distended, tenderness Additional comments: Red-color urine in the right nephrostomy bag. Clear urine inthe left nephrostomy bag. - Extremities Exam Extremities exam: Present: warm. Absent: cyanotic, pedal edema - Neurological Exam Neurological exam: Present: alert. Absent: facial droop, speech deficit - Skin Skin exam: Present: dry, warm Internal Medicine: Result - Labs CBC & Chem 7: 06/16/17 05:20 06/16/17 05:20 Labs: Short CBC 06/15/17 Range/Units 11:20 WBC 5.2 (4.3-11.1) K/mcL Hgb 7.7 L (11.5-15.4) g/dL Hct 26.2 L (35.3-44.9) % Plt Count 295 (140-400) K/mcL Neutrophils # 4.1 (1.6-8.9) K/mcL [facility] 06/16/17 05:20 Sodium 139 Potassium 3.4 L Chloride 107 Carbon Dioxide 25 BUN 23 Creatinine 1.44 H Glucose 94 Calcium 8.3 L - ABG Interpretation ABG results: PT/INR, D-dimer PT 11.6 Seconds (9.4-12.1) 06/11/17 13:44 - VTE Documentation of Mechanical Device: Venous foot pump, device Consult Discharge Plan - Plan Referrals: Mulu Gongora DO [Primary Care Provider] - (web request sent on 06/13/17 ) <Maximilian Gregorio - Last Filed: 06/16/17 16:15> Date of Encounter: 06/16/17 - Constitutional Vitals: Temp Pulse Resp BP Pulse Ox 97.9 F 96 17 124/57 96 06/16/17 11:06 06/16/17 11:06 06/16/17 11:06 06/16/17 11:06 06/16/17 11:06 Internal Medicine: Result - Labs CBC & Chem 7: 06/16/17 05:20 06/16/17 05:20 Labs: Short CBC 06/16/17 Range/Units 05:20 WBC 7.7 (4.3-11.1) K/mcL Hgb 7.6 L (11.5-15.4) g/dL Hct 26.1 L (35.3-44.9) % Plt Count 299 (140-400) K/mcL Neutrophils # 5.7 (1.6-8.9) K/mcL [facility] 06/16/17 05:20 Sodium 139 Potassium 3.4 L Chloride 107 Carbon Dioxide 25 BUN 23 Creatinine 1.44 H Glucose 94 Calcium 8.3 L - ABG Interpretation ABG results: PT/INR, D-dimer PT 11.6 Seconds (9.4-12.1) 06/11/17 13:44 - Attending Attestation I conducted a face to face diagnostic evaluation of this patient and my medical decision-making was reviewed with the Resident Physician, Dr Kesha Llamas. I agree with the documented findings, disposition and treatment plan as described except to the extent set forth below: On exam the patient is in no acute distress awake alert oriented. Heart is regular. Lungs are clear. Abdomen is soft nontender nondistended with normoactive bowel sounds. Continue with IV antibiotic. Bowel regimen. We will add milk of molasses. Maximilian Gregorio MD
--- NOTE | 2017-06-16 10:16 | Urology Progress Note ---
Date of Encounter: 06/16/17 Time of Encounter: 10:13 - Assessment and Plan (1) Hematuria Current Visit: Yes Status: Chronic Assessment and plan: 7-year-old woman with radiation cystitis and hematuria. She underwent a cystoscopy and clot evacuation and is postoperative day #2. We discussed options. I discussed placing a Asencio catheter and starting CBI, but she didn't tolerate a catheter previously. I also discussed the formalin, but she would like to not do that. Lastly I discussed possible discharge home with close follow-up in the urology clinic with a repeat H&H within a week of discharge to monitor for any anemia and provide transfusion as an outpatient if necessary. She would prefer to be discharged once her constipation resolves. We can arrange for her to follow-up with Dr. Han as an outpatient. Qualifiers: Hematuria type: gross Qualified Code(s): R31.0 - Gross hematuria (2) Hemorrhagic cystitis Current Visit: No Status: Chronic Progress Note Narrative: Postoperative day #2 status post cystoscopy, clot evacuation, and fulguration. She is still having some bleeding. She is having difficulty with constipation. She like to be discharged. Her hemoglobin and hematocrit was stable yesterday. Today's is still pending. Objective Initial Vital Signs Temp Pulse Resp BP Pulse Ox 98.3 F 115 20 135/68 97 06/11/17 11:19 06/11/17 11:19 06/11/17 11:19 06/11/17 11:19 06/11/17 11:19 - General physical appearance Present: well developed, well nourished, no distress - Respiratory Present: normal respiratory effort - Abdomen Present: soft - Labs 06/15/17 11:20 06/16/17 05:20 Diabetes panel 06/16/17 Range/Units 05:20 Sodium 139 (136-145) mEq/L Potassium 3.4 L (3.5-5.1) mEq/L Chloride 107 (98-107) mEq/L Carbon Dioxide 25 (23-29) mEq/L BUN 23 (8-23) mg/dL Creatinine 1.44 H (0.60-1.20) mg/dL Glucose 94 (70-105) mg/dL Calcium 8.3 L (8.6-10.3) mg/dL Calcium panel 06/16/17 Range/Units 05:20 Calcium 8.3 L (8.6-10.3) mg/dL Pituitary panel 06/16/17 Range/Units 05:20 Sodium 139 (136-145) mEq/L Potassium 3.4 L (3.5-5.1) mEq/L Chloride 107 (98-107) mEq/L Carbon Dioxide 25 (23-29) mEq/L BUN 23 (8-23) mg/dL Creatinine 1.44 H (0.60-1.20) mg/dL Glucose 94 (70-105) mg/dL Calcium 8.3 L (8.6-10.3) mg/dL Adrenal panel 06/16/17 Range/Units 05:20 Sodium 139 (136-145) mEq/L Potassium 3.4 L (3.5-5.1) mEq/L Chloride 107 (98-107) mEq/L Carbon Dioxide 25 (23-29) mEq/L BUN 23 (8-23) mg/dL Creatinine 1.44 H (0.60-1.20) mg/dL Glucose 94 (70-105) mg/dL Calcium 8.3 L (8.6-10.3) mg/dL - VTE Documentation of Mechanical Device: Venous foot pump, device Consult Discharge Plan - Plan Referrals: Mulu Gongora DO [Primary Care Provider] - (web request sent on 06/13/17 )
[2017-06-16 10:40] LABS: Basophils % 0.5 %; Eosinophils # 0.4 K/mcL (0.0-0.6); Eosinophils % 4.7 %; Hematocrit 26.1 % (35.3-44.9); Hemoglobin 7.6 g/dL (11.5-15.4); Immature Granulocytes % 0.3 % (0-4); Lymphocytes # 0.7 K/mcL (0.6-4.6); Lymphocytes % 9.5 %; Mean Corpuscular HGB Conc 29.1 g/dL (31.6-35.5); Mean Corpuscular Hemoglobin 24.3 pg (28.0-33.3); Mean Corpuscular Volume 83.4 fL (83.0-100.0); Mean Platelet Volume 10.8 fL (9.4-12.4); Monocytes # 0.8 K/mcL (0.0-1.3); Monocytes % 10.2 %; Neutrophils # 5.7 K/mcL (1.6-8.9); Platelet Count 299 K/mcL (140-400); Red Blood Count 3.13 M/mcL (3.82-4.97); Red Cell Distribution Width 20.1 % (11.5-14.5); Segmented Neutrophils % 74.8 %
[2017-06-16] MEDS ORDERED: Milk and Molasses Enema 200 ML RC ONE (11:58)
[2017-06-16] MEDS ORDERED: levoFLOXacin 750 MG TABLET PO SCH (12:00)
[2017-06-17 03:38] LABS: Hematocrit 23.3 % (35.3-44.9); Hemoglobin 6.9 g/dL (11.5-15.4); Mean Corpuscular HGB Conc 29.6 g/dL (31.6-35.5); Mean Corpuscular Hemoglobin 24.4 pg (28.0-33.3); Mean Corpuscular Volume 82.3 fL (83.0-100.0); Mean Platelet Volume 10.1 fL (9.4-12.4); Platelet Count 260 K/mcL (140-400); Red Blood Count 2.83 M/mcL (3.82-4.97); Red Cell Distribution Width 19.9 % (11.5-14.5)
[2017-06-17 03:57] LABS: Calcium 8.2 mg/dL (8.6-10.3); Potassium 3.5 mEq/L (3.5-5.1)
[2017-06-17] MEDS: BuPROPion XL (24 HR) 150 MG TABLET PO SCH (08:19)
[2017-06-17 09:10] LABS: Hematocrit 24.7 % (35.3-44.9); Hemoglobin 7.2 g/dL (11.5-15.4)
--- NOTE | 2017-06-17 09:37 | Internal Med Progress Note ---
<Kesha Llamas - Last Filed: 06/17/17 10:47> Date of Encounter: 06/17/17 Time of Encounter: 08:15 - Assessment and plan (1) Hematuria Current Visit: Yes Status: Resolved Assessment and plan: - Cystoscopy on 06/14/17 found necrosis and oozing in the bladder but no obvious bladder mass. - Asencio cath had been removed. - Continues to have some hematuria and patient reports worsening this morning. - Appreciate urology follow-up recommendations. Qualifiers: Hematuria type: gross Qualified Code(s): R31.0 - Gross hematuria (2) UTI (urinary tract infection) Current Visit: Yes Status: Resolved Assessment and plan: - UA positive for nitrite and leukocyte esterase on admission. - Known history of recurrent UTI with urine culture in the past positive for Proteus mirabilis and Staph epidermidis. - Urine culture from 06/13/17 had no growth but that sample was collected after patient was started on antibiotics. - Given positive nitrite on initial UA, it's likely gram negative bacteria and mostly likely Proteus mirabilis given urine cultures positive in April 2017. - Continue PO levofloxacin. Patient will need total 14-day course of antibiotic therapy for complicated UTI (anticipate to finish on 06/25/17). Qualifiers: Urinary tract infection type: catheter-associated UTI Indwelling urinary catheter type: nephrostomy catheter Encounter type: initial encounter Qualified Code(s): T83.512A - Infection and inflammatory reaction due to nephrostomy catheter, initial encounter; N39.0 - Urinary tract infection, site not specified (3) Anemia Current Visit: No Status: Acute Assessment and plan: - Hgb 7.0 on admission. - Secondary to hematuria in the setting of iron deficiency anemia. - Positive stool occult test on 06/16/17 but it's likely from radiation proctitis. - Status post two unit PRBC transfusion on 06/11/17 - Hgb dropped to 6.9 this morning (was 7.6 yesterday). Repeat Hgb at 7.2. Will type & cross and give one unit of pRBC. - Continue to monitor H&H closely. Consider more pRBC transfusion if Hgb < 7. Qualifiers: Anemia type: iron deficiency Iron deficiency anemia type: chronic blood loss Qualified Code(s): D50.0 - Iron deficiency anemia secondary to blood loss (chronic) (4) Radiation cystitis Current Visit: No Status: Chronic (6) Vaginal cancer Current Visit: No Status: Chronic Assessment and plan: - Status post radiation therapy. (7) Constipation Current Visit: No Status: Acute Assessment and plan: - Improves as patient had bowel movement last night. - Continue Colace and Miralax. Qualifiers: Constipation type: drug induced constipation Qualified Code(s): K59.03 - Drug induced constipation (8) DVT prophylaxis Current Visit: No Status: Acute Assessment and plan: - Continue EPCD. - Subjective Interval history: Patient was seen and examined this morning. Patient reports doing okay with soreness at genitourinary area significantly improved. But patient also reports worsen hematuria this morning. Patient denies chest pain, shortness of breath, lightheadedness/dizziness. Patient had bowel movement last night and reports it' s brown and no blood noted. - Constitutional Vitals: Temp Pulse Resp BP Pulse Ox 98.2 F 90 18 114/83 97 06/17/17 07:12 06/17/17 07:12 06/17/17 07:12 06/17/17 07:12 06/17/17 07:12 General appearance: Present: cooperative, A&O X 3, pleasant, no acute distress, obese, answers questions appropriately - Head Head exam: Present: normal inspection - Eye Eye exam: Present: EOMI, conjuntiva pink, sclera anicteric - Neck Neck exam general surgery: Present: supple, trachea midline - Respiratory Respiratory exam: Present: CTAB. Absent: accessory muscle use, rales, rhonchi, wheezes - Cardiovascular Cardiovascular exam: Present: RRR, +S1, +S2 - GI/Abdominal GI/Abdominal exam: Present: normal bowel sounds, soft, no peritoneal signs. Absent: tenderness - Extremities Exam Extremities exam: Present: pedal edema (Mild), warm. Absent: cyanotic - Neurological Exam Neurological exam: Present: alert, no focal deficits. Absent: facial droop, speech deficit - Skin Skin exam: Present: dry, warm Internal Medicine: Result - Labs CBC & Chem 7: 06/17/17 09:00 06/17/17 03:20 Labs: Short CBC 06/16/17 06/17/17 06/17/17 Range/Units 05:20 03:20 09:00 WBC 7.7 4.6 (4.3-11.1) K/mcL Hgb 7.6 L 6.9 L 7.2 L (11.5-15.4) g/dL Hct 26.1 L 23.3 L 24.7 L (35.3-44.9) % Plt Count 299 260 (140-400) K/mcL Neutrophils # 5.7 (1.6-8.9) K/mcL [facility] 06/16/17 06/17/17 05:20 03:20 Sodium 139 141 Potassium 3.4 L 3.5 Chloride 107 109 H Carbon Dioxide 25 28 BUN 23 15 Creatinine 1.44 H 1.18 Glucose 94 112 H Calcium 8.3 L 8.2 L - ABG Interpretation ABG results: PT/INR, D-dimer PT 11.6 Seconds (9.4-12.1) 06/11/17 13:44 - VTE Documentation of Mechanical Device: Venous foot pump, device Consult Discharge Plan - Plan Instructions: Urinary Tract Infection in Women (DC), Anemia (GEN) Referrals: Mulu Gongora DO [Primary Care Provider] - (web request sent on 06/13/17 ) <Maximilian Gregorio - Last Filed: 06/17/17 13:32> Date of Encounter: 06/17/17 - Constitutional Vitals: Temp Pulse Resp BP Pulse Ox 97.9 F 88 16 110/75 97 06/17/17 11:06 06/17/17 11:06 06/17/17 11:06 06/17/17 11:06 06/17/17 11:06 Internal Medicine: Result - Labs CBC & Chem 7: 06/17/17 09:00 06/17/17 03:20 Labs: Short CBC 06/17/17 06/17/17 Range/Units 03:20 09:00 WBC 4.6 (4.3-11.1) K/mcL Hgb 6.9 L 7.2 L (11.5-15.4) g/dL Hct 23.3 L 24.7 L (35.3-44.9) % Plt Count 260 (140-400) K/mcL [facility] 06/17/17 03:20 Sodium 141 Potassium 3.5 Chloride 109 H Carbon Dioxide 28 BUN 15 Creatinine 1.18 Glucose 112 H Calcium 8.2 L - ABG Interpretation ABG results: PT/INR, D-dimer PT 11.6 Seconds (9.4-12.1) 06/11/17 13:44 - Attending Attestation I conducted a face to face diagnostic evaluation of this patient and my medical decision-making was reviewed with the Resident Physician, Dr Kesha Llamas. I agree with the documented findings, disposition and treatment plan as described except to the extent set forth below: Patient being treated for acute and chronic blood loss anemia secondary to radiation cystitis. She had cystoscopy done however she continues to have gross hematuria. We have exhausted our treatment options at this hospital. She had been planned for cystectomy to be done at [facility]. Given the fact that she required multiple transfusions and she is unstable for discharge home due to the moderate of blood loss she will need a curative option sooner rather later and therefore I suggested transferring her to [facility]. Patient understands the risks, benefits and alternatives of the transfer and agrees with the plan. Maximilian Gregorio MD
[2017-06-17] MEDS ORDERED: 0.9 % Sodium Chloride 250 ML ONE (09:48)
--- NOTE | 2017-06-17 10:38 | Urology Progress Note ---
Date of Encounter: 06/17/17 Time of Encounter: 10:34 - Assessment and Plan (1) Hematuria Current Visit: Yes Status: Chronic Assessment and plan: We discussed options. Again, we reviewed redo clot evacuation with catheter placement and CBI. She has not been keen on getting a catheter placed as it causes her significant discomfort. She has been opposed to a formalin solution. Lastly, I discussed possible transfer to [place], but it is unlikely that definitive surgery with the cystectomy and diversion would be expedited any quicker. We spent some time reviewing the risks and benefits of all these approaches. She continues to wish to proceed in a conservative manner. I did voice my concern that at some point if she continues to lose blood, more definitive treatment needs to be pursued. She still wishes to contemplate this. She has been hemodynamically stable. We will repeat transfusion. We will continue to follow along and discuss options for treatment further as her clinical condition dictates. Qualifiers: Hematuria type: gross Qualified Code(s): R31.0 - Gross hematuria (2) Hemorrhagic cystitis Current Visit: No Status: Chronic Progress Note Narrative: 7-year-old woman with radiation cystitis and hemorrhage. She did have a cystoscopy with clot evacuation, but her hemoglobin has drifted down today. It was 6.9 and a recheck was 7.2. There is a plan to give another transfusion today. Objective Initial Vital Signs Temp Pulse Resp BP Pulse Ox 98.3 F 115 20 135/68 97 06/11/17 11:19 06/11/17 11:19 06/11/17 11:19 06/11/17 11:19 06/11/17 11:19 - General physical appearance Present: well developed, well nourished, no distress - Respiratory Present: normal respiratory effort - Abdomen Present: soft - Labs 06/17/17 09:00 06/17/17 03:20 Diabetes panel 06/17/17 Range/Units 03:20 Sodium 141 (136-145) mEq/L Potassium 3.5 (3.5-5.1) mEq/L Chloride 109 H (98-107) mEq/L Carbon Dioxide 28 (23-29) mEq/L BUN 15 (8-23) mg/dL Creatinine 1.18 (0.60-1.20) mg/dL Glucose 112 H (70-105) mg/dL Calcium 8.2 L (8.6-10.3) mg/dL Calcium panel 06/17/17 Range/Units 03:20 Calcium 8.2 L (8.6-10.3) mg/dL Pituitary panel 06/17/17 Range/Units 03:20 Sodium 141 (136-145) mEq/L Potassium 3.5 (3.5-5.1) mEq/L Chloride 109 H (98-107) mEq/L Carbon Dioxide 28 (23-29) mEq/L BUN 15 (8-23) mg/dL Creatinine 1.18 (0.60-1.20) mg/dL Glucose 112 H (70-105) mg/dL Calcium 8.2 L (8.6-10.3) mg/dL Adrenal panel 06/17/17 Range/Units 03:20 Sodium 141 (136-145) mEq/L Potassium 3.5 (3.5-5.1) mEq/L Chloride 109 H (98-107) mEq/L Carbon Dioxide 28 (23-29) mEq/L BUN 15 (8-23) mg/dL Creatinine 1.18 (0.60-1.20) mg/dL Glucose 112 H (70-105) mg/dL Calcium 8.2 L (8.6-10.3) mg/dL - VTE Documentation of Mechanical Device: Venous foot pump, device Consult Discharge Plan - Plan Referrals: Mulu Gnogora DO [Primary Care Provider] - (web request sent on 06/13/17 )
[2017-06-17] MEDS: *HR* LORazepam 2 MG/ML VIAL IVP PRN (11:53)
--- NOTE | 2017-06-17 13:03 | Discharge Summary ---
<Kesha Llamas - Last Filed: 06/17/17 14:48> Date of Encounter: 06/17/17 Time of Encounter: 12:00 - Discharge Diagnosis (1) Hematuria Priority: Primary Status: Acute Qualifiers: Hematuria type: gross Qualified Code(s): R31.0 - Gross hematuria (2) UTI (urinary tract infection) Priority: Secondary Status: Acute Qualifiers: Urinary tract infection type: catheter-associated UTI Indwelling urinary catheter type: nephrostomy catheter Encounter type: initial encounter Qualified Code(s): T83.512A - Infection and inflammatory reaction due to nephrostomy catheter, initial encounter; N39.0 - Urinary tract infection, site not specified (3) Anemia Priority: Secondary Status: Acute Qualifiers: Anemia type: iron deficiency Iron deficiency anemia type: chronic blood loss Qualified Code(s): D50.0 - Iron deficiency anemia secondary to blood loss (chronic) (4) Radiation cystitis Priority: Secondary Status: Chronic (5) Radiation proctitis Priority: Secondary Status: Chronic (6) Vaginal cancer Priority: Secondary Status: Chronic (7) Constipation Priority: Secondary Status: Acute Qualifiers: Constipation type: drug induced constipation Qualified Code(s): K59.03 - Drug induced constipation - Discharge Medications Home Medications: Escitalopram [Lexapro] 10 mg PO DAILY 07/31/16 [History] Bupropion HCl [Wellbutrin Xl] 300 mg PO QAM 01/09/17 [History] hydrOXYzine HCl [Hydroxyzine HCl] 25 - 50 mg PO HS PRN 03/14/17 [History] Dicyclomine [Bentyl] 20 mg PO QID PRN 05/07/17 [History] Loperamide HCl [Imodium A-D] 2 mg PO PER PKG DI PRN 05/07/17 [History] Ferrous Sulfate 325 mg PO BID #60 tablet 05/08/17 [Rx] Aspirin/Acetaminophen/Caffeine [Excedrin Migraine Caplet] 2 each PO Q6H PRN [History] Allergies/Adverse Reactions: 3 Allergy/AdvReac Type Severity Reaction Status Date / Time NSAIDS (Non-Steroidal AdvReac See Verified 06/11/17 11:17 Anti-Inflamma Comments Date of admission: 06/11/17 17:08 Primary care physician: Ana Braswell Consults: [facility] Discharging clinician: Kesha Llamas Anticipated date of discharge: 06/17/17 - Patient Status Disposition: Transfer Short-Term Hosp Condition: Fair Functional capacity at discharge: independent ambulation Overall status at discharge: patient is not back to baseline - Discharge Instructions Instructions: Urinary Tract Infection in Women (DC), Anemia (GEN) Follow Up With: Mulu Gongora DO [Primary Care Provider] - (web request sent on 06/13/17 ) - Diet and Activity Activity: increase activity as tolerated Diet: advance to your usual diet Hospital course: Ms. Jasmine is a 61 year old female with history of vaginal cancer s/p radiation therapy complicated with radiation cystitis and proctitis, recurrent UTI with urine cultures from 05/16/17 grew Proteus mirabilis and urinary obstruction status post bilateral nephrostomy tube placement who presented to [facility] for acute onset of suprapubic pain and hematuria. In ED, patient was noted to have Hgb 7.0 and UA positive for blood, nitrite and leukocyte esterase. Patient was admitted on 06/11/17 for hematuria and UTI and started on IV Zosyn, which was switched to levofloxacin on 06/16/17. Patient's Hgb increased to 7.9 after 2 units of pRBC transfusion on admission. [facility] was consulted and had cystoscopy on 06/14/17 showing necrosis and oozing in the bladder but no visible bladder mass. Patient's Hgb remained stable around 7.7 since until the drop to as low as 6.9 on 06/17/17. 2 more units of pRBC were ordered. [facility] had discussed with patient multiple times regarding potential options include catheter placement with CBI or formalin bladder irrigation. But patient declines catheter placement due to associated discomfort and does not want intravesical fomralin. Attending hospitalist Dr. Gregorio and I had lengthy discussion with patient regarding further care plan. It appears that patient saw reconstructive urologist Dr. Castellanos at [facility] regarding possible simple cystectomy with ileal loop urinary diversion. Patient verbalized her understanding about her current condition including possible need of frequent pRBC transfusion. And patient agreed to be transferred to [facility] for further treatment regarding her persistent hematuria. Per [facility] transfer center, patient will be transferred to [facility] once the bed is available. - Time Spent with Patient Total time spent providing and/or coordinating discharge services: Greater than 30 minutes (47 minutes) - Constitutional Vitals: Temp Pulse Resp BP Pulse Ox 97.9 F 88 16 110/75 97 06/17/17 11:06 06/17/17 11:06 06/17/17 11:06 06/17/17 11:06 06/17/17 11:06 General appearance: Present: cooperative, A&O X 3, pleasant, no acute distress, obese, answers questions appropriately - Head Head exam: Present: atraumatic, normocephalic - Eye Eye exam: Present: EOMI, conjuntiva pink, sclera anicteric - Neck Neck exam general surgery: Present: supple, trachea midline - Respiratory Respiratory exam: Present: CTAB. Absent: accessory muscle use, rales, rhonchi, wheezes - Cardiovascular Cardiovascular exam: Present: RRR, +S1, +S2 - GI/Abdominal GI/Abdominal exam: Present: normal bowel sounds, soft, no peritoneal signs. Absent: tenderness - Additional comments: Red-color urine in the right nephrostomy bag. Clear urine inthe left nephrostomy bag. - Extremities Exam Extremities exam: Present: pedal edema (Mild), warm. Absent: cyanotic - Neurological Exam Neurological exam: Present: alert, no focal deficits. Absent: facial droop, speech deficit - Skin Skin exam: Present: dry, warm - VTE Documentation of Mechanical Device: Venous foot pump, device <Maximilian Gregorio - Last Filed: 06/18/17 16:44> Date of Encounter: 06/17/17 Date of admission: 06/11/17 17:08 Primary care physician: Ana Braswell Hospital course: Ms. Jasmine is a 61 year old female - Time Spent with Patient Total time spent providing and/or coordinating discharge services: - Constitutional Vitals: Temp Pulse Resp BP Pulse Ox 97.9 F 87 16 132/84 97 06/17/17 14:49 06/17/17 14:49 06/17/17 14:49 06/17/17 14:49 06/17/17 14:49 - Attending Attestation I conducted a face to face diagnostic evaluation of this patient and my medical decision-making was reviewed with the Resident Physician, Dr Kesha Llamas. I agree with the documented findings, disposition and treatment plan as described except to the extent set forth below: Patient is in no acute distress. Denies abdominal pain. Reports continued hematuria and passing blood clots. On exam heart is regular, lungs are clear. Abdomen is soft. Bilateral nephrostomy tubes draining clear yellow urine. Plan: Patient was evaluated by urology for persistent hematuria. She had cystoscopy with fulguration. She declined to have any further intervention, particularly formalin treatment and placement of a CBI. She has been evaluated for cystectomy at [facility]. We do not offer that procedure at our hospital. At this point we have exhausted our therapeutic options for her persistent hematuria at our hospital. We will transfer the patient to [facility] for further care. Maximilian Gregorio MD
[2017-06-17 14:47] VITALS: BP 132/84
== END 2017-06-17 15:52 | disposition short-term general hospital (02) | DRG 669 ==
LOC: EMEROO 11:15 → 2ANU 17:08 → SUATTDRO 17:08 → 2ANU 18:38
PROVIDERS: ADMIT Internal Medicine; ATTEND Internal Medicine

== ENCOUNTER 2018-04-03 01:05 | Inpatient (IN) ==
[2018-04-03] MEDS ORDERED: *HR* FentaNYL (PF) 100 MCG/2 ML VIAL IVP ONE (01:21)
[2018-04-03] MEDS ORDERED: 0.9 % Sodium Chloride 1,000 ML IVC ONE (01:21)
[2018-04-03] MEDS ORDERED: Ondansetron 4 MG/2 ML VIAL IVP ONE (01:21)
--- NOTE | 2018-04-03 01:35 | Emergency Department Note ---
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 Reports pain for a few days. She has diarrhea which is chronic. She saw her PCP recently who prescribed a new medication. States she started taking that. She had turkey at 6 PM yesterday and states that she thinks she might have a blockage. She has had no bowel movement since. Reports nausea and vomiting that is nonbloody and nonbilious. Reports normal appearing urine in her urostomy bag. No other complaints. Pt Subjective Complaint: abdominal pain Onset (ago): day(s) Consistency: intermittent Location: diffuse Pain Severity: moderate Pain Scale: 8 Migration to: no migration Improves with: nothing Worsens with: nothing Context: history of similar episodes Associated symptoms: Reports: nausea, vomiting, diarrhea. Denies: fever, dysuria, hematuria Treatments prior to arrival: none - Related Data Home Medications Medication Instructions Recorded Confirmed Escitalopram [Lexapro] 10 mg PO DAILY 07/31/16 06/11/17 Bupropion HCl [Wellbutrin Xl] 300 mg PO QAM 01/09/17 06/11/17 hydrOXYzine HCl [Hydroxyzine HCl] 25 - 50 mg PO HS PRN 03/14/17 06/11/17 Dicyclomine [Bentyl] 20 mg PO QID PRN 05/07/17 06/11/17 Loperamide HCl [Imodium A-D] 2 mg PO PER PKG DI PRN 05/07/17 06/11/17 Aspirin/Acetaminophen/Caffeine 2 each PO Q6H PRN 06/11/17 06/11/17 [Excedrin Migraine Caplet] Previous Rx's Medication Instructions Recorded Ferrous Sulfate 325 mg PO BID #60 tablet 05/08/17 Allergies Allergy/AdvReac Type Severity Reaction Status Date / Time NSAIDS (Non-Steroidal AdvReac See Verified 04/03/18 01:12 Anti-Inflamma Comments All systems ED: reviewed and negative except as stated. 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 Psychiatric history: Reports: anxiety, depression - Social History Smoking status: Never smoker Alcohol use: Reports: none Drug use: Reports: none Physical Exam - General Limitations: no limitations General appearance: alert, in no apparent distress - Head Head exam: atraumatic, normocephalic - Eye Eye exam: Present: normal appearance - ENT ENT exam: normal exam - Neck Neck exam: Present: normal inspection - Chest Chest inspection: Present: normal inspection, symmetric chest wall rise - Respiratory Respiratory exam: Present: normal lung sounds bilaterally - Cardiovascular Cardiovascular exam: Present: regular rate, normal rhythm, normal heart sounds - Abdominal Exam Abdominal exam: Present: soft, tenderness (Diffuse moderate tenderness), other ( Ventral vertical prior incision. Urostomy bag with yellow tinged urine in the bag.). Absent: distention, guarding, rigidity - Extremities Exam Extremities exam: Present: normal inspection, full ROM - Expanded Upper Extremity Exam Shoulder exam: Present: normal inspection, full ROM Arm exam: Present: normal inspection, full ROM Elbow exam: Present: normal inspection, full ROM Forearm/Wrist exam: Present: normal inspection, full ROM Hand exam: Present: normal inspection, full ROM - Expanded Lower Extremity Exam Hip/Pelvis exam: Present: normal inspection, full ROM Upper leg exam: Present: normal inspection, full ROM Knee exam: Present: normal inspection, full ROM Lower leg exam: Present: normal inspection, full ROM Ankle exam: Present: normal inspection, full ROM Foot/toe exam: Present: normal inspection, full ROM - Skin Skin exam: Present: warm, dry Course Course Narrative: Patient seen and examined. Vital signs reviewed. Plan for CT imaging given her extensive intra-abdominal procedures, labs, urinalysis. The patient will be given IV fluids, pain and nausea medications. - Reevaluation(s) Reevaluation #1: Discussed results of imaging labs with the patient. Discussed options of potentially being admitted here versus being transferred to [place]. The patient would rather be admitted here if at all possible. She understands that if in any time she is deemed necessary to require surgical intervention this cannot be performed here and she would require transfer of which she is in agreement with. - Consultations Consultation #1: I spoke with the on-call surgeon Dr. Alvarez. Discussed the patient's history , exam, imaging and labs. Discussed the patient's preference to be admitted here with the knowledge that if she requires surgery she would have to be transferred. He is in agreement to see the patient in consultation and to be admitted to the hospitalist service. Vital Signs Temperature 98 F 04/03/18 01:12 Pulse Rate 93 04/03/18 01:12 Respiratory Rate 16 04/03/18 01:12 Blood Pressure 169/101 04/03/18 01:12 O2 Sat by Pulse Oximetry 99 04/03/18 01:12 Temperature 98 F 04/03/18 01:12 Pulse Rate 85 04/03/18 03:02 Respiratory Rate 14 04/03/18 03:02 Blood Pressure 131/79 04/03/18 03:02 O2 Sat by Pulse Oximetry 99 04/03/18 03:02 Oxygen Delivery Oxygen Delivery Room Air Abdominal Pain - MDM Narrative Medical decision making narrative: 62-year-old female presenting with abdominal pain nausea and vomiting. Extensive surgical history. Imaging today with concerns for a distal small bowel obstruction. Her labs are grossly unremarkable. This case was discussed with general surgery who is in consultation with the patient. She is admitted to the hospitalist service with general surgery consultation. It was discussed with the patient and she is aware that if she require surgical intervention she will need to be transferred to [facility]. - Lab Data Lab results reviewed: Yes I reviewed the patient's lab results. Result diagrams: 04/03/18 01:24 04/03/18 01:24 Lab Results 04/03/18 04/03/18 04/03/18 Range/Units 01:24 01:24 01:24 WBC 7.7 (4.3-11.1) K/mcL RBC 4.51 (3.82-4.97) M/mcL Hgb 12.9 (11.5-15.4) g/dL Hct 40.0 (35.3-44.9) % MCV 88.7 (83.0-100.0) fL MCH 28.6 (28.0-33.3) pg MCHC 32.3 (31.6-35.5) g/dL RDW 13.8 (11.5-14.5) % Plt Count 242 (140-400) K/mcL MPV 10.0 (9.4-12.4) fL Immature Gran % 0.3 (0-4) % Seg Neutrophils % 85.2 % Lymphocytes % 8.3 % Monocytes % 4.1 % Eosinophils % 1.6 % Basophils % 0.5 % Neutrophils # 6.6 (1.6-8.9) K/mcL Lymphocytes # 0.6 (0.6-4.6) K/mcL Monocytes # 0.3 (0.0-1.3) K/mcL Eosinophils # 0.1 (0.0-0.6) K/mcL Basophils # 0.0 (0.0-0.2) K/mcL PT 11.6 (9.4-12.1) Seconds INR 1.0 Sodium 139 (136-145) mEq/L Potassium 3.7 (3.5-5.1) mEq/L Chloride 106 (98-107) mEq/L Carbon Dioxide 22 L (23-29) mEq/L BUN 22 (8-23) mg/dL Creatinine 1.14 (0.60-1.20) mg/dL Est GFR ( Amer) 59 L (> 60) Est GFR (Non-Af Amer) 48 L (> 60) BUN/Creatinine Ratio 19 (6-26) Glucose 166 H (70-105) mg/dL Calculated Osmolality 295 (280-300) Calcium 9.3 (8.6-10.3) mg/dL Total Bilirubin 0.5 (0.3-1.0) mg/dL Direct Bilirubin 0.1 (0.0-0.2) mg/dL Indirect Bilirubin 0.4 (0.0-1.2) mg/dL AST 25 (13-39) Units/L ALT 19 (7-52) Units/L Alkaline Phosphatase 124 H (34-104) Units/L Serum Total Protein 7.2 (6.4-8.9) g/dL Albumin 4.3 (3.5-5.7) g/dL Globulin 2.9 (2.4-3.5) g/dL Albumin/Globulin Ratio 1.5 (1.1-2.2) Lipase 14 (11-82) Units/L - Radiology Data Radiology results reviewed: Yes I reviewed the patient's radiology results. Abdomen/Pelvis CT 04/03/18 01:26 IMPRESSION: Mechanical small bowel obstruction similar to exam from 11/12/2017, with transition point at the anastomosis of the distal small bowel. Colonic air-fluid levels suggest diarrheal illness. Postsurgical changes of prior cystectomy with neobladder and ileal conduit formation. Cholelithiasis without evidence cholecystitis. D/ / Sage Miller / Sage Miller Interpreting Provider: Sage Miller - EKG Data EKG attestation: Yes I reviewed and interpreted this EKG. EKG results narrative: EKG demonstrates sinus rhythm with rate of 92 beats or minute. Left axis deviation. Normal intervals. Normal R-wave progression. No gross ST elevations or depressions. No acute ischemic findings. No significant changes from previous EKG dated 06/11/17. S.B.A.R. - S.B.A.R. Situation: Demographics, MOA Background: Presenting Complaint, Relevant PMH, Meds, & Allergies Assessment: Vital Signs, Course and respsone to treatment, Exam Concerns, Patient/Family Expectation, Pertinant Lab Results Recommendation: Barrier(s) to disposition, Recommendation based on pending studies, treatments, or consults S.B.A.R. Report Given to: Dr. Jose Lugo Repor Time: 03:12 (Requests Mag level & mIVF w/ 40K)
[2018-04-03 01:36] LABS: Basophils % 0.5 %; Eosinophils # 0.1 K/mcL (0.0-0.6); Eosinophils % 1.6 %; Hemoglobin 12.9 g/dL (11.5-15.4); Immature Granulocytes % 0.3 % (0-4); Lymphocytes # 0.6 K/mcL (0.6-4.6); Lymphocytes % 8.3 %; Mean Corpuscular HGB Conc 32.3 g/dL (31.6-35.5); Mean Corpuscular Hemoglobin 28.6 pg (28.0-33.3); Mean Corpuscular Volume 88.7 fL (83.0-100.0); Monocytes # 0.3 K/mcL (0.0-1.3); Monocytes % 4.1 %; Neutrophils # 6.6 K/mcL (1.6-8.9); Platelet Count 242 K/mcL (140-400); Red Blood Count 4.51 M/mcL (3.82-4.97); Red Cell Distribution Width 13.8 % (11.5-14.5); Segmented Neutrophils % 85.2 %
[2018-04-03 01:41] LABS: Prothrombin Time 11.6 Seconds (9.4-12.1)
[2018-04-03 02:00] LABS: Albumin 4.3 g/dL (3.5-5.7); Albumin/Globulin Ratio 1.5 (1.1-2.2); Bilirubin,Direct 0.1 mg/dL (0.0-0.2); Bilirubin,Indirect 0.4 mg/dL (0.0-1.2); Bilirubin,Total 0.5 mg/dL (0.3-1.0); Calcium 9.3 mg/dL (8.6-10.3); Globulin 2.9 g/dL (2.4-3.5); Potassium 3.7 mEq/L (3.5-5.1); Total Protein 7.2 g/dL (6.4-8.9)
[2018-04-03] MEDS ORDERED: Ketorolac 15 MG/ML VIAL IVP PRN (03:07)
[2018-04-03] MEDS ORDERED: Naloxone 0.4 MG/ML INJ IVP PRN (03:07)
[2018-04-03] MEDS ORDERED: OXYCODONE Oral CONC 10 MG/0.5 ML ORAL.SYG SL PRN ×2 (03:07→07:36)
[2018-04-03] MEDS ORDERED: *HR* HYDROcodone/Acet 5/325 mg TABLET PO PRN (03:07)
--- NOTE | 2018-04-03 03:14 | Internal Med History&Physical ---
Date of Encounter: 04/03/18 Time of Encounter: 04:00 Internal Medicine - H&P: HPI Chief complaint: Abdominal Pain History of present illness: Ms. 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 She reports having turkey at 6 PM yesterday and states that since then she has had worsening diffuse colicky abdominal pain and distention Shortly thereafter patient began having nausea and vomiting followed by dry heaves.. She reports vomiting almost a gallon of fluid into a Ziploc plastic bag containing nonbloody nonbilious emesis. Her last bowel movement was yesterday morning and she reports she has been having loose stools for the past couple weeks, sometimes up to 10 episodes of diarrhea a day. She recently saw her primary care physician who put her on a new antidiarrheal medication. CT scan of the abdomen and pelvis was performed which showed mechanical small bowel obstruction. Case discussed with Dr. Alvarez with surgery who agreed to see patient with the understanding and agreement by the patient that if she requires surgical intervention, given her history of radiation proctitis, that it could not be performed here and would require transfer to [place]. No reports of fever, chills. Patient's nausea and vomiting has subsided after receiving antiemetics in the ED. As such NG tube deferred. Past Med Surg Social Fam HX - Past Medical History Medical history: cancer, pulmonary embolus, renal disease, other Additional medical history: anemia Psychiatric history: anxiety, depression - Past Surgical History Surgical History: hysterectomy (Total), other (Bilateral nephrostomy tube placement) Additional surgical history: nephrostomy tube placement, radiation proctitis, ostomy - Social History Smoking Status: Never smoker Smokeless Tobacco Status: No Alcohol use: none Drug use: none - Family History Mother Adopted: No Family Member Ethnicity: Non- Living Status: Hx Family Cardiac Disorders: No Hx Family Respiratory Disorders: No Hx Family Cancer: Yes (Breast CA w/mets) Hx Family GI Disorders: No Hx Family Endocrine Disorder: No Hx Family Neuromuscular Disorders: No Hx Family Neurologic Disorders: No Hx Family HEENT Disorders: No Hx Family Autoimmune Disorders: No Father Adopted: No Family Member Ethnicity: Non- Living Status: Hx Family Cardiac Disorders: Yes (PE from AAA repair) Hx Family Respiratory Disorders: No Hx Family Cancer: No Hx Family GI Disorders: No Hx Family Endocrine Disorder: No Hx Family Neuromuscular Disorders: No Hx Family Neurologic Disorders: No Hx Family HEENT Disorders: No Hx Family Autoimmune Disorders: No Sister Family Member Ethnicity: Non- Living Status: Still Living Internal Medicine - H&P: Meds Escitalopram [Lexapro] 10 mg PO DAILY 07/31/16 [History] Bupropion HCl [Wellbutrin Xl] 300 mg PO QAM 01/09/17 [History] hydrOXYzine HCl [Hydroxyzine HCl] 25 - 50 mg PO HS PRN 03/14/17 [History] Dicyclomine [Bentyl] 20 mg PO QID PRN 05/07/17 [History] Loperamide HCl [Imodium A-D] 2 mg PO PER PKG DI PRN 05/07/17 [History] Ferrous Sulfate 325 mg PO BID #60 tablet 05/08/17 [Rx] Aspirin/Acetaminophen/Caffeine [Excedrin Migraine Caplet] 2 each PO Q6H PRN [History] Omeprazole Magnesium [Prilosec Otc] 20 mg PO DAILY 04/03/18 [History] 3 Allergy/AdvReac Type Severity Reaction Status Date / Time NSAIDS (Non-Steroidal AdvReac See Verified 04/03/18 01:12 Anti-Inflamma Comments All Systems PM: A 10-system review of systems was performed and is negative for pertinent findings except as documented above in the HPI. - Constitutional Constitutional: no chills, no fever(s), no night sweats - EENT Eyes: no change in vision, no discharge, no pain, no photophobia Ears: no ear discharge, no ear pain, no tinnitus Nose, mouth and throat: no dysphagia, no nasal discharge, no neck pain, no sore throat - Cardiovascular Cardiovascular ROS IM: no chest pain, no diaphoresis, no dyspnea, no lightheadedness, no palpitations, no syncope - Respiratory Respiratory: no cough, no dyspnea, no wheezing, no excessive phlegm production - Gastrointestinal Gastrointestinal: no abdominal pain, no diarrhea, no hematemesis, no hematochezia, no melena, no nausea, no vomiting - Genitourinary Genitourinary: no change in urinary stream, no dysuria, no flank pain, no hematuria - Musculoskeletal Musculoskeletal ROS IM: no numbness, no tingling - Integumentary Integumentary IM: no rash, no unusual bruising - Neurological Neurological ROS: no confusion, no convulsions, no focal weakness, no numbness, no tingling, no tremor(s) - Hematologic/Lymphatic Hematologic/Lymphatic: no easy bruising - Constitutional Vitals: Temp Pulse Resp BP Pulse Ox 98 F 85 14 131/79 99 04/03/18 01:12 04/03/18 03:02 04/03/18 03:02 04/03/18 03:02 04/03/18 03:02 Exam: General: Alert and oriented 3; lying in bed in no acute distress Skin:Normal color, no rash, no lesions. HEENT:EOM, pupils equal, round and reactive. Cardiovascular:Normal S1 & S2, no rubs, murmurs or gallops. No JVD. Pulse regular. Lungs:Normal breath sounds, no wheezes or crackles. Abdomen:Soft, diffusely tender, positive bowel sounds, no rigidity. Ileostomy bag in place with urine output Extremities:No deformity, no edema or tenderness, no joint swelling or clubbing. Neurological:Normal cognition and motor skills. Pulses:Carotid and radial pulses normal +2. Rest of the physical exam is non contributory Internal Med - H&P Results - Labs CBC & Chem 7: 04/03/18 01:24 04/03/18 01:24 Labs: Short CBC 04/03/18 Range/Units 01:24 WBC 7.7 (4.3-11.1) K/mcL Hgb 12.9 (11.5-15.4) g/dL Hct 40.0 (35.3-44.9) % Plt Count 242 (140-400) K/mcL Neutrophils # 6.6 (1.6-8.9) K/mcL BMP 04/03/18 01:24 Sodium 139 Potassium 3.7 Chloride 106 Carbon Dioxide 22 L BUN 22 Creatinine 1.14 Glucose 166 H Calcium 9.3 Liver Function 04/03/18 Range/Units 01:24 Total Bilirubin 0.5 (0.3-1.0) mg/dL Direct Bilirubin 0.1 (0.0-0.2) mg/dL AST 25 (13-39) Units/L ALT 19 (7-52) Units/L Alkaline Phosphatase 124 H (34-104) Units/L Albumin 4.3 (3.5-5.7) g/dL - Impressions ITS Impressions Abdomen/Pelvis CT 04/03/18 01:26 IMPRESSION: Mechanical small bowel obstruction similar to exam from 11/12/2017, with transition point at the anastomosis of the distal small bowel. Colonic air-fluid levels suggest diarrheal illness. Postsurgical changes of prior cystectomy with neobladder and ileal conduit formation. Cholelithiasis without evidence cholecystitis. D/ / Sage Miller / Sage Miller Interpreting Provider: Sage Miller - Assessment and plan (1) Small bowel obstruction Current Visit: Yes Status: Acute Assessment and plan: Acute onset nausea vomiting and abdominal pain shortly after a meal in the setting of previous history of small bowel obstruction and extensive surgical history. CT of the abdomen and pelvis shows mechanical small bowel obstruction similar to exam from 11/12/2017 with transition point at the anastomosis of the distal small bowel. Patient does report that she is passing gas. No further episodes of nausea vomiting, or dry heaves. Case discussed with surgery. Given patient's history of radiation proctitis, surgery agreed to consult but advise transfer to [place] if surgical intervention would be required. Patient is in agreement. She is currently stable with no further episodes of nausea or vomiting. NG tube was deferred. We will keep patient nothing by mouth. Antibiotics and pain control as needed. Monitor electrolytes. (2) Ileostomy present Current Visit: Yes Status: Acute Assessment and plan: Diverting ileostomy status post bladder resection. Ileostomy bag in place with an good amount of urine output. Monitor. (3) DVT prophylaxis Current Visit: No Status: Acute - Time Spent With Patient Total time spent is greater than 50% in coordination of care (as documented) at patient's floor/unit and/or counseling patient:
[2018-04-03] MEDS: 0.9 % Sodium Chloride w KCl 40 MEQ/1,000 ML MLS IVC SCH ×2 (03:34→12:36)
--- NOTE | 2018-04-03 03:40 | Emergency Department Note ---
Disposition Clinical Impression: Small bowel obstruction Disposition: Admitted As Inpatient Condition: Good General Adult HPI - General Chief complaint: ED Abdominal Pain Stated complaint: abd pain n/v Time Seen by Provider: 04/03/18 01:11 Source: patient, EMS Limitations: no limitations Nursing Notes Reviewed: Yes Vital Signs Reviewed: Yes - History of Present Illness Pain Scale: 8 - Related Data Home Medications Medication Instructions Recorded Confirmed Escitalopram [Lexapro] 10 mg PO DAILY 07/31/16 06/11/17 Bupropion HCl [Wellbutrin Xl] 300 mg PO QAM 01/09/17 06/11/17 hydrOXYzine HCl [Hydroxyzine HCl] 25 - 50 mg PO HS PRN 03/14/17 06/11/17 Dicyclomine [Bentyl] 20 mg PO QID PRN 05/07/17 06/11/17 Loperamide HCl [Imodium A-D] 2 mg PO PER PKG DI PRN 05/07/17 06/11/17 Aspirin/Acetaminophen/Caffeine 2 each PO Q6H PRN 06/11/17 06/11/17 [Excedrin Migraine Caplet] Previous Rx's Medication Instructions Recorded Ferrous Sulfate 325 mg PO BID #60 tablet 05/08/17 Allergies Allergy/AdvReac Type Severity Reaction Status Date / Time NSAIDS (Non-Steroidal AdvReac See Verified 04/03/18 01:12 Anti-Inflamma Comments Constitutional: Denies: fever Gastrointestinal: Reports: abdominal pain, nausea, vomiting, diarrhea Genitourinary: Denies: dysuria, hematuria Past Medical History - Past Medical History Medical history: Reports: cancer, pulmonary embolus, renal disease, other Surgical history: Reports: hysterectomy (Total), other (Bilateral nephrostomy tube placement) Psychiatric history: Reports: anxiety, depression 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 - Social History Smoking Status: Never smoker Smokeless Tobacco Status: No Alcohol use: Reports: none Drug use: Reports: none Physical Exam - General Limitations: no limitations General appearance: alert, in no apparent distress Course Vital Signs Temperature 98 F 04/03/18 01:12 Pulse Rate 93 04/03/18 01:12 Respiratory Rate 16 04/03/18 01:12 Blood Pressure 169/101 04/03/18 01:12 O2 Sat by Pulse Oximetry 99 04/03/18 01:12 Temperature 98 F 04/03/18 01:12 Pulse Rate 85 04/03/18 03:02 Respiratory Rate 14 04/03/18 03:02 Blood Pressure 131/79 04/03/18 03:02 O2 Sat by Pulse Oximetry 99 04/03/18 03:02 Oxygen Delivery Oxygen Delivery Room Air Medical Decision Making - Medical Records Medical records reviewed: Yes I reviewed the patient's medical records. - Lab Data Lab results reviewed: Yes I reviewed the patient's lab results. Result diagrams: 04/03/18 01:24 04/03/18 01:24 Lab Results 04/03/18 04/03/18 04/03/18 Range/Units 01:24 01:24 01:24 WBC 7.7 (4.3-11.1) K/mcL RBC 4.51 (3.82-4.97) M/mcL Hgb 12.9 (11.5-15.4) g/dL Hct 40.0 (35.3-44.9) % MCV 88.7 (83.0-100.0) fL MCH 28.6 (28.0-33.3) pg MCHC 32.3 (31.6-35.5) g/dL RDW 13.8 (11.5-14.5) % Plt Count 242 (140-400) K/mcL MPV 10.0 (9.4-12.4) fL Immature Gran % 0.3 (0-4) % Seg Neutrophils % 85.2 % Lymphocytes % 8.3 % Monocytes % 4.1 % Eosinophils % 1.6 % Basophils % 0.5 % Neutrophils # 6.6 (1.6-8.9) K/mcL Lymphocytes # 0.6 (0.6-4.6) K/mcL Monocytes # 0.3 (0.0-1.3) K/mcL Eosinophils # 0.1 (0.0-0.6) K/mcL Basophils # 0.0 (0.0-0.2) K/mcL PT 11.6 (9.4-12.1) Seconds INR 1.0 Sodium 139 (136-145) mEq/L Potassium 3.7 (3.5-5.1) mEq/L Chloride 106 (98-107) mEq/L Carbon Dioxide 22 L (23-29) mEq/L BUN 22 (8-23) mg/dL Creatinine 1.14 (0.60-1.20) mg/dL Est GFR ( Amer) 59 L (> 60) Est GFR (Non-Af Amer) 48 L (> 60) BUN/Creatinine Ratio 19 (6-26) Glucose 166 H (70-105) mg/dL Calculated Osmolality 295 (280-300) Calcium 9.3 (8.6-10.3) mg/dL Total Bilirubin 0.5 (0.3-1.0) mg/dL Direct Bilirubin 0.1 (0.0-0.2) mg/dL Indirect Bilirubin 0.4 (0.0-1.2) mg/dL AST 25 (13-39) Units/L ALT 19 (7-52) Units/L Alkaline Phosphatase 124 H (34-104) Units/L Serum Total Protein 7.2 (6.4-8.9) g/dL Albumin 4.3 (3.5-5.7) g/dL Globulin 2.9 (2.4-3.5) g/dL Albumin/Globulin Ratio 1.5 (1.1-2.2) Lipase 14 (11-82) Units/L - Radiology Data Radiology results reviewed: Yes I reviewed the patient's radiology results. Abdomen/Pelvis CT 04/03/18 01:26 IMPRESSION: Mechanical small bowel obstruction similar to exam from 11/12/2017, with transition point at the anastomosis of the distal small bowel. Colonic air-fluid levels suggest diarrheal illness. Postsurgical changes of prior cystectomy with neobladder and ileal conduit formation. Cholelithiasis without evidence cholecystitis. D/ / Sage Miller / Sage Miller Interpreting Provider: Sage Miller - EKG Data EKG #1 EKG attestation: Yes I reviewed and interpreted this EKG. EKG results narrative: EKG shows a normal sinus rhythm with ventricular rate of 92. Left axis deviation, minimal ST segment depression in anterior and lateral leads. Attestation Statement - Attestation Attestation: I, Moose Salgado MD, personally evaluated this patient and discussed their management with the resident physician. I reviewed the resident's note and agree with the documented findings, medical decision making, and plan of care. 62-year-old female presents to the emergency department with a complaint of nausea and vomiting and abdominal pain that started about 6 PM this evening. Patient states she had some diarrhea yesterday morning which is not unusual but has had no bowel movement since. Patient has had extensive abdominal surgeries as well as radiation and has a history of recurrent bowel obstructions with similar symptoms. No fever. No melena, hematemesis, or hematochezia. On examination patient is a well-developed well-nourished female in no acute distress. She is alert and oriented 3. There is no cyanosis or diaphoresis. Breath sounds are clear and equal bilaterally. Heart regular rate and rhythm. Abdomen is soft with some minimal diffuse tenderness. Slightly increased bowel sounds. No tympany or distention. No guarding or rebound. Labs reviewed. CT consistent with a mechanical distal small bowel obstruction similar to her previous obstruction. Patient had essentially complete relief of her symptoms after IV fluids, Zofran , and fentanyl. Dr. Flores discussed the case with the surgeon court commissioner, Dr. Alvarez. He agrees to consult on the patient in the hospital. The hospitalist, Dr. Garcia, was consulted and accepted admission of the patient.
[2018-04-03 03:41] LABS: Magnesium 2.3 mg/dL (1.6-2.6)
[2018-04-03] MEDS ORDERED: Ondansetron 4 MG/2 ML VIAL IVP PRN (04:59)
[2018-04-03] MEDS: *HR* Heparin 5,000 UNIT/ML VIAL SQ SCH ×3 (05:33→20:26)
[2018-04-03 06:23] LABS: Basophils % 0.5 %; Eosinophils % 0.3 %; Hematocrit 37.9 % (35.3-44.9); Hemoglobin 11.9 g/dL (11.5-15.4); Immature Granulocytes % 0.3 % (0-4); Lymphocytes % 15.4 %; Mean Corpuscular HGB Conc 31.4 g/dL (31.6-35.5); Mean Corpuscular Hemoglobin 28.3 pg (28.0-33.3); Mean Platelet Volume 10.2 fL (9.4-12.4); Monocytes # 0.4 K/mcL (0.0-1.3); Monocytes % 6.6 %; Neutrophils # 4.9 K/mcL (1.6-8.9); Platelet Count 245 K/mcL (140-400); Red Blood Count 4.21 M/mcL (3.82-4.97); Red Cell Distribution Width 13.8 % (11.5-14.5); Segmented Neutrophils % 76.9 %
[2018-04-03 06:38] LABS: Alanine Aminotransferase 16 Units/L (7-52); Albumin 3.8 g/dL (3.5-5.7); Albumin/Globulin Ratio 1.5 (1.1-2.2); Alkaline Phosphatase 108 Units/L (34-104); Aspartate Amino Transferase 21 Units/L (13-39); BUN/Creatinine Ratio 19 (6-26); Bilirubin,Total 0.4 mg/dL (0.3-1.0); Blood Urea Nitrogen 19 mg/dL (8-23); Calcium 8.7 mg/dL (8.6-10.3); Carbon Dioxide 22 mEq/L (23-29); Chloride 111 mEq/L (98-107); Globulin 2.6 g/dL (2.4-3.5); Glucose 125 mg/dL (70-105); Osmolality,Calculated 296 (280-300); Potassium 4.1 mEq/L (3.5-5.1); Sodium 141 mEq/L (136-145); Total Protein 6.4 g/dL (6.4-8.9); eGFR For Non-African Americans 56 (> 60)
--- NOTE | 2018-04-03 08:21 | Internal Med Progress Note ---
<Shreyas Bassett - Last Filed: 04/03/18 16:43> Hospitalist Progress Note - Encounter Date of Encounter: 04/03/18 Time of Encounter: 15:22 - Subjective Interval History: Ms. Jasmine is a 62F with PMH of cancer s/p hysterectomy, bladder resection with cystostomy, and hx of small bowel resection. She recently had a SBO in October , which was preceded by multiple She presented to the ED on 04/03 complaining of abdominal pain, nausea, and vomiting. Surgery said pt is not a good surgical candidate and if surgery is required should be transferred to another facility. Pt seen and examined at bedside. Pt states she feels better than early this morning. Admits to some mild abdominal pain, which has improved with medication. States she has been passing flatus, but no bowel movements at this time. Nausea has improved. No further vomiting. Denies any fever, chills, chest pain, shortness of breath, headache, numbness, or tingling. - Exam Vitals: Temp Pulse Resp BP Pulse Ox 98.2 F 76 18 118/76 97 04/03/18 07:53 04/03/18 07:53 04/03/18 07:53 04/03/18 07:53 04/03/18 07:53 Exam: Constitutional: well developed, well nourished female. no acute distress Head: normocephalic, atraumatic Eyes: PERRL, EOMI, no scleral icterus Neck: supple, trachea midline, no lymphadenopathy Lungs: CTA bilaterally. non-labored breathing. no wheezes, rales, or rhonchi Heart: RRR +S1 +S2. no murmurs, clicks, or rubs appreciated GI: abdomen soft, mildly tender, mildly distended, cystostomy in place Extremities: radial pulses palpable and symmetrical. no cyanosis or edema Neuro: A&Ox3. no focal deficits. no speech difficulty or abnormality Skin: warm, dry, intact - Assessment and Plan (1) Small bowel obstruction Current Visit: Yes Status: Acute Assessment and Plan: Pt has extensive hx of abdominal surgeries and SBOs CT abdomen/pelvis from ED revealed SBO near anastomosis site Per surgery recs: Since passing flatus, ok to advance to [facility] (2) Cystostomy in place Current Visit: Yes Status: Acute DVT Prophylaxis: SQ Heparin - Time Spent with Patient Total time spent is greater than 50% in coordination of care (as documented) at patient's floor/unit and/or counseling patient: Internal Medicine: Result - Labs CBC & Chem 7: 04/03/18 06:00 04/03/18 06:00 Labs: Short CBC 04/03/18 Range/Units 06:00 WBC 6.4 (4.3-11.1) K/mcL Hgb 11.9 (11.5-15.4) g/dL Hct 37.9 (35.3-44.9) % Plt Count 245 (140-400) K/mcL Neutrophils # 4.9 (1.6-8.9) K/mcL BMP 04/03/18 06:00 Sodium 141 Potassium 4.1 Chloride 111 H Carbon Dioxide 22 L BUN 19 Creatinine 1.00 Glucose 125 H Calcium 8.7 Liver Function 04/03/18 Range/Units 06:00 Total Bilirubin 0.4 (0.3-1.0) mg/dL AST 21 (13-39) Units/L ALT 16 (7-52) Units/L Alkaline Phosphatase 108 H (34-104) Units/L Albumin 3.8 (3.5-5.7) g/dL - ABG Interpretation ABG results: PT/INR, D-dimer PT 11.6 Seconds (9.4-12.1) 04/03/18 01:24 Consult Discharge Plan - Plan Referrals: Mulu Gongora DO [Primary Care Provider] - <Dariana Shannon - Last Filed: 04/03/18 17:38> Hospitalist Progress Note - Encounter Date of Encounter: 04/03/18 - Exam Vitals: Temp Pulse Resp BP Pulse Ox 98.7 F 78 19 134/83 99 04/03/18 17:02 04/03/18 17:02 04/03/18 17:02 04/03/18 17:02 04/03/18 17:02 - Assessment and Plan (1) Small bowel obstruction Current Visit: Yes Status: Acute (2) Cystostomy in place Current Visit: Yes Status: Acute - Time Spent with Patient Total time spent is greater than 50% in coordination of care (as documented) at patient's floor/unit and/or counseling patient: Internal Medicine: Result - Labs CBC & Chem 7: 04/03/18 06:00 04/03/18 06:00 - ABG Interpretation ABG results: PT/INR, D-dimer PT 11.6 Seconds (9.4-12.1) 04/03/18 01:24 - Attending Attestation Seen and assessed. Agree with plan per resident Small bowel obstruction. Follow surgery recs and advance diet as tolerated
--- NOTE | 2018-04-03 10:50 | General Surgery Consult Note ---
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 She reports having a BM and passing gas today. She states her abdominal discomfort has resolved. She requests some clear liquids. Given resolution of symptoms, trial of CLD is a reasonable choice. I did further review with patient if she has any return of symptoms she would need an NG placed and transfer to [facility] as [facility] is unable to offer surgical intervention given her history. Pt is reluctantly agreeable as she states her previous surgeon is no longer there, but she understands that we do not provide the surgical service indicated. Trial CLD, limited, no carbonation. Serial abdominal exams Recommend follow-up with surgeon at [facility] within one week after d/c. History of Present Illness Consult date: 04/02/18 (Dr. 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 Her other past medical, surgical, and social histories were reviewed per the electronic medical record. She presented on 04/02/2018 with a one-day history of colicky abdominal pain and distention. She reports at approximately 6 PM she ate some turkey and then began having abdominal pain. She reports she began vomiting and filled up almost a gallon Ziploc bag. Her vomiting then progressed to dry heaves. She reports a normal bowel movement on the day the symptoms started but shortly after developing nausea and vomiting, she stopped passing flatus. Prior to this episode, she reports up to 10 episodes of diarrhea daily. She denies fever , chills, headache, dizziness, chest pain, shortness of breath, generalized weakness, black, bloody, or tarry stool. Her clinical course thus far has included an unremarkable CBC. She completed a CT of the abdomen and pelvis without contrast which noted mechanical small bowel obstruction similar to october/2017 with a transition point at the anastomosis of the distal small bowel, colonic air fluid filled suggesting diarrheal illness, postsurgical changes of cystectomy, neobladder and ileal conduit formation. Surgery has been asked to evaluate this patient for recommendations regarding possible small bowel obstruction Past Med Surg Social Fam HX - Past Medical History Source: patient, old records reviewed Medical history: cancer, pulmonary embolus, renal disease, other Additional medical history: anemia Psychiatric history: anxiety, depression - Past Surgical History Surgical History: hysterectomy (Total), other (Bilateral nephrostomy tube placement) Additional surgical history: nephrostomy tube placement, radiation proctitis, ostomy; cystectomy with ileal conduit - Social History Smoking Status: Never smoker Smokeless Tobacco Status: No Alcohol use: none Drug use: none - Family History Mother Adopted: No Family Member Ethnicity: Non- Living Status: Hx Family Cardiac Disorders: No Hx Family Respiratory Disorders: No Hx Family Cancer: Yes (Breast CA w/mets) Hx Family GI Disorders: No Hx Family Endocrine Disorder: No Hx Family Neuromuscular Disorders: No Hx Family Neurologic Disorders: No Hx Family HEENT Disorders: No Hx Family Autoimmune Disorders: No Father Adopted: No Family Member Ethnicity: Non- Living Status: Hx Family Cardiac Disorders: Yes (PE from AAA repair) Hx Family Respiratory Disorders: No Hx Family Cancer: No Hx Family GI Disorders: No Hx Family Endocrine Disorder: No Hx Family Neuromuscular Disorders: No Hx Family Neurologic Disorders: No Hx Family HEENT Disorders: No Hx Family Autoimmune Disorders: No Sister Family Member Ethnicity: Non- Living Status: Still Living Medications and Allergies Bupropion HCl [Wellbutrin Xl] 300 mg PO DAILY 04/03/18 [History] Dicyclomine [Bentyl] 20 mg PO QID PRN 04/03/18 [History] Diphenoxylate/Atropine [Lomotil 2.5 mg/0.025 mg] 1 tab PO QID PRN 04/03/18 [ History] Ergocalciferol (VITAMIN D2) [Vitamin D2] 50,000 unit PO FR 04/03/18 [History] Escitalopram [Lexapro] 10 mg PO DAILY 04/03/18 [History] Ferrous Sulfate 325 mg PO WE 04/03/18 [History] Pantoprazole Sodium [Protonix] 40 mg PO DAILY 04/03/18 [History] 3 Allergy/AdvReac Type Severity Reaction Status Date / Time NSAIDS (Non-Steroidal AdvReac See Verified 04/03/18 01:12 Anti-Inflamma Comments Review of Systems All systems PM: reviewed and no additional remarkable complaints except as stated All systems PM: The remainder of the systems were reviewed and are negative General Surgery Exam Initial Vital Signs Temp Pulse Resp BP Pulse Ox 98 F 93 16 169/101 99 04/03/18 01:12 04/03/18 01:12 04/03/18 01:12 04/03/18 01:12 04/03/18 01:12 VITAL SIGNS: Reviewed. See [facility] GENERAL: In no apparent distress. HEENT: Normocephalic, atraumatic, pupils are equal and reactive, oropharynx is pink and moist, there is no neck adenopathy or JVD noted. CHEST/RESPIRATORY: The thorax is free from signs of trauma. Lung sounds: clear to auscultation, normal respiratory effort CARDIAC: Regular rate and rhythm. Normal S1 and S2, without murmurs, gallops, or rubs. VASCULAR: No Edema. 2+ peripheral pulses. ABDOMEN: soft, nontender, active bowel sounds MUSCULOSKELETAL: No generalized weakness noted. NEUROLOGIC EXAM: Alert and oriented x 3. Speech normal. Follows commands. PSYCHIATRIC: Mood normal. SKIN: No rash or lesions. Exam Initial Vital Signs Temp Pulse Resp BP Pulse Ox 98 F 93 16 169/101 99 04/03/18 01:12 04/03/18 01:12 04/03/18 01:12 04/03/18 01:12 04/03/18 01:12 Results - Labs 04/03/18 06:00 04/03/18 06:00 Abnormal lab results MCHC 31.4 g/dL (31.6-35.5) L 04/03/18 06:00 Chloride 111 mEq/L (98-107) H 04/03/18 06:00 Carbon Dioxide 22 mEq/L (23-29) L 04/03/18 06:00 Est GFR (Non-Af Amer) 56 (> 60) L 04/03/18 06:00 Glucose 125 mg/dL (70-105) H 04/03/18 06:00 Alkaline Phosphatase 108 Units/L (34-104) H 04/03/18 06:00 Diabetes panel 04/03/18 Range/Units 06:00 Sodium 141 (136-145) mEq/L Potassium 4.1 (3.5-5.1) mEq/L Chloride 111 H (98-107) mEq/L Carbon Dioxide 22 L (23-29) mEq/L BUN 19 (8-23) mg/dL Creatinine 1.00 (0.60-1.20) mg/dL Glucose 125 H (70-105) mg/dL Calcium 8.7 (8.6-10.3) mg/dL AST 21 (13-39) Units/L ALT 16 (7-52) Units/L Alkaline Phosphatase 108 H (34-104) Units/L Albumin 3.8 (3.5-5.7) g/dL Calcium panel 04/03/18 Range/Units 06:00 Calcium 8.7 (8.6-10.3) mg/dL Albumin 3.8 (3.5-5.7) g/dL Pituitary panel 04/03/18 Range/Units 06:00 Sodium 141 (136-145) mEq/L Potassium 4.1 (3.5-5.1) mEq/L Chloride 111 H (98-107) mEq/L Carbon Dioxide 22 L (23-29) mEq/L BUN 19 (8-23) mg/dL Creatinine 1.00 (0.60-1.20) mg/dL Glucose 125 H (70-105) mg/dL Calcium 8.7 (8.6-10.3) mg/dL Adrenal panel 04/03/18 Range/Units 06:00 Sodium 141 (136-145) mEq/L Potassium 4.1 (3.5-5.1) mEq/L Chloride 111 H (98-107) mEq/L Carbon Dioxide 22 L (23-29) mEq/L BUN 19 (8-23) mg/dL Creatinine 1.00 (0.60-1.20) mg/dL Glucose 125 H (70-105) mg/dL Calcium 8.7 (8.6-10.3) mg/dL Total Bilirubin 0.4 (0.3-1.0) mg/dL AST 21 (13-39) Units/L ALT 16 (7-52) Units/L Alkaline Phosphatase 108 H (34-104) Units/L Albumin 3.8 (3.5-5.7) g/dL All other labs normal. 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 (3) Chronic diarrhea Status: Chronic (4) Small bowel obstruction due to adhesions Status: Acute Review of Systems All systems PM: The remainder of the systems were reviewed and are negative General Surgery Exam Initial Vital Signs Temp Pulse Resp BP Pulse Ox 98 F 93 16 169/101 99 04/03/18 01:12 04/03/18 01:12 04/03/18 01:12 04/03/18 01:12 04/03/18 01:12 Exam Initial Vital Signs Temp Pulse Resp BP Pulse Ox 98 F 93 16 169/101 99 04/03/18 01:12 04/03/18 01:12 04/03/18 01:12 04/03/18 01:12 04/03/18 01:12 Results - Labs 04/04/18 04:31 04/04/18 06:02 Abnormal lab results WBC 3.9 K/mcL (4.3-11.1) L 04/04/18 04:31 RBC 3.64 M/mcL (3.82-4.97) L 04/04/18 04:31 Hgb 10.5 g/dL (11.5-15.4) L 04/04/18 04:31 Hct 33.5 % (35.3-44.9) L 04/04/18 04:31 MCHC 31.3 g/dL (31.6-35.5) L 04/04/18 04:31 Chloride 110 mEq/L (98-107) H 04/04/18 06:02 Est GFR (Non-Af Amer) 56 (> 60) L 04/04/18 06:02 Alkaline Phosphatase 108 Units/L (34-104) H 04/03/18 06:00 Diabetes panel 04/04/18 Range/Units 06:02 Sodium 140 (136-145) mEq/L Potassium 4.4 (3.5-5.1) mEq/L Chloride 110 H (98-107) mEq/L Carbon Dioxide 24 (23-29) mEq/L BUN 12 (8-23) mg/dL Creatinine 1.00 (0.60-1.20) mg/dL Glucose 88 (70-105) mg/dL Calcium 8.7 (8.6-10.3) mg/dL Calcium panel 04/04/18 Range/Units 06:02 Calcium 8.7 (8.6-10.3) mg/dL Pituitary panel 04/04/18 Range/Units 06:02 Sodium 140 (136-145) mEq/L Potassium 4.4 (3.5-5.1) mEq/L Chloride 110 H (98-107) mEq/L Carbon Dioxide 24 (23-29) mEq/L BUN 12 (8-23) mg/dL Creatinine 1.00 (0.60-1.20) mg/dL Glucose 88 (70-105) mg/dL Calcium 8.7 (8.6-10.3) mg/dL Adrenal panel 04/04/18 Range/Units 06:02 Sodium 140 (136-145) mEq/L Potassium 4.4 (3.5-5.1) mEq/L Chloride 110 H (98-107) mEq/L Carbon Dioxide 24 (23-29) mEq/L BUN 12 (8-23) mg/dL Creatinine 1.00 (0.60-1.20) mg/dL Glucose 88 (70-105) mg/dL Calcium 8.7 (8.6-10.3) mg/dL All other labs normal. - Attending Attestation I have personally performed a face to face evaluation on this patient. I have reviewed and agree with the care plan. History and Exam by me shows: I reviewed the above assessment and evaluation and agree with the plan. Patient had colicky abdominal pain yesterday evening. Some nausea was noted. Due to the similar presentation she had previously that require NG tube decompression she presented to the emergency room for evaluation. Noted small bowel loops by examination consistent with bowel obstruction. Currently patient denies any nausea or vomiting and states that she is had flatus and bowel movement. Minimal tenderness to palpation noted. No masses felt. Agree with clear fluids and consider advancing as tolerated.
[2018-04-04] MEDS: 0.9 % Sodium Chloride w KCl 40 MEQ/1,000 ML MLS IVC SCH ×2 (00:26→08:36)
[2018-04-04 05:17] LABS: Hematocrit 33.5 % (35.3-44.9); Hemoglobin 10.5 g/dL (11.5-15.4); Mean Corpuscular HGB Conc 31.3 g/dL (31.6-35.5); Mean Corpuscular Hemoglobin 28.8 pg (28.0-33.3); Mean Platelet Volume 10.9 fL (9.4-12.4); Platelet Count 193 K/mcL (140-400); Red Blood Count 3.64 M/mcL (3.82-4.97); Red Cell Distribution Width 13.8 % (11.5-14.5)
[2018-04-04] MEDS: *HR* Heparin 5,000 UNIT/ML VIAL SQ SCH (06:28)
[2018-04-04 07:10] LABS: BUN/Creatinine Ratio 12 (6-26); Blood Urea Nitrogen 12 mg/dL (8-23); Calcium 8.7 mg/dL (8.6-10.3); Carbon Dioxide 24 mEq/L (23-29); Chloride 110 mEq/L (98-107); Glucose 88 mg/dL (70-105); Osmolality,Calculated 289 (280-300); Potassium 4.4 mEq/L (3.5-5.1); Sodium 140 mEq/L (136-145); eGFR For Non-African Americans 56 (> 60)
[2018-04-04 07:48] VITALS: BP 117/77
[2018-04-04] MEDS ORDERED: BuPROPion XL (24 HR) 150 MG TABLET PO SCH (09:00)
--- NOTE | 2018-04-04 11:07 | Internal Med Progress Note ---
Hospitalist Progress Note - Encounter Date of Encounter: 04/04/18 Time of Encounter: 10:15 - Subjective Interval History: Ms. Jasmine is a 62F with PMH of cancer s/p hysterectomy, bladder resection with cystostomy, and hx of small bowel resection. She recently had a SBO in October , which was preceded by multiple She presented to the ED on 04/03 complaining of abdominal pain, nausea, and vomiting. Surgery said pt is not a good surgical candidate and if surgery is required should be transferred to another facility. Pt seen and examined at bedside. Pt states she feels better than early this morning. Admits to some mild abdominal pain, which has improved with medication. States she has been passing flatus, but no bowel movements at this time. Nausea has improved. No further vomiting. Denies any fever, chills, chest pain, shortness of breath, headache, numbness, or tingling. - Exam Vitals: Temp Pulse Resp BP Pulse Ox 97.6 F 69 17 117/77 98 04/04/18 07:47 04/04/18 07:47 04/04/18 07:47 04/04/18 07:47 04/04/18 07:47 - Assessment and Plan (1) DVT prophylaxis Current Visit: No Status: Acute (2) Small bowel obstruction Current Visit: Yes Status: Acute (3) Ileostomy present Current Visit: Yes Status: Deleted - Time Spent with Patient Total time spent is greater than 50% in coordination of care (as documented) at patient's floor/unit and/or counseling patient: Internal Medicine: Result - Labs CBC & Chem 7: 04/04/18 04:31 04/04/18 06:02 Labs: Short CBC 04/04/18 Range/Units 04:31 WBC 3.9 L (4.3-11.1) K/mcL Hgb 10.5 L (11.5-15.4) g/dL Hct 33.5 L (35.3-44.9) % Plt Count 193 (140-400) K/mcL BMP 04/04/18 06:02 Sodium 140 Potassium 4.4 Chloride 110 H Carbon Dioxide 24 BUN 12 Creatinine 1.00 Glucose 88 Calcium 8.7 - ABG Interpretation ABG results: PT/INR, D-dimer PT 11.6 Seconds (9.4-12.1) 04/03/18 01:24 Consult Discharge Plan - Plan Referrals: Ashu White [Partnered Physician] - 04/10/18 1:55 pm
--- NOTE | 2018-04-04 11:25 | Discharge Summary ---
<Shreyas Bassett - Last Filed: 04/04/18 11:26> - NOTES TO OUTPATIENT PROVIDER Notes to Outpatient Provider: Ms. Jasmine presented to the ED on 04/03 complaining of abdominal pain, nausea, and vomiting. She was found to have a SBO on CT abdomen/pelvis. She was kept NPO for some time, but she deferred NG tube placement. She began tolerating a clear liquid diet overnight, had 3 bowel movements, and the abdominal pain, nausea, and vomiting had resolved at time of discharge. Date of Encounter: 04/04/18 Time of Encounter: 10:15 - Discharge Diagnosis (1) Small bowel obstruction Priority: Primary Status: Acute Assessment and Plan: Pt has extensive hx of abdominal surgeries and SBOs CT abdomen/pelvis from ED revealed SBO near anastomosis site Tolerated CLD overnight. Had 3 bowel movements overnight Improved clinically. pt denies any abdominal pain, nausea, or vomiting. Hospital course: See notes to outpatient provider Discharge discussed with: patient, nurse - Time Spent with Patient Total time spent providing and/or coordinating discharge services: - Discharge Medications Home Medications: Bupropion HCl [Wellbutrin Xl] 300 mg PO DAILY 04/03/18 [History] Dicyclomine [Bentyl] 20 mg PO QID PRN 04/03/18 [History] Diphenoxylate/Atropine [Lomotil 2.5 mg/0.025 mg] 1 tab PO QID PRN 04/03/18 [ History] Ergocalciferol (VITAMIN D2) [Vitamin D2] 50,000 unit PO FR 04/03/18 [History] Escitalopram [Lexapro] 10 mg PO DAILY 04/03/18 [History] Ferrous Sulfate 325 mg PO WE 04/03/18 [History] Pantoprazole Sodium [Protonix] 40 mg PO DAILY 04/03/18 [History] Allergies/Adverse Reactions: 3 Allergy/AdvReac Type Severity Reaction Status Date / Time NSAIDS (Non-Steroidal AdvReac See Verified 04/03/18 01:12 Anti-Inflamma Comments Date of admission: 04/03/18 10:17 Primary care physician: Ana Braswell Discharging clinician: Shreyas Bassett - Constitutional Vitals: Temp Pulse Resp BP Pulse Ox 97.6 F 69 17 117/77 98 04/04/18 07:47 04/04/18 07:47 04/04/18 07:47 04/04/18 07:47 04/04/18 07:47 General appearance: Present: A&O X 3, pleasant, no acute distress, obese, answers questions appropriately Exam: Constitutional: well developed, well nourished female. no acute distress Head: normocephalic, atraumatic Eyes: PERRL, EOMI, no scleral icterus Neck: supple, trachea midline, no lymphadenopathy Lungs: CTA bilaterally. non-labored breathing. no wheezes, rales, or rhonchi Heart: RRR +S1 +S2. no murmurs, clicks, or rubs appreciated GI: abdomen soft, mildly tender, mildly distended, cystostomy in place Extremities: radial pulses palpable and symmetrical. no cyanosis or edema Neuro: A&Ox3. no focal deficits. no speech difficulty or abnormality Skin: warm, dry, intact - Patient Status Disposition: Home, Self-Care Condition: Good Functional capacity at discharge: independent ambulation Overall status at discharge: patient is progressing back to baseline - Discharge Instructions Follow Up With: Ashu White [Partnered Physician] - 04/10/18 1:55 pm - Diet and Activity Activity: increase activity as tolerated, resume usual activities as tolerated Diet: advance to your usual diet <Dariana Shannon - Last Filed: 04/04/18 14:40> Date of Encounter: 04/04/18 - Discharge Diagnosis (1) Small bowel obstruction Status: Acute Hospital course: Ms. Jasmine is a 62 year old female - Time Spent with Patient Total time spent providing and/or coordinating discharge services: Date of admission: 04/03/18 10:17 Primary care physician: Ana Brasewll - Constitutional Vitals: Temp Pulse Resp BP Pulse Ox 97.6 F 69 17 117/77 98 04/04/18 07:47 04/04/18 07:47 04/04/18 07:47 04/04/18 07:47 04/04/18 07:47 - Attending Attestation Constitutional: well developed, well nourished female. no acute distress Head: normocephalic, atraumatic Eyes: PERRL, EOMI, no scleral icterus Neck: supple, trachea midline, no lymphadenopathy Lungs: CTA bilaterally. non-labored breathing. no wheezes, rales, or rhonchi Heart: RRR +S1 +S2. no murmurs, clicks, or rubs appreciated GI: abdomen soft, mildly tender, mildly distended, cystostomy in place Extremities: radial pulses palpable and symmetrical. no cyanosis or edema Neuro: A&Ox3. no focal deficits. no speech difficulty or abnormality Skin: warm, dry, intact Ms. Jasmine presented to the ED on 04/03 complaining of abdominal pain, nausea, and vomiting. She was found to have a SBO on CT abdomen/pelvis likely secondary from adhesions. She was kept NPO for some time, but she deferred NG tube placement. She was seen by surgery who managed her conservatively. She began tolerating a clear liquid diet overnight, had 3 bowel movements, and the abdominal pain, nausea, and vomiting had resolved at time of discharge. Her diet was advanced and she was discharged in a stable condition
--- NOTE | 2018-04-05 10:54 | Electrocardiograph Report ---
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
== END 2018-04-04 14:39 | disposition home or self-care (01) | DRG 390 ==
LOC: 2ANU 01:05 → EMEROOARM 01:05 → 2ANU 04:01
PROVIDERS: ADMIT Internal Medicine; ATTEND Internal Medicine

== ENCOUNTER 2018-04-10 03:04 | Inpatient (IN) ==
[2018-04-10] MEDS ORDERED: *HR* Morphine 2 MG/ML SYRINGE ONE ×2 (03:47→05:31)
[2018-04-10] MEDS ORDERED: 0.9 % Sodium Chloride 1,000 ML ONE (03:48)
[2018-04-10] MEDS ORDERED: Ondansetron 4 MG/2 ML VIAL ONE ×2 (03:48→05:31)
[2018-04-10] MEDS ORDERED: Naloxone 0.4 MG/ML INJ IVP PRN (12:28)
[2018-04-10] MEDS ORDERED: Ondansetron 4 MG/2 ML VIAL IVP PRN (12:28)
[2018-04-10] MEDS ORDERED: *HR* Morphine 2 MG/ML SYRINGE IVP PRN (12:32)
[2018-04-10] MEDS ORDERED: Acetaminophen IV 1,000 MG/100 ML INFUS..BTL IVPB ONE (13:31)
--- NOTE | 2018-04-10 13:31 | General Surgery Consult Note ---
<Brandy Urena Alex - Last Filed: 04/10/18 13:37> Date of Encounter: 04/10/18 Time of Encounter: 13:20 Assessment and Plan (1) Small bowel obstruction due to adhesions Current Visit: No Status: Acute Continue with conservative measures including: NPO NG tube to LIWS IV fluids per primary team Supportive care and pain control Serial abdominal exams PPI therapy daily Surgery will continue to follow along and assess progress History of Present Illness Consult date: 04/10/18 Reason for consult: other (SBO) History of present illness: Ros is a 62 year old female with a significant past medical history for vaginal cancer, 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 She was admitted to the hospital 1 week ago with complaints of abdominal pain with nausea/vomiting. She is have concerns for PSBO at that time but resolved spontaneously. She was discharged to home on 04/04/18. She states that she was doing well up until last evening. She reports that she ate a turkey sandwich and potato salad for dinner. She states that shortly after eating, she developed severe abdominal pain. The pain was located in the lower-mid abdomen. The pain was followed by multiple episodes of nausea/vomiting which consisted of old food and bile. The vomiting was followed by dry heaves. She states that the pain has improved today and she just feels sore at this time. She has an NG tube in place. She has no appetite. She had a normal bowel movement last night and has been passing flatus today. Denies any r ecent changes in bowel habits. Denies any fevers/chills. Denies any shortness of breath or chest pains. She does complain of having a sinus headache from the NG tube. We have been asked to see and evaluate the patient for recommendations. Past Med Surg Social Fam HX - Past Medical History Source: patient, old records reviewed Medical history: cancer (vaginal tumor), pulmonary embolus, renal disease, other Additional medical history: anemia, kidney stones, radiation proctitis, hx of c- diff Psychiatric history: anxiety, depression - Past Surgical History Surgical History: hysterectomy (Total), other (Bilateral nephrostomy tube placement) Additional surgical history: nephrostomy tube placement, colonoscopy 2012, kidney stones removal, vaginal biopsy, flexible sigmoidoscopy 2013, cystoscopy, bladder removal and formation of ileal conduit - Social History Smoking Status: Never smoker Smokeless Tobacco Status: No Alcohol use: none Drug use: none Current living situation: Home - Independent Activity Level: Independent ambulation - Family History Mother Adopted: No Family Member Ethnicity: Non- Living Status: Hx Family Cardiac Disorders: No Hx Family Respiratory Disorders: No Hx Family Cancer: Yes (Breast CA w/mets) Hx Family GI Disorders: No Hx Family Endocrine Disorder: No Hx Family Neuromuscular Disorders: No Hx Family Neurologic Disorders: No Hx Family HEENT Disorders: No Hx Family Autoimmune Disorders: No Father Adopted: No Family Member Ethnicity: Non- Living Status: Hx Family Cardiac Disorders: Yes (PE from AAA repair) Hx Family Respiratory Disorders: No Hx Family Cancer: No Hx Family GI Disorders: No Hx Family Endocrine Disorder: No Hx Family Neuromuscular Disorders: No Hx Family Neurologic Disorders: No Hx Family HEENT Disorders: No Hx Family Autoimmune Disorders: No Sister Family Member Ethnicity: Non- Living Status: Still Living Medications and Allergies Bupropion HCl [Wellbutrin Xl] 300 mg PO DAILY 04/03/18 [History] Diphenoxylate/Atropine [Lomotil 2.5 mg/0.025 mg] 1 tab PO QID PRN 04/03/18 [History] Ergocalciferol (VITAMIN D2) [Vitamin D2] 50,000 unit PO FR 04/03/18 [History] Ferrous Sulfate 325 mg PO DAILY 04/03/18 [History] Escitalopram [Lexapro] 20 mg PO DAILY 04/10/18 [History] Omeprazole Magnesium [Prilosec Otc] 20 mg PO DAILY 04/10/18 [History] Allergy/AdvReac Type Severity Reaction Status Date / Time NSAIDS (Non-Steroidal AdvReac See Verified 04/03/18 01:12 Anti-Inflamma Comments Review of Systems All systems PM: reviewed and no additional remarkable complaints except as stated (in the HPI) All systems PM: The remainder of the systems were reviewed and are negative General Surgery Exam - General physical appearance well developed, well nourished, no distress - Eyes normal ocular movement - ENT normal mucosa, atraumatic, normocephalic - Neck trachea midline - Respiratory normal respiratory effort, clear to auscultation - Cardiovascular Cardiovascular exam: Present: RRR - Abdomen Abdomen general surgery: Present: bowel sounds present (hypoactive), soft, tender, wound (ileal conduit with good urine output noted) Abdominal Tenderness: Present: LLQ, suprapubic - Integumentary Integumentary general surgery: Present: warm and dry - Neurologic Present: CN 2-12 grossly intact - Psychiatric Psychiatric general surgery: Present: A&Ox3 Results - Labs All other labs normal. Consult Discharge Plan - Plan Referrals: Mulu Gongora DO [Primary Care Provider] - - Attending Attestation For this encounter, I have reviewed the TEXT[employer]ER or PA documentation, treatment plan, and medical decision making; and I have had face to face time with this patient. <Dashawn Alvarez - Last Filed: 04/10/18 16:59> Assessment and Plan (1) Small bowel obstruction due to adhesions Current Visit: No Status: Acute Review of Systems All systems PM: The remainder of the systems were reviewed and are negative General Surgery Exam Initial Vital Signs Temp Pulse Resp BP Pulse Ox 98.0 F 95 13 158/94 96 04/10/18 13:43 04/10/18 13:43 04/10/18 13:43 04/10/18 13:43 04/10/18 13:43 Exam Initial Vital Signs Temp Pulse Resp BP Pulse Ox 98.0 F 95 13 158/94 96 04/10/18 13:43 04/10/18 13:43 04/10/18 13:43 04/10/18 13:43 04/10/18 13:43 Results - Labs 04/10/18 15:12 04/10/18 15:12 Abnormal lab results MCHC 31.3 g/dL (31.6-35.5) L 04/10/18 15:12 Est GFR (Non-Af Amer) 52 (> 60) L 04/10/18 15:12 Glucose 123 mg/dL (70-105) H 04/10/18 15:12 Calcium 8.4 mg/dL (8.6-10.3) L 04/10/18 15:12 Diabetes panel 04/10/18 Range/Units 15:12 Sodium 139 (136-145) mEq/L Potassium 4.2 (3.5-5.1) mEq/L Chloride 103 (98-107) mEq/L Carbon Dioxide 28 (23-29) mEq/L BUN 17 (8-23) mg/dL Creatinine 1.07 (0.60-1.20) mg/dL Glucose 123 H (70-105) mg/dL Calcium 8.4 L (8.6-10.3) mg/dL Calcium panel 04/10/18 04/10/18 Range/Units 15:12 15:12 Calcium 8.4 L (8.6-10.3) mg/dL Phosphorus 3.5 (2.7-4.5) mg/dL Pituitary panel 04/10/18 Range/Units 15:12 Sodium 139 (136-145) mEq/L Potassium 4.2 (3.5-5.1) mEq/L Chloride 103 (98-107) mEq/L Carbon Dioxide 28 (23-29) mEq/L BUN 17 (8-23) mg/dL Creatinine 1.07 (0.60-1.20) mg/dL Glucose 123 H (70-105) mg/dL Calcium 8.4 L (8.6-10.3) mg/dL Adrenal panel 04/10/18 Range/Units 15:12 Sodium 139 (136-145) mEq/L Potassium 4.2 (3.5-5.1) mEq/L Chloride 103 (98-107) mEq/L Carbon Dioxide 28 (23-29) mEq/L BUN 17 (8-23) mg/dL Creatinine 1.07 (0.60-1.20) mg/dL Glucose 123 H (70-105) mg/dL Calcium 8.4 L (8.6-10.3) mg/dL All other labs normal. - Attending Attestation I reviewed the above assessment and evaluation and agree with the above plan. Noted symptoms of nausea and vomiting and dissection was no bowel movements started yesterday. Patient was previously the hospital for similar episode last week. Currently she feels better. NG tube in place. Scant bowel sounds. Continue with NG tube decompression and IV fluids. Of note, I personally reviewed the CT scan images and report which demonstrated incidental left breast mass seen. Patient states her last mammogram study was 1 year ago. I explained to the patient that she will need to be set up for a mammogram/ultrasound study as an outpatient once she has recovered from her current hospital course.
[2018-04-10] MEDS ORDERED: Acetaminophen IV 1,000 MG/100 ML INFUS..BTL IVPB PRN (13:57)
[2018-04-10] MEDS ORDERED: Chloraseptic Spray 177 ML BOTTLE MM PRN (13:57)
[2018-04-10] MEDS: D5% in 0.45% NACL 1,000 ML IVC SCH (14:30)
[2018-04-10] MEDS: Pantoprazole 40 MG VIAL IVP SCH (14:30)
[2018-04-10 15:24] LABS: Basophils % 0.3 %; Eosinophils % 0.2 %; Hematocrit 38.3 % (35.3-44.9); Immature Granulocytes % 0.3 % (0-4); Lymphocytes # 0.9 K/mcL (0.6-4.6); Lymphocytes % 14.1 %; Mean Corpuscular HGB Conc 31.3 g/dL (31.6-35.5); Mean Corpuscular Hemoglobin 28.2 pg (28.0-33.3); Mean Corpuscular Volume 90.1 fL (83.0-100.0); Mean Platelet Volume 10.5 fL (9.4-12.4); Monocytes # 0.6 K/mcL (0.0-1.3); Monocytes % 9.7 %; Neutrophils # 4.9 K/mcL (1.6-8.9); Platelet Count 280 K/mcL (140-400); Red Blood Count 4.25 M/mcL (3.82-4.97); Red Cell Distribution Width 12.9 % (11.5-14.5); Segmented Neutrophils % 75.4 %
[2018-04-10 15:32] LABS: INR 1.1; Prothrombin Time 11.9 Seconds (9.4-12.1)
[2018-04-10 15:35] LABS: Activated Partial Thrombo Time 26.7 Seconds (26.0-36.0)
[2018-04-10 15:38] LABS: BUN/Creatinine Ratio 16 (6-26); Blood Urea Nitrogen 17 mg/dL (8-23); Calcium 8.4 mg/dL (8.6-10.3); Carbon Dioxide 28 mEq/L (23-29); Chloride 103 mEq/L (98-107); Glucose 123 mg/dL (70-105); Magnesium 2.3 mg/dL (1.6-2.6); Osmolality,Calculated 291 (280-300); Phosphorous 3.5 mg/dL (2.7-4.5); Potassium 4.2 mEq/L (3.5-5.1); Sodium 139 mEq/L (136-145); eGFR For Non-African Americans 52 (> 60)
[2018-04-10] MEDS ORDERED: D5% in Water 1,000 ML IVC PRN (15:56)
[2018-04-10] MEDS ORDERED: *HR* Dextrose 50 % in Water (Syg) 50 ML SYRINGE IVP PRN (15:56)
[2018-04-10] MEDS ORDERED: Dextrose Gel 15 GM/37.5 ML TUBE PO PRN ×2 (15:56)
[2018-04-10] MEDS: Insulin LISPRO 300 UNITS/3 ML VIAL SQ SCH (19:12)
[2018-04-11] MEDS: D5% in 0.45% NACL 1,000 ML IVC SCH ×2 (02:08→15:39)
[2018-04-11] MEDS: *HR* Heparin 5,000 UNIT/ML VIAL SQ SCH ×3 (05:20→18:09)
[2018-04-11] MEDS: Insulin LISPRO 300 UNITS/3 ML VIAL SQ SCH ×4 (05:57→20:04)
[2018-04-11] MEDS: OXYCODONE Oral CONC 10 MG/0.5 ML ORAL.SYG SL PRN ×3 (09:01→21:37)
[2018-04-11] MEDS: Pantoprazole 40 MG VIAL IVP SCH (09:02)
--- NOTE | 2018-04-11 09:40 | Internal Med Progress Note ---
Hospitalist Progress Note - Encounter Date of Encounter: 04/11/18 Time of Encounter: 09:37 - Subjective Interval History: Patient was seen and examined at bedside Denies vomiting, or bowel movement. Does report that she is passing flatness. Denies abdominal pain, distention. Does have mild headache that is controlled with pain medications Denies fever, chills, chest pain, shortness of breath, cough, palpitations or vision changes. - Exam Vitals: Temp Pulse Resp BP Pulse Ox 98.2 F 82 16 151/90 94 04/11/18 08:17 04/11/18 08:17 04/11/18 08:17 04/11/18 08:17 04/11/18 08:17 Exam: General: Patient is alert, oriented, no acute distress, obese Head: atraumatic, normocephalic, NGT in place Eye: normal appearance, PERRL, no scleral icterus, no conjunctival injection ENT: mucous membranes moist, normal external ear exam Neck: normal inspection, trachea midline, full ROM, no carotid bruits Chest: normal inspection, symmetric chest rise Respiratory: Good respiratory effort. Bilateral breath sounds are clear without wheezing, crackles, or rhonchi. Cardiovascular: Regular rate and rhythm. s1 and s2 No clicks, rubs, gallops, or murmors. Abdomen: Bowel sounds present hypoactive x-4 quadrants. Abdomen is soft, mildly distended no Epigastric tenderness. Mild tenderness on palpation in the left lower quadrant and suprapubic area. No guarding or rebound. No organomegaly noted, obese, wound (ileal conduit with good urine output noted) musculoskeletal: Spontaneously moving all extremities. no edema, no calf tenderness Skin: warm, dry, intact. Neuro: Alert and oriented x4. Sensation light touch intact. Cranial nerves 2- 12 is intact. Not aphasic, no focal deficit Psych: Patient's affect is normal - Assessment and Plan (1) Small bowel obstruction due to adhesions Current Visit: No Status: Acute Assessment and Plan: NPO NG tube to LIWS IV fluids - watch for overload Supportive care and pain control Serial abdominal exams PPI therapy daily surgery recommendations appreciated (2) Ileostomy present Current Visit: Yes Status: Acute Assessment and Plan: Diverting ileostomy status post bladder resection. Ileostomy bag in place with an good amount of urine output. Monitor. (3) Obesity (BMI 30-39.9) Current Visit: No Status: Chronic Assessment and Plan: was counseled on nutrition and weight loss (4) DVT prophylaxis Current Visit: Yes Status: Acute Assessment and Plan: heparin sc - Time Spent with Patient Total time spent is greater than 50% in coordination of care (as documented) at patient's floor/unit and/or counseling patient: Internal Medicine: Result - Labs CBC & Chem 7: 04/10/18 15:12 04/10/18 15:12 Labs: Short CBC 04/10/18 Range/Units 15:12 WBC 6.5 D (4.3-11.1) K/mcL Hgb 12.0 D (11.5-15.4) g/dL Hct 38.3 (35.3-44.9) % Plt Count 280 (140-400) K/mcL Neutrophils # 4.9 (1.6-8.9) K/mcL BMP 04/10/18 15:12 Sodium 139 Potassium 4.2 Chloride 103 Carbon Dioxide 28 BUN 17 Creatinine 1.07 Glucose 123 H Calcium 8.4 L - ABG Interpretation ABG results: PT/INR, D-dimer PT 11.9 Seconds (9.4-12.1) 04/10/18 15:12 - Impressions Impressions Abdomen/Pelvis CT 04/10/18 00:00 IMPRESSION: There are postsurgical changes from neobladder construction and ileal conduit urinary diversion. Mildly dilated small bowel loops and stasis of enteric contrast, to the level of a distal ileal anastomosis, is consistent with small bowel obstruction, likely related and he ends. 1.7 x 1.5 cm ovoid lesion in the outer left breast is new since 07/13/2016. Recommend correlation with diagnostic mammogram and left breast ultrasound, on a nonemergent, outpatient basis. The findings were sent to the [facility] at 3:18 pm on 04/10/2018to be communicated to a licensed caregiver. D/ / Arti Marquez MD / Arti Marquez MD Interpreting Provider: Arti Marquez MD Consult Discharge Plan - Plan Referrals: Mulu Gongora, [Primary Care Provider] -
[2018-04-11] MEDS ORDERED: D5% in 0.45% NACL 1000 ML IV SOLUTION IVC ONE (09:48)
[2018-04-11] MEDS ORDERED: *HR* Morphine 2 MG/ML SYRINGE IV ONE ×3 (09:48)
[2018-04-11] MEDS ORDERED: 0.9 % Sodium Chloride 1,000 ML IV.SOLN IV ONE (09:48)
[2018-04-11] MEDS ORDERED: Ondansetron 4 MG/2 ML VIAL IVP ONE ×3 (09:48)
--- NOTE | 2018-04-11 10:55 | General Surgery Progress Note ---
<Kathryn Ring - Last Filed: 04/11/18 11:56> Date of Encounter: 04/11/18 Time of Encounter: 10:53 - Assessment and Plan (1) Small bowel obstruction due to adhesions Status: Acute This is her second incidence of SBO; continue conservative treatment - NPO except ice chips - IVF per primary team - supportive care and pain management - serial abdominal exams - PPI therapy continued daily Continue NG: out put 100ml green bilus this am, yesterday 25 ml may have been incorrectly charted due to system down. May consider clamping trial tomorrow. Surgery will continue to follow Subjective Patient reports: pain is less, flatus, no bowel movement, nausea (with migraine ), afebrile Objective Vital Signs - Last 8 Hours Temp Pulse Resp BP Pulse Ox 04/11/18 08:17 98.2 F 82 16 151/90 94 04/11/18 03:57 98.1 F 74 16 136/86 94 Intake and Output 04/10/18 04/11/18 04/11/18 23:59 07:59 15:59 Intake Total 100 / 100 1000 / 1000 0 / 0 Output Total 450 / 450 450 / 450 225 / 225 Balance -350 / -350 550 / 550 -225 / -225 Intake: IV Fluids 100 / 100 1000 / 1000 D5% And 0.45% Nacl 1000 Ml Bag 1000 / 1000 1,000 ML @ 75 mls/hr IVC . [id number] [facility] Rx#:[id number] Ofirmev 1,000 mg/100 ml 1,000 100 / 100 mg In 100 ml @ 400 mls/hr IVPB Q6HR PRN Rx#:[id number] Oral 0 / 0 0 / 0 0 / 0 Output: Urostomy 450 / 450 450 / 450 225 / 225 Other: Meal NPO NPO Percent of Meal Consumed 0% Weight 99.8 kg Blood Glucose* 110 100 Patient Weight 04/11/18 23:59 Weight 99.8 kg - General physical appearance well developed, well nourished, no distress, obese - Eyes normal ocular movement - ENT normal pinna, normal nares, normal mucosa - Respiratory normal expansion, normal respiratory effort, clear to auscultation - Cardiovascular Cardiovascular exam: Present: RRR, no murmurs/rubs/gallops - Abdomen Abdomen: Present: bowel sounds present, soft, non tender. Absent: distended Hernia: none Additional Comments: urostomy bag in place - Integumentary no rash, no growths, no abnormal pigmentation - Neurologic CN 2-12 grossly intact, normal coordination, normal sensation - Musculoskeletal normal gait, normal posture - Psychiatric oriented to time, oriented to person, oriented to place, speech is normal, memory intact - Labs 04/10/18 15:12 04/10/18 15:12 Diabetes panel 04/10/18 Range/Units 15:12 Sodium 139 (136-145) mEq/L Potassium 4.2 (3.5-5.1) mEq/L Chloride 103 (98-107) mEq/L Carbon Dioxide 28 (23-29) mEq/L BUN 17 (8-23) mg/dL Creatinine 1.07 (0.60-1.20) mg/dL Glucose 123 H (70-105) mg/dL Calcium 8.4 L (8.6-10.3) mg/dL Calcium panel 04/10/18 04/10/18 Range/Units 15:12 15:12 Calcium 8.4 L (8.6-10.3) mg/dL Phosphorus 3.5 (2.7-4.5) mg/dL Pituitary panel 04/10/18 Range/Units 15:12 Sodium 139 (136-145) mEq/L Potassium 4.2 (3.5-5.1) mEq/L Chloride 103 (98-107) mEq/L Carbon Dioxide 28 (23-29) mEq/L BUN 17 (8-23) mg/dL Creatinine 1.07 (0.60-1.20) mg/dL Glucose 123 H (70-105) mg/dL Calcium 8.4 L (8.6-10.3) mg/dL Adrenal panel 04/10/18 Range/Units 15:12 Sodium 139 (136-145) mEq/L Potassium 4.2 (3.5-5.1) mEq/L Chloride 103 (98-107) mEq/L Carbon Dioxide 28 (23-29) mEq/L BUN 17 (8-23) mg/dL Creatinine 1.07 (0.60-1.20) mg/dL Glucose 123 H (70-105) mg/dL Calcium 8.4 L (8.6-10.3) mg/dL Consult Discharge Plan - Plan Instructions: Bowel Obstruction (DC) Referrals: Mulu Gongora DO [Primary Care Provider] - Prescriptions: Docusate [Colace] 100 mg PO BID 30 Days #60 capsule Polyethylene Glycol 3350 [MiraLAX] 17 gm PO DAILY 15 Days #15 powd.pack <Dashawn Alvarez - Last Filed: 04/15/18 07:03> Date of Encounter: 04/11/18 - Assessment and Plan (1) Small bowel obstruction due to adhesions Status: Acute Objective - Labs 04/12/18 04:15 04/12/18 04:15 - Attending Attestation I examined this patient and my medical decision-making was reviewed with the Resident Physician. I agree with the documented findings, disposition and treatment plan as described except to the extent set forth below. I reviewed the assessment and evaluation and agree with the above plan. Patient's abdominal pain symptoms have resolved. Positive flatus.
[2018-04-12] MEDS: Insulin LISPRO 300 UNITS/3 ML VIAL SQ SCH ×4 (00:30→18:30)
[2018-04-12] MEDS: OXYCODONE Oral CONC 10 MG/0.5 ML ORAL.SYG SL PRN ×2 (04:19→10:00)
[2018-04-12 04:31] LABS: Hematocrit 36.3 % (35.3-44.9); Hemoglobin 11.5 g/dL (11.5-15.4); Mean Corpuscular HGB Conc 31.7 g/dL (31.6-35.5); Mean Corpuscular Volume 88.5 fL (83.0-100.0); Mean Platelet Volume 10.4 fL (9.4-12.4); Platelet Count 215 K/mcL (140-400); Red Cell Distribution Width 12.4 % (11.5-14.5)
[2018-04-12] MEDS: D5% in 0.45% NACL 1,000 ML IVC SCH ×2 (04:36→18:44)
[2018-04-12 04:51] LABS: BUN/Creatinine Ratio 13 (6-26); Blood Urea Nitrogen 13 mg/dL (8-23); Calcium 8.9 mg/dL (8.6-10.3); Carbon Dioxide 31 mEq/L (23-29); Chloride 99 mEq/L (98-107); Glucose 105 mg/dL (70-105); Osmolality,Calculated 284 (280-300); Potassium 3.7 mEq/L (3.5-5.1); Sodium 137 mEq/L (136-145); eGFR For Non-African Americans 57 (> 60)
[2018-04-12] MEDS: *HR* Heparin 5,000 UNIT/ML VIAL SQ SCH ×2 (06:08→18:43)
--- NOTE | 2018-04-12 07:37 | Internal Med Progress Note ---
Hospitalist Progress Note - Encounter Date of Encounter: 04/12/18 Time of Encounter: 07:36 - Subjective Interval History: Patient was seen and examined at bedside denies nasuea or vomiting. is passing flatus. is inquiring about NGT removal. has had no BM Denies fever, chills, chest pain, shortness of breath, cough, palpitations or vision changes. - Exam Vitals: Temp Pulse Resp BP Pulse Ox 97.7 F 68 16 134/81 95 04/12/18 06:19 04/12/18 06:19 04/12/18 06:19 04/12/18 06:19 04/12/18 06:19 Exam: General: Patient is alert, oriented, no acute distress, obese Head: atraumatic, normocephalic, NGT in place Eye: normal appearance, PERRL, no scleral icterus, no conjunctival injection ENT: mucous membranes moist, normal external ear exam Neck: normal inspection, trachea midline, full ROM, no carotid bruits Chest: normal inspection, symmetric chest rise Respiratory: Good respiratory effort. Bilateral breath sounds are clear without wheezing, crackles, or rhonchi. Cardiovascular: Regular rate and rhythm. s1 and s2 No clicks, rubs, gallops, or murmors. Abdomen: Bowel sounds present hypoactive x-4 quadrants. Abdomen is soft, mildly distended no Epigastric tenderness. Mild tenderness on palpation in the left lower quadrant and suprapubic area. No guarding or rebound. No organomegaly noted, obese, wound (ileal conduit with good urine output noted) musculoskeletal: Spontaneously moving all extremities. no edema, no calf tenderness Skin: warm, dry, intact. Neuro: Alert and oriented x4. Sensation light touch intact. Cranial nerves 2- 12 is intact. Not aphasic, no focal deficit Psych: Patient's affect is normal - Assessment and Plan (1) Small bowel obstruction due to adhesions Current Visit: No Status: Acute Assessment and Plan: NPO possible clamping trail today by surgery IV fluids - watch for overload Supportive care and pain control Serial abdominal exams PPI therapy daily surgery recommendations appreciated (2) Ileostomy present Current Visit: Yes Status: Acute Assessment and Plan: Diverting ileostomy status post bladder resection. Ileostomy bag in place with an good amount of urine output. Monitor. (3) Obesity (BMI 30-39.9) Current Visit: No Status: Chronic Assessment and Plan: was counseled on nutrition and weight loss (4) DVT prophylaxis Current Visit: Yes Status: Acute Assessment and Plan: heparin sc - Time Spent with Patient Total time spent is greater than 50% in coordination of care (as documented) at patient's floor/unit and/or counseling patient: Internal Medicine: Result - Labs CBC & Chem 7: 04/12/18 04:15 04/12/18 04:15 Labs: Short CBC 04/12/18 Range/Units 04:15 WBC 5.4 (4.3-11.1) K/mcL Hgb 11.5 (11.5-15.4) g/dL Hct 36.3 (35.3-44.9) % Plt Count 215 (140-400) K/mcL BMP 04/12/18 04:15 Sodium 137 Potassium 3.7 Chloride 99 Carbon Dioxide 31 H BUN 13 Creatinine 0.99 Glucose 105 Calcium 8.9 - ABG Interpretation ABG results: PT/INR, D-dimer PT 11.9 Seconds (9.4-12.1) 04/10/18 15:12 - Impressions Impressions Abdomen/Pelvis CT 04/10/18 00:00 IMPRESSION: There are postsurgical changes from neobladder construction and ileal conduit urinary diversion. Mildly dilated small bowel loops and stasis of enteric contrast, to the level of a distal ileal anastomosis, is consistent with small bowel obstruction, likely related and he ends. 1.7 x 1.5 cm ovoid lesion in the outer left breast is new since 07/13/2016. Recommend correlation with diagnostic mammogram and left breast ultrasound, on a nonemergent, outpatient basis. The findings were sent to the Radiology Results Communication [facility] at 3:18 pm on 04/10/2018to be communicated to a licensed caregiver. D/ / Arti Marquez MD / Arti Marquez MD Interpreting Provider: Arti Marquez MD Consult Discharge Plan - Plan Referrals: Mulu Gongora DO [Primary Care Provider] -
[2018-04-12] MEDS: Pantoprazole 40 MG VIAL IVP SCH (10:00)
--- NOTE | 2018-04-12 10:35 | General Surgery Progress Note ---
<Jamila Hayes Emily - Last Filed: 04/12/18 12:53> Date of Encounter: 04/12/18 Time of Encounter: 10:33 - Assessment and Plan (1) Small bowel obstruction due to adhesions Current Visit: Yes Status: Acute CT abdomen 04/10/2018 with dilated loops of small bowel felt likely to be related to adhesions. Today she reports her abdominal discomfort has improved, she has passed flatus but denies bowel movements. Repeat acute abdominal series shows no acute process. Her NG was DC'd today. She is okay to trial clear liquid diet and advanced diet as tolerated. DC planning per primary team pending clinical course. Patient is reminded she should make an appointment with her surgeon at [place] immediately following discharge from the hospital as recurrent small bowel obstruction felt likely to be due to adhesions. She is reminded that [facility] will not perform a surgical intervention related to her ileal conduit. Recommend daily stool softeners and miralax in an effort to prevent consitpation until seen in follow-up by her surgeon. Surgery will follow from a distance at this time. (2) Vaginal cancer Current Visit: No Status: Chronic Subjective Patient reports: no new complaints, feels better, still having pain, pain is less, voiding w/o difficulty, flatus, no bowel movement, afebrile Objective Vital Signs - Last 8 Hours Temp Pulse Resp BP Pulse Ox 04/12/18 10:02 98.3 F 76 14 153/89 94 04/12/18 06:19 97.7 F 68 16 134/81 95 04/12/18 03:50 98.5 F 72 15 151/82 96 Intake and Output 04/11/18 04/12/18 04/12/18 23:59 07:59 15:59 Intake Total 0 / 0 965 / 965 Output Total 0 / 0 2250 / 2250 500 / 500 Balance 0 / 0 -1285 / -1285 -500 / -500 Intake: IV Fluids 965 / 965 D5% And 0.45% Nacl 1000 Ml Bag 965 / 965 1,000 ML @ 75 mls/hr IVC . [id number] [facility] Rx#:[id number] Oral 0 / 0 0 / 0 Output: Urine 0 / 0 640 / 640 Gastric Tube Lavage Amount 60 / 60 Left Nare 60 / 60 Urostomy 1550 / 1550 500 / 500 Gastric Drainage 0 / 0 Other: Meal NPO NPO BREAKFAST Blood Glucose* 109 112 - General physical appearance no distress, no pain (no abdominal pain. endorses headache) - ENT atraumatic, normocephalic - Neck Neck exam: trachea midline - Respiratory normal expansion, normal respiratory effort, clear to auscultation - Cardiovascular Cardiovascular exam: Present: RRR - Abdomen Abdomen: Present: bowel sounds present, soft, non tender Hernia: none - Integumentary no growths - Neurologic normal sensation - Musculoskeletal normal posture - Psychiatric oriented to time, oriented to person, oriented to place, memory intact - Labs 04/12/18 04:15 04/12/18 04:15 Diabetes panel 04/12/18 Range/Units 04:15 Sodium 137 (136-145) mEq/L Potassium 3.7 (3.5-5.1) mEq/L Chloride 99 (98-107) mEq/L Carbon Dioxide 31 H (23-29) mEq/L BUN 13 (8-23) mg/dL Creatinine 0.99 (0.60-1.20) mg/dL Glucose 105 (70-105) mg/dL Calcium 8.9 (8.6-10.3) mg/dL Calcium panel 04/12/18 Range/Units 04:15 Calcium 8.9 (8.6-10.3) mg/dL Pituitary panel 04/12/18 Range/Units 04:15 Sodium 137 (136-145) mEq/L Potassium 3.7 (3.5-5.1) mEq/L Chloride 99 (98-107) mEq/L Carbon Dioxide 31 H (23-29) mEq/L BUN 13 (8-23) mg/dL Creatinine 0.99 (0.60-1.20) mg/dL Glucose 105 (70-105) mg/dL Calcium 8.9 (8.6-10.3) mg/dL Adrenal panel 04/12/18 Range/Units 04:15 Sodium 137 (136-145) mEq/L Potassium 3.7 (3.5-5.1) mEq/L Chloride 99 (98-107) mEq/L Carbon Dioxide 31 H (23-29) mEq/L BUN 13 (8-23) mg/dL Creatinine 0.99 (0.60-1.20) mg/dL Glucose 105 (70-105) mg/dL Calcium 8.9 (8.6-10.3) mg/dL Consult Discharge Plan - Plan Referrals: Mulu Gongora, [Primary Care Provider] - <Cruzito Charles - Last Filed: 04/12/18 17:39> Objective Vital Signs - Last 8 Hours Temp Pulse Resp BP Pulse Ox 04/12/18 14:46 98.6 F 82 14 126/79 95 04/12/18 10:02 98.3 F 76 14 153/89 94 Intake and Output 04/12/18 04/12/18 04/12/18 07:59 15:59 23:59 Intake Total 965 / 965 240 / 240 Output Total 2250 / 2250 850 / 850 Balance -1285 / -1285 -610 / -610 Intake: IV Fluids 965 / 965 D5% And 0.45% Nacl 1000 Ml Bag 965 / 965 1,000 ML @ 75 mls/hr IVC . [id number] [facility] Rx#:[id number] Oral 0 / 0 240 / 240 Output: Urine 640 / 640 Gastric Tube Lavage Amount 60 / 60 Left Nare 60 / 60 Urostomy 1550 / 1550 850 / 850 Gastric Drainage 0 / 0 Other: Meal NPO BREAKFAST Blood Glucose* 112 93 75 - Labs 04/12/18 04:15 04/12/18 04:15 Diabetes panel 04/12/18 Range/Units 04:15 Sodium 137 (136-145) mEq/L Potassium 3.7 (3.5-5.1) mEq/L Chloride 99 (98-107) mEq/L Carbon Dioxide 31 H (23-29) mEq/L BUN 13 (8-23) mg/dL Creatinine 0.99 (0.60-1.20) mg/dL Glucose 105 (70-105) mg/dL Calcium 8.9 (8.6-10.3) mg/dL Calcium panel 04/12/18 Range/Units 04:15 Calcium 8.9 (8.6-10.3) mg/dL Pituitary panel 04/12/18 Range/Units 04:15 Sodium 137 (136-145) mEq/L Potassium 3.7 (3.5-5.1) mEq/L Chloride 99 (98-107) mEq/L Carbon Dioxide 31 H (23-29) mEq/L BUN 13 (8-23) mg/dL Creatinine 0.99 (0.60-1.20) mg/dL Glucose 105 (70-105) mg/dL Calcium 8.9 (8.6-10.3) mg/dL Adrenal panel 04/12/18 Range/Units 04:15 Sodium 137 (136-145) mEq/L Potassium 3.7 (3.5-5.1) mEq/L Chloride 99 (98-107) mEq/L Carbon Dioxide 31 H (23-29) mEq/L BUN 13 (8-23) mg/dL Creatinine 0.99 (0.60-1.20) mg/dL Glucose 105 (70-105) mg/dL Calcium 8.9 (8.6-10.3) mg/dL - Attending Attestation patient seen and examined. i have reviewed all labs, imaging, and notes. I have discussed the case in detail with the CAMPAIGN ASSISTANT. I agree with the above assessment and plan.
[2018-04-13] MEDS: Insulin LISPRO 300 UNITS/3 ML VIAL SQ SCH ×2 (06:00→08:16)
[2018-04-13] MEDS: *HR* Heparin 5,000 UNIT/ML VIAL SQ SCH (06:07)
[2018-04-13 06:29] VITALS: BP 120/83
[2018-04-13] MEDS: Pantoprazole 40 MG VIAL IVP SCH (08:13)
--- NOTE | 2018-04-13 09:15 | Discharge Summary ---
- NOTES TO OUTPATIENT PROVIDER Notes to Outpatient Provider: Patient is reminded she should make an appointment with her surgeon at [place] immediately following discharge from the hospital as recurrent small bowel obstruction felt likely to be due to adhesions. She is reminded that [facility] will not perform a surgical intervention related to her ileal conduit. Date of Encounter: 04/13/18 Time of Encounter: 09:12 - Discharge Diagnosis (1) Small bowel obstruction due to adhesions Priority: Primary Status: Acute (2) Ileostomy present Priority: Secondary Status: Acute (3) Obesity (BMI 30-39.9) Priority: Secondary Status: Chronic (4) DVT prophylaxis Priority: Secondary Status: Acute (5) Abnormal CT of the abdomen Priority: Secondary Status: Acute Hospital course: Ms. Jasmine is a 62 year old female history of vaginal cancer s/p radiation therapy complicated with radiation cystitis and proctitis, bladder resection, and recent admission for SBO who presents with complaints of abdominal pain. CT scan of the abdomen and pelvis was performed which showed mechanical small bowel obstruction. Case discussed with Dr. Alvarez with surgery who agreed to see patient with the understanding and agreement by the patient that if she requires surgical intervention, given her history of radiation proctitis, that it could not be performed here and would require transfer to [place]. she as admitted to the medicine for medical management of the short bowel obstruction while surgery was following. NG tube was placed by surgical team with minimal residual. It was discontinued on 04/12. Repeat acute abdominal series shows no acute process. She tolerated clear liquid diet diet was advanced and she was able to tolerate soft diet. She continued to have flatness and reported 3 bowel movements overnight. Nausea and vomiting resolved and she had no episodes for 48 hours. She was given daily stool softeners and MiraLAX on discharge. Patient is reminded she should make an appointment with her surgeon at [place] immediately following discharge from the hospital as recurrent small bowel obstruction felt likely to be due to adhesions. She is reminded that [facility] will not perform a surgical intervention related to her ileal conduit. incidental breast nodule found on Ct A/P was discussed with patient she is to follow up with her primary care doctor for mammogram and US [facility]. influenza vaccine was offered she was counseled extensively abou st weight loss and exercise along with nutrition abdominal series: 04/12 IMPRESSION: No acute process in the abdomen. IMPRESSION: There are postsurgical changes from neobladder construction and ileal conduit urinary diversion. Mildly dilated small bowel loops and stasis of enteric contrast, to the level of a distal ileal anastomosis, is consistent with small bowel obstruction, likely related and he ends. 1.7 x 1.5 cm ovoid lesion in the outer left breast is new since 07/13/2016. Recommend correlation with diagnostic mammogram and left breast ultrasound, on a nonemergent, outpatient basis. Discharge discussed with: patient, nurse, data quality consultant - Time Spent with Patient Total time spent providing and/or coordinating discharge services: Less than 30 minutes - Discharge Medications Prescriptions: Docusate [Colace] 100 mg PO BID 30 Days #60 capsule Polyethylene Glycol 3350 [MiraLAX] 17 gm PO DAILY 15 Days #15 powd.pack Home Medications: Bupropion HCl [Wellbutrin Xl] 300 mg PO DAILY 04/03/18 [History] Diphenoxylate/Atropine [Lomotil 2.5 mg/0.025 mg] 1 tab PO QID PRN 04/03/18 [History] Ergocalciferol (VITAMIN D2) [Vitamin D2] 50,000 unit PO FR 04/03/18 [History] Ferrous Sulfate 325 mg PO DAILY 04/03/18 [History] Escitalopram [Lexapro] 20 mg PO DAILY 04/10/18 [History] Omeprazole Magnesium [Prilosec Otc] 20 mg PO DAILY 04/10/18 [History] Docusate [Colace] 100 mg PO BID 30 Days #60 capsule 04/13/18 [Rx] Polyethylene Glycol 3350 [MiraLAX] 17 gm PO DAILY 15 Days #15 powd.pack 04/13/18 [Rx] Allergies/Adverse Reactions: Allergy/AdvReac Type Severity Reaction Status Date / Time NSAIDS (Non-Steroidal AdvReac See Verified 04/03/18 01:12 Anti-Inflamma Comments Date of admission: 04/11/18 13:18 Primary care physician: Ana Braswell - Constitutional Vitals: Temp Pulse Resp BP Pulse Ox 98.2 F 71 16 120/83 94 04/13/18 06:27 04/13/18 06:27 04/13/18 06:27 04/13/18 06:27 04/13/18 06:27 Exam: General: Patient is alert, oriented, no acute distress, obese Head: atraumatic, normocephalic, NGT in place Eye: normal appearance, PERRL, no scleral icterus, no conjunctival injection ENT: mucous membranes moist, normal external ear exam Neck: normal inspection, trachea midline, full ROM, no carotid bruits Chest: normal inspection, symmetric chest rise, unable to appreciate mass in breast Respiratory: Good respiratory effort. Bilateral breath sounds are clear without wheezing, crackles, or rhonchi. Cardiovascular: Regular rate and rhythm. s1 and s2 No clicks, rubs, gallops, or murmors. Abdomen: Bowel sounds present hypoactive x-4 quadrants. Abdomen is soft, mildly distended no Epigastric tenderness. Mild tenderness on palpation in the left lower quadrant and suprapubic area. No guarding or rebound. No organomegaly noted, obese, wound (ileal conduit with good urine output noted) musculoskeletal: Spontaneously moving all extremities. no edema, no calf tenderness Skin: warm, dry, intact. Neuro: Alert and oriented x4. Sensation light touch intact. Cranial nerves 2- 12 is intact. Not aphasic, no focal deficit Psych: Patient's affect is normal - Patient Status Disposition: Home, Self-Care Condition: Good Functional capacity at discharge: independent ambulation Overall status at discharge: patient is progressing back to baseline - Discharge Instructions Instructions: Bowel Obstruction (DC) Follow Up With: Mulu Gongora DO [Primary Care Provider] - - Diet and Activity Activity: increase activity as tolerated Diet: advance to your usual diet
== END 2018-04-13 09:49 | disposition home or self-care (01) | DRG 390 ==
LOC: 3ANU 03:04 → EMEROOARM 03:04 → 3ANU 05:00
PROVIDERS: ADMIT Family Medicine; ATTEND Family Medicine

== ENCOUNTER 2018-10-27 08:37 | Inpatient (IN) ==
--- NOTE | 2018-10-27 08:51 | Emergency Department Note ---
Disposition Clinical Impression: Tachycardia, Post-operative pain Dyspnea Qualifiers: Dyspnea type: unspecified Qualified Code(s): R06.00 - Dyspnea, unspecified Disposition: Admitted As Inpatient Condition: Fair Time of Disposition: 12:44 General Adult HPI - General Chief complaint: ED General Medical Stated complaint: Complications Post Mastectomy Time Seen by Provider: 10/27/18 08:48 Source: patient Limitations: no limitations Nursing Notes Reviewed: Yes Vital Signs Reviewed: Yes - History of Present Illness HPI Narrative: 63yo female presents from home for evaluation of chills, nausea, and vomiting. Symptom onset early this morning; specific time unknown to patient. Temp was measured at home and she was afebrile. Emesis bilious, non-bloody. She notes a general tight sensation beneath her incisions that is not improved worsened since surgery. Planned return to surgery Saturday (5d from today) for additional lymph node resections. PMH: Breast cancer status post bilateral mastectomy, history of PE, history of C. difficile PSH: Bilateral mastectomy, ureteral nephrolithiasis removal, cystectomy with ileal conduit. ROS: Positive: Chills, nausea, vomiting, persistent postoperative pain Negative: Fever, hematemesis, palpitations, unusual back pain, abdominal pain, hematochezia, melena Pain Scale: 8 - Related Data Home Medications Medication Instructions Recorded Confirmed Omeprazole Magnesium [Prilosec Otc] 20 mg PO PRN PRN 04/10/18 10/13/18 Previous Rx's Medication Instructions Recorded Docusate Sodium [Colace] 100 mg PO BID PRN #30 capsule 10/14/18 Ibuprofen 800 mg PO Q8H PRN #30 tablet 10/14/18 Ondansetron ODT [Zofran ODT] 4 mg SL Q4HR PRN #15 tab.rapdis 10/14/18 Allergies Allergy/AdvReac Type Severity Reaction Status Date / Time No Known Allergies Allergy Verified 10/27/18 08:43 All systems ED: reviewed and negative except as stated. 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 Head: atraumatic, normocephalic Eye: normal appearance, PERRL, EOMI, no scleral icterus, no conjunctival injection ENT: mucous membranes moist, normal external ear exam Neck: normal inspection, trachea midline, full ROM Chest: normal inspection, symmetric chest rise Respiratory: Good respiratory effort. Bilateral breath sounds are clear without wheezing, crackles, or rhonchi. Cardiovascular: Regular rate and rhythm. No clicks, rubs, gallops, or murmors. Normal heart sounds. Abdomen: Bowel sounds present normoactive x-4 quadrants. Abdomen is soft, nondistended, and nontender. No guarding or rebound. No organomegaly noted. Musculoskeletal: Spontaneously moving all extremities. Skin: warm, dry. Postoperative incisions are closed, clean, no purulence, no erythema. Right SAQIB drain has straw colored fluid with the skin puncture of that drain without discharge, erythema, or tenderness. Left SAQIB drain has erythematous fluid with the skin puncture of that drain without discharge; there is mild erythema and mild tenderness. Neuro: Alert and oriented x4. Sensation light touch intact. Psych: Patient's affect is appropriate for situation. - General Limitations: no limitations General appearance: alert, in no apparent distress Course Course Narrative: Chart check shows patient had same-day surgery 14 days ago from today. Left simple mastectomy with sentinel biopsy. Right simple mastectomy. History of left breast cancer in upper outer quadrant. Clinically patient is ill-appearing but nontoxic. She appears uncomfortable. Will empirically begin vancomycin giving her chief complaint of concern for postoperative problems. Blood culture drawn. Culture of left PJ drain ordered. Low clinical suspicion for infection of the insertion site of the left PJ drain. Patient is moderate to high risk for PE given her history of cancer, recent surgery, tachycardia. D-dimer elevated. Patient's Cr is elevated thus she will needa VQ scan as inpatient. EKG dated 10/27/2018 at 08:56 intervertebral sinus tachycardia with a rate of 111. AL 133, QRS 89, QTC 452. Normal axis. Nonspecific ST-T changes. Compared to previous dated 04/03/2010 showing no acute ischemic changes or comparison. I also discussed the patient with on-call general surgery, Dr. Yoo will be subsequently messaging patient's surgeon, Dr. Alvarez for evaluation of her postoperative incisions B traits. I discussed about the abdomen hospitals, Dr. Ervin, who agrees to accept the patient for continued evaluation monitoring given her high risk of possible PE. Recommended beginning empiric heparin at this time Vital Signs Temperature 98.9 F 10/27/18 08:41 Pulse Rate 132 10/27/18 08:41 Respiratory Rate 18 10/27/18 08:41 Blood Pressure 134/73 10/27/18 08:41 O2 Sat by Pulse Oximetry 97 10/27/18 08:41 Temperature 98.9 F 10/27/18 08:41 Pulse Rate 132 10/27/18 08:41 Respiratory Rate 16 10/27/18 12:25 Blood Pressure 141/76 10/27/18 12:25 O2 Sat by Pulse Oximetry 97 10/27/18 10:02 Oxygen Delivery Oxygen Delivery Room Air Medical Decision Making - Lab Data Result diagrams: 10/27/18 09:52 10/27/18 09:52 Lab Results 10/27/18 10/27/18 10/27/18 Range/Units 09:52 09:52 09:52 WBC 15.7 H (4.3-11.1) K/mcL RBC 3.82 (3.82-4.97) M/mcL Hgb 10.5 L (11.5-15.4) g/dL Hct 33.8 L (35.3-44.9) % MCV 88.5 (83.0-100.0) fL MCH 27.5 L (28.0-33.3) pg MCHC 31.1 L (31.6-35.5) g/dL RDW 13.4 (11.5-14.5) % Plt Count 254 (140-400) K/mcL MPV 10.6 (9.4-12.4) fL Immature Gran % 0.6 (0-4) % Seg Neutrophils % 90.6 % Lymphocytes % 2.8 % Monocytes % 4.8 % Eosinophils % 0.8 % Basophils % 0.4 % Neutrophils # 14.3 H (1.6-8.9) K/mcL Lymphocytes # 0.4 L (0.6-4.6) K/mcL Monocytes # 0.8 (0.0-1.3) K/mcL Eosinophils # 0.1 (0.0-0.6) K/mcL Basophils # 0.1 (0.0-0.2) K/mcL PT (9.4-12.1) Seconds INR APTT (26.0-36.0) Seconds D-Dimer (0-500) ng/mLFEU Sodium 140 (136-145) mEq/L Potassium 3.5 (3.5-5.1) mEq/L Chloride 111 H (98-107) mEq/L Carbon Dioxide 17 L (23-29) mEq/L BUN 29 H (8-23) mg/dL Creatinine 1.43 H (0.60-1.20) mg/dL Est GFR ( Amer) 45 L (> 60) Est GFR (Non-Af Amer) 37 L (> 60) BUN/Creatinine Ratio 20 (6-26) Glucose 129 H (70-105) mg/dL Calculated Osmolality 298 (280-300) Lactic Acid 1.0 (0.5-2.2) mmol/L Calcium 8.9 (8.6-10.3) mg/dL 10/27/18 Range/Units 09:52 WBC (4.3-11.1) K/mcL RBC (3.82-4.97) M/mcL Hgb (11.5-15.4) g/dL Hct (35.3-44.9) % MCV (83.0-100.0) fL MCH (28.0-33.3) pg MCHC (31.6-35.5) g/dL RDW (11.5-14.5) % Plt Count (140-400) K/mcL MPV (9.4-12.4) fL Immature Gran % (0-4) % Seg Neutrophils % % Lymphocytes % % Monocytes % % Eosinophils % % Basophils % % Neutrophils # (1.6-8.9) K/mcL Lymphocytes # (0.6-4.6) K/mcL Monocytes # (0.0-1.3) K/mcL Eosinophils # (0.0-0.6) K/mcL Basophils # (0.0-0.2) K/mcL PT 12.5 H (9.4-12.1) Seconds INR 1.1 APTT 26.4 (26.0-36.0) Seconds D-Dimer 850 H (0-500) ng/mLFEU Sodium (136-145) mEq/L Potassium (3.5-5.1) mEq/L Chloride (98-107) mEq/L Carbon Dioxide (23-29) mEq/L BUN (8-23) mg/dL Creatinine (0.60-1.20) mg/dL Est GFR ( Amer) (> 60) Est GFR (Non-Af Amer) (> 60) BUN/Creatinine Ratio (6-26) Glucose (70-105) mg/dL Calculated Osmolality (280-300) Lactic Acid (0.5-2.2) mmol/L Calcium (8.6-10.3) mg/dL
[2018-10-27] MEDS ORDERED: Acetaminophen 325 MG TABLET PO ONE (09:03)
[2018-10-27] MEDS ORDERED: Ketorolac 15 MG/ML VIAL IVP ONE (09:06)
[2018-10-27] MEDS ORDERED: Ondansetron 4 MG/2 ML VIAL IVP ONE (09:06)
[2018-10-27] MEDS ORDERED: 0.9 % Sodium Chloride 1,000 ML IVC ONE (09:06)
--- NOTE | 2018-10-27 09:30 | Emergency Department Note ---
Disposition Clinical Impression: Tachycardia, Post-operative pain Dyspnea Qualifiers: Dyspnea type: shortness of breath Qualified Code(s): R06.02 - Shortness of breath; R06.00 - Dyspnea, unspecified; R06.01 - Orthopnea Disposition: Admitted As Inpatient Condition: Fair General Adult HPI - General Chief complaint: ED General Medical Stated complaint: Complications Post Mastectomy Time Seen by Provider: 10/27/18 08:48 Source: patient Limitations: no limitations Nursing Notes Reviewed: Yes Vital Signs Reviewed: Yes - History of Present Illness Pain Scale: 8 - Related Data Home Medications Medication Instructions Recorded Confirmed Omeprazole Magnesium [Prilosec Otc] 20 mg PO PRN PRN 04/10/18 10/13/18 Previous Rx's Medication Instructions Recorded Docusate Sodium [Colace] 100 mg PO BID PRN #30 capsule 10/14/18 Ibuprofen 800 mg PO Q8H PRN #30 tablet 10/14/18 Ondansetron ODT [Zofran ODT] 4 mg SL Q4HR PRN #15 tab.rapdis 10/14/18 Allergies Allergy/AdvReac Type Severity Reaction Status Date / Time No Known Allergies Allergy Verified 10/27/18 08:43 Past Medical History - Past Medical History Medical history: Reports: cancer, GERD, kidney stones, pulmonary embolus, renal disease, other Surgical history: Reports: hysterectomy Psychiatric history: Reports: anxiety, depression 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 - Social History Smoking Status: Never smoker Smokeless Tobacco Status: No Alcohol use: Reports: none Drug use: Reports: none Physical Exam - General Limitations: no limitations General appearance: alert, in no apparent distress Course Vital Signs Temperature 98.9 F 10/27/18 08:41 Pulse Rate 132 10/27/18 08:41 Respiratory Rate 18 10/27/18 08:41 Blood Pressure 134/73 10/27/18 08:41 O2 Sat by Pulse Oximetry 97 10/27/18 08:41 Temperature 98.9 F 10/27/18 08:41 Pulse Rate 132 10/27/18 08:41 Respiratory Rate 16 10/27/18 12:25 Blood Pressure 141/76 10/27/18 12:25 O2 Sat by Pulse Oximetry 97 10/27/18 10:02 Oxygen Delivery Oxygen Delivery Room Air Medical Decision Making - MDM Narrative Medical decision making narrative: 1000 hrs.: Patient has a port and she has to we draw labs to there. Nurses of drawn labs and sent down. Chest X-Ray 10/27/18 09:05 IMPRESSION: No acute cardiopulmonary process. D/ / 10/27/2018 09:55:24 Arti Marquez MD / brian Interpreting Provider: Arti Marquez MD 1041 hrs.: Patient's creatinine is elevated as her d-dimer when I talked her about CTA versus VQ scan. 1209 hours: Decision was made with patient us and hospitalist is going to get VQ and hospice will follow-up on that. She is being admitted at this time. - Lab Data Result diagrams: 10/27/18 09:52 10/27/18 09:52 Lab Results 10/27/18 10/27/18 10/27/18 Range/Units 09:52 09:52 09:52 WBC 15.7 H (4.3-11.1) K/mcL RBC 3.82 (3.82-4.97) M/mcL Hgb 10.5 L (11.5-15.4) g/dL Hct 33.8 L (35.3-44.9) % MCV 88.5 (83.0-100.0) fL MCH 27.5 L (28.0-33.3) pg MCHC 31.1 L (31.6-35.5) g/dL RDW 13.4 (11.5-14.5) % Plt Count 254 (140-400) K/mcL MPV 10.6 (9.4-12.4) fL Immature Gran % 0.6 (0-4) % Seg Neutrophils % 90.6 % Lymphocytes % 2.8 % Monocytes % 4.8 % Eosinophils % 0.8 % Basophils % 0.4 % Neutrophils # 14.3 H (1.6-8.9) K/mcL Lymphocytes # 0.4 L (0.6-4.6) K/mcL Monocytes # 0.8 (0.0-1.3) K/mcL Eosinophils # 0.1 (0.0-0.6) K/mcL Basophils # 0.1 (0.0-0.2) K/mcL PT (9.4-12.1) Seconds INR APTT (26.0-36.0) Seconds D-Dimer (0-500) ng/mLFEU Sodium 140 (136-145) mEq/L Potassium 3.5 (3.5-5.1) mEq/L Chloride 111 H (98-107) mEq/L Carbon Dioxide 17 L (23-29) mEq/L BUN 29 H (8-23) mg/dL Creatinine 1.43 H (0.60-1.20) mg/dL Est GFR ( Amer) 45 L (> 60) Est GFR (Non-Af Amer) 37 L (> 60) BUN/Creatinine Ratio 20 (6-26) Glucose 129 H (70-105) mg/dL Calculated Osmolality 298 (280-300) Lactic Acid 1.0 (0.5-2.2) mmol/L Calcium 8.9 (8.6-10.3) mg/dL 10/27/18 Range/Units 09:52 WBC (4.3-11.1) K/mcL RBC (3.82-4.97) M/mcL Hgb (11.5-15.4) g/dL Hct (35.3-44.9) % MCV (83.0-100.0) fL MCH (28.0-33.3) pg MCHC (31.6-35.5) g/dL RDW (11.5-14.5) % Plt Count (140-400) K/mcL MPV (9.4-12.4) fL Immature Gran % (0-4) % Seg Neutrophils % % Lymphocytes % % Monocytes % % Eosinophils % % Basophils % % Neutrophils # (1.6-8.9) K/mcL Lymphocytes # (0.6-4.6) K/mcL Monocytes # (0.0-1.3) K/mcL Eosinophils # (0.0-0.6) K/mcL Basophils # (0.0-0.2) K/mcL PT 12.5 H (9.4-12.1) Seconds INR 1.1 APTT 26.4 (26.0-36.0) Seconds D-Dimer 850 H (0-500) ng/mLFEU Sodium (136-145) mEq/L Potassium (3.5-5.1) mEq/L Chloride (98-107) mEq/L Carbon Dioxide (23-29) mEq/L BUN (8-23) mg/dL Creatinine (0.60-1.20) mg/dL Est GFR ( Amer) (> 60) Est GFR (Non-Af Amer) (> 60) BUN/Creatinine Ratio (6-26) Glucose (70-105) mg/dL Calculated Osmolality (280-300) Lactic Acid (0.5-2.2) mmol/L Calcium (8.6-10.3) mg/dL Attestation Statement - Attestation Attestation: This documentation is done with the assistance of Dragon dictation. Despite efforts made to ensure accuracy, there may be inaccuracies in manifest clerk or spelling and typographical errors. I examined this patient and my medical decision-making was reviewed with the Resident Physician. I agree with the documented findings, disposition and treatment plan as described except to the extent set forth below. Patient seen and evaluated today by Dr. Aguiar myself, I agree with his evaluation and management plan, I supervised the care the patient's stay the patient's stay. Patient presents today with tachycardia and chest discomfort she had lumpectomy done and has 2 remaining drains in. She says follow-up Saturday for further surgery she thinks her intake of sore lymph nodes. We will dyspneic she is tachycardic also no history of PE. Renagel workup on her cardiac infectious and rule out DVT PE she is in agreement with plan.
[2018-10-27 10:13] LABS: Basophils # 0.1 K/mcL (0.0-0.2); Basophils % 0.4 %; Eosinophils # 0.1 K/mcL (0.0-0.6); Eosinophils % 0.8 %; Hematocrit 33.8 % (35.3-44.9); Hemoglobin 10.5 g/dL (11.5-15.4); Immature Granulocytes % 0.6 % (0-4); Lymphocytes # 0.4 K/mcL (0.6-4.6); Lymphocytes % 2.8 %; Mean Corpuscular HGB Conc 31.1 g/dL (31.6-35.5); Mean Corpuscular Hemoglobin 27.5 pg (28.0-33.3); Mean Corpuscular Volume 88.5 fL (83.0-100.0); Mean Platelet Volume 10.6 fL (9.4-12.4); Monocytes # 0.8 K/mcL (0.0-1.3); Monocytes % 4.8 %; Neutrophils # 14.3 K/mcL (1.6-8.9); Platelet Count 254 K/mcL (140-400); Red Blood Count 3.82 M/mcL (3.82-4.97); Red Cell Distribution Width 13.4 % (11.5-14.5); Segmented Neutrophils % 90.6 %
[2018-10-27 10:25] LABS: Calcium 8.9 mg/dL (8.6-10.3); Potassium 3.5 mEq/L (3.5-5.1)
[2018-10-27] MEDS ORDERED: Isovue-370 500 ML BOTTLE IVP ONE (10:34)
[2018-10-27] MEDS ORDERED: *HR* Heparin 5,000 UNIT/ML VIAL IVP PRN ×2 (11:25)
[2018-10-27] MEDS ORDERED: *HR* Heparin 5,000 UNIT/ML VIAL IVP ONE (11:25)
[2018-10-27] MEDS ORDERED: Heparin 25,000 UNIT/250 ML D5W 25,000 UNIT/250 ML IV.SOLN IVC SCH (11:30)
[2018-10-27] MEDS ORDERED: *HR* FentaNYL (PF) 100 MCG/2 ML VIAL IVP ONE (11:35)
[2018-10-27 12:01] LABS: INR 1.1; Prothrombin Time 12.5 Seconds (9.4-12.1)
[2018-10-27 12:04] LABS: Activated Partial Thrombo Time 26.4 Seconds (26.0-36.0)
[2018-10-27] MEDS ORDERED: Naloxone 0.4 MG/ML INJ IVP PRN (12:05)
[2018-10-27] MEDS ORDERED: traMADol 50 MG TABLET PO PRN (12:05)
[2018-10-27] MEDS ORDERED: Ibuprofen 400 MG TABLET PO ONE (12:09)
[2018-10-27] MEDS ORDERED: *HR* FentaNYL (PF) 100 MCG/2 ML VIAL ONE (12:15)
--- NOTE | 2018-10-27 12:35 | Internal Med History&Physical ---
Date of Encounter: 10/27/18 Time of Encounter: 11:00 Internal Medicine - H&P: HPI Chief complaint: fever Admitted From: Home Plans for Post Hospital Care: Home History of present illness: Ms. Jasmine is a 63 year old female with history of breast cancer and recent bilateral mastectomies by Dr. Alvarez s/p bilateral SAQIB drain placement on 10/13, h/o of PE s/p IVC filter, endometrial cancer and other chronic medical conditions presented to the ED with complaint of fever and chills. as per patient she has being doing well post surgery except for uncomfortable sensation due to SAQIB drains and also chest wall pain and tenderness post op which is relieved with her pain medications. she developed fever, chills this AM along with worsening incisional pain of the left mastectomy site especially in the MAL region that she describes as 5/10 on severity and associated with erythema and warmth. she also reports increased drainage from the left SAQIB drain. she denies SOB, chest pressure, chest pain on exertion, calf tenderness, prolonged immobilization. she has surgery Planned on Saturday (5d from today) for additional lymph node resections. she denies recent chemotherapy, does report that she has had episode of severe anemia secondary to bleeding so she IVC filter was placed. while in the ED there was concerns for PE ( elevated D-dimer and tachycardia) and she was started on heparin drip - she is refusing heparin drip and would like the PE work up to be performed prior to Anticoagulation and she understands the risks and benefits. surgery was called for post op pain/ increased drainage from SAQIB drains. she was endorsed for admission for management and evaluation of above. she also endorses headache, denies neck stiffness, AMS, syncope, falls, vision changes, nausea, head trauma. but did have one episode of bilious vomiting his AM. she reports that she believes that this is another migraine attack as her symptoms are similar to when she has migraines. she has been taking ibuprofen almost daily for pain control. Past Med Surg Social Fam HX - Past Medical History Medical history: cancer, GERD, kidney stones, pulmonary embolus, renal disease, other Additional medical history: anemia, kidney stones, radiation proctitis, hx of c- diff Psychiatric history: anxiety, depression - Past Surgical History Surgical History: hysterectomy Additional surgical history: nephrostomy tube placement, colonoscopy 2012, kidney stones removal, vaginal biopsy, flexible sigmoidoscopy 2013, cystoscopy, bladder removal and formation of ileal conduit - Social History Smoking Status: Never smoker Smokeless Tobacco Status: No Alcohol use: none Drug use: none - Family History Mother Adopted: No Family Member Ethnicity: Non- Living Status: Hx Family Cardiac Disorders: No Hx Family Respiratory Disorders: No Hx Family Cancer: Yes (Breast CA w/mets) Hx Family GI Disorders: No Hx Family Endocrine Disorder: No Hx Family Neuromuscular Disorders: No Hx Family Neurologic Disorders: No Hx Family HEENT Disorders: No Hx Family Autoimmune Disorders: No Father Adopted: No Family Member Ethnicity: Non- Living Status: Hx Family Cardiac Disorders: Yes (PE from AAA repair) Hx Family Respiratory Disorders: No Hx Family Cancer: No Hx Family GI Disorders: Yes (Abdominal Aortic Aneurysm) Hx Family Endocrine Disorder: No Hx Family Neuromuscular Disorders: No Hx Family Neurologic Disorders: No Hx Family HEENT Disorders: No Hx Family Autoimmune Disorders: No Sister Family Member Ethnicity: Non- Living Status: Still Living Hx Family Cardiac Disorders: Yes (Heart Mumur) Internal Medicine - H&P: Meds RX: Omeprazole Magnesium [Prilosec Otc] 20 mg PO PRN PRN 04/10/18 [History] Docusate Sodium [Colace] 100 mg PO BID PRN #30 capsule 10/14/18 [Rx] Ondansetron ODT [Zofran ODT] 4 mg SL Q4HR PRN #15 tab.rapdis 10/14/18 [Rx] RX: Ibuprofen 800 mg PO Q8H PRN #30 tablet 10/14/18 [Rx] Allergy/AdvReac Type Severity Reaction Status Date / Time No Known Allergies Allergy Verified 10/27/18 08:43 All Systems PM: A 10-system review of systems was performed and is negative for pertinent findings except as documented above in the HPI. - Constitutional Vitals: Temp Pulse Resp BP Pulse Ox 98.9 F 132 18 134/73 97 10/27/18 08:41 10/27/18 08:41 10/27/18 08:41 10/27/18 08:41 10/27/18 10:02 Exam: General: Patient is alert, oriented, no acute distress, obese Head: atraumatic, normocephalic, Eye: normal appearance, PERRL, no scleral icterus, no conjunctival injection ENT: mucous membranes moist, normal external ear exam Neck: normal inspection, trachea midline, full ROM, no carotid bruits Chest: symmetric chest rise, has bilateral mastectomy scars with incisions that are well healed, bilateral SAQIB drains draining serosanguineous fluid, left mid axillary line incision site has erythema, warmth and tender to touch. Respiratory: Good respiratory effort. Bilateral breath sounds are clear without wheezing, crackles, or rhonchi. Cardiovascular: Tachycardic s1 and s2 No clicks, rubs, gallops, or murmors. Abdomen: Bowel sounds present normoactive x-4 quadrants. Abdomen is soft, nondistended. no Epigastric tenderness. No guarding or rebound. No organomegaly noted, obese musculoskeletal: Spontaneously moving all extremities. no edema, no calf tenderness Skin: warm, dry, intact. Neuro: Alert and oriented x4. No focal deficit Psych: Patient's affect is normal Internal Med - H&P Results - Labs CBC & Chem 7: 10/27/18 09:52 10/27/18 09:52 Labs: Short CBC 10/27/18 Range/Units 09:52 WBC 15.7 H (4.3-11.1) K/mcL Hgb 10.5 L (11.5-15.4) g/dL Hct 33.8 L (35.3-44.9) % Plt Count 254 (140-400) K/mcL Neutrophils # 14.3 H (1.6-8.9) K/mcL BMP 10/27/18 09:52 Sodium 140 Potassium 3.5 Chloride 111 H Carbon Dioxide 17 L BUN 29 H Creatinine 1.43 H Glucose 129 H Calcium 8.9 - EKG Data -: EKG Interpreted by Myself EKG shows normal: sinus rhythm (sinus tachycardia, nonspecific St-t changes , ST depression in lead 2, v4,v3) - EKG Data Prior EKG available for review: yes When compared to previous EKG: there is no significant change - Impressions ITS Impressions Chest X-Ray 10/27/18 09:05 IMPRESSION: No acute cardiopulmonary process. D/ / 10/27/2018 09:55:24 Arti Marquez MD / [email or web address] Interpreting Provider: Arti Marquez MD - Assessment and Plan (1) Cellulitis Current Visit: Yes Status: Acute Assessment and plan: cellulitis of the left mastectomy incision ESR, CRP, bcx vancomycin surgery consulted by ED physician will follow patient Qualifiers: Site of cellulitis: trunk Site of cellulitis of trunk: chest wall Qualified Code(s): L03.313 - Cellulitis of chest wall (2) Sepsis Current Visit: Yes Status: Acute Assessment and plan: sepsis secondary to above WBC count 15.7, tachycardia of 136 sepsis protocol lactic acid WNL follow pancx management as above Qualifiers: Sepsis type: sepsis due to unspecified organism Qualified Code(s): A41.9 - Sepsis, unspecified organism (3) Chest pain Current Visit: Yes Status: Acute Assessment and plan: atypical chest pain that is mostly incisional and post op doubt PE or ACS will rule out wells criteria is 7 - D-Dimer 850 was started on heparin drip by the ED physician however she has refused- understanding risks and benefits including V/Q scan ordered as she has ARF and unable to obtain CTPA cardiac monitoring continuous pulse OX troponin stat and follow Q6H continue home medications if not CI Qualifiers: Chest pain type: other chest pain Qualified Code(s): R07.89 - Other chest pain; R07.8 - Other chest pain (4) ARF (acute renal failure) Current Visit: Yes Status: Acute Assessment and plan: most likely multifactorial ( multiple IV contrast used recently), NSAID use, dehydration and hypoperfusion from sepsis NS 100 CC per hour watch for over load UA stat urine elctrolytes urine eosinophils renal US strict i/O Avid nephrotoxic medications Qualifiers: Acute renal failure type: unspecified Qualified Code(s): N17.9 - Acute kidney failure, unspecified (5) Normocytic anemia Current Visit: Yes Status: Acute Assessment and plan: post op with mild normocytic anemia continue to monitor H/h (6) Obesity (BMI 30-39.9) Current Visit: No Status: Chronic Assessment and plan: was counseled (7) DVT prophylaxis Current Visit: No Status: Acute Assessment and plan: heparin sc - Time Spent With Patient Total time spent is greater than 50% in coordination of care (as documented) at patient's floor/unit and/or counseling patient:
--- NOTE | 2018-10-27 14:10 | General Surgery Consult Note ---
Date of Encounter: 10/27/18 Time of Encounter: 13:30 Assessment and Plan (1) History of left breast cancer Current Visit: Yes Status: Acute Patient s/p Bilateral simple mastectomy and left sentinal lymph node biopsy on 10/13/[address] Alvarez Tenderness is increased at the left drain tube site without cellulitis There is a change in the drainage- brown in color with increased sediment Recommend removal of right sided SAQIB drain- discussed with nurse Continue Left sided SAQIB drain with strict I&O Recommend antibiotic coverage- Vancomycin ordered per the ED, management per hospitalist I would not recommend culture of drainage from SAQIB drains as the surgical drains are contaminated and would not provide beneficial information Supportive care and pain control Surgery will continue to follow along and assess progress Will tentatively plan to proceed with left axillary dissection on 10/31/[address] Alvarez if the patient does not have an acute issue which would warrant postponing the procedure. History of Present Illness Consult date: 10/27/18 Reason for consult: other (Discomfort around SAQIB drains, change in drainage) Requesting physician: Tremayne Aguiar History of present illness: Ms. Jasmine is a very pleasant 63 year old female who is s/p Left simple mastectomy with sentinel lymph node biopsy and Right simple mastectomy on 10/13/[address] Alvarez for a left sided breast cancer. She was last seen in the office on 10/22/[address] Alvarez for drain checks. Both drains were having high volume output and unable to be removed. She states that she ran out of pain medication last week and has been having difficulty with pain control. She reports that the discomfort is greater on the left than on the right. The pain is concentrated around the drain tube insertion site. She took 6- 200mg ibuprofen at midnight last night to try and get relief from the pain. She felt chilled and began having nausea and vomiting this morning. She states that she was unable to check her temperature and is unsure whether she has been febrile or not. She denies any hematemesis or coffee ground emesis. She reports that her drains were having minimal output up until today. The right is still minimal. The left drain has decompressed approximately 60ml of brown liquid with sediment noted. She denies any shortness of breath or chest pains. She is scheduled for a left axillary dissection with Dr. Alvarez on 10/31/18. We have been asked to see and evaluate the patient for evaluation and recommendations. Past Med Surg Social Fam HX - Past Medical History Source: patient Medical history: cancer (left breast), GERD, kidney stones, pulmonary embolus, renal disease, other Additional medical history: anemia, kidney stones, radiation proctitis, hx of c- diff Psychiatric history: anxiety, depression - Past Surgical History Surgical History: cancer surgery (1. Left simple mastectomy with sentinel lymph node biopsy. 2. Right simple mastectomy), hysterectomy Additional surgical history: nephrostomy tube placement, colonoscopy 2012, kidney stones removal, vaginal biopsy, flexible sigmoidoscopy 2013, cystoscopy, bladder removal and formation of ileal conduit - Social History Smoking Status: Never smoker Smokeless Tobacco Status: No Alcohol use: none Drug use: none Current living situation: Home - Independent - Family History Mother Adopted: No Family Member Ethnicity: Non- Living Status: Hx Family Cardiac Disorders: No Hx Family Respiratory Disorders: No Hx Family Cancer: Yes (Breast CA w/mets) Hx Family GI Disorders: No Hx Family Endocrine Disorder: No Hx Family Neuromuscular Disorders: No Hx Family Neurologic Disorders: No Hx Family HEENT Disorders: No Hx Family Autoimmune Disorders: No Father Adopted: No Family Member Ethnicity: Non- Living Status: Hx Family Cardiac Disorders: Yes (PE from AAA repair) Hx Family Respiratory Disorders: No Hx Family Cancer: No Hx Family GI Disorders: Yes (Abdominal Aortic Aneurysm) Hx Family Endocrine Disorder: No Hx Family Neuromuscular Disorders: No Hx Family Neurologic Disorders: No Hx Family HEENT Disorders: No Hx Family Autoimmune Disorders: No Sister Family Member Ethnicity: Non- Living Status: Still Living Hx Family Cardiac Disorders: Yes (Heart Mumur) Medications and Allergies Omeprazole Magnesium [Prilosec Otc] 20 mg PO PRN PRN 04/10/18 [History] Docusate Sodium [Colace] 100 mg PO BID PRN #30 capsule 10/14/18 [Rx] Ibuprofen 800 mg PO Q8H PRN #30 tablet 10/14/18 [Rx] Ondansetron ODT [Zofran ODT] 4 mg SL Q4HR PRN #15 tab.rapdis 10/14/18 [Rx] Allergy/AdvReac Type Severity Reaction Status Date / Time No Known Allergies Allergy Verified 10/27/18 08:43 Review of Systems All systems PM: reviewed and no additional remarkable complaints except as stated (in the HPI) All systems PM: The remainder of the systems were reviewed and are negative General Surgery Exam Initial Vital Signs Temp Pulse Resp BP Pulse Ox 98.9 F 132 18 134/73 97 10/27/18 08:41 10/27/18 08:41 10/27/18 08:41 10/27/18 08:41 10/27/18 08:41 - General physical appearance well developed, well nourished, moderate pain - Eyes PERRL, normal ocular movement - ENT normal mucosa, atraumatic, normocephalic - Neck trachea midline - Respiratory normal respiratory effort, clear to auscultation - Cardiovascular Cardiovascular exam: Present: tachycardia - Abdomen Abdomen general surgery: Present: bowel sounds present, soft, non tender - Incision Incision: Present: draining (Right sided chest SAQIB drain- serous drainage noted with minimal sediment; Left sided chest SAQIB drain- large amount of brown liquid with moderate amount of sediment.), clean and dry, intact - Integumentary Integumentary general surgery: Present: warm and dry - Neurologic Present: CN 2-12 grossly intact - Psychiatric Psychiatric general surgery: Present: A&Ox3 Exam Initial Vital Signs Temp Pulse Resp BP Pulse Ox 98.9 F 132 18 134/73 97 10/27/18 08:41 10/27/18 08:41 10/27/18 08:41 10/27/18 08:41 10/27/18 08:41 Results - Labs 10/27/18 09:52 10/27/18 09:52 Abnormal lab results WBC 15.7 K/mcL (4.3-11.1) H 10/27/18 09:52 Hgb 10.5 g/dL (11.5-15.4) L 10/27/18 09:52 Hct 33.8 % (35.3-44.9) L 10/27/18 09:52 MCH 27.5 pg (28.0-33.3) L 10/27/18 09:52 MCHC 31.1 g/dL (31.6-35.5) L 10/27/18 09:52 14.3 K/mcL (1.6-8.9) H 10/27/18 09:52 0.4 K/mcL (0.6-4.6) L 10/27/18 09:52 PT 12.5 Seconds (9.4-12.1) H 10/27/18 09:52 850 ng/mLFEU (0-500) H 10/27/18 09:52 Chloride 111 mEq/L (98-107) H 10/27/18 09:52 Carbon Dioxide 17 mEq/L (23-29) L 10/27/18 09:52 BUN 29 mg/dL (8-23) H 10/27/18 09:52 1.43 mg/dL (0.60-1.20) H 10/27/18 09:52 Est GFR ( Amer) 45 (> 60) L 10/27/18 09:52 Est GFR (Non-Af Amer) 37 (> 60) L 10/27/18 09:52 Glucose 129 mg/dL (70-105) H 10/27/18 09:52 Diabetes panel 10/27/18 Range/Units 09:52 Sodium 140 (136-145) mEq/L Potassium 3.5 (3.5-5.1) mEq/L Chloride 111 H (98-107) mEq/L Carbon Dioxide 17 L (23-29) mEq/L BUN 29 H (8-23) mg/dL Creatinine 1.43 H (0.60-1.20) mg/dL Glucose 129 H (70-105) mg/dL Calcium 8.9 (8.6-10.3) mg/dL Calcium panel 10/27/18 Range/Units 09:52 Calcium 8.9 (8.6-10.3) mg/dL Pituitary panel 10/27/18 Range/Units 09:52 Sodium 140 (136-145) mEq/L Potassium 3.5 (3.5-5.1) mEq/L Chloride 111 H (98-107) mEq/L Carbon Dioxide 17 L (23-29) mEq/L BUN 29 H (8-23) mg/dL Creatinine 1.43 H (0.60-1.20) mg/dL Glucose 129 H (70-105) mg/dL Calcium 8.9 (8.6-10.3) mg/dL Adrenal panel 10/27/18 Range/Units 09:52 Sodium 140 (136-145) mEq/L Potassium 3.5 (3.5-5.1) mEq/L Chloride 111 H (98-107) mEq/L Carbon Dioxide 17 L (23-29) mEq/L BUN 29 H (8-23) mg/dL Creatinine 1.43 H (0.60-1.20) mg/dL Glucose 129 H (70-105) mg/dL Calcium 8.9 (8.6-10.3) mg/dL All other labs normal. - Imaging Additional studies: Chest X-Ray 10/27/18 09:05 IMPRESSION: No acute cardiopulmonary process. D/ / 10/27/2018 09:55:24 Arti Marquez MD / [email or web address] Interpreting Provider: Arti Marquez MD Retroperitoneum Ultrasound 10/27/18 12:14 IMPRESSION: 1. Minimal right hydronephrosis. Otherwise normal sonographic appearance of the kidneys. 2. Incidental note of hepatic steatosis and cholelithiasis. D/ / Shaquille Butler MD / Shaquille Butler MD Interpreting Provider: Shaquille Butler MD Pulmonary Perfusion Imaging 10/27/18 13:01 IMPRESSION: Low probability for pulmonary embolus. D/ / Seth Flores MD / Seth Flores MD Interpreting Provider: Seth Flores MD Consult Discharge Plan - Plan Referrals: Mulu Gongora DO [Primary Care Provider] -
[2018-10-27] MEDS: *HR* OxyCODONE Immed Rel 5 MG TABLET PO PRN (14:25)
[2018-10-27] MEDS: *HR* Heparin 5,000 UNIT/ML VIAL SQ SCH ×2 (14:25→20:40)
[2018-10-27] MEDS: 0.9 % Sodium Chloride 1,000 ML IVC SCH ×4 (14:26→23:14)
[2018-10-27] MEDS ORDERED: Acetaminophen/Aspirin/Caffeine TABLET PO PRN (14:43)
[2018-10-27] MEDS ORDERED: Acetaminophen/Aspirin/Caffeine TABLET PO ONE (15:00)
--- NOTE | 2018-10-27 16:39 | Electrocardiograph Report ---
[address] [place] [address] Test Date: 2018-10-27 Pat Name: Ros Jasmine Department: [id number] Room: 3B39 Gender: F Cyber Special Agent: : [id number] Requested By: Tremayne Aguiar Order Number: [id number] Reading MD: Sonia Grimaldo Measurements Intervals Elmer Rate: 111 P: 71 LA: 133 QRS: -4 QRSD: 89 T: 55 QT: 332 QTc: 452 Interpretive Statements Sinus tachycardia Low voltage, precordial leads Electronically Signed On 10-27-2018 16:37:41 EDT by Sonia Grimaldo
[2018-10-27 16:58] LABS: INR 1.2; Prothrombin Time 13.6 Seconds (9.4-12.1)
[2018-10-27 17:11] LABS: C-Reactive Protein 108 mg/L (Less than 10)
[2018-10-27 17:12] LABS: Troponin I < 0.03 ng/mL (< 0.04)
[2018-10-27 20:05] LABS: Bilirubin,Urine Negative (Negative); Blood,Urine Negative (Negative); Clarity,Urine Cloudy (Clear); Color,Urine Yellow (Yellow); Glucose,Urine (UA) Normal (Normal); Ketones,Urine Negative (Negative); Leukocyte Esterase,Urine Moderate (Negative); Nitrite,Urine Positive (Negative); PH,Urine 6.5 pH Units (5.0-8.0); Protein,Urine 30 mg/dL (Neg-Trace); Specific Gravity,Urine 1.015 (1.010-1.025); Urobilinogen,Urine Normal (Normal)
[2018-10-27 20:06] LABS: Bacteria,Urine Many per hpf (None-Few); Hyaline Casts,Urine Few per lpf (None-Few); RBC,Urine 0-3 per hpf (0-3); Squamous Epithelial Cell,Urine Few per lpf (None-Few); WBC,Urine 30-50 per hpf (0-3)
[2018-10-27 20:07] LABS: Potassium,Urine 75.6 mEq/L; Sodium, Urine 58.3 mEq/L
[2018-10-27] MEDS: *HR* OxyCODONE/APAP 5/325 TABLET PO PRN (20:39)
[2018-10-27] MEDS: Ondansetron 4 MG/2 ML VIAL IVP PRN (23:17)
[2018-10-27] MEDS: Piperacillin/Tazobactam 3.375 GM in 0.9 % Sodium Chloride Mini Bag 100 ML IVPB SCH (23:19)
[2018-10-28] MEDS: *HR* OxyCODONE/APAP 5/325 TABLET PO PRN (03:12)
[2018-10-28] MEDS: 0.9 % Sodium Chloride 1,000 ML IVC SCH (03:19)
[2018-10-28 04:59] LABS: Basophils # 0.1 K/mcL (0.0-0.2); Basophils % 0.4 %; Eosinophils # 0.4 K/mcL (0.0-0.6); Eosinophils % 3.5 %; Hematocrit 28.1 % (35.3-44.9); Immature Granulocytes % 0.3 % (0-4); Lymphocytes # 0.6 K/mcL (0.6-4.6); Lymphocytes % 5.1 %; Mean Corpuscular Hemoglobin 27.4 pg (28.0-33.3); Mean Corpuscular Volume 88.6 fL (83.0-100.0); Mean Platelet Volume 10.6 fL (9.4-12.4); Monocytes # 0.8 K/mcL (0.0-1.3); Monocytes % 6.3 %; Neutrophils # 10.7 K/mcL (1.6-8.9); Platelet Count 204 K/mcL (140-400); Red Blood Count 3.17 M/mcL (3.82-4.97); Red Cell Distribution Width 13.5 % (11.5-14.5); Segmented Neutrophils % 84.4 %
[2018-10-28] MEDS: *HR* Heparin 5,000 UNIT/ML VIAL SQ SCH ×3 (05:01→19:23)
[2018-10-28 05:02] LABS: Hemoglobin 8.7 g/dL (11.5-15.4)
[2018-10-28 05:18] LABS: Calcium 8.4 mg/dL (8.6-10.3); Potassium 3.3 mEq/L (3.5-5.1)
--- NOTE | 2018-10-28 08:10 | Internal Med Progress Note ---
Hospitalist Progress Note - Encounter Date of Encounter: 10/28/18 Time of Encounter: 09:40 - Subjective Interval History: awake, migraine resolved but just dull post migraine headache today. plans to just rest. denies fevers, chills, nausea or emesis. she denies dysuria (no bladder but get bruning with utis in past), no change in output. no drainage from wounds. discussed lab results/imaging results and discussed plan. - Exam Vitals: Temp Pulse Resp BP Pulse Ox 99.0 F 97 20 107/63 97 10/28/18 07:16 10/28/18 07:16 10/28/18 07:16 10/28/18 07:16 10/28/18 07:16 Exam: General: awake, alert, appears stated age HEENT:EOM intact, pupils equal, round, moist mucus membranes Neck: supple, trachea midline, rim intact and painless Cardiovascular:regular rate and rhythm, normal S1 & S2, no rubs, murmurs or gallops. no lower extremity edema Lungs:Normal breath sounds, no wheezes, or crackles. Normal respiratory effort on room air Abdomen:Soft, non-tender, non-distended, no rigidity, + bowel sounds Extremities:No deformity, no edema or tenderness Neurological: AAOx3, no focal deficits Skin:inferior to the healing left chest incision is an area of erythema and warmth, extends to midline of chest and is in region of what would have been breast fold, no drainage noted, no bleeding, right chest incision also healing well, no drainage or bleeding, no erythema that side of chest - Assessment and Plan (1) Obesity (BMI 30-39.9) Current Visit: No Status: Chronic (2) Cellulitis Current Visit: Yes Status: Acute (3) Sepsis Current Visit: Yes Status: Acute (4) ARF (acute renal failure) Current Visit: Yes Status: Resolved (5) Chest pain Current Visit: Yes Status: Acute (6) Normocytic anemia Current Visit: Yes Status: Acute - Summary of Assessment and Plan Summary of Assessment and Plan: 1. sepsis 2/2 cellulitis, possible wound infection left mastectomy site -IVF per protocol with MIVF running -bl cx and ucx pending -left wound cx ordered today by surgery- pending -cont vanc + zosyn 2. Cellulitis left mastectomy site, possible wound infection given purulent drainage -vanc + zosyn, cxs as above, surg following -defer imaging to surgery 3. Possible UTI on ua however given her history below do not suspect this is the main cause of her sepsis -vanc + zosyn, cxs as above 4. Chest pain, suspected related to infectious process of chest wall Wells score 7 with elevated dimer, no CTA due to JORDAN, VQ scan low probability PE Pt refused empiric AC with hep gtt LLE US neg for dvt, she refused RLE US due to pain Has IVCF Trops neg x3 -prn pain control -infection tx as above -cont to monitor for symptoms 5. JORDAN multifactorial with contrast dye exposure, NSAID use, dehydration and sepsis, resolved with IVFs Renal US with mild hydronephrosis Hx bilateral diversion with nephrostomy tubes, simple cystectomy with diversion -cont to monitor renal function -consulted urology and Dr Alonso will see 6. Acute normocytic anemia, suspect this may initially be a post operative hgb drop (10/10 hgb 11.6 and went to OR 10/13 with hgb /6 10.5) though cannot be certain, acute drop from that here likely dilution with sepsis rate ivfs Hemodynamically stable and denies active bleeding -will cont to monitor and work up as needed 7. Incidental hepatic steatosis and cholelithiasis for which I will have her fu outpt vte ppx sqh - Time Spent with Patient Total time spent is greater than 50% in coordination of care (as documented) at patient's floor/unit and/or counseling patient: Internal Medicine: Result - Labs CBC & Chem 7: 10/28/18 04:23 10/28/18 04:23 Labs: Short CBC 10/27/18 10/28/18 Range/Units 09:52 04:23 WBC 15.7 H 12.6 H (4.3-11.1) K/mcL Hgb 10.5 L 8.7 L D (11.5-15.4) g/dL Hct 33.8 L 28.1 L (35.3-44.9) % Plt Count 254 204 (140-400) K/mcL Neutrophils # 14.3 H 10.7 H (1.6-8.9) K/mcL BMP 10/27/18 10/28/18 09:52 04:23 Sodium 140 139 Potassium 3.5 3.3 L Chloride 111 H 109 H Carbon Dioxide 17 L 19 L BUN 29 H 21 Creatinine 1.43 H 1.20 Glucose 129 H 124 H Calcium 8.9 8.4 L Cardiac Enzymes 10/27/18 10/27/18 10/28/18 Range/Units 16:31 22:07 04:23 Troponin I < 0.03 < 0.03 < 0.03 (< 0.04) ng/mL Urine 10/27/18 Range/Units 19:50 Urine Color Yellow (Yellow) Urine Clarity Cloudy A (Clear) Urine pH 6.5 (5.0-8.0) pH Units Ur Specific [place] 1.015 (1.010-1.025) Urine Protein 30 H (Neg-Trace) mg/dL Urine Glucose (UA) Normal (Normal) mg/dL - ABG Interpretation ABG results: PT/INR, D-dimer PT 13.6 Seconds (9.4-12.1) H 10/27/18 16:31 850 ng/mLFEU (0-500) H 10/27/18 09:52 - Impressions Impressions Chest X-Ray 10/27/18 09:05 IMPRESSION: No acute cardiopulmonary process. D/ / 10/27/2018 09:55:24 Arti Marquez MD / [facility] Interpreting Provider: Arti Marquez MD Retroperitoneum Ultrasound 10/27/18 12:14 IMPRESSION: 1. Minimal right hydronephrosis. Otherwise normal sonographic appearance of the kidneys. 2. Incidental note of hepatic steatosis and cholelithiasis. D/ / Shaquille Butler MD / Shaquille Butler MD Interpreting Provider: Shaquille Butler MD Pulmonary Perfusion Imaging 10/27/18 13:01 IMPRESSION: Low probability for pulmonary embolus. D/ / Seth Flores MD / Seth Flores MD Interpreting Provider: Seth Flores MD Consult Discharge Plan - Plan Referrals: Mulu Gongora DO [Primary Care Provider] - (Appointment has been requested.) (2) Cellulitis Qualifiers: Site of cellulitis: trunk Site of cellulitis of trunk: chest wall Qualified Code(s): L03.313 - Cellulitis of chest wall (3) Sepsis Qualifiers: Sepsis type: sepsis due to unspecified organism Qualified Code(s): A41.9 - Sepsis, unspecified organism (4) ARF (acute renal failure) Qualifiers: Acute renal failure type: unspecified Qualified Code(s): N17.9 - Acute kidney failure, unspecified (5) Chest pain Qualifiers: Chest pain type: other chest pain Qualified Code(s): R07.89 - Other chest pain; R07.8 - Other chest pain
[2018-10-28] MEDS: Piperacillin/Tazobactam 3.375 GM in 0.9 % Sodium Chloride Mini Bag 100 ML IVPB SCH ×2 (08:38→15:27)
--- NOTE | 2018-10-28 08:50 | General Surgery Progress Note ---
<Jamila Hayes - Last Filed: 10/28/18 10:09> Date of Encounter: 10/28/18 Time of Encounter: 08:48 - Assessment and Plan (1) History of left breast cancer Current Visit: Yes Status: Acute Right SAQIB drain d/c'd 10/27/2018. She reports continued clear drainage. Site is unremarkable. Left SAQIB drain is with increased output that is now purulent. We will ask the bedside RN to use sterile scissors, cut the SAQIB tubing above the old bulb, place a new sterile SAQIB bulb, and strip the lines. Obtain culture from new bulb/stripped lines. Anticipate there will still be contaminate. Continue IV ATBX per primary team. Continue to monitor. OK for patient to shower. At this time, surgery is still planned for 10/31/2018. If patient is d/c'd prior to this,she can return as outpatient. Cares per primary team Subjective Patient reports: no new complaints, feels better, still having pain, pain is less, tolerating liquids well, voiding w/o difficulty, afebrile, other (right drain removed, reports draining continues on the right side. Left drain is painful and draining brown) Objective Vital Signs - Last 8 Hours Temp Pulse Resp BP Pulse Ox 10/28/18 07:16 99.0 F 97 20 107/63 97 10/28/18 03:47 99.5 F 97 17 110/66 97 Intake and Output 10/27/18 10/28/18 10/28/18 23:59 07:59 15:59 Intake Total 390 / 1390 1350 / 1350 Output Total 545 / 1470 740 / 740 Balance -155 / -80 610 / 610 Intake: IV Fluids 250 / 1250 1350 / 1350 0.9 % Sodium Chloride 1,000 ML 1000 / 1000 @ 100 mls/hr IVC .Q10H [facility] Rx#: [id number] Zosyn 3.375 GM In 0.9 % Sodium 100 / 100 Chloride (Mini-Bag +) 100 ML @ 25 mls/hr IVPB Q8HR [facility] Rx#: [id number] Vancocin 1,500 MG In 0.9 % 250 / 250 250 / 250 Sodium Chloride 250 ML @ 166.67 mls/hr IVPB ONCE ONE Rx#: [id number] Oral 140 / 140 Output: Urostomy 500 / 1300 700 / 700 Wound Drainage 45 / 170 40 / 40 left side 45 / 145 40 / 40 Other: Meal Dinner Percent of Meal Consumed 40% Weight 104.1 kg Patient Weight 10/28/18 23:59 Weight 104.1 kg - General physical appearance well nourished, no distress - ENT atraumatic, normocephalic - Neck Neck exam: trachea midline - Respiratory normal expansion, normal respiratory effort, clear to percussion - Cardiovascular Cardiovascular exam: Present: RRR - Abdomen Abdomen: Present: bowel sounds present, soft, non tender - Integumentary no rash, other (Right mastectomy site unremarkable. Left mastectomy site is with some erythema. SAQIB is with purulent drainage. No focal areas of induration or fluctuance note.) - Neurologic normal sensation - Musculoskeletal normal posture - Psychiatric oriented to time, oriented to person, oriented to place, speech is normal - Labs 10/28/18 04:23 10/28/18 04:23 Diabetes panel 10/27/18 10/28/18 Range/Units 09:52 04:23 Sodium 140 139 (136-145) mEq/L Potassium 3.5 3.3 L (3.5-5.1) mEq/L Chloride 111 H 109 H (98-107) mEq/L Carbon Dioxide 17 L 19 L (23-29) mEq/L BUN 29 H 21 (8-23) mg/dL Creatinine 1.43 H 1.20 (0.60-1.20) mg/dL Glucose 129 H 124 H (70-105) mg/dL Calcium 8.9 8.4 L (8.6-10.3) mg/dL Calcium panel 10/27/18 10/28/18 Range/Units 09:52 04:23 Calcium 8.9 8.4 L (8.6-10.3) mg/dL Pituitary panel 10/27/18 10/28/18 Range/Units 09:52 04:23 Sodium 140 139 (136-145) mEq/L Potassium 3.5 3.3 L (3.5-5.1) mEq/L Chloride 111 H 109 H (98-107) mEq/L Carbon Dioxide 17 L 19 L (23-29) mEq/L BUN 29 H 21 (8-23) mg/dL Creatinine 1.43 H 1.20 (0.60-1.20) mg/dL Glucose 129 H 124 H (70-105) mg/dL Calcium 8.9 8.4 L (8.6-10.3) mg/dL Adrenal panel 10/27/18 10/28/18 Range/Units 09:52 04:23 Sodium 140 139 (136-145) mEq/L Potassium 3.5 3.3 L (3.5-5.1) mEq/L Chloride 111 H 109 H (98-107) mEq/L Carbon Dioxide 17 L 19 L (23-29) mEq/L BUN 29 H 21 (8-23) mg/dL Creatinine 1.43 H 1.20 (0.60-1.20) mg/dL Glucose 129 H 124 H (70-105) mg/dL Calcium 8.9 8.4 L (8.6-10.3) mg/dL Consult Discharge Plan - Plan Referrals: Mulu Gongora DO [Primary Care Provider] - 11/04/18 9:30 am () <Dashawn Alvarez - Last Filed: 10/29/18 06:45> Date of Encounter: 10/28/18 Objective Vital Signs - Last 8 Hours Temp Pulse Resp BP Pulse Ox 10/29/18 04:17 98.6 F 85 16 138/81 97 10/28/18 23:51 98.5 F 82 16 139/68 99 Intake and Output 10/28/18 10/28/18 10/29/18 15:59 23:59 07:59 Intake Total 220 / 1910 340 / 1910 1350 / 1350 Balance 220 / 1170 340 / 1170 1350 / 1350 Intake: IV Fluids 100 / 1550 100 / 1550 1350 / 1350 0.9 % Sodium Chloride 1,000 ML 1000 / 1000 @ 100 mls/hr IVC .Q10H [facility] Rx#: [id number] Zosyn 3.375 GM In 0.9 % Sodium 100 / 300 100 / 300 100 / 100 Chloride (Mini-Bag +) 100 ML @ 25 mls/hr IVPB Q8HR [facility] Rx#: [id number] Vancocin 1,500 MG In 0.9 % 250 / 250 Sodium Chloride 250 ML @ 166.67 mls/hr IVPB Q24H [facility] Rx#: [id number] Oral 120 / 360 240 / 360 Other: Meal Breakfast Dinner Percent of Meal Consumed 20% 85% Weight 106.6 kg Patient Weight 10/29/18 23:59 Weight 106.6 kg - Labs 10/29/18 03:26 10/29/18 03:26 Diabetes panel 10/29/18 Range/Units 03:26 Sodium 140 (136-145) mEq/L Potassium 3.7 (3.5-5.1) mEq/L Chloride 114 H (98-107) mEq/L Carbon Dioxide 21 L (23-29) mEq/L BUN 19 (8-23) mg/dL Creatinine 1.17 (0.60-1.20) mg/dL Glucose 101 (70-105) mg/dL Calcium 7.8 L (8.6-10.3) mg/dL Calcium panel 10/29/18 Range/Units 03:26 Calcium 7.8 L (8.6-10.3) mg/dL Pituitary panel 10/29/18 Range/Units 03:26 Sodium 140 (136-145) mEq/L Potassium 3.7 (3.5-5.1) mEq/L Chloride 114 H (98-107) mEq/L Carbon Dioxide 21 L (23-29) mEq/L BUN 19 (8-23) mg/dL Creatinine 1.17 (0.60-1.20) mg/dL Glucose 101 (70-105) mg/dL Calcium 7.8 L (8.6-10.3) mg/dL Adrenal panel 10/29/18 Range/Units 03:26 Sodium 140 (136-145) mEq/L Potassium 3.7 (3.5-5.1) mEq/L Chloride 114 H (98-107) mEq/L Carbon Dioxide 21 L (23-29) mEq/L BUN 19 (8-23) mg/dL Creatinine 1.17 (0.60-1.20) mg/dL Glucose 101 (70-105) mg/dL Calcium 7.8 L (8.6-10.3) mg/dL - Attending Attestation I have personally performed a face to face evaluation on this patient. I have reviewed and agree with the care plan. History and Exam by me shows: I personally reviewed the above assessment and evaluation and was present at that time and agree with the above plan. Patient now has purulent drainage from the SAQIB on the left side. The incision is healing well with no overlying signs of erythema and no pain to palpation. Will continue with monitoring the SAQIB drainage output. Continue IV antibiotics. Because of the purulent discharge we will obtain cultures by removing the bulb and obtaining it directly from the tube as opposed to the bulb so that we have a more likely uncontaminated sample.
[2018-10-28] MEDS: Ondansetron 4 MG/2 ML VIAL IVP PRN (11:11)
[2018-10-28] MEDS: Acetaminophen/Aspirin/Caffeine TABLET PO PRN (11:20)
--- NOTE | 2018-10-28 14:52 | Urology - Consult Note ---
<Bree Corbin N - Last Filed: 10/28/18 14:48> Date of Encounter: 10/28/18 Time of Encounter: 14:00 - Assessment and Plan (1) Hydronephrosis Current Visit: Yes Status: Acute Assessment and plan: Patient is a 63-year-old female who presents with mild right-sided hydronephrosis. Patient is status post cystectomy with ileal conduit urinary diversion. It is very common to see some mild hydronephrosis after ileal c onduit due to some refluxing of urine. Patient is asymptomatic, and renal function is improved. Patient is not experiencing any flank pain. There is no urologic surgical intervention anticipated. Qualifiers: Hydronephrosis type: unspecified Qualified Code(s): N13.30 - Unspecified hydronephrosis (2) History of total cystectomy Current Visit: Yes Status: Acute Assessment and plan: Patient is a 61-year-old female who presents status post cystectomy in June 2017 secondary to radiation cystitis. Patient no longer follows with Dr. Castellanos. Patient may resume yearly examination with Dr. Han as she requested. Patient is changing urostomy bag every other day and is doing very well with this. Patient has not experienced frequent urinary tract infections. (3) History of left breast cancer Current Visit: Yes Status: Acute Assessment and plan: Patient is a 63-year-old female who presents with metastatic left breast cancer. 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 Patient is anticipating left axillary lymph node dissection as scheduled on 10/31/[address] Alvarez. (4) UTI (urinary tract infection) Current Visit: Yes Status: Acute Assessment and plan: Patient is a 63-year-old female who presents with a urinary tract infection. Vital signs are currently stable and afebrile. Urine culture is pending. Patient reports urine culture was collected out of the urostomy bag she has had in place for 4 days. I explained this urine is contaminated, and she is most likely colonized. We do not recommend treating a urinary tract infection unless patient is symptomatic with malodorous urine, fever, chills or flank pain, as her cultures will most likely always be positive. Qualifiers: Urinary tract infection type: catheter-associated UTI Indwelling urinary catheter type: cystostomy catheter Encounter type: initial encounter Qualified Code(s): T83.510A - Infection and inflammatory reaction due to cystostomy catheter, initial encounter; N39.0 - Urinary tract infection, site not specified Urology CN:HPI Consult date: 10/28/18 Reason for consult Urology: Hydronephrosis Requesting physician: Hiral Jones History of present illness: Patient is a 63-year-old female who presents with mild right-sided hydronephrosis and is status post cystectomy with ileal conduit. 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 Patient is status post complete hysterectomy in 1990 for endometriosis, but in 2011, patient was diagnosed with a large, malignant pelvic tumor. Patient underwent multiple rounds of chemotherapy and radiation in 2012. Patient sustained multiple bladder and colorectal complications from radiation, including radiation cystitis and recurrent gross hematuria requiring blood transfusion. Patient was referred to Dr. Castellanos in June 2017 for a cystectomy and ileal conduit urinary diversion. Patient's nephrostomy tubes were removed at the time of this surgery. Patient did well with this procedure and has not experienced recurrent infection or gross hematuria. Patient underwent a CT of the abdomen a nd pelvis as well as a complete renal ultrasound, and both studies reveal mild right-sided hydronephrosis without obvious obstruction. Patient denies any fever, chills or flank pain. Patient has a significant family history for breast cancer including her mother and grandmother. Patient has elected not to undergo genetic testing, as she does not have any children of her own. Past Med Surg Social Fam HX - Past Medical History Medical history: cancer, GERD, kidney stones, pulmonary embolus, renal disease, other Additional medical history: anemia, kidney stones, radiation proctitis, hx of c- diff Psychiatric history: anxiety, depression - Past Surgical History Surgical History: cancer surgery, hysterectomy Additional surgical history: nephrostomy tube placement, colonoscopy 2012, kidney stones removal, vaginal biopsy, flexible sigmoidoscopy 2013, cystoscopy, bladder removal and formation of ileal conduit - Social History Smoking Status: Never smoker Smokeless Tobacco Status: No Alcohol use: none Drug use: none - Family History Mother Adopted: No Family Member Ethnicity: Non- Living Status: Hx Family Cardiac Disorders: No Hx Family Respiratory Disorders: No Hx Family Cancer: Yes (Breast CA w/mets) Hx Family GI Disorders: No Hx Family Endocrine Disorder: No Hx Family Neuromuscular Disorders: No Hx Family Neurologic Disorders: No Hx Family HEENT Disorders: No Hx Family Autoimmune Disorders: No Father Adopted: No Family Member Ethnicity: Non- Living Status: Hx Family Cardiac Disorders: Yes (PE from AAA repair) Hx Family Respiratory Disorders: No Hx Family Cancer: No Hx Family GI Disorders: Yes (Abdominal Aortic Aneurysm) Hx Family Endocrine Disorder: No Hx Family Neuromuscular Disorders: No Hx Family Neurologic Disorders: No Hx Family HEENT Disorders: No Hx Family Autoimmune Disorders: No Sister Family Member Ethnicity: Non- Living Status: Still Living Hx Family Cardiac Disorders: Yes (Heart Mumur) Medications and Allergies Omeprazole Magnesium [Prilosec Otc] 20 mg PO DAILY PRN 04/10/18 [History] Aspirin/Acetaminophen/Caffeine [Excedrin Migraine Caplet] 2 tab PO DAILY PRN 10/28/18 [History] Allergy/AdvReac Type Severity Reaction Status Date / Time No Known Allergies Allergy Verified 10/27/18 08:43 Review of Systems - Constitutional no chills, no fatigue, no fever(s) - EENT Nose, mouth and throat: no dizziness, no headache(s) - Cardiovascular no chest pain, no diaphoresis, no dyspnea - Respiratory no cough, no dyspnea - Gastrointestinal no abdominal pain, no nausea, no vomiting - Genitourinary Genitourinary: other (Patient denies malodorous urine or leaking from urostomy), no hematuria, no urinary incontinence - Musculoskeletal no back pain, no muscle weakness - Integumentary no erythema, no rash - Neurological no confusion, no syncope - Psychiatric no anxiety, no confusion - Hematologic/Lymphatic no easy bleeding, no easy bruising - Allergic/Immunologic no throat swelling, no wheezing Exam Initial Vital Signs Temp Pulse Resp BP Pulse Ox 98.9 F 132 18 134/73 97 10/27/18 08:41 10/27/18 08:41 10/27/18 08:41 10/27/18 08:41 10/27/18 08:41 - General physical appearance Present: well developed, no distress, no pain - Eyes Present: PERRL, normal ocular movement - ENT Present: normal nares, no hearing loss, no congestion - Neck Present: no masses, trachea midline, no lymphadenopathy - Respiratory Present: normal respiratory effort - Cardiovascular Cardiovascular exam IM: RRR - Abdomen Abdomen: Present: soft, non tender, wound (Urostomy site benign). Absent: distended - Genitourinary Present: other (Urine is transparent, clear yellow; no CVAT bilaterally) - Integumentary Present: no rash, no abnormal pigmentation - Neurologic Present: normal coordination - Musculoskeletal Present: other (Normal posture) Urology Results - Labs 10/28/18 04:23 10/28/18 04:23 Abnormal lab results WBC 12.6 K/mcL (4.3-11.1) H 10/28/18 04:23 RBC 3.17 M/mcL (3.82-4.97) L 10/28/18 04:23 Hgb 8.7 g/dL (11.5-15.4) L D 10/28/18 04:23 Hct 28.1 % (35.3-44.9) L 10/28/18 04:23 MCH 27.4 pg (28.0-33.3) L 10/28/18 04:23 MCHC 31.0 g/dL (31.6-35.5) L 10/28/18 04:23 10.7 K/mcL (1.6-8.9) H 10/28/18 04:23 0.4 K/mcL (0.6-4.6) L 10/27/18 09:52 ESR 57 mm/hr (0-15) H 10/27/18 16:31 PT 13.6 Seconds (9.4-12.1) H 10/27/18 16:31 850 ng/mLFEU (0-500) H 10/27/18 09:52 Potassium 3.3 mEq/L (3.5-5.1) L 10/28/18 04:23 Chloride 109 mEq/L (98-107) H 10/28/18 04:23 Carbon Dioxide 19 mEq/L (23-29) L 10/28/18 04:23 BUN 29 mg/dL (8-23) H 10/27/18 09:52 1.43 mg/dL (0.60-1.20) H 10/27/18 09:52 Est GFR ( Amer) 55 (> 60) L 10/28/18 04:23 Est GFR (Non-Af Amer) 46 (> 60) L 10/28/18 04:23 Glucose 124 mg/dL (70-105) H 10/28/18 04:23 Calcium 8.4 mg/dL (8.6-10.3) L 10/28/18 04:23 108 mg/L (Less than 10) H 10/27/18 16:31 Cloudy (Clear) A 10/27/18 19:50 30 mg/dL (Neg-Trace) H 10/27/18 19:50 Positive (Negative) A 10/27/18 19:50 Ur Leukocyte Esterase Moderate (Negative) H 10/27/18 19:50 30-50 per hpf (0-3) H 10/27/18 19:50 Many per hpf (None-Few) H 10/27/18 19:50 Ur Culture Indicated? YES (NO) A 10/27/18 19:50 Diabetes panel 10/28/18 Range/Units 04:23 Sodium 139 (136-145) mEq/L Potassium 3.3 L (3.5-5.1) mEq/L Chloride 109 H (98-107) mEq/L Carbon Dioxide 19 L (23-29) mEq/L BUN 21 (8-23) mg/dL Creatinine 1.20 (0.60-1.20) mg/dL Glucose 124 H (70-105) mg/dL Calcium 8.4 L (8.6-10.3) mg/dL Calcium panel 10/28/18 Range/Units 04:23 Calcium 8.4 L (8.6-10.3) mg/dL Pituitary panel 10/28/18 Range/Units 04:23 Sodium 139 (136-145) mEq/L Potassium 3.3 L (3.5-5.1) mEq/L Chloride 109 H (98-107) mEq/L Carbon Dioxide 19 L (23-29) mEq/L BUN 21 (8-23) mg/dL Creatinine 1.20 (0.60-1.20) mg/dL Glucose 124 H (70-105) mg/dL Calcium 8.4 L (8.6-10.3) mg/dL Adrenal panel 10/28/18 Range/Units 04:23 Sodium 139 (136-145) mEq/L Potassium 3.3 L (3.5-5.1) mEq/L Chloride 109 H (98-107) mEq/L Carbon Dioxide 19 L (23-29) mEq/L BUN 21 (8-23) mg/dL Creatinine 1.20 (0.60-1.20) mg/dL Glucose 124 H (70-105) mg/dL Calcium 8.4 L (8.6-10.3) mg/dL All other labs normal. - Imaging CT scan - abdomen: report reviewed, image reviewed CT scan - pelvis: report reviewed, image reviewed US - kidney/bladder: report reviewed Consult Discharge Plan - Plan Referrals: Mulu Gongora, DO [Primary Care Provider] - (Appointment has been requested.) <Stephen Alonso - Last Filed: 10/28/18 16:27> Date of Encounter: 10/28/18 - Assessment and Plan (1) History of total cystectomy Current Visit: Yes Status: Acute Assessment and plan: Patient seen and examined independently. History, review of systems and physical exam findings of PA verified. All pertinent imaging reviewed. I am in agreement with the assessment and plan as outlined by our Urologic Surgery Department Physician [employer], [place]. Discussed findings and my review of her CT image with patient. She is having some difficulty with her appliance. Plan: Will arrange for ostomy nurse evaluation and modification of current appliance management routine and/or supplies (2) Hydronephrosis Current Visit: Yes Status: Acute Assessment and plan: As above Qualifiers: Hydronephrosis type: unspecified Qualified Code(s): N13.30 - Unspecified hydronephrosis (3) UTI (urinary tract infection) Current Visit: Yes Status: Acute Assessment and plan: As above Qualifiers: Urinary tract infection type: catheter-associated UTI Indwelling urinary catheter type: cystostomy catheter Encounter type: initial encounter Qualified Code(s): T83.510A - Infection and inflammatory reaction due to cystostomy catheter, initial encounter; N39.0 - Urinary tract infection, site not specified Exam Initial Vital Signs Temp Pulse Resp BP Pulse Ox 98.9 F 132 18 134/73 97 10/27/18 08:41 10/27/18 08:41 10/27/18 08:41 10/27/18 08:41 10/27/18 08:41 Urology Results - Labs 10/28/18 15:22 10/28/18 04:23 Abnormal lab results WBC 12.6 K/mcL (4.3-11.1) H 10/28/18 04:23 RBC 3.17 M/mcL (3.82-4.97) L 10/28/18 04:23 Hgb 8.3 g/dL (11.5-15.4) L 10/28/18 15:22 Hct 26.7 % (35.3-44.9) L 10/28/18 15:22 MCH 27.4 pg (28.0-33.3) L 10/28/18 04:23 MCHC 31.0 g/dL (31.6-35.5) L 10/28/18 04:23 10.7 K/mcL (1.6-8.9) H 10/28/18 04:23 0.4 K/mcL (0.6-4.6) L 10/27/18 09:52 ESR 57 mm/hr (0-15) H 10/27/18 16:31 PT 13.6 Seconds (9.4-12.1) H 10/27/18 16:31 850 ng/mLFEU (0-500) H 10/27/18 09:52 Potassium 3.3 mEq/L (3.5-5.1) L 10/28/18 04:23 Chloride 109 mEq/L (98-107) H 10/28/18 04:23 Carbon Dioxide 19 mEq/L (23-29) L 10/28/18 04:23 BUN 29 mg/dL (8-23) H 10/27/18 09:52 1.43 mg/dL (0.60-1.20) H 10/27/18 09:52 Est GFR ( Amer) 55 (> 60) L 10/28/18 04:23 Est GFR (Non-Af Amer) 46 (> 60) L 10/28/18 04:23 Glucose 124 mg/dL (70-105) H 10/28/18 04:23 Calcium 8.4 mg/dL (8.6-10.3) L 10/28/18 04:23 108 mg/L (Less than 10) H 10/27/18 16:31 Cloudy (Clear) A 10/27/18 19:50 30 mg/dL (Neg-Trace) H 10/27/18 19:50 Positive (Negative) A 10/27/18 19:50 Ur Leukocyte Esterase Moderate (Negative) H 10/27/18 19:50 30-50 per hpf (0-3) H 10/27/18 19:50 Many per hpf (None-Few) H 10/27/18 19:50 Ur Culture Indicated? YES (NO) A 10/27/18 19:50 Diabetes panel 10/28/18 Range/Units 04:23 Sodium 139 (136-145) mEq/L Potassium 3.3 L (3.5-5.1) mEq/L Chloride 109 H (98-107) mEq/L Carbon Dioxide 19 L (23-29) mEq/L BUN 21 (8-23) mg/dL Creatinine 1.20 (0.60-1.20) mg/dL Glucose 124 H (70-105) mg/dL Calcium 8.4 L (8.6-10.3) mg/dL Calcium panel 10/28/18 Range/Units 04:23 Calcium 8.4 L (8.6-10.3) mg/dL Pituitary panel 10/28/18 Range/Units 04:23 Sodium 139 (136-145) mEq/L Potassium 3.3 L (3.5-5.1) mEq/L Chloride 109 H (98-107) mEq/L Carbon Dioxide 19 L (23-29) mEq/L BUN 21 (8-23) mg/dL Creatinine 1.20 (0.60-1.20) mg/dL Glucose 124 H (70-105) mg/dL Calcium 8.4 L (8.6-10.3) mg/dL Adrenal panel 10/28/18 Range/Units 04:23 Sodium 139 (136-145) mEq/L Potassium 3.3 L (3.5-5.1) mEq/L Chloride 109 H (98-107) mEq/L Carbon Dioxide 19 L (23-29) mEq/L BUN 21 (8-23) mg/dL Creatinine 1.20 (0.60-1.20) mg/dL Glucose 124 H (70-105) mg/dL Calcium 8.4 L (8.6-10.3) mg/dL All other labs normal.
[2018-10-28 15:29] LABS: Hematocrit 26.7 % (35.3-44.9); Hemoglobin 8.3 g/dL (11.5-15.4)
[2018-10-28] MEDS: *HR* OxyCODONE Immed Rel 5 MG TABLET PO PRN (19:23)
[2018-10-28 21:16] LABS: Hematocrit 26.3 % (35.3-44.9); Hemoglobin 8.1 g/dL (11.5-15.4)
[2018-10-29] MEDS: Piperacillin/Tazobactam 3.375 GM in 0.9 % Sodium Chloride Mini Bag 100 ML IVPB SCH ×3 (00:24→14:43)
[2018-10-29] MEDS: *HR* OxyCODONE Immed Rel 5 MG TABLET PO PRN (03:20)
[2018-10-29 03:55] LABS: Basophils # 0.1 K/mcL (0.0-0.2); Basophils % 0.6 %; Eosinophils # 1.9 K/mcL (0.0-0.6); Eosinophils % 21.7 %; Hematocrit 26.9 % (35.3-44.9); Hemoglobin 8.3 g/dL (11.5-15.4); Immature Granulocytes % 0.3 % (0-4); Lymphocytes # 1.2 K/mcL (0.6-4.6); Lymphocytes % 13.7 %; Mean Corpuscular HGB Conc 30.9 g/dL (31.6-35.5); Mean Corpuscular Hemoglobin 27.7 pg (28.0-33.3); Mean Corpuscular Volume 89.7 fL (83.0-100.0); Mean Platelet Volume 10.7 fL (9.4-12.4); Monocytes # 0.6 K/mcL (0.0-1.3); Monocytes % 6.4 %; Neutrophils # 5.1 K/mcL (1.6-8.9); Platelet Count 190 K/mcL (140-400); Red Cell Distribution Width 13.6 % (11.5-14.5); Segmented Neutrophils % 57.3 %
[2018-10-29 04:08] LABS: BUN/Creatinine Ratio 16 (6-26); Blood Urea Nitrogen 19 mg/dL (8-23); Calcium 7.8 mg/dL (8.6-10.3); Carbon Dioxide 21 mEq/L (23-29); Chloride 114 mEq/L (98-107); Glucose 101 mg/dL (70-105); Iron < 10 mcg/dL (50-170); Osmolality,Calculated 292 (280-300); Potassium 3.7 mEq/L (3.5-5.1); Sodium 140 mEq/L (136-145); Transferrin 237 mg/dL (203-362); eGFR For Non-African Americans 47 (> 60)
[2018-10-29 04:27] LABS: Ferritin 39 ng/mL (10-120)
[2018-10-29 04:32] LABS: Platelet Estimate Normal (Normal)
[2018-10-29] MEDS: *HR* Heparin 5,000 UNIT/ML VIAL SQ SCH ×3 (04:34→20:39)
[2018-10-29 04:37] LABS: Folate > 22.3 ng/mL (3.0-16.0); Vitamin B12 614 pg/mL (250-1100)
--- NOTE | 2018-10-29 09:56 | Urology Progress Note ---
Date of Encounter: 10/29/18 Time of Encounter: 09:20 - Assessment and Plan (1) Hydronephrosis Current Visit: Yes Status: Acute Assessment and plan: Patient is a 63-year-old female who presents with mild right-sided hydronephrosis likely physiologic due to refluxing urostomy. Vital signs are stable and afebrile. Serum creatinine is reassuring at 1.17. Patient is awaiting ostomy nurse evaluation in order to change urostomy bag. Preliminary urine culture is positive for 2 different gram-negative rods. Patient is receiving IV Zosyn and vancomycin. Qualifiers: Hydronephrosis type: unspecified Qualified Code(s): N13.30 - Unspecified hydronephrosis (2) History of total cystectomy Current Visit: Yes Status: Acute (3) History of left breast cancer Current Visit: Yes Status: Acute (4) UTI (urinary tract infection) Current Visit: Yes Status: Acute Qualifiers: Urinary tract infection type: catheter-associated UTI Indwelling urinary catheter type: cystostomy catheter Encounter type: initial encounter Qualified Code(s): T83.510A - Infection and inflammatory reaction due to cystostomy catheter, initial encounter; N39.0 - Urinary tract infection, site not specified Progress Note Narrative: Patient seen and examined sitting upright in bed in no apparent distress. Urostomy site benign with clear, transparent yellow urine. Patient denies any fever, chills, gross hematuria or flank pain. Objective Initial Vital Signs Temp Pulse Resp BP Pulse Ox 98.9 F 132 18 134/73 97 10/27/18 08:41 10/27/18 08:41 10/27/18 08:41 10/27/18 08:41 10/27/18 08:41 - General physical appearance Present: no distress, no pain - Respiratory Present: normal expansion, normal respiratory effort - Abdomen Present: soft, non tender, wound (Urostomy site benign with transparent, clear yellow urine) - Genitourinary Urine Appearance: Present: Clear - Integumentary Present: no rash, no abnormal pigmentation - Musculoskeletal Present: normal posture - Psychiatric Present: oriented to time, oriented to person, oriented to place, speech is normal, memory intact - Labs 10/29/18 03:26 10/29/18 03:26 Diabetes panel 10/29/18 Range/Units 03:26 Sodium 140 (136-145) mEq/L Potassium 3.7 (3.5-5.1) mEq/L Chloride 114 H (98-107) mEq/L Carbon Dioxide 21 L (23-29) mEq/L BUN 19 (8-23) mg/dL Creatinine 1.17 (0.60-1.20) mg/dL Glucose 101 (70-105) mg/dL Calcium 7.8 L (8.6-10.3) mg/dL Calcium panel 10/29/18 Range/Units 03:26 Calcium 7.8 L (8.6-10.3) mg/dL Pituitary panel 10/29/18 Range/Units 03:26 Sodium 140 (136-145) mEq/L Potassium 3.7 (3.5-5.1) mEq/L Chloride 114 H (98-107) mEq/L Carbon Dioxide 21 L (23-29) mEq/L BUN 19 (8-23) mg/dL Creatinine 1.17 (0.60-1.20) mg/dL Glucose 101 (70-105) mg/dL Calcium 7.8 L (8.6-10.3) mg/dL Adrenal panel 10/29/18 Range/Units 03:26 Sodium 140 (136-145) mEq/L Potassium 3.7 (3.5-5.1) mEq/L Chloride 114 H (98-107) mEq/L Carbon Dioxide 21 L (23-29) mEq/L BUN 19 (8-23) mg/dL Creatinine 1.17 (0.60-1.20) mg/dL Glucose 101 (70-105) mg/dL Calcium 7.8 L (8.6-10.3) mg/dL Consult Discharge Plan - Plan Referrals: Mulu Gongora DO [Primary Care Provider] - 11/04/18 9:30 am ()
--- NOTE | 2018-10-29 12:53 | Internal Med Progress Note ---
Hospitalist Progress Note - Encounter Date of Encounter: 10/29/18 Time of Encounter: 09:50 - Subjective Interval History: chest wall pain improving, stephanie drain she notes to have purulent thick drainage, denies fevers, chills, n/v. aware of lower than previous baseline hgbs. notes that sometimes they vary outpt as well. denies any abd pain, diarrhea, melena or hematochezia. no bleeding known to her. no presyncope, sob or fatigue. - Exam Vitals: Temp Pulse Resp BP Pulse Ox 98.9 F 80 16 127/77 98 10/29/18 12:30 10/29/18 12:30 10/29/18 12:30 10/29/18 12:30 10/29/18 12:30 Exam: General: awake, alert, appears stated age HEENT:pupils equal, round, no conjunctival pallor Cardiovascular:regular rate and rhythm, normal S1 & S2, no murmurs no lower extremity edema Lungs:Normal breath sounds, no wheezes, or crackles. Normal respiratory effort on room air Abdomen:Soft, non-tender, non-distended, + bowel sounds Neurological: AAOx3 Skin:inferior to the healing left chest incision is an area of faint erythema, extends to midline of chest and is in region of what would have been breast fold, purulent drainage from incision site midline axillary region, no bleeding, right chest incision no drainage or bleeding, no erythema that side of chest, J drain left chest wall with cloudy purulent drainage in bulb - Assessment and Plan (1) Obesity (BMI 30-39.9) Current Visit: No Status: Chronic (2) Cellulitis Current Visit: Yes Status: Acute (3) Sepsis Current Visit: Yes Status: Resolved (4) ARF (acute renal failure) Current Visit: Yes Status: Resolved (5) Chest pain Current Visit: Yes Status: Acute (6) Normocytic anemia Current Visit: Yes Status: Acute - Summary of Assessment and Plan Summary of Assessment and Plan: 1. sepsis 2/2 cellulitis, possible wound infection left mastectomy site with purulent drainage no longer meet sepsis criteria -bl cx ngtd and ucx contominant given collected from diverting ostomy (colonization not infection as per urology and not source of infection) -left wound STEPHANIE fluid cx-gpc + -cont vanc + zosyn -cont to follow cxs 2. Cellulitis left mastectomy site, possible wound infection given purulent drainage -vanc + zosyn, cxs as above, surg following -defer imaging to surgery 3.Not likely UTI (colonization not infection as per urology and not source of infection) -no need to treat 4. Chest pain, suspected related to infectious process of chest wall Wells score 7 with elevated dimer, no CTA due to JORDAN, VQ scan low probability PE Pt refused empiric AC with hep gtt, LLE US neg for dvt, she refused RLE US due to pain Has IVCF Trops neg x3 -prn pain control -infection tx as above -cont to monitor for symptoms 5. JORDAN multifactorial with contrast dye exposure, NSAID use, dehydration and sepsis, resolved with IVFs Renal US with mild hydronephrosis Hx bilateral diversion with nephrostomy tubes, simple cystectomy with diversion -cont to monitor renal function -consulted urology and Dr Alonso team evaluated for mild hydronephrosis, normal and making good urine 6. Acute normocytic anemia, suspect this may initially be a post operative hgb drop (10/10 hgb 11.6 and went to OR 10/13 with hgb 5/6 10.5) though cannot be certain, acute drop from that here likely dilution with sepsis rate ivfs Hemodynamically stable and denies active bleeding, hgb stable in low 8s -will cont to monitor -occult stool pending 7. Incidental hepatic steatosis and cholelithiasis for which she may fu outpt vte ppx sqh - Time Spent with Patient Total time spent is greater than 50% in coordination of care (as documented) at patient's floor/unit and/or counseling patient: Internal Medicine: Result - Labs CBC & Chem 7: 10/29/18 03:26 10/29/18 03:26 Labs: Short CBC 10/28/18 10/28/18 10/29/18 Range/Units 15:22 20:55 03:26 WBC 8.9 (4.3-11.1) K/mcL Hgb 8.3 L 8.1 L 8.3 L (11.5-15.4) g/dL Hct 26.7 L 26.3 L 26.9 L (35.3-44.9) % Plt Count 190 (140-400) K/mcL Neutrophils # 5.1 (1.6-8.9) K/mcL BMP 10/29/18 03:26 Sodium 140 Potassium 3.7 Chloride 114 H Carbon Dioxide 21 L BUN 19 Creatinine 1.17 Glucose 101 Calcium 7.8 L - ABG Interpretation ABG results: PT/INR, D-dimer PT 13.6 Seconds (9.4-12.1) H 10/27/18 16:31 850 ng/mLFEU (0-500) H 10/27/18 09:52 - Impressions Impressions Chest X-Ray 10/27/18 09:05 IMPRESSION: No acute cardiopulmonary process. D/ / 10/27/2018 09:55:24 Arti Marquez MD / [email or web address] Interpreting Provider: Arti Marquez MD Consult Discharge Plan - Plan Referrals: Mulu Gongora DO [Primary Care Provider] - 11/04/18 9:30 am () (2) Cellulitis Qualifiers: Site of cellulitis: trunk Site of cellulitis of trunk: chest wall Qualified Code(s): L03.313 - Cellulitis of chest wall (3) Sepsis Qualifiers: Sepsis type: sepsis due to unspecified organism Qualified Code(s): A41.9 - Sepsis, unspecified organism (4) ARF (acute renal failure) Qualifiers: Acute renal failure type: unspecified Qualified Code(s): N17.9 - Acute kidney failure, unspecified (5) Chest pain Qualifiers: Chest pain type: other chest pain Qualified Code(s): R07.89 - Other chest pain; R07.8 - Other chest pain
--- NOTE | 2018-10-29 17:37 | General Surgery Progress Note ---
Date of Encounter: 10/29/18 Time of Encounter: 17:35 - Assessment and Plan (1) History of left breast cancer Current Visit: Yes Status: Acute The drainage appears to be clearing up now that the SAQIB drain is functioning normally. Continue with antibiotics. It appears that shows presumptive diagnosis of MRSA. Plan is still to proceed with a left axillary dissection on Saturday. I think it would be reasonable to consider linezolid for assurance were cover the medication. If the patient is still in inpatient then I will need to contact registration/OR in order to change the status for the surgical procedure. Subjective Patient reports: no new complaints, other (The patient denies any chest pain. Overall doing well) Objective Vital Signs - Last 8 Hours Temp Pulse Resp BP Pulse Ox 10/29/18 16:45 99.3 F 89 17 116/72 99 10/29/18 12:30 98.9 F 80 16 127/77 98 Intake and Output 10/29/18 10/29/18 10/29/18 07:59 15:59 23:59 Intake Total 1350 / 1690 340 / 1690 Output Total 565 / 565 Balance 1350 / 1125 -225 / 1125 Intake: IV Fluids 1350 / 1450 100 / 1450 0.9 % Sodium Chloride 1,000 ML 1000 / 1000 @ 100 mls/hr IVC .Q10H [facility] Rx#: [id number] Zosyn 3.375 GM In 0.9 % Sodium 100 / 200 100 / 200 Chloride (Mini-Bag +) 100 ML @ 25 mls/hr IVPB Q8HR [facility] Rx#: [id number] Vancocin 1,500 MG In 0.9 % 250 / 250 Sodium Chloride 250 ML @ 166.67 mls/hr IVPB Q24H [facility] Rx#: [id number] Oral 240 / 240 Output: Urostomy 525 / 525 Wound Drainage 40 / 40 left side 40 / 40 Other: Meal Lunch Percent of Meal Consumed 100% Weight 106.6 kg Patient Weight 10/29/18 23:59 Weight 106.6 kg - Incision Incision: Present: clean and dry, intact (SAQIB drain in place lateral aspect of the mastectomy incision. Drainage and bulb appears now to be serosanguineous and nature. Slight blue staining secondary to the methylene blue.) - Labs 10/29/18 03:26 10/29/18 03:26 Diabetes panel 10/29/18 Range/Units 03:26 Sodium 140 (136-145) mEq/L Potassium 3.7 (3.5-5.1) mEq/L Chloride 114 H (98-107) mEq/L Carbon Dioxide 21 L (23-29) mEq/L BUN 19 (8-23) mg/dL Creatinine 1.17 (0.60-1.20) mg/dL Glucose 101 (70-105) mg/dL Calcium 7.8 L (8.6-10.3) mg/dL Calcium panel 10/29/18 Range/Units 03:26 Calcium 7.8 L (8.6-10.3) mg/dL Pituitary panel 10/29/18 Range/Units 03:26 Sodium 140 (136-145) mEq/L Potassium 3.7 (3.5-5.1) mEq/L Chloride 114 H (98-107) mEq/L Carbon Dioxide 21 L (23-29) mEq/L BUN 19 (8-23) mg/dL Creatinine 1.17 (0.60-1.20) mg/dL Glucose 101 (70-105) mg/dL Calcium 7.8 L (8.6-10.3) mg/dL Adrenal panel 10/29/18 Range/Units 03:26 Sodium 140 (136-145) mEq/L Potassium 3.7 (3.5-5.1) mEq/L Chloride 114 H (98-107) mEq/L Carbon Dioxide 21 L (23-29) mEq/L BUN 19 (8-23) mg/dL Creatinine 1.17 (0.60-1.20) mg/dL Glucose 101 (70-105) mg/dL Calcium 7.8 L (8.6-10.3) mg/dL Consult Discharge Plan - Plan Referrals: Mulu Gongora DO [Primary Care Provider] - 11/04/18 9:30 am ()
[2018-10-29] MEDS: *HR* OxyCODONE/APAP 5/325 TABLET PO PRN (19:01)
[2018-10-30] MEDS: Piperacillin/Tazobactam 3.375 GM in 0.9 % Sodium Chloride Mini Bag 100 ML IVPB SCH ×3 (00:24→17:30)
[2018-10-30] MEDS: *HR* OxyCODONE Immed Rel 5 MG TABLET PO PRN ×2 (00:24→13:18)
[2018-10-30] MEDS: *HR* Heparin 5,000 UNIT/ML VIAL SQ SCH ×4 (06:02→20:04)
--- NOTE | 2018-10-30 10:45 | General Surgery Progress Note ---
<Jamila Hayes - Last Filed: 10/30/18 15:00> Date of Encounter: 10/30/18 Time of Encounter: 10:42 - Assessment and Plan (1) History of left breast cancer Current Visit: Yes Status: Acute Left DEVIN drain site is now with serous output with minor amount of sediment noted in the bulb. Her site is unremarkable. Noted her cultures were positive for MRSA (ATBX per primary team). At this point the plan is to proceed with left axillary dissection on 10/31/[address] Alvarez. She will need to be NPO at midnight and take Chlorhexadine shower tonight and tomorrow at 0600 Surgery will continue to follow along. Cares per primary team Subjective Patient reports: no new complaints, feels better, tolerating liquids well, voiding w/o difficulty, flatus, bowel movement, afebrile, other (drainage from left Devin is decreased and feels less sore) Objective Vital Signs - Last 8 Hours Temp Pulse Resp BP Pulse Ox 10/30/18 07:21 98.0 F 76 16 174/77 99 10/30/18 04:46 98.1 F 70 17 143/78 98 Intake and Output 10/29/18 10/30/18 10/30/18 23:59 07:59 15:59 Intake Total 340 / 2030 600 / 600 Output Total 20 / 585 Balance 320 / 1445 600 / 600 Intake: IV Fluids 100 / 1550 600 / 600 Zosyn 3.375 GM In 0.9 % Sodium 100 / 300 100 / 100 Chloride (Mini-Bag +) 100 ML @ 25 mls/hr IVPB Q8HR [facility] Rx#: [id number] Vancocin 1,750 MG In 0.9 % 500 / 500 Sodium Chloride 500 ML @ 333.3 mls/hr IVPB Q24H [facility] Rx#: [id number] Oral 240 / 480 Output: Wound Drainage 20 / 60 left side 20 / 60 Other: Meal Dinner Percent of Meal Consumed 100% Weight 106.4 kg Patient Weight 10/30/18 23:59 Weight 106.4 kg - General physical appearance no distress - ENT atraumatic, normocephalic - Neck Neck exam: trachea midline - Respiratory normal expansion, normal respiratory effort, clear to auscultation - Cardiovascular Cardiovascular exam: Present: RRR - Abdomen Abdomen: Present: bowel sounds present, soft, non tender - Integumentary other (Mastectomy sites are within normal limits. Her left DEVIN has significantly improved. It is serous drainage with minor sediment at this time.) - Neurologic normal sensation - Musculoskeletal normal posture - Psychiatric oriented to time, oriented to person, oriented to place, speech is normal - Labs 10/29/18 03:26 10/29/18 03:26 Consult Discharge Plan - Plan Instructions: Wesly-Cassidy Drain Care (DC) Additional Instructions: Daily DEVIN Drain Care: 1. Remove dressings. Shower with antibacterial soap. 2. Do not let the DEVIN drain dangle from your body. Use the safety pin to secure to your clothing. Secure the DEVIN to a lanyard or other type of long necklace when you shower. 3. Replace drain gauze and taped to secure. 4. Record the output from your DEVIN bulb (at least once daily) on the form provided and bring this with you to your follow-up appointment. 5. Keep the DEVIN drain to suction (squeeze the bulb and replace the cap while squeezing). 6. Strip the lines twice daily (hold onto the line as close to the body as you can, then with the other hand push the contents of the line into the DEVIN bulb). Axillary Dissection Keep the area clean and dry. Referrals: Mulu Gongora DO [Primary Care Provider] - 11/04/18 9:30 am () Dashawn Alvarez MD [Partnered Physician] - 11/06/18 2:05 pm <Dashawn Alvarez - Last Filed: 10/30/18 15:04> Date of Encounter: 10/30/18 - Assessment and Plan (1) History of left breast cancer Current Visit: Yes Status: Acute Objective Vital Signs - Last 8 Hours Temp Pulse Resp BP Pulse Ox 10/30/18 12:29 98.4 F 85 16 148/76 100 10/30/18 07:21 98.0 F 76 16 174/77 99 Intake and Output 10/29/18 10/30/18 10/30/18 23:59 07:59 15:59 Intake Total 340 / 2030 600 / 700 100 / 700 Output Total 20 / 585 0 / 0 Balance 320 / 1445 600 / 700 100 / 700 Intake: IV Fluids 100 / 1550 600 / 700 100 / 700 Zosyn 3.375 GM In 0.9 % Sodium 100 / 300 100 / 200 100 / 200 Chloride (Mini-Bag +) 100 ML @ 25 mls/hr IVPB Q8HR [facility] Rx#: [id number] Vancocin 1,750 MG In 0.9 % 500 / 500 Sodium Chloride 500 ML @ 333.3 mls/hr IVPB Q24H [facility] Rx#: [id number] Oral 240 / 480 Output: Wound Drainage 0 / 0 left side 0 / 0 Other: Meal Dinner Percent of Meal Consumed 100% Weight 106.4 kg Patient Weight 10/30/18 23:59 Weight 106.4 kg - Labs 10/29/18 03:26 10/29/18 03:26 - Attending Attestation I have personally performed a face to face evaluation on this patient. I have reviewed and agree with the care plan. History and Exam by me shows: I reviewed the above assessment and evaluation and agree with the above plan. We will plan on performing the axillary dissection of the left side tomorrow. Patient has already signed her consent and agrees with the above plan.
[2018-10-30] MEDS: Acetaminophen/Aspirin/Caffeine TABLET PO PRN (17:30)
--- NOTE | 2018-10-30 18:33 | Internal Med Progress Note ---
Hospitalist Progress Note - Encounter Date of Encounter: 10/30/18 Time of Encounter: 18:31 - Subjective Interval History: Pt denies fever, chills, N/V ro diarrhea. She denies CP or SOB. She is afebrile. - Exam Vitals: Temp Pulse Resp BP Pulse Ox 98.9 F 81 16 145/81 97 10/30/18 18:19 10/30/18 18:19 10/30/18 18:19 10/30/18 18:19 10/30/18 18:19 Exam: General: awake, alert, appears stated age HEENT:pupils equal, round, no conjunctival pallor Cardiovascular:regular rate and rhythm, normal S1 & S2, no murmurs no lower extremity edema Lungs:Normal breath sounds, no wheezes, or crackles. Normal respiratory effort on room air Abdomen:Soft, non-tender, non-distended, + bowel sounds Neurological: AAOx3 Skin:inferior to the healing left chest incision is an area of faint erythema, extends to midline of chest and is in region of what would have been breast fold, purulent drainage from incision site midline axillary region, no bleeding, right chest incision no drainage or bleeding, no erythema that side of chest, J drain left chest wall with cloudy purulent drainage in bulb - Assessment and Plan (1) Sepsis Current Visit: Yes Status: Resolved Assessment and Plan: sepsis secondary to cellulitis Met due to WBC count 15.7 and tachycardia of 136 On Vancomycin and Zosyn (2) Cellulitis Current Visit: Yes Status: Acute Assessment and Plan: cellulitis of the left mastectomy incision surgery consulting On Vancomycin and ZOsyn. Drain in palce. (3) Obesity (BMI 30-39.9) Current Visit: No Status: Chronic Assessment and Plan: was counseled (4) ARF (acute renal failure) Current Visit: Yes Status: Resolved Assessment and Plan: most likely multifactorial ( multiple IV contrast used recently), NSAID use, dehydration and hypoperfusion from sepsis NS 100 CC per hour given but DC'ed. UA colonization not infectious Avid nephrotoxic medications Renal US US/US retroperitoneal limited IMPRESSION: 1. Minimal right hydronephrosis. Otherwise normal sonographic appearance of the kidneys. 2. Incidental note of hepatic steatosis and cholelithiasis. (5) Chest pain Current Visit: Yes Status: Acute Assessment and Plan: atypical chest pain that is mostly incisional and post op doubt PE or ACS will rule out wells criteria is 7 - D-Dimer 850 was started on heparin drip by the ED physician however she has refused- un derstanding risks and benefits including V/Q scan Low probability for pulmonary embolus. Unable to obtain CTPA cardiac monitoring continuous pulse OX troponin <0.03 x 3 continue home medications if not CI (6) Normocytic anemia Current Visit: Yes Status: Acute Assessment and Plan: post op with mild normocytic anemia Continue to monitor H/H DVT Prophylaxis: Heparin - Time Spent with Patient Total time spent is greater than 50% in coordination of care (as documented) at patient's floor/unit and/or counseling patient: less than 15 minutes Plan of Care Discussed with: patient Internal Medicine: Result - Labs CBC & Chem 7: 10/29/18 03:26 10/29/18 03:26 - ABG Interpretation ABG results: PT/INR, D-dimer PT 13.6 Seconds (9.4-12.1) H 10/27/18 16:31 850 ng/mLFEU (0-500) H 10/27/18 09:52 Consult Discharge Plan - Plan Instructions: Wesly-Cassidy Drain Care (DC) Additional Instructions: Daily SAQIB Drain Care: 1. Remove dressings. Shower with antibacterial soap. 2. Do not let the SAQIB drain dangle from your body. Use the safety pin to secure to your clothing. Secure the SAQIB to a lanyard or other type of long necklace when you shower. 3. Replace drain gauze and taped to secure. 4. Record the output from your SAQIB bulb (at least once daily) on the form provided and bring this with you to your follow-up appointment. 5. Keep the SAQIB drain to suction (squeeze the bulb and replace the cap while squeezing). 6. Strip the lines twice daily (hold onto the line as close to the body as you can, then with the other hand push the contents of the line into the SAQIB bulb). Axillary Dissection Keep the area clean and dry. Referrals: Mulu Gongora DO [Primary Care Provider] - 11/04/18 9:30 am () Dashawn Alvarez MD [Partnered Physician] - 11/06/18 2:05 pm (1) Sepsis Qualifiers: Sepsis type: sepsis due to unspecified organism Qualified Code(s): A41.9 - Sepsis, unspecified organism (2) Cellulitis Qualifiers: Site of cellulitis: trunk Site of cellulitis of trunk: chest wall Qualified Code(s): L03.313 - Cellulitis of chest wall (4) ARF (acute renal failure) Qualifiers: Acute renal failure type: unspecified Qualified Code(s): N17.9 - Acute kidney failure, unspecified (5) Chest pain Qualifiers: Chest pain type: other chest pain Qualified Code(s): R07.89 - Other chest pain; R07.8 - Other chest pain
--- NOTE | 2018-10-30 19:11 | Anesthesia Evaluation PreOp ---
Date of Encounter: 10/30/18 Time of Encounter: 19:09 - Past History Planned Operation: Left Axilla Lymph Node Dissection Cardiac History: Denies any Significant Hx Pulmonary History: Other (H/O PE) DIE SINKER History: Denies Any Significant HX Other Medical History: GERD, Other (vaginal CA S/P XRT, breast CA) Anesthesia History: Past Anesthesia (hysterectomy, total cystectomy), Problems (PONV) Alcohol Use: none Drug use: none Medications and Allergies Omeprazole Magnesium [Prilosec Otc] 20 mg PO DAILY PRN 04/10/18 [History] Aspirin/Acetaminophen/Caffeine [Excedrin Migraine Caplet] 2 tab PO DAILY PRN 10/28/18 [History] Allergy/AdvReac Type Severity Reaction Status Date / Time No Known Allergies Allergy Verified 10/27/18 08:43 - Meds/Allergy Pre-op Review Medications Reviewed: Yes Allergies Reviewed: Yes Beta Blockers on Current Med List: No Anesthesia Results - Labs 10/29/18 03:26 10/29/18 03:26 - Imaging EKG: report reviewed (10/27/2018 Sinus tachycardia Low voltage, precordial leads) Anesthesia Exam Vital Signs/O2 Sat, Most Current Temp Pulse Resp BP Pulse Ox 98.9 F 81 16 145/81 97 10/30/18 18:19 10/30/18 18:19 10/30/18 18:19 10/30/18 18:19 10/30/18 18:19 Height: 5'6''/1.68m Weight: 234 lbs/106.4 kg NPO (# of Hours): 8 Pain Scale: 0 Pain Scale Used: Numeric (1 - 10) - HEENT Pupil (Motor): EOMI Mallampati: II Teeth: Normal Oral Opening: Greater than 3 - DIE SINKER LOC: Oriented DIE SINKER Motor: Normal RUE, Normal LUE, Normal RLE, Normal LLE, Normal Face DIE SINKER Sensory: Normal: RUE, LUE, RLE, LLE, Face - Cardiac Rhythm: Regular Murmur: None - Pulmonary Breath Sounds: bilateral Clear Respiratory Effort: Symmetrical Anesthesia Assess/Plan ASA Score: 2 Level of consciousness: Cooperative, Oriented, Tranquil Anesthetic Plan: General Monitoring Plan: Standard Monitors Recovery Plan: PACU
[2018-10-30 20:25] LABS: Basophils % 0.6 %; Eosinophils # 0.9 K/mcL (0.0-0.6); Eosinophils % 18.8 %; Immature Granulocytes % 0.4 % (0-4); Lymphocytes # 1.2 K/mcL (0.6-4.6); Lymphocytes % 23.2 %; Mean Corpuscular HGB Conc 30.8 g/dL (31.6-35.5); Mean Corpuscular Hemoglobin 27.8 pg (28.0-33.3); Mean Corpuscular Volume 90.3 fL (83.0-100.0); Mean Platelet Volume 10.6 fL (9.4-12.4); Monocytes # 0.4 K/mcL (0.0-1.3); Monocytes % 8.4 %; Neutrophils # 2.4 K/mcL (1.6-8.9); Platelet Count 179 K/mcL (140-400); Red Blood Count 2.88 M/mcL (3.82-4.97); Red Cell Distribution Width 13.5 % (11.5-14.5); Segmented Neutrophils % 48.6 %
[2018-10-31] MEDS: Piperacillin/Tazobactam 3.375 GM in 0.9 % Sodium Chloride Mini Bag 100 ML IVPB SCH ×2 (00:52→09:35)
[2018-10-31] MEDS: *HR* OxyCODONE Immed Rel 5 MG TABLET PO PRN ×2 (00:59→22:27)
[2018-10-31] MEDS: *HR* Heparin 5,000 UNIT/ML VIAL SQ SCH ×3 (05:50→22:19)
--- NOTE | 2018-10-31 10:42 | Internal Med Progress Note ---
Hospitalist Progress Note - Encounter Date of Encounter: 10/31/18 Time of Encounter: 10:17 - Subjective Interval History: Essentially negative examined this morning at bedside. No acute overnight events. Patient does not have any new complaint. Afebrile. Had a few episodes of diarrhea and loose. Complain left chest soreness. Denies any abdominal p ain. - Exam Vitals: Temp Pulse Resp BP Pulse Ox 98.7 F 78 14 160/83 100 10/31/18 07:17 10/31/18 07:10/31/18 07:17 10/31/18 07:10/31/18 07:17 Exam: General: In no acute distress. Respiratory exam: CTAB. no accessory muscle use, rales, rhonchi, wheezes Cardiovascular exam: RRR, +S1, +S2. no murmur, gallop, rubs. GI/Abdominal exam: Non-tender, Non-distended, soft, no peritoneal signs. Urostomy bag present Extremities exam: no pedal edema, pulses palpable in b/l lower extremities. no calf tenderness Neurological exam: CN II-XII intact, AO X3, no focal deficits. Skin exam: Lt chest surgical scar with induration but no erythema and mild purulence. 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 Likely secondary to cellulitis. On vancomycin and Zosyn for cellulitis. White count improving. Blood culture NGTD 10/27/18. Wound culture from left SAQIB fluid growing MRSA. Uurine culture growing Klebsiella pneumoniae, Morganella started likely due to contamination per urology. Changes Zosyn to ceftriaxone. Continue on vancomycin. Get Cdiff. - JORDAN resolving. Possibly multifactorial from contrast dye exposure, NSAID use, dehydration and sepsis, resolved with IVFs. Renal US with mild hydronephrosis. Hx bilateral diversion with nephrostomy tubes, simple cystectomy with diversion. Urostomy care - left mastectomy site with possible wound infection with some purulent drainage. Surgery following. Plan for left axillary dissection today. - chest pain likely related to surgery. Trops negative. - Anemia with post opt Hb drop. Stool occult positive. Will monitor Hb for now. Obtain Cdiff - Incidental hepatic steatosis and cholelithiasis for which she may fu outpt - Heparin for vte prophylaxis. - Time Spent with Patient Total time spent is greater than 50% in coordination of care (as documented) at patient's floor/unit and/or counseling patient: Internal Medicine: Result - Labs CBC & Chem 7: 10/30/18 18:32 10/29/18 03:26 Labs: Short CBC 10/30/18 Range/Units 18:32 WBC 5.0 (4.3-11.1) K/mcL Hgb 8.0 L (11.5-15.4) g/dL Hct 26.0 L (35.3-44.9) % Plt Count 179 (140-400) K/mcL Neutrophils # 2.4 (1.6-8.9) K/mcL - ABG Interpretation ABG results: PT/INR, D-dimer PT 13.6 Seconds (9.4-12.1) H 10/27/18 16:31 850 ng/mLFEU (0-500) H 10/27/18 09:52 Consult Discharge Plan - Plan Instructions: Wesly-Cassidy Drain Care (DC) Additional Instructions: Daily SAQIB Drain Care: 1. Remove dressings. Shower with antibacterial soap. 2. Do not let the SAQIB drain dangle from your body. Use the safety pin to secure to your clothing. Secure the SAQIB to a lanyard or other type of long necklace when you shower. 3. Replace drain gauze and taped to secure. 4. Record the output from your SAQIB bulb (at least once daily) on the form provided and bring this with you to your follow-up appointment. 5. Keep the SAQIB drain to suction (squeeze the bulb and replace the cap while squeezing). 6. Strip the lines twice daily (hold onto the line as close to the body as you can, then with the other hand push the contents of the line into the SAQIB bulb). Axillary Dissection Keep the area clean and dry. Referrals: Mulu Gongora DO [Primary Care Provider] - 11/04/18 9:30 am () Dashawn Alvarez MD [Partnered Physician] - 11/06/18 2:05 pm (2) Cellulitis Qualifiers: Site of cellulitis: trunk Site of cellulitis of trunk: chest wall Qualified Code(s): L03.313 - Cellulitis of chest wall (3) Sepsis Qualifiers: Sepsis type: sepsis due to unspecified organism Qualified Code(s): A41.9 - Sepsis, unspecified organism (4) ARF (acute renal failure) Qualifiers: Acute renal failure type: unspecified Qualified Code(s): N17.9 - Acute kidney failure, unspecified (5) Chest pain Qualifiers: Chest pain type: other chest pain Qualified Code(s): R07.89 - Other chest pain; R07.8 - Other chest pain
[2018-10-31 10:55] LABS: Basophils % 0.7 %; Eosinophils # 0.9 K/mcL (0.0-0.6); Eosinophils % 16.6 %; Hematocrit 28.7 % (35.3-44.9); Hemoglobin 8.8 g/dL (11.5-15.4); Immature Granulocytes % 0.4 % (0-4); Lymphocytes # 0.9 K/mcL (0.6-4.6); Lymphocytes % 17.2 %; Mean Corpuscular HGB Conc 30.7 g/dL (31.6-35.5); Mean Corpuscular Hemoglobin 27.4 pg (28.0-33.3); Mean Corpuscular Volume 89.4 fL (83.0-100.0); Mean Platelet Volume 10.6 fL (9.4-12.4); Monocytes # 0.4 K/mcL (0.0-1.3); Monocytes % 7.7 %; Neutrophils # 3.1 K/mcL (1.6-8.9); Platelet Count 184 K/mcL (140-400); Red Blood Count 3.21 M/mcL (3.82-4.97); Red Cell Distribution Width 13.2 % (11.5-14.5); Segmented Neutrophils % 57.4 %
[2018-10-31] MEDS ORDERED: cefTRIAXone 1,000 MG in Water for inj. (sterile) 20 ML 10 ML IVP SCH (11:00)
[2018-10-31] MEDS ORDERED: *HR* LORazepam 2 MG/ML VIAL IVP ONE (11:07)
[2018-10-31] MEDS ORDERED: *HR* Midazolam HCl 2 MG/2 ML VIAL ONE (12:37)
[2018-10-31] MEDS ORDERED: *HR* FentaNYL (PF) 100 MCG/2 ML VIAL ONE ×2 (12:37→14:08)
[2018-10-31] MEDS ORDERED: *HR* Propofol 200 MG/20 ML VIAL IVP ONE (12:37)
[2018-10-31] MEDS ORDERED: Dexamethasone 4 MG/ML VIAL ONE (12:39)
[2018-10-31] MEDS ORDERED: Ondansetron 4 MG/2 ML VIAL ONE ×2 (12:39→15:47)
[2018-10-31] MEDS ORDERED: Acetaminophen IV 1,000 MG/100 ML INFUS..BTL ONE (13:05)
[2018-10-31] MEDS ORDERED: Famotidine 20 MG/2 ML VIAL ONE (13:05)
[2018-10-31] MEDS ORDERED: Scopolamine Patch 1.5 MG PATCH.TD72 ONE (13:27)
[2018-10-31] MEDS ORDERED: *HR* HYDROMORPHONE 2 MG/ML VIAL ONE (14:41)
--- NOTE | 2018-10-31 15:25 | Operative Note ---
Date of procedure: 10/31/18 Pre-op diagnosis: Left breast cancer, positive lymph nodes Post-op diagnosis: same Procedure: Left axillary lymph node dissection Implants: 19 FR Navin x 2 Anesthesia: MARIELENAA Surgeon: Dashawn Alvarez Was there an assistant finance manager present: No Estimated blood loss (cc): 40 Specimen: left axillary contents Condition: stable Disposition: PACU Procedure in Detail: Date of surgery: 10/31/18 After properly identifying the patient, the patient was brought to the operating room and placed in the supine position. After proper IV sedation was achieved followed by general endotracheal intubation, the patient's left mastectomy site, axilla, and upper extremity were prepped and draped in normal sterile fashion. A timeout was performed noting the patient's name and type of procedure to be performed. The patient already had a drain in place on the lateral aspect of the left incision overlying the chest wall from her previous mastectomy. There was some purulent exudate drainage noted around the opening of the catheter. Of note the patient had cultures previously taken of the drainage from the SAQIB drain itself which was positive for MRSA. The decision was made to make an incision on the lateral aspect of the mastectomy incision with a 15 blade scalpel. Bovie cauterization was used to dissected the subcutaneous tissue and retractors were placed within the space to allow for visualization of the axillary contents. Bovie cauterization and blunt dissection were used to dissected the subcutaneous to tissue and axilla until the chest wall was identified. Dissection between the chest wall and axilla contents was performed down until the long thoracic nerve was identified. Dissection was then carried superiorly with a small handheld LigaSure up until the subclavian vein could be visualized. The axillary contents were then dissected inferior to this subclavian vein and lateral to the long thoracic nerve. The thoracodorsal nerve was also identified and spared. Once the axillary contents were removed it was submitted to pathology. The cavity was irrigated with normal saline solution and the decision was made to go ahead and remove the already in place Navin drain replaced with a new 19-Greek Navin drain which was sutured in place with a 2-0 nylon suture. An additional 19-Greek Navin drain was then placed within the axilla and also sutured in place and the above-mentioned fashion. The subcutaneous tissue was reapproximated with interrupted 3-0 Vicryl sutures and the epidermal and dermal layers were reapproximated with a running 4-0 Monocryl suture. Needle, sponge, and instrument counts were correct 2 and the incision was covered with Steri-Strips and 4 x 4's. The patient was aroused from IV sedation, extubated in the operating room without complication, and transported to the recovery room stable condition.
[2018-10-31] MEDS ORDERED: Ondansetron 4 MG/2 ML VIAL IVP ONE (15:46)
--- NOTE | 2018-10-31 15:59 | Anesthesia Evaluation Post Op ---
Date of Encounter: 10/31/18 Time of Encounter: 15:58 - Vital Signs Vital Signs: Vital Signs/O2 Sat, Most Current Temp Pulse Resp BP Pulse Ox 98.1 F 85 18 147/83 97 10/31/18 15:31 10/31/18 15:51 10/31/18 15:51 10/31/18 15:51 10/31/18 15:51 - Lungs Lungs: Clear Ascult./Percussion - Airway Airway: Non-obstructed - Cardiovascular Regular Rate - Mental Status Mental Status: Alert & Oriented, Answers Appropriately - Pain Pain Scale: 0 Pain Scale used: Numeric (1 - 10) - Nausea Vomiting Nausea Vomiting: Not Present - Hydration Hydration: NPO, Has not voided - Discharge PostOp Status: Discharge Patient to home
[2018-10-31] MEDS ORDERED: *HR* OxyCODONE/APAP 5/325 TABLET PO PRN (16:46)
[2018-10-31] MEDS ORDERED: Acetaminophen/Aspirin/Caffeine TABLET PO PRN (16:46)
[2018-10-31] MEDS ORDERED: Ondansetron 4 MG/2 ML VIAL IVP PRN (16:46)
[2018-10-31] MEDS ORDERED: Naloxone 0.4 MG/ML INJ IVP PRN (16:46)
[2018-11-01] MEDS: *HR* OxyCODONE Immed Rel 5 MG TABLET PO PRN (03:49)
[2018-11-01 04:07] LABS: Hematocrit 26.7 % (35.3-44.9); Hemoglobin 8.2 g/dL (11.5-15.4)
[2018-11-01 04:29] LABS: BUN/Creatinine Ratio 17 (6-26); Blood Urea Nitrogen 17 mg/dL (8-23); Carbon Dioxide 26 mEq/L (23-29); Chloride 106 mEq/L (98-107); Glucose 118 mg/dL (70-105); Osmolality,Calculated 295 (280-300); Sodium 141 mEq/L (136-145); eGFR For Non-African Americans 58 (> 60)
[2018-11-01 04:31] LABS: BUN/Creatinine Ratio 18 (6-26); Blood Urea Nitrogen 17 mg/dL (8-23); eGFR For Non-African Americans 58 (> 60)
[2018-11-01] MEDS: *HR* Heparin 5,000 UNIT/ML VIAL SQ SCH ×2 (05:33→14:10)
[2018-11-01] MEDS ORDERED: cefTRIAXone 1,000 MG in Water for inj. (sterile) 20 ML 10 ML IVP SCH (09:00)
--- NOTE | 2018-11-01 10:36 | AcuteCareSurgery Progress Note ---
Date of Encounter: 11/01/18 Time of Encounter: 10:33 - Assessment and Plan (1) Breast cancer Current Visit: Yes Status: Acute 63F POD #1 s/p left axillary dissection; wound looks clean, dry, intact; pain control as needed instructions given on mobility (limit arm movement to 45 degrees, lift no more than a gallon of milk) follow up with general surgery as already set general surgery will sign off Qualifiers: Breast location: unspecified site of breast Estrogen receptor status: unspecified Patient sex: female Laterality: left Qualified Code(s): C50.912 - Malignant neoplasm of unspecified site of left female breast Subjective Patient reports: no new complaints, feels better, still having pain, pain is less Objective Vital Signs - Last 8 Hours Temp Pulse Resp BP Pulse Ox 11/01/18 07:38 98.0 F 76 18 127/78 97 Intake and Output 10/31/18 11/01/18 11/01/18 23:59 07:59 15:59 Intake Total 500 / 630 130 / 630 Output Total 435 / 435 Balance 65 / 195 130 / 195 Intake: IV Fluids 500 / 510 10 / 510 Rocephin 1,000 MG In Water for inj. (sterile) 10 ML @ 600 mls/ hr IVP DAILY [facility] Rx#:[id number] Vancocin 1,750 MG In 0.9 % 500 / 500 Sodium Chloride 500 ML @ 333.3 mls/hr IVPB Q24H [facility] Rx#: [id number] Oral 120 / 120 Output: Urostomy 400 / 400 Wound Drainage 35 / 35 left posterior 20 / 20 left side 15 / Other: Meal Breakfast Percent of Meal Consumed 95% Weight 106.7 kg Patient Weight 11/01/18 23:59 Weight 106.7 kg - General physical appearance no distress - Respiratory normal expansion, normal respiratory effort - Cardiovascular Cardiovascular exam: Present: RRR - Incision Incision: Present: clean and dry, intact - Integumentary no rash - Labs 11/01/18 03:30 11/01/18 03:45 Diabetes panel 11/01/18 11/01/18 Range/Units 03:30 03:45 Sodium 141 (136-145) mEq/L Potassium 4.0 (3.5-5.1) mEq/L Chloride 106 (98-107) mEq/L Carbon Dioxide 26 (23-29) mEq/L BUN 17 17 (8-23) mg/dL Creatinine 0.97 0.98 (0.60-1.20) mg/dL Glucose 118 H (70-105) mg/dL Calcium 8.0 L (8.6-10.3) mg/dL Calcium panel 11/01/18 Range/Units 03:45 Calcium 8.0 L (8.6-10.3) mg/dL Pituitary panel 11/01/18 11/01/18 Range/Units 03:30 03:45 Sodium 141 (136-145) mEq/L Potassium 4.0 (3.5-5.1) mEq/L Chloride 106 (98-107) mEq/L Carbon Dioxide 26 (23-29) mEq/L BUN 17 17 (8-23) mg/dL Creatinine 0.97 0.98 (0.60-1.20) mg/dL Glucose 118 H (70-105) mg/dL Calcium 8.0 L (8.6-10.3) mg/dL Adrenal panel 11/01/18 11/01/18 Range/Units 03:30 03:45 Sodium 141 (136-145) mEq/L Potassium 4.0 (3.5-5.1) mEq/L Chloride 106 (98-107) mEq/L Carbon Dioxide 26 (23-29) mEq/L BUN 17 17 (8-23) mg/dL Creatinine 0.97 0.98 (0.60-1.20) mg/dL Glucose 118 H (70-105) mg/dL Calcium 8.0 L (8.6-10.3) mg/dL Consult Discharge Plan - Plan Instructions: Wesly-Cassidy Drain Care (DC) Additional Instructions: Daily SAQIB Drain Care: 1. Remove dressings. Shower with antibacterial soap. 2. Do not let the SAQIB drain dangle from your body. Use the safety pin to secure to your clothing. Secure the SAQIB to a lanyard or other type of long necklace when you shower. 3. Replace drain gauze and taped to secure. 4. Record the output from your SAQIB bulb (at least once daily) on the form provided and bring this with you to your follow-up appointment. 5. Keep the SAQIB drain to suction (squeeze the bulb and replace the cap while squeezing). 6. Strip the lines twice daily (hold onto the line as close to the body as you can, then with the other hand push the contents of the line into the SAQIB bulb). Axillary Dissection Keep the area clean and dry. Ok to remove dressing in two days. May shower in two days. Referrals: Mulu Gongora DO [Primary Care Provider] - 11/04/18 9:30 am () Dashawn Alvarez MD [Partnered Physician] - 11/06/18 2:05 pm Prescriptions: OxyCODONE/APAP 5/325 [Percocet 5/325 MG] 1 each PO Q6HR PRN 7 Days #28 tablet PRN Reason: Pain
[2018-11-01 11:57] VITALS: BP 136/75
--- NOTE | 2018-11-01 13:17 | Internal Med Progress Note ---
Hospitalist Progress Note - Encounter Date of Encounter: 11/01/18 Time of Encounter: 12:54 - Exam Vitals: Temp Pulse Resp BP Pulse Ox 98.1 F 76 16 136/75 98 11/01/18 11:56 11/01/18 11:56 11/01/18 11:56 11/01/18 11:56 11/01/18 11:56 - Assessment and Plan (1) Obesity (BMI 30-39.9) Current Visit: No Status: Chronic (2) Cellulitis Current Visit: Yes Status: Acute (3) Sepsis Current Visit: Yes Status: Resolved (4) ARF (acute renal failure) Current Visit: Yes Status: Resolved (5) Chest pain Current Visit: Yes Status: Acute (6) Normocytic anemia Current Visit: Yes Status: Acute - Summary of Assessment and Plan Summary of Assessment and Plan: Assessment Sepsis Cellulitis Chest pain JORDAN Anemia Hydronephrosis 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 Likely secondary to cellulitis. On vancomycin and Zosyn for cellulitis. White count improving. Blood culture NGTD 10/27/18. Wound culture from left SAQIB fluid growing MRSA. Uurine culture growing Klebsiella pneumoniae, Morganella started likely due to contamination per urology. Changes Zosyn to ceftriaxone. Continue on vancomycin. Get Cdiff. - JORDAN resolving. Possibly multifactorial from contrast dye exposure, NSAID use, dehydration and sepsis, resolved with IVFs. Renal US with mild hydronephrosis. Hx bilateral diversion with nephrostomy tubes, simple cystectomy with diversion. Urostomy care - left mastectomy site with possible wound infection with some purulent draina ge. Surgery following. Plan for left axillary dissection today. - chest pain likely related to surgery. Trops negative. - Anemia with post opt Hb drop. Stool occult positive. Will monitor Hb for now. Obtain Cdiff - Incidental hepatic steatosis and cholelithiasis for which she may fu outpt - Heparin for vte prophylaxis. - Time Spent with Patient Total time spent is greater than 50% in coordination of care (as documented) at patient's floor/unit and/or counseling patient: Internal Medicine: Result - Labs CBC & Chem 7: 11/01/18 03:30 11/01/18 03:45 Labs: Short CBC 11/01/18 Range/Units 03:30 Hgb 8.2 L (11.5-15.4) g/dL Hct 26.7 L (35.3-44.9) % BMP 11/01/18 11/01/18 03:30 03:45 Sodium 141 Potassium 4.0 Chloride 106 Carbon Dioxide 26 BUN 17 17 Creatinine 0.97 0.98 Glucose 118 H Calcium 8.0 L - ABG Interpretation ABG results: PT/INR, D-dimer PT 13.6 Seconds (9.4-12.1) H 10/27/18 16:31 850 ng/mLFEU (0-500) H 10/27/18 09:52 Consult Discharge Plan - Plan Instructions: Wesly-Cassidy Drain Care (DC) Additional Instructions: Daily SAQIB Drain Care: 1. Remove dressings. Shower with antibacterial soap. 2. Do not let the SAQIB drain dangle from your body. Use the safety pin to secure to your clothing. Secure the SAQIB to a lanyard or other type of long necklace whe n you shower. 3. Replace drain gauze and taped to secure. 4. Record the output from your SAQIB bulb (at least once daily) on the form provided and bring this with you to your follow-up appointment. 5. Keep the SAQIB drain to suction (squeeze the bulb and replace the cap while squeezing). 6. Strip the lines twice daily (hold onto the line as close to the body as you can, then with the other hand push the contents of the line into the SAQIB bulb). Axillary Dissection Keep the area clean and dry. Ok to remove dressing in two days. May shower in two days. Referrals: Mulu Gongora DO [Primary Care Provider] - 11/04/18 9:30 am () Dashawn Alvarez MD [Partnered Physician] - 11/06/18 2:05 pm Prescriptions: OxyCODONE/APAP 5/325 [Percocet 5/325 MG] 1 each PO Q6HR PRN 7 Days #28 tablet PRN Reason: Pain (2) Cellulitis Qualifiers: Site of cellulitis: trunk Site of cellulitis of trunk: chest wall Qualified Code(s): L03.313 - Cellulitis of chest wall (3) Sepsis Qualifiers: Sepsis type: sepsis due to unspecified organism Qualified Code(s): A41.9 - Sepsis, unspecified organism (4) ARF (acute renal failure) Qualifiers: Acute renal failure type: unspecified Qualified Code(s): N17.9 - Acute kidney failure, unspecified (5) Chest pain Qualifiers: Chest pain type: other chest pain Qualified Code(s): R07.89 - Other chest pain; R07.8 - Other chest pain
--- NOTE | 2018-11-01 13:35 | Discharge Summary ---
- NOTES TO OUTPATIENT PROVIDER Notes to Outpatient Provider: We will follow-up in 1-2 weeks for follow-up H&H. Discharged with 7 more days of Bactrim for cellulitis. Related to follow-up with surgery as outpatient. Orders not resulted at time of discharge: Pending orders 10/28/18 Culture,Anaerobic [RM] Stat 10/28/18 15:51 Urinalysis reflex Microscopic [URIN] Routine 10/31/18 15:10 Surgical Pathology [PTH] Routine 11/02/18 02:00 Vancomycin,Trough Timed Date of Encounter: 11/01/18 Time of Encounter: 13:30 - Discharge Diagnosis (1) Obesity (BMI 30-39.9) Priority: Secondary Status: Chronic (2) Cellulitis Priority: Primary Status: Acute Qualifiers: Site of cellulitis: trunk Site of cellulitis of trunk: chest wall Qualified Code(s): L03.313 - Cellulitis of chest wall (3) Sepsis Priority: Primary Status: Resolved Qualifiers: Sepsis type: sepsis due to unspecified organism Qualified Code(s): A41.9 - Sepsis, unspecified organism (4) ARF (acute renal failure) Priority: Secondary Status: Resolved Qualifiers: Acute renal failure type: unspecified Qualified Code(s): N17.9 - Acute kidney failure, unspecified (5) Chest pain Priority: Secondary Status: Acute Qualifiers: Chest pain type: other chest pain Qualified Code(s): R07.89 - Other chest pain; R07.8 - Other chest pain (6) Normocytic anemia Priority: Secondary Status: Acute Hospital course: Ms. Jasmine is a 63 year old female past medical history of GERD, pulmonary embolism, history of C. difficile, anxiety, depression, cystectomy secondary to radiation cystitis, breast cancer with recent bilateral mastectomy on 10/13 came in with complain of fevers and chills. Patient had a drain in place and also complained of significant chest soreness and pain. Patient was admitted for sepsis secondary to cellulitis and was started on vancomycin and Zosyn.. Patient had chest pain likely postoperative in nature. VQ scan was obtained which was of low probability. Dopplers were negative. Patient was also found to have JORDAN in the setting of an SH use sepsis and contrast studies. Patient was started on IV fluids. Retroperitoneal ultrasound showed mild right hydronephrosis. There were some signs of UTI on UA. Patient was noted to have anemia since her surgery. She had some on and off diarrhea which was positive for stool occult. However her hemoglobin remained stable and no black or bright red bloody bowel movement was observed. Patient's Culture drawn from the drain grew MRSA. Patient urine culture grew Klebsiella and Morganella. Patient has been on 5 days of gram-negative coverage. Likely contaminant per urology given her urostomy. Mild right-sided hydronephrosis was likely physiologic given her urostomy cardiology. Patient underwent follow-up surgery with left axillary lymph node dissection and placement of another drain. Some purulence was noted around the drain during surgery. Patient did well after surgery except postop pain. She is otherwise stable to be discharged to follow up outpatient and finish 7 more days of oral antibiotics with Bactrim DS. Her renal function had resolved to baseline by the time of discharge. Patient will need follow-up with PCP to monitor her hemoglobin and consider GI workup if needed. Patient asked to take iron supplementation. Patient was given pain medication prescription by surgery and she was asked not to take NSAIDs Discharge discussed with: patient, nurse - Time Spent with Patient Total time spent providing and/or coordinating discharge services: Time spent: Greater than 30 minutes (35) - Discharge Medications Prescriptions: New OxyCODONE/APAP 5/325 [Percocet 5/325 MG] 1 each PO Q6HR PRN 7 Days #28 tablet PRN Reason: Pain Sulfamethoxazole/Trimeth DS [Bactrim DS] 1 each PO BID 7 Days #14 tablet Continued Omeprazole Magnesium [Prilosec Otc] 20 mg PO DAILY PRN PRN Reason: ACID REFLUX Aspirin/Acetaminophen/Caffeine [Excedrin Migraine Caplet] 2 tab PO DAILY PRN PRN Reason: Migraine Headache Home Medications: Omeprazole Magnesium [Prilosec Otc] 20 mg PO DAILY PRN 04/10/18 [History] Aspirin/Acetaminophen/Caffeine [Excedrin Migraine Caplet] 2 tab PO DAILY PRN 10/28/18 [History] OxyCODONE/APAP 5/325 [Percocet 5/325 MG] 1 each PO Q6HR PRN 7 Days #28 tablet 10/31/18 [Rx] Sulfamethoxazole/Trimeth DS [Bactrim DS] 1 each PO BID 7 Days #14 tablet 11/01/18 [Rx] Allergies/Adverse Reactions: Allergy/AdvReac Type Severity Reaction Status Date / Time No Known Allergies Allergy Verified 10/27/18 08:43 Date of admission: 10/29/18 12:40 Primary care physician: Ana Braswell Consults: 10/27/18 11:46 Consult to Surgery [CONS] Stat Consulting Provider: [facility] Reason for Consult: 2wk s/p BL total mastectomy. Time Notified: 11:47 Call Completed: Yes 10/28/18 13:31 Consult to Urology [CONS] Routine Consulting Provider: Urology Sheila Reason for Consult: mild right hydronephrosis, hx bladder removal Call Completed: Yes 10/28/18 16:22 Consult to Wound Care [CONS] Routine Reason for Consult: Evaluate and assist patient with improving her urostomy care routine. Currently changing appliances every 2 days and has difficulty with blistering with current adhesives. Thank you, KB Call Completed: No Discharging clinician: Hannah Castellanos Maqruez - Constitutional Vitals: Temp Pulse Resp BP Pulse Ox 98.1 F 76 16 136/75 98 11/01/18 11:56 11/01/18 11:56 11/01/18 11:56 11/01/18 11:56 11/01/18 11:56 Exam: General: In no acute distress. Respiratory exam: CTAB. no accessory muscle use, rales, rhonchi, wheezes Cardiovascular exam: RRR, +S1, +S2. no murmur, gallop, rubs. GI/Abdominal exam: Non-tender, Non-distended, soft, no peritoneal signs. Urostomy bag present Extremities exam: no pedal edema, pulses palpable in b/l lower extremities. no calf tenderness Neurological exam: CN II-XII intact, AO X3, no focal deficits. Skin exam: Lt chest surgical scar minimal redness, no purulence noted. drain present - Patient Status Disposition: Home, Self-Care Condition: Fair - Discharge Instructions Instructions: Wesly-Cassidy Drain Care (DC) Follow Up With: Mulu Gongora DO [Primary Care Provider] - 11/04/18 9:30 am () Dashawn Alvarez MD [Partnered Physician] - 11/06/18 2:05 pm Additional Instructions: Daily SAQIB Drain Care: 1. Remove dressings. Shower with antibacterial soap. 2. Do not let the SAQIB drain dangle from your body. Use the safety pin to secure to your clothing. Secure the SAQIB to a lanyard or other type of long necklace when you shower. 3. Replace drain gauze and taped to secure. 4. Record the output from your SAQIB bulb (at least once daily) on the form provided and bring this with you to your follow-up appointment. 5. Keep the SAQIB drain to suction (squeeze the bulb and replace the cap while squeezing). 6. Strip the lines twice daily (hold onto the line as close to the body as you can, then with the other hand push the contents of the line into the SAQIB bulb). Axillary Dissection Keep the area clean and dry. Ok to remove dressing in two days. May shower in two days.
[2018-11-01] MEDS ORDERED: Aminoglycoside Consult 1 EACH MC ONE (15:04)
== END 2018-11-01 15:05 | disposition home or self-care (01) | DRG 856 ==
LOC: EMEROOARM 08:37 → 3BNU 08:37 → SUATTDRO 11:27 → 3BNU 12:28 → SUATTDRO 10-29 12:40
PROVIDERS: ADMIT Internal Medicine; ATTEND Internal Medicine

== ENCOUNTER 2019-01-22 22:07 | Observation (INO) ==
[2019-01-22] MEDS ORDERED: 0.9 % Sodium Chloride 1,000 ML IVC ONE (22:29)
[2019-01-22] MEDS ORDERED: Ondansetron 4 MG/2 ML VIAL IVP STA (22:29)
--- NOTE | 2019-01-22 23:38 | Emergency Department Note ---
Disposition Clinical Impression: Small bowel obstruction due to adhesions, Nausea Abdominal pain Qualifiers: Abdominal location: generalized Qualified Code(s): R10.84 - Generalized abdominal pain Disposition: Admitted As Inpatient Condition: Fair Time of Disposition: 03:39 Abdominal Pain HPI - General Chief Complaint: ED Abdominal Pain Stated Complaint: ABDOMINAL PAIN/VOMITING/DIARRHEA Time Seen by Provider: 01/22/19 22:28 Source: patient Mode of arrival: ambulatory Limitations: no limitations Nursing Notes Reviewed: Yes Vital Signs Reviewed: Yes - History of Present Illness HPI Narrative: 63-year-old female past medical history of vaginal cancer, recently treated for breast cancer with double mastectomy and radiation treatment as early as September of this year presenting for one day history of gradually progressive and worsening abdominal pain. Patient was recently seen and admitted at this facility for concerns over bowel obstruction. The patient states she is currently experiencing 8 out of 10 "wavelike" pain which begins in her lower pelvis and ripples upward throughout her abdomen. The patient states that she has had several episodes of nausea vomiting and has not been able to tolerate by mouth intake since yesterday. The patient denies any abnormal bleeding, she denies any fevers chills headaches numbness paresthesias neck or back pain or any other concerns or complaints at this time. It is noted the patient has a urostomy bag in place which is draining nonbloody urine. Upon my initial evaluation, my general impression is that the patient is ill- appearing but nontoxic, uncomfortable due to her pain. She is otherwise awake, alert, oriented, engaged to conversation and answering questions appropriately. There are no overt lateralizing signs, the patient is in no acute distress; their skin appears to be normal in color, they are not pale, not cyanotic, and n ot diaphoretic, they are sitting up in hospital bed interacting appropriately with environment. Pt Subjective Complaint: abdominal pain Onset (ago): day(s) Consistency: constant Location: diffuse Pain Severity: severe Pain Scale: 8 Quality: cramping, sharp Radiation: other (Pelvic pain radiating upward) Migration to: no migration Improves with: nothing Worsens with: nothing Associated symptoms: Reports: nausea, vomiting. Denies: diarrhea, fever, chills, constipation, dysuria, hematemesis, hematochezia, melena, hematuria Treatments prior to arrival: none - Related Data Home Medications Medication Instructions Recorded Confirmed Omeprazole Magnesium [Prilosec Otc] 20 mg PO DAILY PRN 01/12/19 01/12/19 Previous Rx's Medication Instructions Recorded Cholestyramine (with Sugar) 1 scoop PO DAILY 30 Days #378 gm 01/14/19 [Cholestyramine Bulk Powder] Nitrofurantoin (BID) [Macrobid] 100 mg PO BID #10 capsule 01/14/19 Allergies Allergy/AdvReac Type Severity Reaction Status Date / Time No Known Allergies Allergy Verified 01/12/19 23:36 Review of Systems: *See History of Present Illness for more detail Constitutional: Denies: fever, chills Cardiovascular: Denies: chest pain Respiratory: Denies: dyspnea, cough, hemoptysis Gastrointestinal: admits: abdominal pain, nausea, vomiting, denies: diarrhea, constipation, hematemesis, melena, hematochezia Genitourinary: Denies: hematuria Musculoskeletal: Denies: back pain, neck pain Neurological: Denies: headache, weakness, lightheadedness/dizziness, numbness, paresthesias, difficulty with ambulation. Endocrine: Denies: fatigue All systems ED: reviewed and negative except as stated. 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 Neck: Trachea midline without deviation. Anterior neck is supple without swelling, no overt thyromegaly noted. Chest: Symmetric chest wall rise Heart: Cardiac rhythm and rate are regular with S1 and S2 , no S3 or S4 appreciated, no murmurs, rubs, or clicks. Lungs: Lungs are clear to auscultation bilaterally, without accessory muscle use or prolonged expiratory phase. No wheezes, rhonchi, rales or stridor appreciated. *Abdomen: Urostomy bag in place, nonbloody urine. Abdomen is mildly diffusely tender to palpation with focus noted in the mid pelvic region. Abdomen is otherwise obese, soft to palpation, normal bowel sounds, no evidence of bruising, surgical incisions, or abnormal mass. No abdominal bruit auscultated. Non-distended, non-rigid, no organomegaly, no ascites appreciated. No pulsatile mass, no guarding to palpation in all four quadrants, no rebound Extremities: No evidence of pedal edema, joint swelling or erythema. Pulses/motor intact in all 4 extremities. Back exam: No CVA tenderness. Psychiatric exam: Patient displays a normal affect and mood for the environment. No overt signs of hallucination. Integumentary: warm, dry, intact, normal color. No rash, cyanosis, diaphoresis, erythema, or pallor - General Limitations: no limitations General appearance: alert, in no apparent distress Course Course Narrative: CT scan abdomen and pelvis, urinalysis, abdominal labs, IV fluids, fentanyl and Zofran for management of patient's symptoms - Consultations Consultation #1: Spoke with Dr. Yoo with Gen. surgery regarding management of this patient. Dr. Yoo states that the patient's small bowel will become chronically dilated after the anastomoses and that this may represent chronic changes on her CT scan. Dr. Yoo states that with current management in the ED managing patient's pain and nausea that she may be managed without a nasogastric tube placement at this time. Consultation greatly appreciated! Vital Signs Temperature 97.8 F 01/22/19 22:10 Pulse Rate 120 01/22/19 22:10 Respiratory Rate 16 01/22/19 22:10 Blood Pressure 164/98 01/22/19 22:10 O2 Sat by Pulse Oximetry 96 01/22/19 22:10 Temperature 97.8 F 01/22/19 22:10 Pulse Rate 88 01/23/19 03:37 Respiratory Rate 18 01/23/19 03:37 Blood Pressure 145/91 01/23/19 03:37 O2 Sat by Pulse Oximetry 97 01/23/19 03:37 Oxygen Delivery Oxygen Delivery Room Air Abdominal Pain - MDM Narrative Medical decision making narrative: Patient was admitted to hospitalist medicine service for further evaluation and management of small bowel obstruction as well as pain and nausea management. The patient verbalizes understanding and agreement with this plan and is hemodynamically stable at the time of admission. Dr. Mctook accepting admission - Lab Data Lab results reviewed: Yes I reviewed the patient's lab results. Result diagrams: 01/22/19 23:45 01/22/19 23:45 Lab Results 01/22/19 01/22/19 Range/Units 23:45 23:45 WBC 8.3 (4.3-11.1) K/mcL RBC 4.73 (3.82-4.97) M/mcL Hgb 12.6 (11.5-15.4) g/dL Hct 40.6 (35.3-44.9) % MCV 85.8 (83.0-100.0) fL MCH 26.6 L (28.0-33.3) pg MCHC 31.0 L (31.6-35.5) g/dL RDW 18.2 H (11.5-14.5) % Plt Count 281 (140-400) K/mcL MPV 10.6 (9.4-12.4) fL Immature Gran % 0.6 (0-4) % Seg Neutrophils % 82.1 % Lymphocytes % 10.8 % Monocytes % 5.5 % Eosinophils % 0.4 % Basophils % 0.6 % Neutrophils # 6.8 (1.6-8.9) K/mcL Lymphocytes # 0.9 (0.6-4.6) K/mcL Monocytes # 0.5 (0.0-1.3) K/mcL Eosinophils # 0.0 (0.0-0.6) K/mcL Basophils # 0.1 (0.0-0.2) K/mcL Sodium 138 (136-145) mEq/L Potassium 3.9 (3.5-5.1) mEq/L Chloride 103 (98-107) mEq/L Carbon Dioxide 24 (23-29) mEq/L BUN 24 H (8-23) mg/dL Creatinine 1.17 (0.60-1.20) mg/dL Est GFR ( Amer) 57 L (> 60) Est GFR (Non-Af Amer) 47 L (> 60) BUN/Creatinine Ratio 21 (6-26) Glucose 119 H (70-105) mg/dL Calculated Osmolality 291 (280-300) Calcium 9.3 (8.6-10.3) mg/dL Total Bilirubin 0.5 (0.3-1.0) mg/dL Direct Bilirubin 0.1 (0.0-0.2) mg/dL Indirect Bilirubin 0.4 (0.0-1.2) mg/dL AST 23 (13-39) Units/L ALT 27 (7-52) Units/L Alkaline Phosphatase 92 (34-104) Units/L Serum Total Protein 7.2 (6.4-8.9) g/dL Albumin 4.3 (3.5-5.7) g/dL Globulin 2.9 (2.4-3.5) g/dL Albumin/Globulin Ratio 1.5 (1.1-2.2) Amylase 39 (29-103) Units/L Lipase 27 (11-82) Units/L - Radiology Data Radiology results reviewed: Yes I reviewed the patient's radiology results. Abdomen/Pelvis CT 01/23/19 00:35 IMPRESSION: Small bowel dilatation with fecalization of bowel contents near the site of previous anastomosis suspicious of obstruction; the appearance is similar to prior exam. Biliary sludge. No change in renal collecting system dilatation related to cystectomy and ileal conduit creation. D/ / Rick Medel / Rick Medel Interpreting Provider: Rick Medel
[2019-01-22] MEDS ORDERED: *HR* FentaNYL (PF) 100 MCG/2 ML VIAL IVP ONE (23:40)
--- NOTE | 2019-01-23 00:03 | Emergency Department Note ---
Disposition Clinical Impression: Small bowel obstruction due to adhesions, Nausea Abdominal pain Qualifiers: Abdominal location: generalized Qualified Code(s): R10.84 - Generalized abdominal pain Disposition: Admitted As Inpatient Condition: Fair Time of Disposition: 02:30 General Adult HPI - General Chief complaint: ED Abdominal Pain Stated complaint: ABDOMINAL PAIN/VOMITING/DIARRHEA Time Seen by Provider: 01/22/19 22:28 Source: patient Mode of arrival: ambulatory Limitations: no limitations Nursing Notes Reviewed: Yes Vital Signs Reviewed: Yes - History of Present Illness Pain Scale: 8 - Related Data Home Medications Medication Instructions Recorded Confirmed Omeprazole Magnesium [Prilosec Otc] 20 mg PO DAILY PRN 01/12/19 01/12/19 Previous Rx's Medication Instructions Recorded Cholestyramine (with Sugar) 1 scoop PO DAILY 30 Days #378 gm 01/14/19 [Cholestyramine Bulk Powder] Nitrofurantoin (BID) [Macrobid] 100 mg PO BID #10 capsule 01/14/19 Allergies Allergy/AdvReac Type Severity Reaction Status Date / Time No Known Allergies Allergy Verified 01/12/19 23:36 Past Medical History - Past Medical History Medical history: Reports: cancer, GERD, kidney stones, migraine, pulmonary embolus, renal disease, other Surgical history: Reports: cancer surgery, hysterectomy Psychiatric history: Reports: anxiety, depression ICER MACHINE history: Reports: no ICER MACHINE history - Social History Smoking Status: Never smoker Smokeless Tobacco Status: No Alcohol use: Reports: none Drug use: Reports: none Physical Exam - General Limitations: no limitations General appearance: alert, in no apparent distress Course Vital Signs Temperature 97.8 F 01/22/19 22:10 Pulse Rate 120 01/22/19 22:10 Respiratory Rate 16 01/22/19 22:10 Blood Pressure 164/98 01/22/19 22:10 O2 Sat by Pulse Oximetry 96 01/22/19 22:10 Temperature 97.8 F 01/22/19 22:10 Pulse Rate 76 01/23/19 00:00 Respiratory Rate 16 01/23/19 00:00 Blood Pressure 144/89 01/23/19 00:00 O2 Sat by Pulse Oximetry 98 01/23/19 00:00 Oxygen Delivery Oxygen Delivery Room Air Medical Decision Making - Medical Records Medical records reviewed: Yes I reviewed the patient's medical records. - Lab Data Lab results reviewed: Yes I reviewed the patient's lab results. Result diagrams: 01/22/19 23:45 01/22/19 23:45 Lab Results 01/22/19 01/22/19 Range/Units 23:45 23:45 WBC 8.3 (4.3-11.1) K/mcL RBC 4.73 (3.82-4.97) M/mcL Hgb 12.6 (11.5-15.4) g/dL Hct 40.6 (35.3-44.9) % MCV 85.8 (83.0-100.0) fL MCH 26.6 L (28.0-33.3) pg MCHC 31.0 L (31.6-35.5) g/dL RDW 18.2 H (11.5-14.5) % Plt Count 281 (140-400) K/mcL MPV 10.6 (9.4-12.4) fL Immature Gran % 0.6 (0-4) % Seg Neutrophils % 82.1 % Lymphocytes % 10.8 % Monocytes % 5.5 % Eosinophils % 0.4 % Basophils % 0.6 % Neutrophils # 6.8 (1.6-8.9) K/mcL Lymphocytes # 0.9 (0.6-4.6) K/mcL Monocytes # 0.5 (0.0-1.3) K/mcL Eosinophils # 0.0 (0.0-0.6) K/mcL Basophils # 0.1 (0.0-0.2) K/mcL Sodium 138 (136-145) mEq/L Potassium 3.9 (3.5-5.1) mEq/L Chloride 103 (98-107) mEq/L Carbon Dioxide 24 (23-29) mEq/L BUN 24 H (8-23) mg/dL Creatinine 1.17 (0.60-1.20) mg/dL Est GFR ( Amer) 57 L (> 60) Est GFR (Non-Af Amer) 47 L (> 60) BUN/Creatinine Ratio 21 (6-26) Glucose 119 H (70-105) mg/dL Calculated Osmolality 291 (280-300) Calcium 9.3 (8.6-10.3) mg/dL Total Bilirubin 0.5 (0.3-1.0) mg/dL Direct Bilirubin 0.1 (0.0-0.2) mg/dL Indirect Bilirubin 0.4 (0.0-1.2) mg/dL AST 23 (13-39) Units/L ALT 27 (7-52) Units/L Alkaline Phosphatase 92 (34-104) Units/L Serum Total Protein 7.2 (6.4-8.9) g/dL Albumin 4.3 (3.5-5.7) g/dL Globulin 2.9 (2.4-3.5) g/dL Albumin/Globulin Ratio 1.5 (1.1-2.2) Amylase 39 (29-103) Units/L Lipase 27 (11-82) Units/L - Radiology Data Radiology results reviewed: Yes I reviewed the patient's radiology results. Abdomen/Pelvis CT 01/23/19 00:35 IMPRESSION: Small bowel dilatation with fecalization of bowel contents near the site of previous anastomosis suspicious of obstruction; the appearance is similar to prior exam. Biliary sludge. No change in renal collecting system dilatation related to cystectomy and ileal conduit creation. D/ / Rick Medel / Rick Medel Interpreting Provider: Rick Medel Attestation Statement - Attestation Attestation: I, Moose Salgado MD, personally evaluated this patient and discussed their management with the resident physician. I reviewed the resident's note and agree with the documented findings, medical decision making, and plan of care. 63-year-old female presents to the emergency department with complaint of generalized abdominal pain which started last evening and has gotten progressively worse throughout the day today. Anus constant but waxes and wanes in intensity. She states it seems to start in the lower abdomen and moved to the upper abdomen in a wave. There has been nausea and dry heaves but no productive vomiting. No diarrhea and she did have a bowel movement this evening. No melena, hematemesis, or hematochezia. No fever. Patient was just admitted to the hospital approximately 10 days ago with a early or partial small bowel obstruction. She states this feels the same. On examination patient is a well-developed well-nourished female in no acute distress but does appear to be in moderate discomfort. She is alert and oriented 3. There is no cyanosis or diaphoresis. Breath sounds are clear and equal bilaterally. Heart regular with a mild tachycardia. Abdomen is soft with present bowel sounds. There is mild diffuse tenderness with moderate lower abdominal tenderness on direct palpation. No guarding or rebound tenderness. Labs reviewed. CT suspicious of obstruction. The surgeon irrigation flume layer, Dr. Yoo, was consulted and will consult on the patient. The hospitalist, Dr. Garcia, was consulted and accepted admission of the patient.
[2019-01-23 00:20] LABS: Albumin 4.3 g/dL (3.5-5.7); Albumin/Globulin Ratio 1.5 (1.1-2.2); Bilirubin,Direct 0.1 mg/dL (0.0-0.2); Bilirubin,Indirect 0.4 mg/dL (0.0-1.2); Bilirubin,Total 0.5 mg/dL (0.3-1.0); Calcium 9.3 mg/dL (8.6-10.3); Globulin 2.9 g/dL (2.4-3.5); Potassium 3.9 mEq/L (3.5-5.1); Total Protein 7.2 g/dL (6.4-8.9)
[2019-01-23 00:30] LABS: Basophils # 0.1 K/mcL (0.0-0.2); Basophils % 0.6 %; Eosinophils % 0.4 %; Hematocrit 40.6 % (35.3-44.9); Hemoglobin 12.6 g/dL (11.5-15.4); Immature Granulocytes % 0.6 % (0-4); Lymphocytes # 0.9 K/mcL (0.6-4.6); Lymphocytes % 10.8 %; Mean Corpuscular Hemoglobin 26.6 pg (28.0-33.3); Mean Corpuscular Volume 85.8 fL (83.0-100.0); Mean Platelet Volume 10.6 fL (9.4-12.4); Monocytes # 0.5 K/mcL (0.0-1.3); Monocytes % 5.5 %; Neutrophils # 6.8 K/mcL (1.6-8.9); Platelet Count 281 K/mcL (140-400); Red Blood Count 4.73 M/mcL (3.82-4.97); Red Cell Distribution Width 18.2 % (11.5-14.5); Segmented Neutrophils % 82.1 %; White Blood Count 8.3 K/mcL (4.3-11.1)
[2019-01-23] MEDS ORDERED: *HR* HYDROmorphone (PF) 1 MG/ML SYRINGE IVP ONE ×2 (00:54→03:11)
[2019-01-23] MEDS ORDERED: Ondansetron 4 MG/2 ML VIAL IVP ONE ×2 (01:06→03:11)
[2019-01-23] MEDS ORDERED: Simethicone 80 MG TAB.CHEW PO STA (02:05)
[2019-01-23] MEDS ORDERED: Ketorolac 30 MG/ML VIAL IVP PRN (03:30)
[2019-01-23] MEDS ORDERED: Naloxone 0.4 MG/ML INJ IVP PRN (03:30)
[2019-01-23] MEDS ORDERED: Ondansetron 4 MG/2 ML VIAL IVP PRN (03:39)
--- NOTE | 2019-01-23 05:51 | Internal Med History&Physical ---
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 The patient was admitted here 2 weeks ago with complaints of 2 days of nausea, vomiting and abdominal pain that was initially preceded by an episode of diarrhea. She was then unable to pass stool or gas and on CT diagnosed with what appeared to be early or partial obstruction. She was managed conservatively, seen by surgery and discharged on hospital day 3. She comes back again today complaining of worsening abdominal pain for the past 1 day, diffuse in nature and cramping accompanying by nausea and vomiting keeping her from tolerating PO. She denied associated diarrhea, fever and chills but felt pain relief with defecation, last occurring around 1930hrs before coming to the ER. A repeat CT was done which again showed small bowel dilatation with fecalization of bowel contents near the site of the previous anastomosis suspicious of obstruction; the appearance is similar to prior exam. She is admitted for further care. Vitals: Reviewed General: Obese white woman lying in bed with antalgic posturing. Skin: Warm and dry. HEENT: Moist mucous membranes. No conjunctivae pallor. Neck: No lymphadenopathy. No JVD. No carotid bruits. No palpable thyroid. Chest: Normal thoracic expansion. Normal breath sounds. Clear to auscultation. Heart: Normal S1 & S2; rhythmic. No rubs or murmurs. Abdomen: Non-distended, soft and mildly tender to palpation in the left flank. Urostomy bag on right lower quadrant with clear urine draining. Extremities: No clubbing, cyanosis or edema. No calf tenderness. Normal distal pulses. Neurological: Awake, alert and oriented to person, place and time. No focal deficits. Psych: Affect appropriate. Assessment/Plan 1. Abdominal pain: Seemingly secondary to bowel obstruction however the report and findings are unchanged from previous. My thought is that this is actually now a chronic change of preanastomotic dilatation. Will hold off on placing an NG tube for now and attempt to relieve her discomfort with anti-emetics and analgesics as needed, keep NPO and provide fluid rehydration with electrolytes to maintain homeostasis. Diet should be advanced as tolerated and serial exams performed. Surgery consult was requested upon admission as she may need to be evaluated on ways to relieve this problem otherwise it become a recurrent issue. 2. 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 Now s/p /bl mastectomy and lymph node dissection. Following with oncology for follow up care. 3. DVT prophylaxis: SubQ heparin ordered. Past Med Surg Social Fam HX - Past Medical History Medical history: cancer, GERD, kidney stones, migraine, pulmonary embolus, renal disease, other Additional medical history: breast CA, Psychiatric history: anxiety, depression - Past Surgical History Surgical History: cancer surgery, hysterectomy Additional surgical history: Urostomy , double mastectomy 09/2018 - Social History Smoking Status: Never smoker Smokeless Tobacco Status: No Alcohol use: none Drug use: none - Family History Mother Adopted: No Family Member Ethnicity: Non- Living Status: Hx Family Cardiac Disorders: No Hx Family Respiratory Disorders: No Hx Family Cancer: Yes (Breast CA w/mets) Hx Family GI Disorders: No Hx Family Endocrine Disorder: No Hx Family Neuromuscular Disorders: No Hx Family Neurologic Disorders: No Hx Family HEENT Disorders: No Hx Family Autoimmune Disorders: No Father Adopted: No Family Member Ethnicity: Non- Living Status: Hx Family Cardiac Disorders: Yes (PE from AAA repair) Hx Family Respiratory Disorders: No Hx Family Cancer: No Hx Family GI Disorders: Yes (Abdominal Aortic Aneurysm) Hx Family Endocrine Disorder: No Hx Family Neuromuscular Disorders: No Hx Family Neurologic Disorders: No Hx Family HEENT Disorders: No Hx Family Autoimmune Disorders: No Sister Family Member Ethnicity: Non- Living Status: Still Living Hx Family Cardiac Disorders: Yes (Heart Mumur) Internal Medicine - H&P: Meds Omeprazole Magnesium [Prilosec Otc] 20 mg PO DAILY PRN 01/12/19 [History] Cholestyramine (with Sugar) [Cholestyramine Bulk Powder] 1 scoop PO DAILY 30 Days #378 gm 01/14/19 [Rx] Nitrofurantoin (BID) [Macrobid] 100 mg PO BID #10 capsule 01/14/19 [Rx] Allergy/AdvReac Type Severity Reaction Status Date / Time No Known Allergies Allergy Verified 01/12/19 23:36 All Systems PM: A 10-system review of systems was performed and is negative for pertinent findings except as documented above in the HPI. - Constitutional Vitals: Temp Pulse Resp BP Pulse Ox 98.2 F 71 18 136/83 96 01/23/19 05:35 01/23/19 05:35 01/23/19 05:35 01/23/19 05:35 01/23/19 05:35 Exam: . Internal Med - H&P Results - Labs CBC & Chem 7: 01/22/19 23:45 01/22/19 23:45 Labs: Short CBC 01/22/19 Range/Units 23:45 WBC 8.3 (4.3-11.1) K/mcL Hgb 12.6 (11.5-15.4) g/dL Hct 40.6 (35.3-44.9) % Plt Count 281 (140-400) K/mcL Neutrophils # 6.8 (1.6-8.9) K/mcL BMP 01/22/19 23:45 Sodium 138 Potassium 3.9 Chloride 103 Carbon Dioxide 24 BUN 24 H Creatinine 1.17 Glucose 119 H Calcium 9.3 Liver Function 01/22/19 Range/Units 23:45 Total Bilirubin 0.5 (0.3-1.0) mg/dL Direct Bilirubin 0.1 (0.0-0.2) mg/dL AST 23 (13-39) Units/L ALT 27 (7-52) Units/L Alkaline Phosphatase 92 (34-104) Units/L Albumin 4.3 (3.5-5.7) g/dL - Impressions ITS Impressions Abdomen/Pelvis CT 01/23/19 00:35 IMPRESSION: Small bowel dilatation with fecalization of bowel contents near the site of previous anastomosis suspicious of obstruction; the appearance is similar to prior exam. Biliary sludge. No change in renal collecting system dilatation related to cystectomy and ileal conduit creation. D/ / Rick Medel / Rick Medel Interpreting Provider: Rick Medel - Time Spent With Patient Total time spent is greater than 50% in coordination of care (as documented) at patient's floor/unit and/or counseling patient: Greater than 35 minutes
[2019-01-23] MEDS: D5% in Lactated Ringers 1,000 ML IVC SCH ×2 (06:01→14:10)
[2019-01-23] MEDS: *HR* Heparin 5,000 UNIT/ML VIAL SQ SCH ×2 (06:07→18:03)
--- NOTE | 2019-01-23 15:06 | Internal Med Progress Note ---
Hospitalist Progress Note - Encounter Date of Encounter: 01/23/19 Time of Encounter: 08:45 - Subjective Interval History: Ms Jasmine admits to burping sensation denies flatus but stated her abdomen is not distended or has any abdominal discomfort. As such she stated that she would rather wait to initiate NG tube decompression. She did admit as since her last hospital visit 2 weeks ago she has been mostly nonambulatory. She reports chronic insomnia and daytime somnolence for which she often naps during the day. GEN: Denies fever, chills or malaise HEENT: Denies headache blurriness, or dysphagia RESP: Denies SOB or cough CV: Denies chest pain or palpitations GI: Denies Nausea, vomiting, diarrhea or constipation Reviewed current in hospital medications with modifications see orders Reviewed Routine labs - Exam Vitals: Temp Pulse Resp BP Pulse Ox 97.6 F 65 17 115/78 96 01/23/19 11:39 01/23/19 11:39 01/23/19 11:39 01/23/19 11:39 01/23/19 11:39 Exam: GEN: Obese female NAD, A&O x 3, Pleasant and conversant SKIN: [place] warm acyanotic not jaundice HEART: RRR, no murmurs LUNGS: CTA no wheeze or crackles, overall non labored ABDOMEN; Soft, non tender or distended, BS x 4 hypoactive, urostomy bag noted. Well-healed abdominal surgical scar noted EXT: No LE edema, Pedal pulses 1+, radial pulses 2+ PSYCH: Mood and affect is appropriate given her circumstances - Assessment and Plan (1) Small bowel obstruction due to adhesions Current Visit: Yes Status: Acute Assessment and Plan: Continue conservative treatment patient declined on NG tube decompression although her abdomen exam was benign with no distention. She has been encouraged to ambulate and will advanced diet as tolerated. Her CT abdomen and pelvis revealed dilatation of the small bowel with fecalization of bowel contents near the site of previous anastomosis but similar to prior CT from her last hospitalization. She is afebrile leukocytosis will clinically correlate (2) Obesity (BMI 35.0-39.9 without comorbidity) Current Visit: Yes Status: Acute Assessment and Plan: Continue to encourage lifestyle modifications diet and exercise (3) Insomnia Current Visit: No Status: Acute Assessment and Plan: Patient reports chronic insomnia which given her comorbid health condition- multiple malignancies on chemotherapy with likely steroid therapy is understandable. She takes daytime naps discussed sleep hygiene would initiate melatonin if tolerable DVT Prophylaxis: Due to concern for possible surgical intervention SCDs - Time Spent with Patient Total time spent is greater than 50% in coordination of care (as documented) at patient's floor/unit and/or counseling patient: Internal Medicine: Result - Labs CBC & Chem 7: 01/22/19 23:45 01/22/19 23:45 Labs: Short CBC 01/22/19 Range/Units 23:45 WBC 8.3 (4.3-11.1) K/mcL Hgb 12.6 (11.5-15.4) g/dL Hct 40.6 (35.3-44.9) % Plt Count 281 (140-400) K/mcL Neutrophils # 6.8 (1.6-8.9) K/mcL BMP 01/22/19 23:45 Sodium 138 Potassium 3.9 Chloride 103 Carbon Dioxide 24 BUN 24 H Creatinine 1.17 Glucose 119 H Calcium 9.3 Liver Function 01/22/19 Range/Units 23:45 Total Bilirubin 0.5 (0.3-1.0) mg/dL Direct Bilirubin 0.1 (0.0-0.2) mg/dL AST 23 (13-39) Units/L ALT 27 (7-52) Units/L Alkaline Phosphatase 92 (34-104) Units/L Albumin 4.3 (3.5-5.7) g/dL - Impressions Impressions Abdomen/Pelvis CT 01/23/19 00:35 IMPRESSION: Small bowel dilatation with fecalization of bowel contents near the site of previous anastomosis suspicious of obstruction; the appearance is similar to prior exam. Biliary sludge. No change in renal collecting system dilatation related to cystectomy and ileal conduit creation. D/ / 01/23/2019 07:35:36 Rick Medel / louis Interpreting Provider: Rick Medel Consult Discharge Plan - Plan Referrals: Mulu Gongora DO [Primary Care Provider] - (3) Insomnia Qualifiers: Insomnia type: psychophysiologic Qualified Code(s): F51.04 - Psychophysiologic insomnia
[2019-01-23] MEDS: Melatonin 3 MG TABLET PO SCH (21:13)
[2019-01-24 04:58] LABS: Basophils % 0.5 %; Eosinophils # 0.1 K/mcL (0.0-0.6); Eosinophils % 2.4 %; Hematocrit 33.9 % (35.3-44.9); Immature Granulocytes % 0.2 % (0-4); Lymphocytes # 1.1 K/mcL (0.6-4.6); Lymphocytes % 27.6 %; Mean Corpuscular HGB Conc 30.4 g/dL (31.6-35.5); Mean Corpuscular Hemoglobin 27.4 pg (28.0-33.3); Mean Corpuscular Volume 90.2 fL (83.0-100.0); Mean Platelet Volume 10.6 fL (9.4-12.4); Monocytes # 0.4 K/mcL (0.0-1.3); Monocytes % 9.2 %; Neutrophils # 2.5 K/mcL (1.6-8.9); Platelet Count 193 K/mcL (140-400); Red Blood Count 3.76 M/mcL (3.82-4.97); Red Cell Distribution Width 17.9 % (11.5-14.5); Segmented Neutrophils % 60.1 %
[2019-01-24 05:02] LABS: BUN/Creatinine Ratio 17 (6-26); Blood Urea Nitrogen 19 mg/dL (8-23); Calcium 8.7 mg/dL (8.6-10.3); Carbon Dioxide 26 mEq/L (23-29); Chloride 105 mEq/L (98-107); Glucose 114 mg/dL (70-105); Magnesium 2.2 mg/dL (1.6-2.6); Osmolality,Calculated 289 (280-300); Phosphorous 4.4 mg/dL (2.7-4.5); Potassium 3.7 mEq/L (3.5-5.1); Sodium 138 mEq/L (136-145); eGFR For African Americans > 60 (> 60); eGFR For Non-African Americans 51 (> 60)
[2019-01-24 05:03] LABS: Hemoglobin 10.3 g/dL (11.5-15.4); White Blood Count 4.1 K/mcL (4.3-11.1)
[2019-01-24] MEDS: *HR* Heparin 5,000 UNIT/ML VIAL SQ SCH ×2 (05:30→18:14)
[2019-01-24] MEDS: D5% in Lactated Ringers 1,000 ML IVC SCH (05:33)
--- NOTE | 2019-01-24 17:24 | Discharge Summary ---
- NOTES TO OUTPATIENT PROVIDER Notes to Outpatient Provider: Post hospital discharge for small bowel obstruction Date of Encounter: 01/24/19 Time of Encounter: 17:20 - Discharge Diagnosis (1) Small bowel obstruction due to adhesions Priority: Primary Status: Acute Assessment and Plan: Was managed with conservative treatment patient declined on NG tube decompression although her abdomen exam was benign with no distention. She has been encouraged to ambulate and will advanced diet as tolerated. Her CT abdomen and pelvis revealed dilatation of the small bowel with fecalization of bowel contents near the site of previous anastomosis but similar to prior CT from her last hospitalization. She is afebrile leukocytosis will clinically correlate (2) Obesity (BMI 35.0-39.9 without comorbidity) Priority: Secondary Status: Acute Assessment and Plan: Continue to encourage lifestyle modifications diet and exercise (3) Insomnia Priority: Secondary Status: Acute Assessment and Plan: Patient reports chronic insomnia which given her comorbid health condition- multiple malignancies on chemotherapy with likely steroid therapy is understandable. She takes daytime naps discussed sleep hygiene would discharge on melatonin if tolerable Qualifiers: Insomnia type: psychophysiologic Qualified Code(s): F51.04 - Psychophysiologic insomnia Hospital course: Ms. Jasmine is a 63 year old female with a history of prior abdominal surgeries recent hospitalization was mobile obstruction presented with c/o of abdominal pain. She was managed with conservative treatment patient declined on NG tube decompression although her abdomen exam was benign with no distention. She has been encouraged to ambulate and will advanced diet as tolerated. Her CT abdomen and pelvis revealed dilatation of the small bowel with fecalization of bowel contents near the site of previous anastomosis but similar to prior CT from her last hospitalization. She subsequently had multiple bowel movements since admission and is tolerating her diet. Discharge discussed with: patient, nurse - Time Spent with Patient Total time spent providing and/or coordinating discharge services: 37 mins Specific discharge activities: Please avoid being sedentary. Return to the emergency department if you experience any fevers chills or persistent abdominal pain and nausea - Discharge Medications Prescriptions: New Melatonin 5 mg PO HS #30 capsule Continued Omeprazole Magnesium [Prilosec Otc] 20 mg PO DAILY PRN PRN Reason: Heartburn Cholestyramine (with Sugar) [Cholestyramine Bulk Powder] 1 scoop PO DAILY 30 Days #378 gm Home Medications: Omeprazole Magnesium [Prilosec Otc] 20 mg PO DAILY PRN 01/12/19 [History] Cholestyramine (with Sugar) [Cholestyramine Bulk Powder] 1 scoop PO DAILY 30 Days #378 gm 01/14/19 [Rx] Melatonin 5 mg PO HS #30 capsule 01/24/19 [Rx] Allergies/Adverse Reactions: Allergy/AdvReac Type Severity Reaction Status Date / Time No Known Allergies Allergy Verified 01/12/19 23:36 Date of admission: 01/23/19 03:14 Primary care physician: Ana Braswell Consults: 01/23/19 01:57 Consult to Surgery [CONS] Stat Consulting Provider: Marc Hunt Reason for Consult: SBO Time Notified: 01:57 Call Completed: No Discharging clinician: Jose Hammer - Constitutional Vitals: Temp Pulse Resp BP Pulse Ox 97.8 F 64 16 134/87 96 01/24/19 14:00 01/24/19 14:00 01/24/19 14:00 01/24/19 14:00 01/24/19 14:00 Exam: GEN: Obese female NAD, A&O x 3, Pleasant and conversant SKIN: [place] warm acyanotic not jaundice HEART: RRR, no murmurs LUNGS: CTA no wheeze or crackles, overall non labored ABDOMEN; Soft, non tender or distended, BS x 4 hypoactive, urostomy bag noted. Well-healed abdominal surgical scar noted EXT: No LE edema, Pedal pulses 1+, radial pulses 2+ PSYCH: Mood and affect is appropriate given her circumstances - Patient Status Disposition: Home, Self-Care Condition: Good Functional capacity at discharge: independent ambulation Overall status at discharge: patient is back to baseline - Discharge Instructions Follow Up With: Mulu Gongora DO [Primary Care Provider] - - Diet and Activity Activity: resume usual activities as tolerated Diet: advance to your usual diet
[2019-01-24] MEDS: Melatonin 3 MG TABLET PO SCH (21:19)
[2019-01-25] MEDS: D5% in Lactated Ringers 1,000 ML IVC SCH (04:13)
[2019-01-25 04:35] LABS: Eosinophils # 0.1 K/mcL (0.0-0.6); Eosinophils % 4.3 %; Hemoglobin 10.5 g/dL (11.5-15.4); Immature Granulocytes % 0.3 % (0-4); Lymphocytes # 1.2 K/mcL (0.6-4.6); Mean Corpuscular HGB Conc 30.9 g/dL (31.6-35.5); Mean Corpuscular Hemoglobin 27.7 pg (28.0-33.3); Mean Corpuscular Volume 89.7 fL (83.0-100.0); Mean Platelet Volume 10.4 fL (9.4-12.4); Monocytes # 0.3 K/mcL (0.0-1.3); Monocytes % 11.1 %; Neutrophils # 1.4 K/mcL (1.6-8.9); Platelet Count 202 K/mcL (140-400); Red Blood Count 3.79 M/mcL (3.82-4.97); Red Cell Distribution Width 17.8 % (11.5-14.5); Segmented Neutrophils % 44.3 %; White Blood Count 3.1 K/mcL (4.3-11.1)
[2019-01-25 04:47] LABS: BUN/Creatinine Ratio 11 (6-26); Blood Urea Nitrogen 12 mg/dL (8-23); Carbon Dioxide 27 mEq/L (23-29); Chloride 106 mEq/L (98-107); Glucose 92 mg/dL (70-105); Magnesium 2.2 mg/dL (1.6-2.6); Osmolality,Calculated 293 (280-300); Potassium 3.5 mEq/L (3.5-5.1); Sodium 142 mEq/L (136-145); eGFR For African Americans > 60 (> 60); eGFR For Non-African Americans 53 (> 60)
[2019-01-25] MEDS: *HR* Heparin 5,000 UNIT/ML VIAL SQ SCH (05:14)
[2019-01-25 11:32] VITALS: BP 135/87
== END 2019-01-25 12:07 | disposition home or self-care (01) ==
LOC: 3ANU 22:07 → EMEROOARM 22:07 → SUATTDRO 01-23 03:14 → 3ANU 01-23 04:15
PROVIDERS: ADMIT Internal Medicine; ATTEND Pharmacist

== ENCOUNTER 2019-08-07 17:12 | Inpatient (IN) ==
[2019-08-07] MEDS ORDERED: Ondansetron 4 MG/2 ML VIAL IVP ONE ×2 (17:32→20:10)
[2019-08-07] MEDS ORDERED: 0.9 % Sodium Chloride 1,000 ML IVC ONE (17:32)
[2019-08-07] MEDS ORDERED: *HR* HYDROmorphone (PF) 1 MG/ML SYRINGE IVP ONE ×2 (17:33→20:10)
[2019-08-07 18:03] LABS: Basophils % 0.5 %; Eosinophils # 0.1 K/mcL (0.0-0.6); Eosinophils % 1.1 %; Hematocrit 38.7 % (35.3-44.9); Hemoglobin 12.6 g/dL (11.5-15.4); Immature Granulocytes % 0.4 % (0-4); Lymphocytes # 0.9 K/mcL (0.6-4.6); Lymphocytes % 11.6 %; Mean Corpuscular HGB Conc 32.6 g/dL (31.6-35.5); Mean Corpuscular Hemoglobin 28.1 pg (28.0-33.3); Mean Corpuscular Volume 86.2 fL (83.0-100.0); Mean Platelet Volume 10.6 fL (9.4-12.4); Monocytes # 0.5 K/mcL (0.0-1.3); Neutrophils # 6.1 K/mcL (1.6-8.9); Platelet Count 221 K/mcL (140-400); Red Blood Count 4.49 M/mcL (3.82-4.97); Segmented Neutrophils % 80.4 %; White Blood Count 7.5 K/mcL (4.3-11.1)
[2019-08-07 18:19] LABS: Bilirubin,Urine Negative (Negative); Blood,Urine Trace (Negative); Color,Urine Yellow (Yellow); Glucose,Urine (UA) Normal (Normal); Ketones,Urine Negative (Negative); Leukocyte Esterase,Urine Negative (Negative); Nitrite,Urine Positive (Negative); Protein,Urine 30 mg/dL (Neg-Trace); Specific Gravity,Urine 1.021 (1.010-1.025); Urobilinogen,Urine Normal (Normal)
[2019-08-07 18:23] LABS: Bacteria,Urine Few per hpf (None-Few); Squamous Epithelial Cell,Urine Many per lpf (None-Few); WBC,Urine 15-30 per hpf (0-3)
[2019-08-07 18:25] LABS: Clarity,Urine Slightly Cloudy (Clear)
[2019-08-07 18:30] LABS: Alanine Aminotransferase 26 Units/L (7-52); Albumin 4.2 g/dL (3.5-5.7); Albumin/Globulin Ratio 1.4 (1.1-2.2); Alkaline Phosphatase 118 Units/L (34-104); Aspartate Amino Transferase 28 Units/L (13-39); BUN/Creatinine Ratio 18 (6-26); Bilirubin,Total 0.4 mg/dL (0.3-1.0); Blood Urea Nitrogen 21 mg/dL (8-23); Calcium 9.2 mg/dL (8.6-10.3); Carbon Dioxide 21 mEq/L (23-29); Chloride 105 mEq/L (98-107); Globulin 3.1 g/dL (2.4-3.5); Glucose 119 mg/dL (70-105); Osmolality,Calculated 294 (280-300); Sodium 140 mEq/L (136-145); Total Protein 7.3 g/dL (6.4-8.9); Troponin I < 0.03 ng/mL (< 0.04); eGFR For African Americans 58 (> 60); eGFR For Non-African Americans 48 (> 60)
[2019-08-07 18:48] LABS: Hyaline Casts,Urine Few per lpf (None-Few)
[2019-08-07] MEDS ORDERED: Naloxone 0.4 MG/ML INJ IVP PRN (20:21)
[2019-08-07] MEDS: Ketorolac 15 MG/ML VIAL IVP SCH (21:28)
[2019-08-07] MEDS: *HR* Promethazine 25 MG/ML VIAL IVP PRN (21:28)
[2019-08-07] MEDS: Ringers Solution, Lactated 1,000 ML IVC SCH (21:40)
[2019-08-08] MEDS: *HR* HYDROmorphone (PF) 1 MG/ML SYRINGE IVP PRN ×3 (01:34→23:24)
[2019-08-08] MEDS: *HR* Promethazine 25 MG/ML VIAL IVP PRN ×3 (02:37→14:04)
[2019-08-08 02:49] LABS: Basophils % 0.4 %; Eosinophils % 0.3 %; Hemoglobin 12.1 g/dL (11.5-15.4); Immature Granulocytes % 0.3 % (0-4); Lymphocytes # 0.9 K/mcL (0.6-4.6); Lymphocytes % 11.4 %; Mean Corpuscular HGB Conc 31.8 g/dL (31.6-35.5); Mean Corpuscular Hemoglobin 27.9 pg (28.0-33.3); Mean Corpuscular Volume 87.6 fL (83.0-100.0); Mean Platelet Volume 10.9 fL (9.4-12.4); Monocytes # 0.7 K/mcL (0.0-1.3); Monocytes % 9.3 %; Neutrophils # 5.8 K/mcL (1.6-8.9); Platelet Count 200 K/mcL (140-400); Red Blood Count 4.34 M/mcL (3.82-4.97); Red Cell Distribution Width 13.9 % (11.5-14.5); Segmented Neutrophils % 78.3 %; White Blood Count 7.5 K/mcL (4.3-11.1)
[2019-08-08 03:02] LABS: BUN/Creatinine Ratio 19 (6-26); Blood Urea Nitrogen 21 mg/dL (8-23); Calcium 8.9 mg/dL (8.6-10.3); Carbon Dioxide 23 mEq/L (23-29); Chloride 107 mEq/L (98-107); Glucose 124 mg/dL (70-105); Osmolality,Calculated 294 (280-300); Potassium 4.3 mEq/L (3.5-5.1); Sodium 140 mEq/L (136-145); eGFR For African Americans > 60 (> 60); eGFR For Non-African Americans 51 (> 60)
[2019-08-08] MEDS: Ketorolac 15 MG/ML VIAL IVP SCH ×5 (03:31→20:15)
[2019-08-08] MEDS ORDERED: Ondansetron 4 MG/2 ML VIAL IVP PRN (04:24)
[2019-08-08] MEDS: *HR* Heparin 5,000 UNIT/ML VIAL SQ SCH ×2 (05:18→18:31)
[2019-08-08] MEDS: Ringers Solution, Lactated 1,000 ML IVC SCH (08:28)
[2019-08-08] MEDS: 0.9 % Sodium Chloride 1,000 ML IVC SCH (21:14)
[2019-08-09] MEDS: *HR* Promethazine 25 MG/ML VIAL IVP PRN ×2 (01:01→09:52)
[2019-08-09] MEDS: Ketorolac 15 MG/ML VIAL IVP SCH ×4 (03:27→21:52)
[2019-08-09 04:29] LABS: Hematocrit 37.2 % (35.3-44.9); Hemoglobin 11.4 g/dL (11.5-15.4); Mean Corpuscular HGB Conc 30.6 g/dL (31.6-35.5); Mean Corpuscular Hemoglobin 27.5 pg (28.0-33.3); Mean Corpuscular Volume 89.6 fL (83.0-100.0); Mean Platelet Volume 10.8 fL (9.4-12.4); Platelet Count 212 K/mcL (140-400); Red Blood Count 4.15 M/mcL (3.82-4.97); Red Cell Distribution Width 14.1 % (11.5-14.5)
[2019-08-09 04:46] LABS: Calcium 8.9 mg/dL (8.6-10.3); Potassium 3.9 mEq/L (3.5-5.1)
[2019-08-09] MEDS: *HR* Heparin 5,000 UNIT/ML VIAL SQ SCH ×2 (05:59→15:59)
[2019-08-09] MEDS: 0.9 % Sodium Chloride 1,000 ML IVC SCH ×2 (08:52→19:42)
[2019-08-09] MEDS: *HR* HYDROmorphone (PF) 1 MG/ML SYRINGE IVP PRN ×2 (09:53→13:21)
[2019-08-09] MEDS: Cefepime HCl 1,000 MG in 0.9 % Sodium Chloride Mini Bag 100 ML IVPB SCH (13:20)
[2019-08-09] MEDS: Pantoprazole 40 MG VIAL IVP SCH (21:47)
[2019-08-10] MEDS: Cefepime HCl 1,000 MG in 0.9 % Sodium Chloride Mini Bag 100 ML IVPB SCH ×2 (00:40→12:49)
[2019-08-10] MEDS: Ketorolac 15 MG/ML VIAL IVP SCH ×4 (02:13→20:32)
[2019-08-10 04:21] LABS: Hematocrit 33.7 % (35.3-44.9); Hemoglobin 10.6 g/dL (11.5-15.4); Mean Corpuscular HGB Conc 31.5 g/dL (31.6-35.5); Mean Corpuscular Hemoglobin 27.5 pg (28.0-33.3); Mean Corpuscular Volume 87.5 fL (83.0-100.0); Mean Platelet Volume 10.6 fL (9.4-12.4); Platelet Count 174 K/mcL (140-400); Red Blood Count 3.85 M/mcL (3.82-4.97); Red Cell Distribution Width 14.1 % (11.5-14.5)
[2019-08-10 04:48] LABS: BUN/Creatinine Ratio 18 (6-26); Blood Urea Nitrogen 18 mg/dL (8-23); Calcium 8.2 mg/dL (8.6-10.3); Carbon Dioxide 25 mEq/L (23-29); Chloride 106 mEq/L (98-107); Glucose 83 mg/dL (70-105); Osmolality,Calculated 293 (280-300); Potassium 3.6 mEq/L (3.5-5.1); Sodium 141 mEq/L (136-145); eGFR For African Americans > 60 (> 60); eGFR For Non-African Americans 58 (> 60)
[2019-08-10] MEDS: *HR* Heparin 5,000 UNIT/ML VIAL SQ SCH (06:16)
[2019-08-10] MEDS: 0.9 % Sodium Chloride 1,000 ML IVC SCH ×2 (06:21→16:49)
[2019-08-10] MEDS: Pantoprazole 40 MG VIAL IVP SCH (08:54)
[2019-08-10] MEDS ORDERED: Acetaminophen IV 500 MG/50 ML INFUS..BTL IVPB ONE (12:55)
[2019-08-10] MEDS: levoFLOXacin 500 MG/100 ML 500 MG/100 ML BAG IVPB SCH (14:00)
[2019-08-11] MEDS: 0.9 % Sodium Chloride 1,000 ML IVC SCH ×3 (02:57→16:55)
[2019-08-11 03:17] LABS: Basophils % 0.7 %; Eosinophils # 0.2 K/mcL (0.0-0.6); Eosinophils % 5.1 %; Hematocrit 31.3 % (35.3-44.9); Hemoglobin 10.2 g/dL (11.5-15.4); Immature Granulocytes % 0.2 % (0-4); Lymphocytes % 25.2 %; Mean Corpuscular HGB Conc 32.6 g/dL (31.6-35.5); Mean Corpuscular Hemoglobin 27.9 pg (28.0-33.3); Mean Corpuscular Volume 85.8 fL (83.0-100.0); Mean Platelet Volume 10.3 fL (9.4-12.4); Monocytes # 0.5 K/mcL (0.0-1.3); Monocytes % 11.6 %; Neutrophils # 2.4 K/mcL (1.6-8.9); Platelet Count 163 K/mcL (140-400); Red Blood Count 3.65 M/mcL (3.82-4.97); Red Cell Distribution Width 13.6 % (11.5-14.5); Segmented Neutrophils % 57.2 %; White Blood Count 4.1 K/mcL (4.3-11.1)
[2019-08-11 03:41] LABS: BUN/Creatinine Ratio 11 (6-26); Blood Urea Nitrogen 10 mg/dL (8-23); Calcium 8.3 mg/dL (8.6-10.3); Carbon Dioxide 24 mEq/L (23-29); Chloride 107 mEq/L (98-107); Glucose 94 mg/dL (70-105); Osmolality,Calculated 289 (280-300); Potassium 3.1 mEq/L (3.5-5.1); Sodium 140 mEq/L (136-145); eGFR For African Americans > 60 (> 60); eGFR For Non-African Americans > 60 (> 60)
[2019-08-11] MEDS: Ketorolac 15 MG/ML VIAL IVP SCH ×4 (03:56→18:40)
[2019-08-11] MEDS ORDERED: Potassium Chloride 40 MEQ, Lidocaine 1% 2 ML in 0.9 % Sodium Chloride 500 ML IVPB ONE (08:06)
[2019-08-11] MEDS: Pantoprazole 40 MG VIAL IVP SCH (09:48)
[2019-08-11] MEDS: levoFLOXacin 500 MG/100 ML 500 MG/100 ML BAG IVPB SCH (14:18)
[2019-08-12 02:47] LABS: BUN/Creatinine Ratio 10 (6-26); Blood Urea Nitrogen 10 mg/dL (8-23); Calcium 8.5 mg/dL (8.6-10.3); Carbon Dioxide 25 mEq/L (23-29); Chloride 108 mEq/L (98-107); Glucose 115 mg/dL (70-105); Osmolality,Calculated 292 (280-300); Potassium 3.2 mEq/L (3.5-5.1); Sodium 141 mEq/L (136-145); eGFR For African Americans > 60 (> 60); eGFR For Non-African Americans 56 (> 60)
[2019-08-12 02:48] LABS: Basophils % 0.5 %; Eosinophils # 0.2 K/mcL (0.0-0.6); Eosinophils % 3.6 %; Hematocrit 31.3 % (35.3-44.9); Hemoglobin 9.9 g/dL (11.5-15.4); Lymphocytes # 1.1 K/mcL (0.6-4.6); Lymphocytes % 26.5 %; Mean Corpuscular HGB Conc 31.6 g/dL (31.6-35.5); Mean Corpuscular Hemoglobin 28.1 pg (28.0-33.3); Mean Corpuscular Volume 88.9 fL (83.0-100.0); Mean Platelet Volume 10.9 fL (9.4-12.4); Monocytes # 0.5 K/mcL (0.0-1.3); Monocytes % 12.4 %; Neutrophils # 2.4 K/mcL (1.6-8.9); Platelet Count 169 K/mcL (140-400); Red Blood Count 3.52 M/mcL (3.82-4.97); White Blood Count 4.2 K/mcL (4.3-11.1)
[2019-08-12] MEDS: Ketorolac 15 MG/ML VIAL IVP SCH ×2 (03:18→09:08)
[2019-08-12] MEDS: 0.9 % Sodium Chloride 1,000 ML IVC SCH (05:32)
[2019-08-12 07:53] VITALS: BP 168/90
[2019-08-12] MEDS: Pantoprazole 40 MG VIAL IVP SCH (09:09)
[2019-08-12] MEDS ORDERED: Aminoglycoside Consult 1 EACH MC ONE (14:35)
== END 2019-08-12 14:36 | disposition home or self-care (01) | DRG 247 ==
LOC: 3BNU 17:12 → EMEROOARM 17:12 → SUATTDRO 20:06 → 3BNU 20:30
PROVIDERS: ADMIT Internal Medicine; ATTEND Internal Medicine

== ENCOUNTER 2020-03-20 23:13 | Observation (INO) ==
[2020-03-20] MEDS ORDERED: Isovue-370 500 ML BOTTLE IVP ONE (23:22)
[2020-03-20 23:44] LABS: Basophils # 0.1 K/mcL (0.0-0.2); Basophils % 0.7 %; Eosinophils # 0.2 K/mcL (0.0-0.6); Eosinophils % 2.2 %; Hematocrit 40.2 % (35.3-44.9); Hemoglobin 12.7 g/dL (11.5-15.4); Immature Granulocytes % 0.4 % (0-4); Lymphocytes # 1.2 K/mcL (0.6-4.6); Lymphocytes % 16.6 %; Mean Corpuscular HGB Conc 31.6 g/dL (31.6-35.5); Mean Corpuscular Hemoglobin 28.9 pg (28.0-33.3); Mean Corpuscular Volume 91.6 fL (83.0-100.0); Monocytes # 0.5 K/mcL (0.0-1.3); Monocytes % 6.2 %; Neutrophils # 5.4 K/mcL (1.6-8.9); Platelet Count 209 K/mcL (140-400); Red Blood Count 4.39 M/mcL (3.82-4.97); Red Cell Distribution Width 13.2 % (11.5-14.5); Segmented Neutrophils % 73.9 %; White Blood Count 7.3 K/mcL (4.3-11.1)
[2020-03-21 00:03] LABS: Albumin 4.3 g/dL (3.5-5.7); Albumin/Globulin Ratio 1.2 (1.1-2.2); Bilirubin,Direct 0.1 mg/dL (0.0-0.2); Bilirubin,Indirect 0.3 mg/dL (0.0-1.0); Bilirubin,Total 0.4 mg/dL (0.3-1.0); Calcium 9.4 mg/dL (8.6-10.3); Globulin 3.5 g/dL (2.4-3.5); Potassium 4.1 mEq/L (3.5-5.1); Total Protein 7.8 g/dL (6.4-8.9)
[2020-03-21] MEDS ORDERED: Ondansetron 4 MG/2 ML VIAL IVP ONE (00:17)
[2020-03-21 00:41] LABS: Bacteria,Urine Few per hpf (None-Few); Bilirubin,Urine Negative (Negative); Blood,Urine Trace (Negative); Clarity,Urine Clear (Clear); Color,Urine Light-Yellow (Yellow); Glucose,Urine (UA) Normal (Normal); Ketones,Urine Negative (Negative); Leukocyte Esterase,Urine Small (Negative); Mucus,Urine Few per lpf (None-Few); Nitrite,Urine Negative (Negative); Protein,Urine 30 mg/dL (Neg-Trace); Specific Gravity,Urine 1.019 (1.010-1.025); Squamous Epithelial Cell,Urine Few per hpf (None-Few); Urobilinogen,Urine Normal (Normal); WBC,Urine 15-30 per hpf (0-3)
[2020-03-21] MEDS ORDERED: Piperacillin/Tazobactam 3.375 GM in 0.9 % Sodium Chloride Mini Bag 100 ML IVPB ONE (03:02)
[2020-03-21] MEDS ORDERED: Naloxone 0.4 MG/ML INJ IVP PRN (03:53)
[2020-03-21] MEDS ORDERED: Fluconazole 150 MG TABLET PO SCH (03:59)
[2020-03-21] MEDS ORDERED: Acetaminophen 325 MG TABLET PO PRN (04:09)
[2020-03-21] MEDS: 0.9 % Sodium Chloride 1,000 ML IVC SCH ×2 (05:05→15:43)
[2020-03-21] MEDS: *HR* Heparin 5,000 UNIT/ML VIAL SQ SCH ×3 (05:07→20:46)
[2020-03-21] MEDS ORDERED: Ondansetron 4 MG/2 ML VIAL IVP PRN (06:00)
[2020-03-21 06:20] LABS: Magnesium 2.2 mg/dL (1.6-2.6); Phosphorous 3.8 mg/dL (2.7-4.5)
[2020-03-21 06:33] LABS: Thyroid Stimulating Hormone 4.955 mcIU/mL (0.340-5.600)
[2020-03-21 06:42] LABS: Vitamin B12 389 pg/mL (250-1100)
[2020-03-21] MEDS ORDERED: Simethicone 80 MG TAB.CHEW PO PRN (08:54)
[2020-03-21] MEDS: BIFIDOBACTERIUM INFANTIS 10.5 MG PO SCH (09:30)
[2020-03-21 10:31] LABS: Vitamin D 25 Hydroxy 12 ng/mL (30-80)
[2020-03-21] MEDS: Piperacillin/Tazobactam 3.375 GM in 0.9 % Sodium Chloride Mini Bag 100 ML IVPB SCH ×2 (11:40→18:15)
[2020-03-21] MEDS: APPL TP SCH (20:50)
[2020-03-22] MEDS: Piperacillin/Tazobactam 3.375 GM in 0.9 % Sodium Chloride Mini Bag 100 ML IVPB SCH ×2 (04:01→11:33)
[2020-03-22] MEDS: *HR* Heparin 5,000 UNIT/ML VIAL SQ SCH ×3 (05:27→21:14)
[2020-03-22 05:44] LABS: Hematocrit 39.4 % (35.3-44.9); Hemoglobin 12.2 g/dL (11.5-15.4); Mean Corpuscular Hemoglobin 29.8 pg (28.0-33.3); Mean Corpuscular Volume 96.1 fL (83.0-100.0); Mean Platelet Volume 10.1 fL (9.4-12.4); Platelet Count 174 K/mcL (140-400); Red Cell Distribution Width 13.2 % (11.5-14.5); White Blood Count 5.1 K/mcL (4.3-11.1)
[2020-03-22] MEDS: APPL TP SCH ×2 (07:16→20:20)
[2020-03-22] MEDS: BIFIDOBACTERIUM INFANTIS 10.5 MG PO SCH (07:16)
[2020-03-22] MEDS: AZO CRANBERRY PO SCH (07:16)
[2020-03-22] MEDS: Doxycycline 100 MG CAPSULE PO SCH (18:01)
[2020-03-23] MEDS: *HR* Heparin 5,000 UNIT/ML VIAL SQ SCH ×3 (05:09→21:36)
[2020-03-23] MEDS: Lactobacillus 1 EACH CAP.SPRINK PO SCH (08:25)
[2020-03-23] MEDS: Doxycycline 100 MG CAPSULE PO SCH ×2 (08:25→21:36)
[2020-03-23] MEDS: AZO CRANBERRY PO SCH (08:40)
[2020-03-23] MEDS: APPL TP SCH ×2 (08:40→21:27)
[2020-03-24] MEDS: *HR* Heparin 5,000 UNIT/ML VIAL SQ SCH (05:31)
[2020-03-24] MEDS: Lactobacillus 1 EACH CAP.SPRINK PO SCH (08:48)
[2020-03-24] MEDS: APPL TP SCH (08:48)
[2020-03-24] MEDS: AZO CRANBERRY PO SCH (08:48)
[2020-03-24] MEDS: Doxycycline 100 MG CAPSULE PO SCH (08:48)
[2020-03-24] MEDS ORDERED: Fluconazole 150 MG TABLET PO SCH (09:00)
[2020-03-24 09:44] LABS: Basophils % 0.9 %; Eosinophils # 0.2 K/mcL (0.0-0.6); Eosinophils % 3.9 %; Hematocrit 45.3 % (35.3-44.9); Immature Granulocytes % 0.2 % (0-4); Lymphocytes # 1.4 K/mcL (0.6-4.6); Lymphocytes % 32.9 %; Mean Corpuscular HGB Conc 31.1 g/dL (31.6-35.5); Mean Corpuscular Hemoglobin 29.9 pg (28.0-33.3); Mean Platelet Volume 10.8 fL (9.4-12.4); Monocytes # 0.4 K/mcL (0.0-1.3); Monocytes % 9.4 %; Neutrophils # 2.3 K/mcL (1.6-8.9); Platelet Count 182 K/mcL (140-400); Red Blood Count 4.72 M/mcL (3.82-4.97); Red Cell Distribution Width 12.8 % (11.5-14.5); Segmented Neutrophils % 52.7 %; White Blood Count 4.4 K/mcL (4.3-11.1)
[2020-03-24 09:47] LABS: Hemoglobin 14.1 g/dL (11.5-15.4)
[2020-03-24 10:02] LABS: Calcium 9.8 mg/dL (8.6-10.3); Potassium 3.7 mEq/L (3.5-5.1)
[2020-03-24 11:06] VITALS: BP 128/82
== END 2020-03-24 11:45 | disposition home or self-care (01) ==
LOC: EMEROOARM 23:13 → 3NENU 23:13 → SUATTDRO 03-21 03:38 → 3NENU 03-21 04:10
PROVIDERS: ADMIT Student in an Organized Health Care Education/Training Program; ATTEND Family Medicine

== ENCOUNTER 2020-06-28 09:55 | Inpatient (IN) ==
[2020-06-28] MEDS ORDERED: Morphine Sulfate 2 MG/ML SYRINGE IVP ONE (10:06)
[2020-06-28] MEDS ORDERED: Ondansetron 4 MG/2 ML VIAL IVP ONE ×2 (10:06→12:18)
[2020-06-28] MEDS ORDERED: 0.9 % Sodium Chloride 1,000 ML IVC ONE ×2 (10:06→12:29)
[2020-06-28] MEDS ORDERED: Isovue-370 500 ML BOTTLE IVP ONE (10:08)
[2020-06-28 10:26] LABS: Basophils % 0.2 %; Hematocrit 37.8 % (35.3-44.9); Hemoglobin 12.3 g/dL (11.5-15.4); Immature Granulocytes % 0.4 % (0-4); Lymphocytes # 0.4 K/mcL (0.6-4.6); Lymphocytes % 3.4 %; Mean Corpuscular HGB Conc 32.5 g/dL (31.6-35.5); Mean Corpuscular Volume 92.2 fL (83.0-100.0); Mean Platelet Volume 10.4 fL (9.4-12.4); Monocytes # 1.3 K/mcL (0.0-1.3); Neutrophils # 11.1 K/mcL (1.6-8.9); Platelet Count 146 K/mcL (140-400); Red Cell Distribution Width 13.5 % (11.5-14.5); White Blood Count 12.9 K/mcL (4.3-11.1)
[2020-06-28 10:45] LABS: Albumin 3.9 g/dL (3.5-5.7); Albumin/Globulin Ratio 1.1 (1.1-2.2); Bilirubin,Direct 0.4 mg/dL (0.0-0.2); Bilirubin,Indirect 0.6 mg/dL (0.0-1.0); Globulin 3.5 g/dL (2.4-3.5); Potassium 3.1 mEq/L (3.5-5.1); Total Protein 7.4 g/dL (6.4-8.9); Troponin I 0.03 ng/mL (< 0.04)
[2020-06-28] MEDS ORDERED: Potassium Chloride 40 MEQ, Lidocaine 1% 2 ML in 0.9 % Sodium Chloride 500 ML IVPB ONE (11:11)
[2020-06-28 11:45] LABS: Amorphous Sediment,Urine Few per hpf (None-Few); Bacteria,Urine Few per hpf (None-Few); Bilirubin,Urine Negative (Negative); Blood,Urine Small (Negative); Clarity,Urine Turbid (Clear); Color,Urine Yellow (Yellow); Glucose,Urine (UA) Normal (Normal); Hyaline Casts,Urine Many per lpf (None Seen); Ketones,Urine 20 mg/dL (Negative); Leukocyte Esterase,Urine Large (Negative); Mucus,Urine Few per lpf (None-Few); Nitrite,Urine Positive (Negative); PH,Urine 6.5 pH Units (5.0-8.0); Protein,Urine 200 mg/dL (Neg-Trace); Specific Gravity,Urine 1.016 (1.010-1.025); Squamous Epithelial Cell,Urine Few per hpf (None-Few); Urobilinogen,Urine Normal (Normal); WBC,Urine TNTC per hpf (0-3)
[2020-06-28] MEDS ORDERED: Naloxone 0.4 MG/ML INJ IVP PRN (12:48)
[2020-06-28] MEDS ORDERED: *HR* Dextrose 50 % in Water (Vial) 50 ML VIAL IVP PRN (12:51)
[2020-06-28] MEDS ORDERED: Dextrose Gel 15 GM/37.5 ML TUBE PO PRN ×2 (12:51)
[2020-06-28] MEDS ORDERED: D5% in Water 1,000 ML IVC PRN (12:51)
[2020-06-28 13:34] LABS: Estimated Average Glucose 140 mg/dl; Hemoglobin A1C 6.5 %
[2020-06-28 14:22] LABS: Adenovirus Not Detected (Not Detect); Bordetella Pertussis Not Detected (Not Detect); Chlamydophila pneumoniae Not Detected (Not Detect); Coronavirus 229E Not Detected (Not Detect); Coronavirus HKU1 Not Detected (Not Detect); Coronavirus NL63 Not Detected (Not Detect); Coronavirus OC43 Not Detected (Not Detect); Human Metapneumovirus Not Detected (Not Detect); Human Rhinovirus/Enterovirus Not Detected (Not Detect); Influenza A Subtype 2009 H1 Not Detected (Not Detect); Influenza B Not Detected (Not Detect); Mycoplasma pneumoniae Not Detected (Not Detect); Parainfluenza Virus 1 Not Detected (Not Detect); Parainfluenza Virus 2 Not Detected (Not Detect); Parainfluenza Virus 3 Not Detected (Not Detect); Parainfluenza Virus 4 Not Detected (Not Detect); Respiratory Syncytial Virus Not Detected (Not Detect); SARS-CoV-2 Not Detected (Not Detect)
[2020-06-28 14:27] LABS: Magnesium 1.8 mg/dL (1.6-2.6)
[2020-06-28] MEDS: Ondansetron 4 MG/2 ML VIAL IVP PRN ×2 (14:39→20:24)
[2020-06-28] MEDS: Insulin LISPRO 300 UNITS/3 ML VIAL SUBQ SCH ×3 (15:23→20:17)
[2020-06-28] MEDS: Piperacillin/Tazobactam 3.375 GM in 0.9 % Sodium Chloride Mini Bag 100 ML IVPB SCH ×2 (15:47→22:46)
[2020-06-28] MEDS: 0.9 % Sodium Chloride 1,000 ML IVC SCH ×2 (15:47→20:41)
[2020-06-28] MEDS: Acetaminophen 325 MG TABLET PO PRN (17:19)
[2020-06-28] MEDS ORDERED: Doxycycline 100 MG in 0.9 % Sodium Chloride Mini Bag 100 ML IVPB SCH (18:00)
[2020-06-28] MEDS: Doxycycline 100 MG in 0.9 % Sodium Chloride Mini Bag 100 ML IVPB SCH (20:25)
[2020-06-29] MEDS: Ondansetron 4 MG/2 ML VIAL IVP PRN ×3 (04:25→22:16)
[2020-06-29] MEDS: 0.9 % Sodium Chloride 1,000 ML IVC SCH ×3 (04:26→21:36)
[2020-06-29] MEDS: Piperacillin/Tazobactam 3.375 GM in 0.9 % Sodium Chloride Mini Bag 100 ML IVPB SCH ×3 (04:26→21:34)
[2020-06-29 04:47] LABS: Basophils % 0.3 %; Eosinophils % 0.3 %; Hematocrit 32.3 % (35.3-44.9); Immature Granulocytes % 0.6 % (0-4); Lymphocytes # 0.8 K/mcL (0.6-4.6); Lymphocytes % 8.2 %; Mean Corpuscular HGB Conc 31.6 g/dL (31.6-35.5); Mean Corpuscular Hemoglobin 29.7 pg (28.0-33.3); Mean Corpuscular Volume 94.2 fL (83.0-100.0); Mean Platelet Volume 10.6 fL (9.4-12.4); Monocytes # 1.1 K/mcL (0.0-1.3); Monocytes % 11.4 %; Neutrophils # 7.9 K/mcL (1.6-8.9); Platelet Count 126 K/mcL (140-400); Red Blood Count 3.43 M/mcL (3.82-4.97); Red Cell Distribution Width 13.9 % (11.5-14.5); Segmented Neutrophils % 79.2 %; White Blood Count 9.9 K/mcL (4.3-11.1)
[2020-06-29 04:48] LABS: Hemoglobin 10.2 g/dL (11.5-15.4)
[2020-06-29 05:07] LABS: Calcium 8.2 mg/dL (8.6-10.3); Phosphorous 3.4 mg/dL (2.7-4.5); Potassium 3.6 mEq/L (3.5-5.1)
[2020-06-29] MEDS: Insulin LISPRO 300 UNITS/3 ML VIAL SUBQ SCH ×4 (08:04→21:43)
[2020-06-29] MEDS: Doxycycline 100 MG in 0.9 % Sodium Chloride Mini Bag 100 ML IVPB SCH ×2 (10:26→22:15)
[2020-06-29] MEDS: *HR* Heparin 5,000 UNIT/ML VIAL SQ SCH ×2 (12:44→21:36)
[2020-06-30] MEDS: *HR* Heparin 5,000 UNIT/ML VIAL SQ SCH ×3 (05:57→20:15)
[2020-06-30] MEDS: Piperacillin/Tazobactam 3.375 GM in 0.9 % Sodium Chloride Mini Bag 100 ML IVPB SCH ×3 (05:58→23:05)
[2020-06-30] MEDS: Insulin LISPRO 300 UNITS/3 ML VIAL SUBQ SCH ×3 (08:18→17:36)
[2020-06-30] MEDS: 0.9 % Sodium Chloride 1,000 ML IVC SCH ×3 (11:25→21:00)
[2020-06-30] MEDS: Doxycycline 100 MG in 0.9 % Sodium Chloride Mini Bag 100 ML IVPB SCH (11:25)
[2020-06-30 13:37] LABS: Hematocrit 31.6 % (35.3-44.9); Hemoglobin 9.9 g/dL (11.5-15.4)
[2020-06-30 13:58] LABS: Calcium 8.1 mg/dL (8.6-10.3); Potassium 3.2 mEq/L (3.5-5.1)
[2020-06-30] MEDS ORDERED: Potassium Chloride Elixir 20 MEQ/15 ML UDC PO ONE (19:05)
[2020-06-30] MEDS: Ondansetron 4 MG/2 ML VIAL IVP PRN (23:12)
[2020-07-01] MEDS: Insulin LISPRO 300 UNITS/3 ML VIAL SUBQ SCH ×5 (05:02→20:33)
[2020-07-01] MEDS: Piperacillin/Tazobactam 3.375 GM in 0.9 % Sodium Chloride Mini Bag 100 ML IVPB SCH (05:22)
[2020-07-01] MEDS: *HR* Heparin 5,000 UNIT/ML VIAL SQ SCH ×3 (05:22→20:41)
[2020-07-01 10:42] LABS: Basophils % 0.7 %; Eosinophils # 0.1 K/mcL (0.0-0.6); Eosinophils % 2.6 %; Hemoglobin 9.7 g/dL (11.5-15.4); Immature Granulocytes % 0.6 % (0-4); Lymphocytes # 0.9 K/mcL (0.6-4.6); Lymphocytes % 16.8 %; Mean Corpuscular HGB Conc 31.3 g/dL (31.6-35.5); Mean Corpuscular Volume 92.5 fL (83.0-100.0); Mean Platelet Volume 10.9 fL (9.4-12.4); Monocytes # 0.6 K/mcL (0.0-1.3); Monocytes % 10.5 %; Neutrophils # 3.7 K/mcL (1.6-8.9); Platelet Count 142 K/mcL (140-400); Red Blood Count 3.35 M/mcL (3.82-4.97); Red Cell Distribution Width 13.6 % (11.5-14.5); Segmented Neutrophils % 68.8 %; White Blood Count 5.4 K/mcL (4.3-11.1)
[2020-07-01] MEDS ORDERED: Potassium Chloride Elixir 20 MEQ/15 ML UDC PO ONE (12:17)
[2020-07-01] MEDS ORDERED: hydrOXYzine pamoate 25 MG CAPSULE PO PRN (15:24)
[2020-07-01] MEDS: cefTRIAXone 2,000 MG in Water for inj. (sterile) 20 ML IVP SCH (18:00)
[2020-07-01] MEDS: 0.9 % Sodium Chloride 1,000 ML IVC SCH ×2 (18:16→18:17)
[2020-07-02 01:11] LABS: Campylobacter by PCR Not detected (Not detect)
[2020-07-02 01:12] LABS: Adenovirus F 40/41 PCR Not detected (Not detect); Astrovirus PCR Not detected (Not detect); Cryptosporidium by PCR Not detected (Not detect); Cyclospora cayetanensis PCR Not detected (Not detect); E. coli O157 by PCR Not detected (Not detect); Entamoeba histolytica PCR Not detected (Not detect); Enteroaggregative E.coli(EAEC) Not detected (Not detect); Enteropathogenic E.coli(EPEC) DETECTED (Not detect); Enterotoxigenic E.coli (ETEC) Not detected (Not detect); Giardia lamblia PCR Not detected (Not detect); Norovirus GI/GII PCR Not detected (Not detect); Plesiomonas shigelloides PCR Not detected (Not detect); Rotavirus A PCR Not detected (Not detect); Salmonella PCR Not detected (Not detect); Sapovirus PCR Not detected (Not detect); Shig/EnteroinvasiveE coli EIEC Not detected (Not detect); Shigalike tox-prod E coli STEC Not detected (Not detect); Vibrio PCR Not detected (Not detect); Vibrio cholerae PCR Not detected (Not detect); Yersinia enterocolitica PCR Not detected (Not detect)
[2020-07-02 01:13] LABS: C.difficile Toxin A/B Gene PCR DETECTED (Not detect)
[2020-07-02] MEDS: 0.9 % Sodium Chloride 1,000 ML IVC SCH ×4 (02:36→20:26)
[2020-07-02 04:45] LABS: Basophils % 0.5 %; Eosinophils # 0.1 K/mcL (0.0-0.6); Hematocrit 30.6 % (35.3-44.9); Hemoglobin 9.8 g/dL (11.5-15.4); Immature Granulocytes % 0.7 % (0-4); Lymphocytes # 1.1 K/mcL (0.6-4.6); Lymphocytes % 18.1 %; Mean Corpuscular Hemoglobin 29.6 pg (28.0-33.3); Mean Corpuscular Volume 92.4 fL (83.0-100.0); Mean Platelet Volume 10.8 fL (9.4-12.4); Monocytes # 0.6 K/mcL (0.0-1.3); Monocytes % 9.7 %; Platelet Count 158 K/mcL (140-400); Red Blood Count 3.31 M/mcL (3.82-4.97); Red Cell Distribution Width 13.4 % (11.5-14.5)
[2020-07-02] MEDS: Ondansetron 4 MG/2 ML VIAL IVP PRN ×2 (04:48→11:54)
[2020-07-02] MEDS: *HR* Heparin 5,000 UNIT/ML VIAL SQ SCH ×3 (04:48→20:24)
[2020-07-02 04:53] LABS: Neutrophils # 4.1 K/mcL (1.6-8.9)
[2020-07-02 05:07] LABS: BUN/Creatinine Ratio 9 (6-26); Blood Urea Nitrogen 10 mg/dL (8-23); Carbon Dioxide 22 mEq/L (23-29); Chloride 108 mEq/L (98-107); Glucose 92 mg/dL (70-105); Osmolality,Calculated 289 (280-300); Potassium 2.8 mEq/L (3.5-5.1); Sodium 140 mEq/L (136-145); eGFR For African Americans > 60 (> 60); eGFR For Non-African Americans 51 (> 60)
[2020-07-02 05:43] LABS: Platelet Estimate Normal (Normal); Reactive Lymphocytes Present (Not Present)
[2020-07-02 07:06] LABS: Magnesium 1.8 mg/dL (1.6-2.6)
[2020-07-02] MEDS: Insulin LISPRO 300 UNITS/3 ML VIAL SUBQ SCH ×4 (08:36→20:28)
[2020-07-02] MEDS: Cholecalciferol (D-3) 1,000 UNIT (25MCG) TABLET PO SCH (08:37)
[2020-07-02] MEDS: cefTRIAXone 2,000 MG in Water for inj. (sterile) 20 ML IVP SCH (15:37)
[2020-07-02] MEDS ORDERED: Potassium Chloride 20 MEQ, Lidocaine 1% 2 ML in 0.9 % Sodium Chloride 250 ML IVPB ONE (22:10)
[2020-07-02] MEDS ORDERED: Melatonin 3 MG TABLET PO ONE (22:58)
[2020-07-02] MEDS ORDERED: *HR* LORazepam 2 MG/ML VIAL IVP ONE (23:42)
[2020-07-03] MEDS: *HR* Heparin 5,000 UNIT/ML VIAL SQ SCH ×3 (04:54→22:20)
[2020-07-03] MEDS: 0.9 % Sodium Chloride 1,000 ML IVC SCH ×3 (04:54→16:04)
[2020-07-03 06:54] LABS: Basophils # 0.1 K/mcL (0.0-0.2); Basophils % 0.8 %; Eosinophils # 0.2 K/mcL (0.0-0.6); Eosinophils % 3.7 %; Hematocrit 33.4 % (35.3-44.9); Hemoglobin 10.3 g/dL (11.5-15.4); Immature Granulocytes % 1.2 % (0-4); Lymphocytes # 1.1 K/mcL (0.6-4.6); Lymphocytes % 19.1 %; Mean Corpuscular HGB Conc 30.8 g/dL (31.6-35.5); Mean Corpuscular Hemoglobin 28.6 pg (28.0-33.3); Mean Corpuscular Volume 92.8 fL (83.0-100.0); Mean Platelet Volume 11.2 fL (9.4-12.4); Monocytes # 0.5 K/mcL (0.0-1.3); Monocytes % 7.8 %; Platelet Count 193 K/mcL (140-400); Red Cell Distribution Width 13.5 % (11.5-14.5); Segmented Neutrophils % 67.4 %; White Blood Count 5.9 K/mcL (4.3-11.1)
[2020-07-03 07:15] LABS: BUN/Creatinine Ratio 7 (6-26); Blood Urea Nitrogen 7 mg/dL (8-23); Calcium 8.3 mg/dL (8.6-10.3); Carbon Dioxide 26 mEq/L (23-29); Chloride 108 mEq/L (98-107); Glucose 87 mg/dL (70-105); Osmolality,Calculated 293 (280-300); Potassium 2.9 mEq/L (3.5-5.1); Sodium 143 mEq/L (136-145); eGFR For African Americans > 60 (> 60); eGFR For Non-African Americans 53 (> 60)
[2020-07-03 07:24] LABS: Platelet Estimate Slight Decrease (Normal); Toxic Granulation Present (Not Present)
[2020-07-03] MEDS: Insulin LISPRO 300 UNITS/3 ML VIAL SUBQ SCH ×4 (07:29→20:52)
[2020-07-03] MEDS ORDERED: Potassium Chloride Elixir 20 MEQ/15 ML UDC PO ONE (08:04)
[2020-07-03] MEDS: Cholecalciferol (D-3) 1,000 UNIT (25MCG) TABLET PO SCH (09:00)
[2020-07-03 13:25] LABS: BUN/Creatinine Ratio 6 (6-26); Blood Urea Nitrogen 6 mg/dL (8-23); Calcium 8.5 mg/dL (8.6-10.3); Carbon Dioxide 25 mEq/L (23-29); Chloride 106 mEq/L (98-107); Glucose 81 mg/dL (70-105); Osmolality,Calculated 287 (280-300); Potassium 3.3 mEq/L (3.5-5.1); Sodium 140 mEq/L (136-145); eGFR For African Americans > 60 (> 60); eGFR For Non-African Americans 59 (> 60)
[2020-07-03] MEDS: cefTRIAXone 2,000 MG in Water for inj. (sterile) 20 ML IVP SCH (16:04)
[2020-07-03] MEDS ORDERED: *HR* LORazepam 2 MG/ML VIAL IVP ONE (21:54)
[2020-07-04] MEDS: 0.9 % Sodium Chloride 1,000 ML IVC SCH ×4 (04:56→22:55)
[2020-07-04] MEDS: *HR* Heparin 5,000 UNIT/ML VIAL SQ SCH ×3 (04:57→20:28)
[2020-07-04 06:55] LABS: Basophils # 0.1 K/mcL (0.0-0.2); Basophils % 0.9 %; Eosinophils # 0.3 K/mcL (0.0-0.6); Eosinophils % 3.1 %; Hematocrit 37.5 % (35.3-44.9); Hemoglobin 11.7 g/dL (11.5-15.4); Immature Granulocytes % 1.3 % (0-4); Lymphocytes # 2.2 K/mcL (0.6-4.6); Lymphocytes % 20.7 %; Mean Corpuscular HGB Conc 31.2 g/dL (31.6-35.5); Mean Corpuscular Hemoglobin 28.3 pg (28.0-33.3); Mean Corpuscular Volume 90.8 fL (83.0-100.0); Mean Platelet Volume 10.8 fL (9.4-12.4); Monocytes # 0.7 K/mcL (0.0-1.3); Monocytes % 6.3 %; Neutrophils # 7.1 K/mcL (1.6-8.9); Platelet Count 305 K/mcL (140-400); Red Blood Count 4.13 M/mcL (3.82-4.97); Red Cell Distribution Width 13.5 % (11.5-14.5); Segmented Neutrophils % 67.7 %
[2020-07-04 07:03] LABS: White Blood Count 10.5 K/mcL (4.3-11.1)
[2020-07-04 07:27] LABS: BUN/Creatinine Ratio 5 (6-26); Blood Urea Nitrogen 5 mg/dL (8-23); Calcium 8.7 mg/dL (8.6-10.3); Carbon Dioxide 24 mEq/L (23-29); Chloride 101 mEq/L (98-107); Glucose 109 mg/dL (70-105); Osmolality,Calculated 286 (280-300); Sodium 139 mEq/L (136-145); eGFR For African Americans > 60 (> 60); eGFR For Non-African Americans > 60 (> 60)
[2020-07-04] MEDS: Cholecalciferol (D-3) 1,000 UNIT (25MCG) TABLET PO SCH (08:16)
[2020-07-04] MEDS: Insulin LISPRO 300 UNITS/3 ML VIAL SUBQ SCH ×4 (08:16→20:29)
[2020-07-04] MEDS: Acetaminophen 325 MG TABLET PO PRN (10:34)
[2020-07-04] MEDS: cefTRIAXone 2,000 MG in Water for inj. (sterile) 20 ML IVP SCH (14:34)
[2020-07-05] MEDS: *HR* Heparin 5,000 UNIT/ML VIAL SQ SCH ×3 (01:55→20:48)
[2020-07-05] MEDS: Cholecalciferol (D-3) 1,000 UNIT (25MCG) TABLET PO SCH (08:44)
[2020-07-05] MEDS: Insulin LISPRO 300 UNITS/3 ML VIAL SUBQ SCH ×4 (08:44→20:49)
[2020-07-05] MEDS: 0.9 % Sodium Chloride 1,000 ML IVC SCH ×2 (12:18→20:48)
[2020-07-05] MEDS ORDERED: *HR* Propofol 200 MG/20 ML VIAL IVP ONE ×3 (14:02→14:32)
[2020-07-05] MEDS: cefTRIAXone 2,000 MG in Water for inj. (sterile) 20 ML IVP SCH (15:48)
[2020-07-05] MEDS: Ondansetron 4 MG/2 ML VIAL IVP PRN (20:48)
[2020-07-05] MEDS ORDERED: Famotidine 20 MG TABLET PO SCH (21:00)
[2020-07-06] MEDS: 0.9 % Sodium Chloride 1,000 ML IVC SCH ×2 (03:59→12:25)
[2020-07-06 04:41] LABS: Hematocrit 34.5 % (35.3-44.9); Hemoglobin 10.8 g/dL (11.5-15.4); Mean Corpuscular HGB Conc 31.3 g/dL (31.6-35.5); Mean Corpuscular Hemoglobin 28.7 pg (28.0-33.3); Mean Corpuscular Volume 91.8 fL (83.0-100.0); Mean Platelet Volume 10.8 fL (9.4-12.4); Platelet Count 240 K/mcL (140-400); Red Blood Count 3.76 M/mcL (3.82-4.97); Red Cell Distribution Width 13.9 % (11.5-14.5); White Blood Count 7.7 K/mcL (4.3-11.1)
[2020-07-06 04:51] LABS: BUN/Creatinine Ratio 6 (6-26); Blood Urea Nitrogen 5 mg/dL (8-23); Calcium 8.3 mg/dL (8.6-10.3); Carbon Dioxide 23 mEq/L (23-29); Chloride 106 mEq/L (98-107); Glucose 80 mg/dL (70-105); Osmolality,Calculated 290 (280-300); Potassium 3.1 mEq/L (3.5-5.1); Sodium 142 mEq/L (136-145); eGFR For African Americans > 60 (> 60); eGFR For Non-African Americans > 60 (> 60)
[2020-07-06] MEDS: *HR* Heparin 5,000 UNIT/ML VIAL SQ SCH ×2 (05:28→12:24)
[2020-07-06] MEDS ORDERED: *HR* Alteplase (Cathflo) 2 MG VIAL IVP ONE (09:20)
[2020-07-06] MEDS: Cholecalciferol (D-3) 1,000 UNIT (25MCG) TABLET PO SCH (10:15)
[2020-07-06] MEDS: Insulin LISPRO 300 UNITS/3 ML VIAL SUBQ SCH ×2 (10:16→12:26)
[2020-07-06 11:40] VITALS: BP 128/70
== END 2020-07-06 16:36 | disposition home health service (06) | DRG 987 ==
LOC: EMEROOARM 09:55 → 2ANU 09:55
PROVIDERS: ADMIT Internal Medicine; ATTEND Internal Medicine
PROC: IRLYMPH (2020-06-29 12:00)
PROC: ENDOEBX (2020-07-05 14:00)
PROC: ENDOCBX (2020-07-05 14:00)

== ENCOUNTER 2021-03-22 09:30 | Observation (INO) ==
[2021-03-22] MEDS ORDERED: Ondansetron 4 MG/2 ML VIAL IVP ONE (10:20)
[2021-03-22] MEDS ORDERED: 0.9 % Sodium Chloride 1,000 ML IVC ONE (10:20)
[2021-03-22 10:43] LABS: Influenza A PCR Negative (Negative); Influenza B PCR Negative (Negative); Resp. Syncytial Virus PCR Negative (Negative)
[2021-03-22 10:48] LABS: Basophils % 0.5 %; Eosinophils % 0.4 %; Hematocrit 32.8 % (35.3-44.9); Hemoglobin 10.7 g/dL (11.5-15.4); Immature Granulocytes % 0.3 % (0-4); Lymphocytes # 0.5 K/mcL (0.6-4.6); Lymphocytes % 7.3 %; Mean Corpuscular HGB Conc 32.6 g/dL (31.6-35.5); Mean Corpuscular Volume 101.2 fL (83.0-100.0); Mean Platelet Volume 10.3 fL (9.4-12.4); Monocytes # 0.7 K/mcL (0.0-1.3); Monocytes % 8.9 %; Neutrophils # 6.2 K/mcL (1.6-8.9); Platelet Count 225 K/mcL (140-400); Red Blood Count 3.24 M/mcL (3.82-4.97); Red Cell Distribution Width 13.4 % (11.5-14.5); Segmented Neutrophils % 82.6 %; White Blood Count 7.4 K/mcL (4.3-11.1)
[2021-03-22 10:50] LABS: SARS-CoV-2 by PCR (In House) Negative (Negative)
[2021-03-22 10:54] LABS: Bacteria,Urine Few per hpf (None-Few); Bilirubin,Urine Negative (Negative); Blood,Urine Trace (Negative); Clarity,Urine Turbid (Clear); Color,Urine Yellow (Yellow); Glucose,Urine (UA) Normal (Normal); Hyaline Casts,Urine Few per lpf (None Seen); Ketones,Urine Negative (Negative); Leukocyte Esterase,Urine Large (Negative); Mucus,Urine Few per lpf (None-Few); Nitrite,Urine Positive (Negative); Protein,Urine 50 mg/dL (Neg-Trace); Specific Gravity,Urine 1.016 (1.010-1.025); Squamous Epithelial Cell,Urine Few per hpf (None-Few); Urobilinogen,Urine Normal (Normal); WBC,Urine TNTC per hpf (0-3)
[2021-03-22 11:06] LABS: Alanine Aminotransferase 17 Units/L (7-52); Albumin 3.9 g/dL (3.5-5.7); Albumin/Globulin Ratio 1.3 (1.1-2.2); Alkaline Phosphatase 78 Units/L (34-104); Aspartate Amino Transferase 26 Units/L (13-39); BUN/Creatinine Ratio 14 (6-26); Bilirubin,Total 0.6 mg/dL (0.3-1.0); Blood Urea Nitrogen 21 mg/dL (8-23); Calcium 9.2 mg/dL (8.6-10.3); Carbon Dioxide 24 mEq/L (23-29); Chloride 105 mEq/L (98-107); Glucose 150 mg/dL (70-105); Osmolality,Calculated 290 (280-300); Potassium 3.6 mEq/L (3.5-5.1); Sodium 137 mEq/L (136-145); Total Protein 6.9 g/dL (6.4-8.9); Troponin I < 0.03 ng/mL (< 0.04); eGFR For African Americans 43 (> 60); eGFR For Non-African Americans 36 (> 60)
[2021-03-22] MEDS ORDERED: cefTRIAXone 1,000 MG in Water for inj. (sterile) 10 ML IVP ONE (11:10)
[2021-03-22] MEDS ORDERED: Naloxone 0.4 MG/ML INJ IVP PRN ×2 (11:52→14:46)
[2021-03-22] MEDS ORDERED: *HR* HYDROcodone/Acet 5/325 mg TABLET PO PRN ×2 (11:52→14:46)
[2021-03-22] MEDS ORDERED: Ondansetron 4 MG/2 ML VIAL IVP PRN (11:52)
[2021-03-22] MEDS ORDERED: Ringers Solution, Lactated 1,000 ML IVC SCH (12:00)
[2021-03-22] MEDS ORDERED: Metoclopramide 10 MG/2 ML VIAL IVP PRN (14:44)
[2021-03-22] MEDS: Ringers Solution, Lactated 1,000 ML IVC SCH (15:22)
[2021-03-22] MEDS: *HR* Heparin 5,000 UNIT/ML VIAL SQ SCH (17:24)
[2021-03-22] MEDS ORDERED: *HR* Heparin 5,000 UNIT/ML VIAL SQ SCH (18:00)
[2021-03-22] MEDS: Ondansetron 4 MG/2 ML VIAL IVP PRN (20:09)
[2021-03-23 05:11] LABS: Basophils % 0.6 %; Eosinophils % 0.8 %; Hematocrit 29.1 % (35.3-44.9); Hemoglobin 9.5 g/dL (11.5-15.4); Immature Granulocytes % 0.4 % (0-4); Lymphocytes % 20.3 %; Mean Corpuscular HGB Conc 32.6 g/dL (31.6-35.5); Mean Corpuscular Hemoglobin 33.6 pg (28.0-33.3); Mean Corpuscular Volume 102.8 fL (83.0-100.0); Mean Platelet Volume 11.2 fL (9.4-12.4); Monocytes # 0.5 K/mcL (0.0-1.3); Monocytes % 9.9 %; Neutrophils # 3.2 K/mcL (1.6-8.9); Platelet Count 193 K/mcL (140-400); Red Blood Count 2.83 M/mcL (3.82-4.97); Red Cell Distribution Width 13.3 % (11.5-14.5); White Blood Count 4.8 K/mcL (4.3-11.1)
[2021-03-23 05:30] LABS: Calcium 8.9 mg/dL (8.6-10.3); Potassium 3.6 mEq/L (3.5-5.1)
[2021-03-23] MEDS: Ringers Solution, Lactated 1,000 ML IVC SCH (05:38)
[2021-03-23] MEDS: *HR* Heparin 5,000 UNIT/ML VIAL SQ SCH ×2 (05:39→17:58)
[2021-03-23] MEDS: cefTRIAXone 1,000 MG in Water for inj. (sterile) 10 ML IVP SCH (08:50)
[2021-03-23] MEDS ORDERED: cefTRIAXone 1,000 MG in Water for inj. (sterile) 10 ML IVP SCH (09:00)
[2021-03-23] MEDS: Ondansetron 4 MG/2 ML VIAL IVP PRN (09:02)
[2021-03-24] MEDS: *HR* Heparin 5,000 UNIT/ML VIAL SQ SCH (05:30)
[2021-03-24] MEDS: cefTRIAXone 1,000 MG in Water for inj. (sterile) 10 ML IVP SCH (08:08)
[2021-03-24 10:15] VITALS: BP 106/70; PULSE 85; TEMP 98.9; O2SAT 96
== END 2021-03-24 13:20 | disposition home or self-care (01) ==
LOC: 3ANU 09:30 → EMEROOARM 09:30 → SUATTDRO 12:29 → 3ANU 13:57
PROVIDERS: ADMIT Internal Medicine; ATTEND Internal Medicine

== ENCOUNTER 2021-05-21 12:29 | Observation (INO) ==
[2021-05-21] MEDS ORDERED: 0.9 % Sodium Chloride 1,000 ML IV ONE (12:38)
[2021-05-21] MEDS ORDERED: Ondansetron 4 MG/2 ML VIAL IVP ONE (12:38)
[2021-05-21 13:05] LABS: Basophils % 0.4 %; Eosinophils % 0.1 %; Hematocrit 35.6 % (35.3-44.9); Hemoglobin 11.2 g/dL (11.5-15.4); Immature Granulocytes % 0.4 % (0-4); Lymphocytes # 0.8 K/mcL (0.6-4.6); Lymphocytes % 8.2 %; Mean Corpuscular HGB Conc 31.5 g/dL (31.6-35.5); Mean Corpuscular Hemoglobin 29.7 pg (28.0-33.3); Mean Corpuscular Volume 94.4 fL (83.0-100.0); Mean Platelet Volume 10.2 fL (9.4-12.4); Monocytes # 0.6 K/mcL (0.0-1.3); Monocytes % 6.2 %; Neutrophils # 8.2 K/mcL (1.6-8.9); Platelet Count 329 K/mcL (140-400); Red Blood Count 3.77 M/mcL (3.82-4.97); Red Cell Distribution Width 14.1 % (11.5-14.5); Segmented Neutrophils % 84.7 %; White Blood Count 9.7 K/mcL (4.3-11.1)
[2021-05-21 13:25] LABS: Alanine Aminotransferase 11 Units/L (7-52); Albumin 3.5 g/dL (3.5-5.7); Albumin/Globulin Ratio 0.9 (1.1-2.2); Alkaline Phosphatase 115 Units/L (34-104); Aspartate Amino Transferase 20 Units/L (13-39); BUN/Creatinine Ratio 24 (6-26); Bilirubin,Total 0.5 mg/dL (0.3-1.0); Blood Urea Nitrogen 24 mg/dL (8-23); Calcium 9.5 mg/dL (8.6-10.3); Carbon Dioxide 19 mEq/L (23-29); Chloride 100 mEq/L (98-107); Globulin 4.1 g/dL (2.4-3.5); Glucose 101 mg/dL (70-105); Lipase 22 Units/L (11-82); Osmolality,Calculated 282 (280-300); Potassium 3.5 mEq/L (3.5-5.1); Sodium 134 mEq/L (136-145); Total Protein 7.6 g/dL (6.4-8.9); eGFR For African Americans > 60 (> 60); eGFR For Non-African Americans 55 (> 60)
[2021-05-21] MEDS ORDERED: Metoclopramide 10 MG/2 ML VIAL IVP ONE (14:02)
[2021-05-21] MEDS ORDERED: Isovue-370 500 ML BOTTLE IVP ONE (14:02)
[2021-05-21] MEDS ORDERED: Ondansetron 4 MG/2 ML VIAL IVP PRN (16:45)
[2021-05-21] MEDS ORDERED: Melatonin 3 MG TABLET PO PRN (16:45)
[2021-05-21] MEDS ORDERED: Mag Hydrox/Al Hydrox/Simeth 30 ML UDC PO PRN (16:45)
[2021-05-21] MEDS ORDERED: Naloxone 0.4 MG/ML INJ IVP PRN (16:45)
[2021-05-21] MEDS ORDERED: MOM Conc 10 ML UD.LIQ PO PRN (16:45)
[2021-05-21] MEDS: 0.9 % Sodium Chloride 1,000 ML IVC SCH (18:02)
[2021-05-22] MEDS: 0.9 % Sodium Chloride 1,000 ML IVC SCH (04:44)
[2021-05-22 05:50] LABS: Mean Corpuscular Hemoglobin 29.6 pg (28.0-33.3); Mean Corpuscular Volume 95.7 fL (83.0-100.0); Mean Platelet Volume 10.6 fL (9.4-12.4); Platelet Count 264 K/mcL (140-400); Red Blood Count 3.24 M/mcL (3.82-4.97); Red Cell Distribution Width 14.4 % (11.5-14.5); White Blood Count 7.9 K/mcL (4.3-11.1)
[2021-05-22 05:52] LABS: Hemoglobin 9.6 g/dL (11.5-15.4)
[2021-05-22 06:06] LABS: BUN/Creatinine Ratio 19 (6-26); Blood Urea Nitrogen 18 mg/dL (8-23); Calcium 8.5 mg/dL (8.6-10.3); Carbon Dioxide 21 mEq/L (23-29); Chloride 105 mEq/L (98-107); Glucose 74 mg/dL (70-105); Osmolality,Calculated 289 (280-300); Potassium 3.6 mEq/L (3.5-5.1); Sodium 139 mEq/L (136-145); eGFR For African Americans > 60 (> 60); eGFR For Non-African Americans 59 (> 60)
[2021-05-22 06:36] VITALS: BP 102/60; PULSE 83; TEMP 98.8; O2SAT 95
== END 2021-05-22 12:51 | disposition home or self-care (01) ==
LOC: 3BNU 12:29 → EMEROOARM 12:29 → SUATTDRO 16:00 → 3BNU 17:25
PROVIDERS: ADMIT Student in an Organized Health Care Education/Training Program; ATTEND Registered Nurse